=== PATIENT | female | born 1940 | race Asian ===

== ENCOUNTER 2019-07-01 06:13 | Inpatient (IN) | payer MEDICARE, OTHER ==
[~2019-07-01] VITALS: Ht 160 cm; Wt 69.9 kg
[~2019-07-01 06:13] MED LIST: MECLIZINE HCL25 MG ORAL; NKM
[2019-07-01 06:15] VITALS: BP 110/70
--- NOTE | 2019-07-01 06:15 | NUR ---
ED Nurse Note: Patient MARINA [id number] from home c/o left abdominal pain x2 weeks and got worse last night. Per pt, she was seen at the hospital 5 days ago for same symptoms and that fluids was taken from her abdomen. Pt had abdominal surgery x2.5 years ago for unspecified reason. Per EMS, patient presents afib on EKG. Denies nausea, vomiting and diarrhea. Afebrile. 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 Will cont to monitor.
--- NOTE | 2019-07-01 06:20 | NUR ---
ED Nurse Note: ERMD at bedside.
--- NOTE | 2019-07-01 06:29 | Emergency Room Report ---
History of Present Illness General Chief Complaint: Abdominal Pain Source: Patient Present Illness HPI 78-year-old female, Sinhala speaking, scented with left-sided abdominal pain. History taken from patient and . 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 Patient states she has had left-sided abdominal pain for the past few days. Denies fevers, nausea, vomiting. Pain in the abdomen is left-sided, 10 out of 10, nonradiating. According to the patient recently admitted to [facility] and had paracentesis. No fevers. No coughing. No urinary complaints. Patient has a history of abdominal surgeries but cannot say what the surgery was. Allergies: Coded Allergies: No Known Allergies (Unverified , 03/06/16) Patient History Past Medical History: see triage record Reviewed Nursing Documentation: PMH: Agreed; PSxH: Agreed Nursing Documentation-PMH Past Medical History Deferred: No Family Available Review of Systems All Other Systems: negative except mentioned in HPI Physical Exam Vital Signs Date Time Temp Pulse Resp B/P (MAP) Pulse Ox O2 Delivery O2 Flow Rate FiO2 07/01/19 06:04 97.9 60 16 110/70 (83) 98 Room Air Sp02 EP Interpretation: reviewed, normal General Appearance: well appearing, no apparent distress Head: normocephalic, atraumatic Eyes: bilateral eye PERRL, bilateral eye EOMI ENT: hearing grossly normal, moist mucus membranes Neck: full range of motion, supple Respiratory: lungs clear, normal breath sounds, no rhonchi, no respiratory distress, no retraction, no wheezing Cardiovascular #1: normal peripheral pulses, regular rate, rhythm, no murmur Gastrointestinal: soft, non-distended, other - Left-sided abdominal tenderness with guarding, large healed midline abdominal scar Musculoskeletal: other - Bilateral lower extremity edema noted 2+ up to the knee Neurologic: alert, oriented x3, no focal defects Skin: normal color, warm/dry Procedures Critical Care Time Critical Care Time Critical care is been on the patient due to presentation with perforated viscus and intra-abdominal free air requiring my acute intervention. Critical care time is approximately 36 minutes and excludes procedures. Medical Decision Making Diagnostic Impression: Primary Impression: Perforated abdominal viscus Additional Impression: Free intraperitoneal air ER Course Differential diagnosis included but not limited to peritonitis, perforated viscus, diverticulitis, colitis, ascites to name a few. Vital signs were stable. Abdominal exam did demonstrate peritoneal signs. CT scan of the abdomen and pelvis was ordered and demonstrated intraperitoneal free air concerning for perforated viscus. Patient given broad-spectrum antibiotics. CT scan also demonstrated evidence of prior gastrectomy with Nolan-en-Y procedure. Case discussed with Dr. Hawkins, general surgery who agreed to consult. Patient admitted to Dr. Keenan. Patient and family updated at bedside Laboratory Tests Test 07/01/19 07:10 07/01/19 08:30 White Blood Count 3.6 K/UL (4.8-10.8) L Red Blood Count 3.27 M/UL (4.20-5.40) L Hemoglobin 10.2 G/DL (12.0-16.0) L Hematocrit 29.4 % (37.0-47.0) L Mean Corpuscular Volume 90 FL (80-99) Mean Corpuscular Hemoglobin 31.1 PG (27.0-31.0) H Mean Corpuscular Hemoglobin Concent 34.6 G/DL (32.0-36.0) Red Cell Distribution Width 15.0 % (11.6-14.8) H Platelet Count 164 K/UL (150-450) Mean Platelet Volume 7.9 FL (6.5-10.1) Neutrophils (%) (Auto) 84.9 % (45.0-75.0) H Lymphocytes (%) (Auto) 9.3 % (20.0-45.0) L Monocytes (%) (Auto) 4.9 % (1.0-10.0) Eosinophils (%) (Auto) 0.2 % (0.0-3.0) Basophils (%) (Auto) 0.7 % (0.0-2.0) Prothrombin Time 12.0 SEC (9.30-11.50) H Prothrombin Time INR 1.1 (0.9-1.1) Activated Partial Thromboplast Time 25 SEC (23-33) Sodium Level 145 MMOL/L (136-145) Potassium Level 3.5 MMOL/L (3.5-5.1) Chloride Level 108 MMOL/L (98-107) H Carbon Dioxide Level 26 MMOL/L (21-32) Anion Gap 11 mmol/L (5-15) Blood Urea Nitrogen 26 mg/dL (7-18) H Creatinine 1.1 MG/DL (0.55-1.30) Estimate Glomerular Filtration Rate 48.0 mL/min (>60) Glucose Level 95 MG/DL (74-106) Calcium Level 8.2 MG/DL (8.5-10.1) L Total Bilirubin 0.7 MG/DL (0.2-1.0) Aspartate Amino Transferase (AST) 36 U/L (15-37) Alanine Aminotransferase (ALT) 33 U/L (12-78) Alkaline Phosphatase 102 U/L (46-116) Total Protein 4.6 G/DL (6.4-8.2) L Albumin 2.0 G/DL (3.4-5.0) L Globulin 2.6 g/dL Albumin/Globulin Ratio 0.8 (1.0-2.7) L Lipase 31 U/L (73-393) L Lactic Acid Level 1.90 mmol/L (0.4-2.0) Rhythm Strip Diag. Results EP Interpretation: yes Rate: 90 Rhythm: NSR, no PVC's, no ectopy CT/MRI/US Diagnostic Results CT/MRI/US Diagnostic Results : Imaging Test Ordered: CT scan of the abdomen and pelvis without contrast Impression Impression: Limited assessment of the GI tract, due to lack of enteric contrast administration. Small amount of free intraperitoneal air demonstrated, with gas seen in the anterior midline peritoneal space as well as within the left upper quadrant mesentery. This is consistent with perforated hollow viscus. Source of perforation indeterminate, although quite possibly in the left upper quadrant and possibly related to the stomach. Postsurgical changes, as described, with evidence of prior distal gastrectomy, gastrojejunostomy, and likely Nolan-en-Y anastomosis Mild prominence and equivocal slight wall thickening of the proximal jejunum, if real could represent reactive changes secondary to the above process or could represent primarily enteritis Moderate ascites Anasarca Markedly fatty liver Evidence of prior cholecystectomy Incidental findings as noted, including degenerative spondylosis changes, as do dependent pulmonary atelectatic changes, bilateral sacroiliac joint degenerative changes, right upper pole renal cyst, nonobstructive bilateral renal calculi Last Vital Signs Date Time Temp Pulse Resp B/P (MAP) Pulse Ox O2 Delivery O2 Flow Rate FiO2 07/01/19 06:04 97.9 60 16 110/70 (83) 98 Room Air Status: improved Disposition: ADMITTED INPATIENT Condition: Critical Physician Consult: Wally Andino M.D. Jul 01, 2019 06:29
[2019-07-01] MEDS ORDERED: Morphine Sulfate 2mg/ml Inj(IV/IM USE ONLY) IVP ONE ×2 (06:30→08:45)
--- NOTE | 2019-07-01 07:05 | NUR ---
HAND-OFF: Report given to Ronnell CEVALLOS. Endorsed plan of care.
--- NOTE | 2019-07-01 07:10 | NUR ---
ED Nurse Note: Handoff report received from Tuyet CEVALLOS. Patient resting in bed, on the quality assurance monitor. IV line unable to be obtained, Dr. Vogel notified. Per MD, he stated no IV is necessary at the moment. d/t blood glucose reading in the 80's en route to hospital, and current reading of 71 in hospital, will recheck BG to see if trending down. IV morphine order changed to IM per Dr. Vogel.
[2019-07-01] MEDS ORDERED: Morphine Sulfate 2mg/ml Inj(IV/IM USE ONLY) IM ONE (07:15)
--- NOTE | 2019-07-01 07:25 | NUR ---
ED Nurse Note: Patient taken to CT.
--- NOTE | 2019-07-01 07:30 | NUR ---
HAND-OFF: Report given to Kristi CEVALLOS. Addendum: 07/01/19 at 2000 by Michelle Herrera RN NURSE NOTES: Edit. wrong time. Hand off to Kristi CEVALLOS done at 1930
[2019-07-01 07:33] LABS: INR 1.1 (0.9-1.1)
[2019-07-01 07:38] LABS: ANION GAP 11 mmol/L (5-15); BLOOD UREA NITROGEN 26 mg/dL (7-18); CALCIUM 8.2 MG/DL (8.5-10.1); CARBON DIOXIDE 26 MMOL/L (21-32); CHLORIDE 108 MMOL/L (98-107); CREATININE 1.1 MG/DL (0.55-1.30); POTASSIUM 3.5 MMOL/L (3.5-5.1); SODIUM 145 MMOL/L (136-145)
--- NOTE | 2019-07-01 07:40 | NUR ---
ED Nurse Note: Patient returned from CT.
[2019-07-01 07:43] LABS: ALANINE AMINOTRANSFERASE 33 U/L (12-78); ALBUMIN/GLOBULIN RATIO 0.8 (1.0-2.7); ALKALINE PHOSPHATASE 102 U/L (46-116); ASPARTATE AMINO TRANSFERASE 36 U/L (15-37); BILIRUBIN,TOTAL 0.7 MG/DL (0.2-1.0)
[2019-07-01 07:45] VITALS: BP 105/75
[2019-07-01 07:52] LABS: BASOPHILS % (AUTO) 0.7 % (0.0-2.0); EOSINOPHILS % (AUTO) 0.2 % (0.0-3.0); HEMATOCRIT 29.4 % (37.0-47.0); HEMOGLOBIN 10.2 G/DL (12.0-16.0); LYMPHOCYTES % (AUTO) 9.3 % (20.0-45.0); MEAN CORPUSCULAR VOLUME 90 FL (80-99); MONOCYTES % (AUTO) 4.9 % (1.0-10.0); NEUTROPHILS % (AUTO) 84.9 % (45.0-75.0); PLATELET COUNT 164 K/UL (150-450); RED BLOOD COUNT 3.27 M/UL (4.20-5.40); WHITE BLOOD COUNT 3.6 K/UL (4.8-10.8)
--- NOTE | 2019-07-01 08:40 | NUR ---
ED Nurse Note: 20 g IV started in right AC. Lactic and blood cultures drawn and sent to lab.
--- NOTE | 2019-07-01 08:43 | Diagnostic Imaging Report ---
Indication: Left-sided abdominal pain for the past few days Technique: Spiral acquisitions obtained through the abdomen and pelvis. No oral contrast utilized, per emergency room physician request No IV contrast utilized, per emergency room physician request.. Multiplanar reconstructions were generated. Total dose length product 159 mGycm. CTDIvol(s) 2.8 mGy. Dose reduction achieved using automated exposure control Comparison: None Findings: Lack of enteric contrast limits assessment of the GI tract. There is ascites fluid. There is a small amount of free intraperitoneal gas within the anterior peritoneal space. A few bubbles of gas are also seen within the left upper quadrant mesenteric fat. These are seen along the greater curvature of the stomach and a few posterior to the stomach. There is also a single small gas bubble in the sugey hepatis. There is evidence of prior distal gastrectomy and gastrojejunostomy. There is also a jejunojejunostomy suture line in the upper abdominal midline. Surgical clips are also seen in the peripancreatic region The appendix is normal. Small bowel loops are mildly prominent and demonstrate mild wall thickening proximally. The distal esophagus is unremarkable. Lack of IV contrast limits assessment of the solid organs. The liver is diffusely markedly hypoattenuating. It is essentially isoattenuating with the surrounding ascites fluid. The gallbladder has been removed. No biliary ductal dilatation. The pancreas, spleen, adrenal glands are grossly unremarkable. The right kidney demonstrates a large upper pole cyst. It demonstrates a calcification which measures approximately 3 mm in diameter and is possibly calyceal. The left kidney demonstrates an upper pole calyceal calcification. No hydronephrosis. No pelvic mass or adenopathy. Uterus and adnexal structures appear unremarkable. There is diffuse edema of the subcutaneous, abdominal, retroperitoneal fat. The included lung bases demonstrate some posterior dependent atelectatic changes, are otherwise clear. The bones demonstrate degenerative spondylosis changes.. There are also degenerative changes with vacuum formation of the bilateral sacroiliac joints. Impression: Limited assessment of the GI tract, due to lack of enteric contrast administration. Small amount of free intraperitoneal air demonstrated, with gas seen in the anterior midline peritoneal space as well as within the left upper quadrant mesentery. This is consistent with perforated hollow viscus. Source of perforation indeterminate, although quite possibly in the left upper quadrant and possibly related to the stomach. Postsurgical changes, as described, with evidence of prior distal gastrectomy, gastrojejunostomy, and likely Nolan-en-Y anastomosis Mild prominence and equivocal slight wall thickening of the proximal jejunum, if real could represent reactive changes secondary to the above process or could represent primarily enteritis Moderate ascites Anasarca Markedly fatty liver Evidence of prior cholecystectomy Incidental findings as noted, including degenerative spondylosis changes, as do dependent pulmonary atelectatic changes, bilateral sacroiliac joint degenerative changes, right upper pole renal cyst, nonobstructive bilateral renal calculi Critical value findings discussed by phone with Dr. Vogel in the emergency room at the time of interpretation The CT scanner at [facility] is accredited by the [employer] and the scans are performed using protocols designed to limit radiation exposure to as low as reasonably achievable to attain images of sufficient resolution adequate for diagnostic evaluation.
--- NOTE | 2019-07-01 08:44 | Diagnostic Imaging Report ---
Indication: Chest pain Technique: One view of the chest Comparison: 03/06/2016 Findings: Small gas bubble projects just below the right hemidiaphragm. Lungs spaces are clear. The heart size is normal. The aorta is tortuous and calcified. Findings are unchanged other than the subdiaphragmatic gas bubble Impression: No acute pulmonary process Small gas bubble just below the right hemidiaphragm, could represent free intraperitoneal gas demonstrated on subsequent CT scan
[2019-07-01] MEDS ORDERED: Piperacillin/Tazobactam 4.5 GM in NS 110 ML IVPB ONE (09:00)
--- NOTE | 2019-07-01 09:16 | NUR ---
ED Nurse Note: Patient resting in bed, tolerating medications well. Zosyn infusing. Patient states her abdominal pain decreased to 0/10 after receiving Morphine. Patient still unable to provide urine, wants to try later. Dr. Wagner aware.
[2019-07-01 09:40] VITALS: BP 108/78
--- NOTE | 2019-07-01 10:15 | NUR ---
ED Nurse Note: Swabs collected and belonging list completed.
--- NOTE | 2019-07-01 10:20 | NUR ---
ED Nurse Note: Per ahmet Sánchez to send patient up to room without urine. Molly Medina RN on MS unit aware.
--- NOTE | 2019-07-01 10:30 | NUR ---
ED Nurse Note: Report given to Molly CEVALLOS
--- NOTE | 2019-07-01 11:00 | NUR ---
NURSE NOTES: Patient arrived to unit from ED, no acute distress noted, reporting abdominal pain, mild distention noted. IV intact, patent. Belongings checked by charge nurse. Patient provided with call light, oriented to room.
--- NOTE | 2019-07-01 12:33 | NUR ---
CHARGE NURSE NOTES: Received phone call from admitting stating that the pt belongs to Dr Rhoades per insurance. left message to Dr Keenan's voicemail
--- NOTE | 2019-07-01 12:51 | General Progress Note ---
Assessment/Plan Assessment/Plan: Anemia Ascites hemialbumin partial gastrectomy fatty liver ? perforated viscus npo agree with repeat paracentesis abx ordered labs for tomorrow fu surg recs Subjective ROS Limited/Unobtainable: Yes Allergies: Coded Allergies: No Known Allergies (Unverified , 03/06/16) Objective Last 24 Hour Vital Signs Date Time Temp Pulse Resp B/P (MAP) Pulse Ox O2 Delivery O2 Flow Rate FiO2 07/01/19 09:40 98.0 87 18 108/78 100 Room Air 07/01/19 09:19 98.0 07/01/19 07:50 98.0 07/01/19 07:45 98.1 65 17 105/75 100 Room Air 07/01/19 06:15 97.9 60 16 110/70 98 Room Air 07/01/19 06:15 60 16 Room Air 07/01/19 06:04 97.9 60 16 110/70 (83) 98 Room Air Laboratory Tests 07/01/19 07:10: White Blood Count 3.6L, Red Blood Count 3.27L, Hemoglobin 10.2L, Hematocrit 29.4L, Mean Corpuscular Volume 90, Mean Corpuscular Hemoglobin 31.1H, Mean Corpuscular Hemoglobin Concent 34.6, Red Cell Distribution Width 15.0H, Platelet Count 164, Mean Platelet Volume 7.9, Neutrophils (%) (Auto) 84.9H, Lymphocytes (%) (Auto) 9.3L, Monocytes (%) (Auto) 4.9, Eosinophils (%) (Auto) 0.2, Basophils (%) (Auto) 0.7, Prothrombin Time 12.0H, Prothromb Time International Ratio 1.1, Activated Partial Thromboplast Time 25, Sodium Level 145, Potassium Level 3.5, Chloride Level 108H, Carbon Dioxide Level 26, Anion Gap 11, Blood Urea Nitrogen 26H, Creatinine 1.1, Estimat Glomerular Filtration Rate 48.0, Glucose Level 95, Calcium Level 8.2L, Total Bilirubin 0.7, Aspartate Amino Transf (AST/SGOT) 36, Alanine Aminotransferase (ALT/SGPT) 33, Alkaline Phosphatase 102, Total Protein 4.6L, Albumin 2.0L, Globulin 2.6, Albumin/ Globulin Ratio 0.8L, Lipase 31L 07/01/19 08:30: Lactic Acid Level 1.90 Height (Feet): 5 Height (Inches): 4.00 Weight (Pounds): 120 General Appearance: alert EENT: normal ENT inspection Neck: normal alignment Cardiovascular: normal rate Respiratory/Chest: decreased breath sounds Abdomen: hypoactive bowel sounds, tender Extremities: non-tender Rodney Neri MD Jul 01, 2019 12:51
[2019-07-01] MEDS ORDERED: Morphine Sulfate 2mg/ml Inj(IV/IM USE ONLY) IVP PRN (13:00)
[2019-07-01] MEDS ORDERED: FUROSEMIDE20 M1 ORAL (13:47)
[2019-07-01] MEDS ORDERED: COLACE100 MG ORAL (13:47)
--- NOTE | 2019-07-01 14:09 | Consultation ---
History of Present Illness General Date patient seen: Jul 01, 2019 Reason for Hospitalization: Abdominal Pain Present Illness Allergies: Coded Allergies: No Known Allergies (Unverified , 03/06/16) Medication History Scheduled Docusate Sodium* (Colace*), Unknown Dose ORAL DAILY, (Reported) Furosemide* (Lasix*), Unknown Dose ORAL DAILY, (Reported) Patient History Limited by: language barrier History Provided By: Patient, Family Member, Medical Record, PMD Healthcare decision maker Jose Yu Resuscitation status Full Code Advanced Directive on File Past Medical/Surgical History Past Medical/Surgical History: (1) Free intraperitoneal air (2) Perforated abdominal viscus Review of Systems Review of Symptoms General ROS: no weight loss or fever Psychological ROS: no depression or mood changes, no memory loss Ophthalmic ROS: no visual changes or eye irritation ENT ROS: no nasal congestion, hearing loss, dizziness Allergy and Immunology ROS: no allergic symptoms or urticaria Hematological and Lymphatic ROS: no swollen glands, unusual bleeding or bruising Endocrine ROS: no polyuria, polydipsia, weight changes, temperature intolerance Respiratory ROS: no cough, shortness of breath, or wheezing Cardiovascular ROS: no chest pain or dyspnea on exertion Gastrointestinal ROS: +++abdominal pain, bright red blood in stool. Musculoskeletal ROS: no myalgias or arthralgias Neurological ROS: no TIA or stroke symptoms Dermatological ROS: no new or changing skin lesions, rashes or pruritis Physical Exam Physical Exam General appearance: alert, cooperative, no distress, appears stated age Head: Normocephalic, without obvious abnormality, atraumatic Eyes: conjunctivae/corneas clear. PERRL, EOM's intact. Fundi benign Throat: Lips, mucosa, and tongue normal. Teeth and gums normal Neck: supple, symmetrical, trachea midline, no adenopathy, thyroid: not enlarged, symmetric, no tenderness/mass/nodules, no carotid bruit and no JVD Lungs: clear to auscultation bilaterally Heart: regular rate and rhythm, S1, S2 normal, no murmur, click, rub or gallop Abdomen: soft, tender. Bowel sounds normal. No masses, no organomegaly Extremities: extremities normal, atraumatic, no cyanosis or edema Pulses: 2+ and symmetric Skin: Skin color, texture, turgor normal. No rashes or lesions Neurologic: Grossly normal Last 24 Hour Vital Signs Date Time Temp Pulse Resp B/P (MAP) Pulse Ox O2 Delivery O2 Flow Rate FiO2 07/01/19 10:40 98.0 65 18 108/78 100 Room Air 87 07/01/19 09:40 98.0 87 18 108/78 100 Room Air 07/01/19 09:19 98.0 07/01/19 07:50 98.0 07/01/19 07:45 98.1 65 17 105/75 100 Room Air 07/01/19 06:15 97.9 60 16 110/70 98 Room Air 07/01/19 06:15 60 16 Room Air 07/01/19 06:04 97.9 60 16 110/70 (83) 98 Room Air Laboratory Tests Test 07/01/19 07:10 07/01/19 08:30 White Blood Count 3.6 K/UL (4.8-10.8) L Red Blood Count 3.27 M/UL (4.20-5.40) L Hemoglobin 10.2 G/DL (12.0-16.0) L Hematocrit 29.4 % (37.0-47.0) L Mean Corpuscular Volume 90 FL (80-99) Mean Corpuscular Hemoglobin 31.1 PG (27.0-31.0) H Mean Corpuscular Hemoglobin Concent 34.6 G/DL (32.0-36.0) Red Cell Distribution Width 15.0 % (11.6-14.8) H Platelet Count 164 K/UL (150-450) Mean Platelet Volume 7.9 FL (6.5-10.1) Neutrophils (%) (Auto) 84.9 % (45.0-75.0) H Lymphocytes (%) (Auto) 9.3 % (20.0-45.0) L Monocytes (%) (Auto) 4.9 % (1.0-10.0) Eosinophils (%) (Auto) 0.2 % (0.0-3.0) Basophils (%) (Auto) 0.7 % (0.0-2.0) Prothrombin Time 12.0 SEC (9.30-11.50) H Prothromb Time International Ratio 1.1 (0.9-1.1) Activated Partial Thromboplast Time 25 SEC (23-33) Sodium Level 145 MMOL/L (136-145) Potassium Level 3.5 MMOL/L (3.5-5.1) Chloride Level 108 MMOL/L (98-107) H Carbon Dioxide Level 26 MMOL/L (21-32) Anion Gap 11 mmol/L (5-15) Blood Urea Nitrogen 26 mg/dL (7-18) H Creatinine 1.1 MG/DL (0.55-1.30) Estimat Glomerular Filtration Rate 48.0 mL/min (>60) Glucose Level 95 MG/DL (74-106) Calcium Level 8.2 MG/DL (8.5-10.1) L Total Bilirubin 0.7 MG/DL (0.2-1.0) Aspartate Amino Transf (AST/SGOT) 36 U/L (15-37) Alanine Aminotransferase (ALT/SGPT) 33 U/L (12-78) Alkaline Phosphatase 102 U/L (46-116) Total Protein 4.6 G/DL (6.4-8.2) L Albumin 2.0 G/DL (3.4-5.0) L Globulin 2.6 g/dL Albumin/Globulin Ratio 0.8 (1.0-2.7) L Lipase 31 U/L (73-393) L Lactic Acid Level 1.90 mmol/L (0.4-2.0) Height (Feet): 5 Height (Inches): 3.00 Weight (Pounds): 118 Medications Current Medications Medications (Trade) Dose Ordered Sig/Margie Route PRN Reason Start Time Stop Time Status Last Admin Dose Admin Dextrose/Sodium Chloride 1,000 ml @ 100 mls/hr Q10H IV 07/01/19 13:30 07/31/19 13:29 Morphine Sulfate (Morphine Sulfate) 2 mg Q6H PRN IVP PAIN 4-10 07/01/19 13:00 07/08/19 12:59 Pantoprazole (Protonix) 40 mg DAILY IVP 07/01/19 13:30 07/31/19 13:29 Piperacillin Sod/ Tazobactam Sod 4.5 gm/Sodium Chloride 110 ml @ 27.5 mls/hr EVERY 8 HOURS IVPB 07/01/19 14:30 07/06/19 14:29 Assessment/Plan Problem List: (1) Abdominal pain Assessment & Plan: This is a 78-year-old female who presented to [facility] complaining of worsening abdominal pain. A manager activities was used to obtain history from the patient as well as the given Yi speaking. is able to speak somewhat Maldivian but his Maldivian is not good enough for complete translation therefore translation services were used. I had a long discussion with them in regards to admission current symptoms and care. As from what I could determine she had a partial gastrectomy about 2-1/2 years ago for unknown reason potentially ulcer perforation. She has a large midline incision from xiphoid down almost to the pubis. She has since developed ascites though no known liver dysfunction and recently as of yesterday from patient stating had a paracentesis done at an outside facility. States continues to have pain and she feels she is full of fluid and distended and it causes her discomfort therefore she came here for evaluation. No nausea vomiting fever chills. Does not eat well. Malnourished. Surgery called to evaluate and assist with care. CT scan demonstrated some bubbles of free air and ascites fluid. In evaluating the patient on examination she is fairly tender in all quadrants. She states she just feels like she is full of fluid. I reviewed the CT personally and discussed with the radiologist Given the minimal amount of free air and significant free fluid there is a high probability that since patient states her paracentesis and yesterday the residual free air is from that was longer as potentially believed to be a few days ago but then there is strong possibility and concern for bowel perforation but paracentesis less than 24 hours ago and a few air bubbles could potentially be unremarkable. Patient is afebrile otherwise hemodynamic stable and without signs of acute active infectious process and the potential bowel perforation is there but lower on the differential. She could have a bowel perforation now has peritonitis in the ascites fluid but directly in her age and condition going the operating room is still advised. I discussed with the radiologist and plan for repeat paracentesis. Potentially symptomatic improvement once fluid is evacuated and can also send fluid for culture and microbiology and cytology to evaluate for the possibility of infectious process or perforation ongoing. Discussed with primary care physician patient and family. Will follow with recommendations thank you for let me participate patient's care ICD Codes: R10.9 - Unspecified abdominal pain SNOMED: 44804520 (2) Free intraperitoneal air Assessment & Plan: Lack of enteric contrast limits assessment of the GI tract. There is ascites fluid. There is a small amount of free intraperitoneal gas within the anterior peritoneal space. A few bubbles of gas are also seen within the left upper quadrant mesenteric fat. These are seen along the greater curvature of the stomach and a few posterior to the stomach. There is also a single small gas bubble in the sugey hepatis. There is evidence of prior distal gastrectomy and gastrojejunostomy. There is also a jejunojejunostomy suture line in the upper abdominal midline. Surgical clips are also seen in the peripancreatic region The appendix is normal. Small bowel loops are mildly prominent and demonstrate mild wall thickening proximally. The distal esophagus is unremarkable. Lack of IV contrast limits assessment of the solid organs. The liver is diffusely markedly hypoattenuating. It is essentially isoattenuating with the surrounding ascites fluid. The gallbladder has been removed. No biliary ductal dilatation. The pancreas, spleen, adrenal glands are grossly unremarkable. The right kidney demonstrates a large upper pole cyst. It demonstrates a calcification which measures approximately 3 mm in diameter and is possibly calyceal. The left kidney demonstrates an upper pole calyceal calcification. No hydronephrosis. No pelvic mass or adenopathy. Uterus and adnexal structures appear unremarkable. There is diffuse edema of the subcutaneous, abdominal, retroperitoneal fat. The included lung bases demonstrate some posterior dependent atelectatic changes, are otherwise clear. The bones demonstrate degenerative spondylosis changes.. There are also degenerative changes with vacuum formation of the bilateral sacroiliac joints. Impression: Limited assessment of the GI tract, due to lack of enteric contrast administration. Small amount of free intraperitoneal air demonstrated, with gas seen in the anterior midline peritoneal space as well as within the left upper quadrant mesentery. This is consistent with perforated hollow viscus. Source of perforation indeterminate, although quite possibly in the left upper quadrant and possibly related to the stomach. Postsurgical changes, as described, with evidence of prior distal gastrectomy, gastrojejunostomy, and likely Nolan-en-Y anastomosis Mild prominence and equivocal slight wall thickening of the proximal jejunum, if real could represent reactive changes secondary to the above process or could represent primarily enteritis Moderate ascites Anasarca Markedly fatty liver Evidence of prior cholecystectomy Incidental findings as noted, including degenerative spondylosis changes, as do dependent pulmonary atelectatic changes, bilateral sacroiliac joint degenerative changes, right upper pole renal cyst, nonobstructive bilateral renal calculi ICD Codes: K66.8 - Other specified disorders of peritoneum SNOMED: 31501082 (3) Perforated abdominal viscus ICD Codes: R19.8 - Other specified symptoms and signs involving the digestive system and abdomen SNOMED: 36245004 Kamron Hawkins Jul 01, 2019 14:08
[2019-07-01] MEDS: D5NS 1,000 ML IV SCH (14:53)
[2019-07-01] MEDS: Pantoprazole Inj IVP SCH (14:54)
[2019-07-01] MEDS: Piperacillin/Tazobactam 4.5 GM in NS 110 ML IVPB SCH ×2 (14:54→22:25)
--- NOTE | 2019-07-01 15:37 | Pre-Procedure Note/Attestation ---
Pre-Procedure Note/Attestation Complete Prior to Procedure Planned Procedure: not applicable Procedure Narrative: paracentesis Indications for Procedure Pre-Operative Diagnosis: ascites Attestation I attest that I discussed the nature of the procedure; its benefits; risks and complications; and alternatives (and the risks and benefits of such alternatives ), prior to the procedure, with the patient (or the patient's legal medical sales representative). I attest that, if there was a reasonable possibility of needing a blood transfusion, the patient (or the patient's legal medical sales representative) was given the [facility] standardized written summary, pursuant to the David Analilia Blood Safety Act ([place] Health and Safety Code # 1645, as amended). I attest that I re-evaluated the patient just prior to the surgery and that there has been no change in the patient's H&P, except as documented below: discussed with pt's with aid of ship loader Sukh Buckner MD Jul 01, 2019 15:37
--- NOTE | 2019-07-01 15:48 | Brief Operative Note ---
Immediate Post Operative Note Operative Note Pre-op Diagnosis: ascites Procedure: paracentesis Post-op Diagnosis: same as pre-op Surgeon: Marita Ramirez Anesthesia: local Specimen: yes - 50 ml sample sent to lab Complications: none Fluids: none Implant(s) used?: No Sukh Ramirez MD Jul 01, 2019 15:48
[2019-07-01 16:00] VITALS: BP 90/60
--- NOTE | 2019-07-01 16:00 | NUR ---
NURSE NOTES: Patient returned from parascentesis, patient states she is more comfortable now, abdomen less distended, VS stable.
--- NOTE | 2019-07-01 16:34 | Cardiac Electrophysiology PN ---
Subjective Subjective [id number] Objective Last 24 Hour Vital Signs Date Time Temp Pulse Resp B/P (MAP) Pulse Ox O2 Delivery O2 Flow Rate FiO2 07/01/19 10:40 98.0 65 18 108/78 100 Room Air 87 07/01/19 09:40 98.0 87 18 108/78 100 Room Air 07/01/19 09:19 98.0 07/01/19 07:50 98.0 07/01/19 07:45 98.1 65 17 105/75 100 Room Air 07/01/19 06:15 97.9 60 16 110/70 98 Room Air 07/01/19 06:15 60 16 Room Air 07/01/19 06:04 97.9 60 16 110/70 (83) 98 Room Air Laboratory Tests Test 07/01/19 07:10 07/01/19 08:30 White Blood Count 3.6 K/UL (4.8-10.8) L Red Blood Count 3.27 M/UL (4.20-5.40) L Hemoglobin 10.2 G/DL (12.0-16.0) L Hematocrit 29.4 % (37.0-47.0) L Mean Corpuscular Volume 90 FL (80-99) Mean Corpuscular Hemoglobin 31.1 PG (27.0-31.0) H Mean Corpuscular Hemoglobin Concent 34.6 G/DL (32.0-36.0) Red Cell Distribution Width 15.0 % (11.6-14.8) H Platelet Count 164 K/UL (150-450) Mean Platelet Volume 7.9 FL (6.5-10.1) Neutrophils (%) (Auto) 84.9 % (45.0-75.0) H Lymphocytes (%) (Auto) 9.3 % (20.0-45.0) L Monocytes (%) (Auto) 4.9 % (1.0-10.0) Eosinophils (%) (Auto) 0.2 % (0.0-3.0) Basophils (%) (Auto) 0.7 % (0.0-2.0) Prothrombin Time 12.0 SEC (9.30-11.50) H Prothromb Time International Ratio 1.1 (0.9-1.1) Activated Partial Thromboplast Time 25 SEC (23-33) Sodium Level 145 MMOL/L (136-145) Potassium Level 3.5 MMOL/L (3.5-5.1) Chloride Level 108 MMOL/L (98-107) H Carbon Dioxide Level 26 MMOL/L (21-32) Anion Gap 11 mmol/L (5-15) Blood Urea Nitrogen 26 mg/dL (7-18) H Creatinine 1.1 MG/DL (0.55-1.30) Estimat Glomerular Filtration Rate 48.0 mL/min (>60) Glucose Level 95 MG/DL (74-106) Calcium Level 8.2 MG/DL (8.5-10.1) L Total Bilirubin 0.7 MG/DL (0.2-1.0) Aspartate Amino Transf (AST/SGOT) 36 U/L (15-37) Alanine Aminotransferase (ALT/SGPT) 33 U/L (12-78) Alkaline Phosphatase 102 U/L (46-116) Total Protein 4.6 G/DL (6.4-8.2) L Albumin 2.0 G/DL (3.4-5.0) L Globulin 2.6 g/dL Albumin/Globulin Ratio 0.8 (1.0-2.7) L Lipase 31 U/L (73-393) L Lactic Acid Level 1.90 mmol/L (0.4-2.0) Benton Meyer MD Jul 01, 2019 16:34
--- NOTE | 2019-07-01 16:52 | Diagnostic Imaging Report ---
Indications: Ascites Technique: Ultrasound used to localize optimal puncture site. Sterile prepping and draping right lower quadrant. Local anesthesia with 1% lidocaine. Under real-time ultrasound guidance, puncture peritoneal space using paracentesis needle. Stylet removed. Catheter placed to vacuum bottle suction. Total 3 liters of cloudy yellow fluid aspirated. Patient tolerated procedure well, without immediate complication. Findings: Followup sonography demonstrates complete resolution of peritoneal fluid. Impression: Successful ultrasound-guided paracentesis, yielding 3 liters of fluid
--- NOTE | 2019-07-01 19:31 | NUR ---
NURSE NOTES: Received report & pt from MART Martinez. Pt lying in bed, Japanese speaking only, in room air, family member at bedside. No s/s of acute distress & no c/o pain. Strict NPO & pt made aware. Sacral drsg C/D/I. Noted b/l leg 2+ pitting edema, to start lasix tomorrow. IV site intact with IVF running as ordered. Cdiff & UA specimen needed & pt & made aware. Plan of care discussed.
[2019-07-01 20:00] VITALS: BP 100/62
--- NOTE | 2019-07-01 22:00 | Consultation ---
DATE OF CONSULTATION: 07/01/2019 CARDIOLOGY CONSULTATION CONSULTING PHYSICIAN: Benton Meyer M.D. REFERRING PHYSICIAN: Eli Keenan M.D. REASON FOR CONSULTATION: Severe bilateral lower extremity edema. HISTORY OF PRESENT ILLNESS: The patient is a 78-year-old [place] lady who was recently admitted to [facility] and had paracentesis. The patient has history of abdominal surgeries as well. The patient presented with left-sided abdominal pain for past few days that was 10/10. In the ER, the patient's blood pressure was 110/70 and pulse was 60. Subsequently, the patient was evaluated by Dr. Neri and Dr. Hawkins from surgery as the CT scanner showed evidence of prior gastrectomy with Nolan-en-Y procedure. The patient was found to have free intraperitoneal air and was admitted for perforated abdominal viscus. The patient subsequently underwent a paracentesis at the time of my evaluation and is back in the room. REVIEW OF SYSTEMS: Negative other than what was mentioned in the history of present illness. PAST MEDICAL HISTORY: As mentioned above. FAMILY HISTORY: Noncontributory. SOCIAL HISTORY: Lives with . Does not smoke or drink alcohol. PHYSICAL EXAMINATION: VITAL SIGNS: Show blood pressure of 108/78, pulse 65, respirations 18, temperature 98. HEAD AND NECK: Shows no JVD. LUNGS: Clear. CARDIOVASCULAR: Regular S1 and S2 with no gallop. ABDOMEN: Very tender. Has scar of prior surgery. EXTREMITIES: Have 3+ pitting edema. LABORATORY DATA: Her labs show white count 3.7, hematocrit 10.7, hematocrit 29, and platelet count of 164,000. Sodium 140, potassium 3.5, BUN of 26, creatinine 1.1, and glucose of 94. Her albumin is 2.0. ASSESSMENT AND PLAN: 1. Severe bilateral lower extremity edema. Her INR is 1.1, albumin is 2.0. Etiology is not clear at this time. We will get a lower extremity duplex and we will get echocardiogram to evaluate for ejection fraction and wall motion abnormality. 2. Ascites, status post paracentesis, also sent for cytology. 3. History of prior gastrectomy with Nolan-en-Y anastomosis. 4. Small amount of intraperitoneal air consistent with perforated viscus. Further evaluation by Dr. Hawkins. Thank you very much for allowing me to participate in the care of this patient. Please do not hesitate to contact me for any questions regarding my evaluation. Benton Meyer M.D. DR: JUDIE JOB#: [id number] CC:
[2019-07-02] VITALS (11 sets, daily range): BP systolic 80–126; BP diastolic 50–67
[2019-07-02] MEDS: D5NS 1,000 ML IV SCH ×4 (00:27→22:39)
--- NOTE | 2019-07-02 04:23 | NUR ---
NURSE NOTES: Urine specimen collected. Sent down to lab.
[2019-07-02] MEDS: Piperacillin/Tazobactam 4.5 GM in NS 110 ML IVPB SCH (05:49)
[2019-07-02 07:01] LABS: APPEARANCE,URINE VERY CLOUDY; BILIRUBIN, URINE NEGATIVE (NEGATIVE); GLUCOSE, URINE (UA) NEGATIVE (NEGATIVE); KETONES,URINE 1+ (NEGATIVE); LEUKOCYTE ESTERASE ,URINE 1+ (NEGATIVE); NITRITE,URINE NEGATIVE (NEGATIVE); PH,URINE 5 (4.5-8.0); PROTEIN,URINE 2+ (NEGATIVE); UROBILINOGEN,URINE NORMAL MG/DL (0.0-1.0)
[2019-07-02 07:06] LABS: COLOR,URINE YELLOW
[2019-07-02 07:10] LABS: INR 1.4 (0.9-1.1)
[2019-07-02 07:22] LABS: HEMATOCRIT 20.4 % (37.0-47.0); MEAN CORPUSCULAR VOLUME 90 FL (80-99); PLATELET COUNT 101 K/UL (150-450); RED BLOOD COUNT 2.26 M/UL (4.20-5.40); RED CELL DISTRIBUTION WIDTH 14.7 % (11.6-14.8); WHITE BLOOD COUNT 5.5 K/UL (4.8-10.8)
--- NOTE | 2019-07-02 07:28 | NUR ---
HAND-OFF: Report given to MART Sow. Pt in stable condition. Rounds done.
--- NOTE | 2019-07-02 07:40 | NUR ---
NURSE NOTES: Received report from Kristi CEVALLOS. Patient is awake and oriented, no acute distress noted, reporting mild pain in abdomen, patient reports pain is decreased from yesterday. IV intact, patient, running IVF per order. Patient's at bedside. Fall precautions maintained. Side rails upx3, bed low and locked, call light within reach, bed alarm armed.
--- NOTE | 2019-07-02 07:53 | General Progress Note ---
Assessment/Plan Assessment/Plan: Anemia Ascites hypoalbuminemia partial gastrectomy fatty liver ? perforated viscus VS SBP npo s/p 3 lit paracentesis>>> FU results abx ordered labs for tomorrow fu surg recs tumor markers drop in H&H w/o active bleed>>> repeat CBC in am abd us Subjective ROS Limited/Unobtainable: Yes Allergies: Coded Allergies: No Known Allergies (Unverified , 03/06/16) Objective Last 24 Hour Vital Signs Date Time Temp Pulse Resp B/P (MAP) Pulse Ox O2 Delivery O2 Flow Rate FiO2 07/02/19 04:00 97.6 74 20 90/50 (63) 93 07/02/19 00:00 98.0 79 20 94/54 (67) 92 07/01/19 21:00 Room Air 07/01/19 20:00 98.1 81 19 100/62 (75) 95 07/01/19 18:30 Room Air 07/01/19 16:00 98.4 82 18 90/60 (70) 95 07/01/19 10:40 98.0 65 18 108/78 100 Room Air 87 07/01/19 09:40 98.0 87 18 108/78 100 Room Air 07/01/19 09:19 98.0 Intake and Output 07/01/19 07/02/19 19:00 07:00 Intake Total 720 ml 1100 ml Balance 720 ml 1100 ml Intake Oral 0 ml IV Total 720 ml 1100 ml # Voids 2 Laboratory Tests 07/01/19 08:30: Lactic Acid Level 1.90 07/02/19 04:20: Urine Color Yellow, Urine Appearance Very cloudy, Urine pH 5, Urine Specific [place] 1.020, Urine Protein 2+H, Urine Glucose (UA) Negative, Urine Ketones 1+H , Urine Blood Negative, Urine Nitrite Negative, Urine Bilirubin Negative, Urine Urobilinogen Normal, Urine Leukocyte Esterase 1+H, Urine RBC 0, Urine WBC 0-2, Urine Squamous Epithelial Cells Few, Urine Amorphous Sediment ManyH, Urine Bacteria Few 07/02/19 05:05: Lactic Acid Level [Pending], White Blood Count 5.5#, Red Blood Count 2.26L, Hemoglobin 7.0#L, Hematocrit 20.4#L, Mean Corpuscular Volume 90, Mean Corpuscular Hemoglobin 31.0, Mean Corpuscular Hemoglobin Concent 34.3, Red Cell Distribution Width 14.7, Platelet Count 101L, Mean Platelet Volume 6.9, Neutrophils (%) (Auto) , Lymphocytes (%) (Auto) , Monocytes (%) (Auto) , Eosinophils (%) (Auto) , Basophils (%) (Auto) , Neutrophils % (Manual) [Pending] , Lymphocytes % (Manual) [Pending], Platelet Estimate [Pending], Platelet Morphology [Pending], Erythrocyte Sedimentation Rate [Pending], Prothrombin Time 14.4H, Prothromb Time International Ratio 1.4H, Activated Partial Thromboplast Time 42H, Sodium Level [Pending], Potassium Level [Pending], Chloride Level [Pending], Carbon Dioxide Level [Pending], Blood Urea Nitrogen [ Pending], Creatinine [Pending], Estimat Glomerular Filtration Rate [Pending], Glucose Level [Pending], Hemoglobin A1c [Pending], Uric Acid [Pending], Calcium Level [Pending], Phosphorus Level [Pending], Magnesium Level [Pending], Iron Level [Pending], Unsaturated Iron Binding [Pending], Ferritin [Pending], Total Bilirubin [Pending], Gamma Glutamyl Transpeptidase [Pending], Aspartate Amino Transf (AST/SGOT) [Pending], Alanine Aminotransferase (ALT/SGPT) [Pending], Alkaline Phosphatase [Pending], Total Creatine Kinase [Pending], Troponin I [ Pending], C-Reactive Protein, Quantitative [Pending], Pro-B-Type Natriuretic Peptide [Pending], Total Protein [Pending], Albumin [Pending], Globulin [Pending ], Triglycerides Level [Pending], Cholesterol Level [Pending], LDL Cholesterol [ Pending], HDL Cholesterol [Pending], Cholesterol/HDL Ratio [Pending], Amylase Level [Pending], Alpha Fetoprotein [Pending], Carcinoembryonic Antigen [Pending] , Vitamin B12 Level [Pending], Folate [Pending], Thyroid Stimulating Hormone ( TSH) [Pending], Free Thyroxine [Pending], Hepatitis A IgM Antibody [Pending], Hepatitis B Surface Antigen [Pending], Hepatitis B Core IgM Antibody [Pending], Hepatitis C Antibody [Pending] Height (Feet): 5 Height (Inches): 3.00 Weight (Pounds): 118 General Appearance: alert EENT: normal ENT inspection Neck: supple Cardiovascular: normal rate Respiratory/Chest: decreased breath sounds Abdomen: hypoactive bowel sounds, tender Extremities: non-tender Rodney Neri MD Jul 02, 2019 07:53
--- NOTE | 2019-07-02 08:01 | NUR ---
NURSE NOTES: Patient seen by Dr. Neri, notified of Hbg/Hct of 7.0/20.4. MD aware, stated he will evaluate patient, no new orders received.
[2019-07-02 08:14] LABS: ALANINE AMINOTRANSFERASE 26 U/L (12-78); ALBUMIN 1.3 G/DL (3.4-5.0); ALBUMIN/GLOBULIN RATIO 0.6 (1.0-2.7); ALKALINE PHOSPHATASE 99 U/L (46-116); AMYLASE 11 U/L (25-115); ANION GAP 8 mmol/L (5-15); ASPARTATE AMINO TRANSFERASE 48 U/L (15-37); BILIRUBIN,TOTAL 0.5 MG/DL (0.2-1.0); BLOOD UREA NITROGEN 26 mg/dL (7-18); CALCIUM 7.5 MG/DL (8.5-10.1); CARBON DIOXIDE 26 MMOL/L (21-32); CHLORIDE 111 MMOL/L (98-107); CREATININE 0.9 MG/DL (0.55-1.30); POTASSIUM 3.4 MMOL/L (3.5-5.1); SODIUM 145 MMOL/L (136-145)
[2019-07-02 08:19] LABS: % IRON SATURATION 28 % (15-50); IRON 17 ug/dL (50-175); TOTAL IRON BINDING CAPACITY 61 ug/dL (250-450)
[2019-07-02 08:25] LABS: CREATINE KINASE 18 U/L (26-308); GAMMA GLUTAMYL TRANSPEPTIDASE 36 U/L (5-85); PHOSPHORUS 3.1 MG/DL (2.5-4.9)
--- NOTE | 2019-07-02 08:32 | NUR ---
NURSE NOTES: Noted blood pressure 88/53, o2 saturation 91%. Patient currently lying flat for abdominal ultrasound, tech at bedside, patient not in any acute distress, skin is warm, patient reports she is only having pain in left side of abdomen. Patient placed on 2L NC. Will follow up closely and assess patient status frequently.
[2019-07-02 08:46] LABS: CHOLESTEROL < 50 MG/DL (< 200); FERRITIN 461 NG/ML (8-388); HDL CHOLESTEROL 29 MG/DL (40-60); TRIGLYCERIDES 29 MG/DL (30-150)
[2019-07-02] MEDS: Pantoprazole Inj IVP SCH ×2 (09:23→21:44)
--- NOTE | 2019-07-02 09:31 | Diagnostic Imaging Report ---
EXAM: US Abdomen Complete CLINICAL HISTORY: ABD PAIN TECHNIQUE: Real-time ultrasound of the abdomen with image documentation. COMPARISON: CT from one day prior. FINDINGS: Liver: There is marked fatty infiltration of the liver. No focal liver lesions are identified. No intrahepatic bile duct dilation. Gallbladder: The gallbladder surgically absent. Common bile duct: Unremarkable as visualized. No stones. No dilation. Pancreas: Unremarkable as visualized. Kidneys: There is a simple appearing right renal cyst measuring 6.3 cm in diameter. No further follow-up is recommended. No stones. No hydronephrosis. Spleen: Unremarkable. No splenomegaly. Aorta: Unremarkable. No aneurysm. Inferior vena cava: Unremarkable. Free fluid: There is mild to moderate abdominal and pelvic ascites. IMPRESSION: No acute findings in the abdomen. Marked fatty infiltration of the liver.
--- NOTE | 2019-07-02 09:51 | NUR ---
NURSE NOTES: Rechecked patient's blood pressure, blood pressure 86/53, HR is 68, patient saturating 94% on 2L NC. Patient otherwise asymptomatic except for abdominal pain on the left side, patient denies CP/SOB. Called Dr. Keenan's answering service and left voicemail regarding patient's current VS and labs from this morning, awaiting callback.
--- NOTE | 2019-07-02 11:27 | NUR ---
NURSE NOTES: Informed Dr. Keenan regarding blood pressure 80/51. Orders received, read back and entered, will carry out.
--- NOTE | 2019-07-02 12:30 | NUR ---
NURSE NOTES: Received report from Dianelys Herrera RN. Patient alert, able to make needs known and follow commands, Hebrew speaking. Receiving O2 via nasal cannula @ 2L/min, respirations even and unlabored. Right AC 20g IV site infusing D5NS @ 100 cc/hr. Patient's SBP in the 80s per Dianelys Herrera and Dr. Keenan is aware, ordered 2 units PRBC and PRN bolus post blood transfusion if SBP still low. No medications ordered to increase BP. Awaiting blood from blood bank at this time. Bed locked in lowest position with side rails up x 3. All needs attended to. Call light within reach. Will continue to monitor.
--- NOTE | 2019-07-02 12:34 | General Progress Note ---
Assessment/Plan Assessment/Plan: S, O: comfortable. mild sob, no severe pain . PHYSICAL EXAMINATION:HEAD AND NECK: Atraumatic and normocephalic. CHEST: Clear to auscultation.HEART: S1, S2. Regular rate and rhythm. ABDOMEN: Soft plus a scar of prior surgery noted in the midline. NEUROLOGY: Awake, alert, and oriented. MUSCULOSKELETAL: Atrophied musculature. Lab: reviewed and reconciled. Meds: reviewed and reconciled ASSESSMENT: 1. Perforated viscus, source unknown. 3. Colitis, possible diagnosis. 4. Severe sepsis. 5. Dehydration. 6. Acute anemia. 7. Thrombocytopenia. 8. GI and DVT prophylaxis. PLAN OF CARE: preserved BP Ok to transfer to med surge c/w current conservative management Will transfer patient to Tele Overall Guarded prognosis Subjective Allergies: Coded Allergies: No Known Allergies (Unverified , 03/06/16) Objective Last 24 Hour Vital Signs Date Time Temp Pulse Resp B/P (MAP) Pulse Ox O2 Delivery O2 Flow Rate FiO2 07/02/19 12:00 97.3 67 18 80/51 (61) 95 07/02/19 09:00 Nasal Cannula 2.0 07/02/19 08:00 97.6 78 18 88/53 (65) 91 07/02/19 04:00 97.6 74 20 90/50 (63) 93 07/02/19 00:00 98.0 79 20 94/54 (67) 92 07/01/19 21:00 Room Air 07/01/19 20:00 98.1 81 19 100/62 (75) 95 07/01/19 18:30 Room Air 07/01/19 16:00 98.4 82 18 90/60 (70) 95 Intake and Output 07/01/19 07/02/19 19:00 07:00 Intake Total 720 ml 1100 ml Balance 720 ml 1100 ml Intake Oral 0 ml IV Total 720 ml 1100 ml # Voids 2 Laboratory Tests 07/02/19 04:20: Urine Color Yellow, Urine Appearance Very cloudy, Urine pH 5, Urine Specific [place] 1.020, Urine Protein 2+H, Urine Glucose (UA) Negative, Urine Ketones 1+H , Urine Blood Negative, Urine Nitrite Negative, Urine Bilirubin Negative, Urine Urobilinogen Normal, Urine Leukocyte Esterase 1+H, Urine RBC 0, Urine WBC 0-2, Urine Squamous Epithelial Cells Few, Urine Amorphous Sediment ManyH, Urine Bacteria Few 07/02/19 05:05: White Blood Count 5.5#, Red Blood Count 2.26L, Hemoglobin 7.0#L, Hematocrit 20.4 #L, Mean Corpuscular Volume 90, Mean Corpuscular Hemoglobin 31.0, Mean Corpuscular Hemoglobin Concent 34.3, Red Cell Distribution Width 14.7, Platelet Count 101L, Mean Platelet Volume 6.9, Neutrophils (%) (Auto) , Lymphocytes (%) ( Auto) , Monocytes (%) (Auto) , Eosinophils (%) (Auto) , Basophils (%) (Auto) , Differential Total Cells Counted 100, Neutrophils % (Manual) 95H, Lymphocytes % (Manual) 2L, Monocytes % (Manual) 3, Eosinophils % (Manual) 0, Basophils % ( Manual) 0, Band Neutrophils 0, Platelet Estimate DecreasedL, Platelet Morphology Normal, Hypochromasia 1+, Anisocytosis 1+, Erythrocyte Sedimentation Rate 16, Prothrombin Time 14.4H, Prothromb Time International Ratio 1.4H, Activated Partial Thromboplast Time 42H, Sodium Level 145, Potassium Level 3.4L , Chloride Level 111H, Carbon Dioxide Level 26, Anion Gap 8, Blood Urea Nitrogen 26H, Creatinine 0.9, Estimat Glomerular Filtration Rate > 60, Glucose Level 169H, Hemoglobin A1c 4.6, Lactic Acid Level 1.20, Uric Acid 4.9, Calcium Level 7.5L, Phosphorus Level 3.1, Magnesium Level 2.0, Iron Level 17L, Total Iron Binding Capacity 61L, Percent Iron Saturation 28, Unsaturated Iron Binding 44L, Ferritin 461H, Total Bilirubin 0.5, Gamma Glutamyl Transpeptidase 36, Aspartate Amino Transf (AST/SGOT) 48H, Alanine Aminotransferase (ALT/SGPT) 26, Alkaline Phosphatase 99, Total Creatine Kinase 18L, Troponin I 0.018, C- Reactive Protein, Quantitative 10.8H, Pro-B-Type Natriuretic Peptide 663H, Total Protein 3.6L, Albumin 1.3L, Globulin 2.3, Albumin/Globulin Ratio 0.6L, Triglycerides Level 29L, Cholesterol Level < 50, LDL Cholesterol 11, HDL Cholesterol 29L, Cholesterol/HDL Ratio 1.7L, Amylase Level 11L, Alpha Fetoprotein [Pending], Carcinoembryonic Antigen [Pending], Vitamin B12 Level 726 , Folate 5.8L, Thyroid Stimulating Hormone (TSH) 2.454, Free Thyroxine 0.79, Hepatitis A IgM Antibody [Pending], Hepatitis B Surface Antigen [Pending], Hepatitis B Core IgM Antibody [Pending], Hepatitis C Antibody [Pending] Height (Feet): 5 Height (Inches): 3.00 Weight (Pounds): 118 Eli Keenan MD Jul 02, 2019 12:34
[2019-07-02] MEDS ORDERED: Morphine Sulfate 2mg/ml Inj(IV/IM USE ONLY) IVP PRN (12:40)
--- NOTE | 2019-07-02 12:40 | NUR ---
NURSE NOTES: Patient transferred to room 237-1 at 1230. Report given to Fay CEVALLOS. Antibiotics and belongings sent with patient.
[2019-07-02] MEDS ORDERED: Vancomycin 1 GM in D5W 275 ML IVPB SCH (12:45)
--- NOTE | 2019-07-02 13:55 | NUR ---
NURSE NOTES: Dr. Meyer at bedside, made aware of patient's BP. Patient is asymptomatic, awake and alert. Per Dr. Meyer, insert PICC line and transfer to ICU for levophed drip if patient's BP does not increase s/p PRBC transfusion and IV fluids.
[2019-07-02] MEDS ORDERED: Piperacillin/Tazobactam 4.5 GM in NS 110 ML IVPB SCH (14:00)
--- NOTE | 2019-07-02 14:42 | Cardiac Electrophysiology PN ---
Assessment/Plan Assessment/Plan 1. Severe bilateral lower extremity edema. Her INR is 1.1, albumin is 2.0. Etiology is not clear at this time. Echocardiogram EF 65% 2. Ascites, status post paracentesis also sent for cytology. 3. History of prior gastrectomy with Nolan-en-Y anastomosis. 4. Small amount of intraperitoneal air consistent with perforated viscus. Further evaluation by Dr. Hawkins. 5. Severe anemia. COuld be dilutional. Getting PRBC today. 6. Hypotension could be due to dehydration and anemia. Getting PRBC and iv fluid. Already on iv Abx. May need to transfer to ICu to start Levophed. RENE RN Subjective Subjective No CP or SOB. Getting iv fluid. Transferred to [facility] for hypotension Objective Last 24 Hour Vital Signs Date Time Temp Pulse Resp B/P (MAP) Pulse Ox O2 Delivery O2 Flow Rate FiO2 07/02/19 12:39 97.3 69 14 90/52 (65) 100 07/02/19 12:00 97.3 67 18 80/51 (61) 95 07/02/19 09:00 Nasal Cannula 2.0 07/02/19 08:00 97.6 78 18 88/53 (65) 91 07/02/19 04:00 97.6 74 20 90/50 (63) 93 07/02/19 00:00 98.0 79 20 94/54 (67) 92 07/01/19 21:00 Room Air 07/01/19 20:00 98.1 81 19 100/62 (75) 95 07/01/19 18:30 Room Air 07/01/19 16:00 98.4 82 18 90/60 (70) 95 Intake and Output 07/01/19 07/02/19 19:00 07:00 Intake Total 720 ml 1100 ml Balance 720 ml 1100 ml Intake Oral 0 ml IV Total 720 ml 1100 ml # Voids 2 Laboratory Tests Test 07/02/19 04:20 07/02/19 05:05 Urine Color Yellow Urine Appearance Very cloudy Urine pH 5 (4.5-8.0) Urine Specific [place] 1.020 (1.005-1.035) Urine Protein 2+ (NEGATIVE) H Urine Glucose (UA) Negative (NEGATIVE) Urine Ketones 1+ (NEGATIVE) H Urine Blood Negative (NEGATIVE) Urine Nitrite Negative (NEGATIVE) Urine Bilirubin Negative (NEGATIVE) Urine Urobilinogen Normal MG/DL (0.0-1.0) Urine Leukocyte Esterase 1+ (NEGATIVE) H Urine RBC 0 /HPF (0 - 2) Urine WBC 0-2 /HPF (0 - 2) Urine Squamous Epithelial Cells Few /LPF (NONE/OCC) Urine Amorphous Sediment Many /LPF (NONE) H Urine Bacteria Few /HPF (NONE) White Blood Count 5.5 K/UL (4.8-10.8) # Red Blood Count 2.26 M/UL (4.20-5.40) L Hemoglobin 7.0 G/DL (12.0-16.0) #L Hematocrit 20.4 % (37.0-47.0) #L Mean Corpuscular Volume 90 FL (80-99) Mean Corpuscular Hemoglobin 31.0 PG (27.0-31.0) Mean Corpuscular Hemoglobin Concent 34.3 G/DL (32.0-36.0) Red Cell Distribution Width 14.7 % (11.6-14.8) Platelet Count 101 K/UL (150-450) L Mean Platelet Volume 6.9 FL (6.5-10.1) Neutrophils (%) (Auto) % (45.0-75.0) Lymphocytes (%) (Auto) % (20.0-45.0) Monocytes (%) (Auto) % (1.0-10.0) Eosinophils (%) (Auto) % (0.0-3.0) Basophils (%) (Auto) % (0.0-2.0) Differential Total Cells Counted 100 Neutrophils % (Manual) 95 % (45-75) H Lymphocytes % (Manual) 2 % (20-45) L Monocytes % (Manual) 3 % (1-10) Eosinophils % (Manual) 0 % (0-3) Basophils % (Manual) 0 % (0-2) Band Neutrophils 0 % (0-8) Platelet Estimate Decreased L Platelet Morphology Normal Hypochromasia 1+ Anisocytosis 1+ Erythrocyte Sedimentation Rate 16 MM/HR (0-30) Prothrombin Time 14.4 SEC (9.30-11.50) H Prothromb Time International Ratio 1.4 (0.9-1.1) H Activated Partial Thromboplast Time 42 SEC (23-33) H Sodium Level 145 MMOL/L (136-145) Potassium Level 3.4 MMOL/L (3.5-5.1) L Chloride Level 111 MMOL/L (98-107) H Carbon Dioxide Level 26 MMOL/L (21-32) Anion Gap 8 mmol/L (5-15) Blood Urea Nitrogen 26 mg/dL (7-18) H Creatinine 0.9 MG/DL (0.55-1.30) Estimat Glomerular Filtration Rate > 60 mL/min (>60) Glucose Level 169 MG/DL (74-106) H Hemoglobin A1c 4.6 % (4.3-6.0) Lactic Acid Level 1.20 mmol/L (0.4-2.0) Uric Acid 4.9 MG/DL (2.6-7.2) Calcium Level 7.5 MG/DL (8.5-10.1) L Phosphorus Level 3.1 MG/DL (2.5-4.9) Magnesium Level 2.0 MG/DL (1.8-2.4) Iron Level 17 ug/dL (50-175) L Total Iron Binding Capacity 61 ug/dL (250-450) L Percent Iron Saturation 28 % (15-50) Unsaturated Iron Binding 44 ug/dL (112-346) L Ferritin 461 NG/ML (8-388) H Total Bilirubin 0.5 MG/DL (0.2-1.0) Gamma Glutamyl Transpeptidase 36 U/L (5-85) Aspartate Amino Transf (AST/SGOT) 48 U/L (15-37) H Alanine Aminotransferase (ALT/SGPT) 26 U/L (12-78) Alkaline Phosphatase 99 U/L (46-116) Total Creatine Kinase 18 U/L (26-308) L Troponin I 0.018 ng/mL (0.000-0.056) C-Reactive Protein, Quantitative 10.8 mg/dL (0.00-0.90) H Pro-B-Type Natriuretic Peptide 663 pg/mL (0-125) H Total Protein 3.6 G/DL (6.4-8.2) L Albumin 1.3 G/DL (3.4-5.0) L Globulin 2.3 g/dL Albumin/Globulin Ratio 0.6 (1.0-2.7) L Triglycerides Level 29 MG/DL (30-150) L Cholesterol Level < 50 MG/DL (< 200) LDL Cholesterol 11 mg/dL (<100) HDL Cholesterol 29 MG/DL (40-60) L Cholesterol/HDL Ratio 1.7 (3.3-4.4) L Amylase Level 11 U/L (25-115) L Alpha Fetoprotein Pending Carcinoembryonic Antigen Pending Vitamin B12 Level 726 PG/ML (193-986) Folate 5.8 NG/ML (8.6-58.9) L Thyroid Stimulating Hormone (TSH) 2.454 uiU/mL (0.358-3.740) Free Thyroxine 0.79 NG/DL (0.76-1.46) Hepatitis A IgM Antibody Pending Hepatitis B Surface Antigen Pending Hepatitis B Core IgM Antibody Pending Hepatitis C Antibody Pending Objective HEAD AND NECK: Shows no JVD. LUNGS: Clear. CARDIOVASCULAR: Regular S1 and S2 with no gallop. ABDOMEN: Very tender. Has scar of prior surgery. EXTREMITIES: 3+ pitting edema. Benton Meyer MD Jul 02, 2019 14:42
--- NOTE | 2019-07-02 15:14 | Infectious Diseases Prog Note ---
Assessment/Plan Problems: (1) Abdominal pain Assessment & Plan: suspect due to massive ascites and abdominal distension , S/ P Paracentesis , monitor fluids culture , continue zosyn (2) Free intraperitoneal air Assessment & Plan: suspect due to recent paracentesis , continue antibiotics monitor culture (3) Perforated abdominal viscus Assessment & Plan: ruled out with no clinical evidence of perforation , continue zosyn pending cultures (4) Anemia Assessment & Plan: getting blood transfusion, rule out GI bleeding, recommend GI eval and endoscopy (5) Hypotension Assessment & Plan: suspect due to severe anemia , rule out sepsis , will repeat blood culture , continue zosyn Subjective Constitutional: Reports: no symptoms HEENT: Reports: no symptoms Respiratory: Reports: no symptoms Breasts: Reports: no symptoms Cardiovascular: Reports: no symptoms Gastrointestinal/Abdominal: Reports: no symptoms Genitourinary: Reports: no symptoms Neurologic: Reports: no symptoms Psychiatric: Reports: no symptoms Skin: Reports: no symptoms Endocrine: Reports: no symptoms Hematologic: Reports: no symptoms Musculoskeletal: Reports: no symptoms Allergies: Coded Allergies: No Known Allergies (Unverified , 03/06/16) Objective Vital Signs Last 24 Hour Vital Signs Date Time Temp Pulse Resp B/P (MAP) Pulse Ox O2 Delivery O2 Flow Rate FiO2 07/02/19 14:00 97.2 75 16 81/50 (60) 98 07/02/19 12:39 97.3 69 14 90/52 (65) 100 07/02/19 12:00 97.3 67 18 80/51 (61) 95 07/02/19 09:00 Nasal Cannula 2.0 07/02/19 08:00 97.6 78 18 88/53 (65) 91 07/02/19 04:00 97.6 74 20 90/50 (63) 93 07/02/19 00:00 98.0 79 20 94/54 (67) 92 07/01/19 21:00 Room Air 07/01/19 20:00 98.1 81 19 100/62 (75) 95 07/01/19 18:30 Room Air 07/01/19 16:00 98.4 82 18 90/60 (70) 95 Height (Feet): 5 Height (Inches): 3.00 Weight (Pounds): 118 General Appearance: no acute distress, cachetic HEENT: normocephalic, atraumatic, anicteric, mucous membranes moist, PERRL Respiratory/Chest: normal breath sounds, no respiratory distress, no accessory muscle use, decreased breath sounds Cardiovascular: normal peripheral pulses, normal rate, regular rhythm, no gallop/murmur, no JVD Abdomen: normal bowel sounds, soft, non tender, no organomegaly, non distended , no mass, no scars Extremities: no cyanosis, no clubbing Skin: no rash, no lesions, no ulcers Neurologic/Psychiatric: digital forensic analyst II-XII grossly normal, alert, responsive Lymphatic: no neck adenopathy, no groin adenopathy Musculoskeletal: normal muscle bulk, no effusion Laboratory Tests Test 07/02/19 04:20 07/02/19 05:05 Urine Color Yellow Urine Appearance Very cloudy Urine pH 5 (4.5-8.0) Urine Specific [place] 1.020 (1.005-1.035) Urine Protein 2+ (NEGATIVE) H Urine Glucose (UA) Negative (NEGATIVE) Urine Ketones 1+ (NEGATIVE) H Urine Blood Negative (NEGATIVE) Urine Nitrite Negative (NEGATIVE) Urine Bilirubin Negative (NEGATIVE) Urine Urobilinogen Normal MG/DL (0.0-1.0) Urine Leukocyte Esterase 1+ (NEGATIVE) H Urine RBC 0 /HPF (0 - 2) Urine WBC 0-2 /HPF (0 - 2) Urine Squamous Epithelial Cells Few /LPF (NONE/OCC) Urine Amorphous Sediment Many /LPF (NONE) H Urine Bacteria Few /HPF (NONE) White Blood Count 5.5 K/UL (4.8-10.8) # Red Blood Count 2.26 M/UL (4.20-5.40) L Hemoglobin 7.0 G/DL (12.0-16.0) #L Hematocrit 20.4 % (37.0-47.0) #L Mean Corpuscular Volume 90 FL (80-99) Mean Corpuscular Hemoglobin 31.0 PG (27.0-31.0) Mean Corpuscular Hemoglobin Concent 34.3 G/DL (32.0-36.0) Red Cell Distribution Width 14.7 % (11.6-14.8) Platelet Count 101 K/UL (150-450) L Mean Platelet Volume 6.9 FL (6.5-10.1) Neutrophils (%) (Auto) % (45.0-75.0) Lymphocytes (%) (Auto) % (20.0-45.0) Monocytes (%) (Auto) % (1.0-10.0) Eosinophils (%) (Auto) % (0.0-3.0) Basophils (%) (Auto) % (0.0-2.0) Differential Total Cells Counted 100 Neutrophils % (Manual) 95 % (45-75) H Lymphocytes % (Manual) 2 % (20-45) L Monocytes % (Manual) 3 % (1-10) Eosinophils % (Manual) 0 % (0-3) Basophils % (Manual) 0 % (0-2) Band Neutrophils 0 % (0-8) Platelet Estimate Decreased L Platelet Morphology Normal Hypochromasia 1+ Anisocytosis 1+ Erythrocyte Sedimentation Rate 16 MM/HR (0-30) Prothrombin Time 14.4 SEC (9.30-11.50) H Prothromb Time International Ratio 1.4 (0.9-1.1) H Activated Partial Thromboplast Time 42 SEC (23-33) H Sodium Level 145 MMOL/L (136-145) Potassium Level 3.4 MMOL/L (3.5-5.1) L Chloride Level 111 MMOL/L (98-107) H Carbon Dioxide Level 26 MMOL/L (21-32) Anion Gap 8 mmol/L (5-15) Blood Urea Nitrogen 26 mg/dL (7-18) H Creatinine 0.9 MG/DL (0.55-1.30) Estimat Glomerular Filtration Rate > 60 mL/min (>60) Glucose Level 169 MG/DL (74-106) H Hemoglobin A1c 4.6 % (4.3-6.0) Lactic Acid Level 1.20 mmol/L (0.4-2.0) Uric Acid 4.9 MG/DL (2.6-7.2) Calcium Level 7.5 MG/DL (8.5-10.1) L Phosphorus Level 3.1 MG/DL (2.5-4.9) Magnesium Level 2.0 MG/DL (1.8-2.4) Iron Level 17 ug/dL (50-175) L Total Iron Binding Capacity 61 ug/dL (250-450) L Percent Iron Saturation 28 % (15-50) Unsaturated Iron Binding 44 ug/dL (112-346) L Ferritin 461 NG/ML (8-388) H Total Bilirubin 0.5 MG/DL (0.2-1.0) Gamma Glutamyl Transpeptidase 36 U/L (5-85) Aspartate Amino Transf (AST/SGOT) 48 U/L (15-37) H Alanine Aminotransferase (ALT/SGPT) 26 U/L (12-78) Alkaline Phosphatase 99 U/L (46-116) Total Creatine Kinase 18 U/L (26-308) L Troponin I 0.018 ng/mL (0.000-0.056) C-Reactive Protein, Quantitative 10.8 mg/dL (0.00-0.90) H Pro-B-Type Natriuretic Peptide 663 pg/mL (0-125) H Total Protein 3.6 G/DL (6.4-8.2) L Albumin 1.3 G/DL (3.4-5.0) L Globulin 2.3 g/dL Albumin/Globulin Ratio 0.6 (1.0-2.7) L Triglycerides Level 29 MG/DL (30-150) L Cholesterol Level < 50 MG/DL (< 200) LDL Cholesterol 11 mg/dL (<100) HDL Cholesterol 29 MG/DL (40-60) L Cholesterol/HDL Ratio 1.7 (3.3-4.4) L Amylase Level 11 U/L (25-115) L Alpha Fetoprotein Pending Carcinoembryonic Antigen Pending Vitamin B12 Level 726 PG/ML (193-986) Folate 5.8 NG/ML (8.6-58.9) L Thyroid Stimulating Hormone (TSH) 2.454 uiU/mL (0.358-3.740) Free Thyroxine 0.79 NG/DL (0.76-1.46) Hepatitis A IgM Antibody Pending Hepatitis B Surface Antigen Pending Hepatitis B Core IgM Antibody Pending Hepatitis C Antibody Pending Current Medications Medications (Trade) Dose Ordered Sig/Margie Route PRN Reason Start Time Stop Time Status Last Admin Dose Admin Dextrose/Sodium Chloride 1,000 ml @ 100 mls/hr Q10H IV 07/02/19 12:39 08/01/19 12:38 07/02/19 12:43 Morphine Sulfate (Morphine Sulfate) 2 mg Q6H PRN IVP PAIN 4-10 07/02/19 12:40 07/09/19 12:39 Pantoprazole (Protonix) 40 mg DAILY IVP 07/03/19 09:00 07/31/19 13:29 Piperacillin Sod/ Tazobactam Sod 4.5 gm/Sodium Chloride 110 ml @ 27.5 mls/hr EVERY 8 HOURS IVPB 07/02/19 14:00 07/06/19 14:29 Sodium Chloride 500 ml @ 0 mls/hr Q0M PRN IVPB SBP<100 07/02/19 12:40 08/01/19 12:39 Vancomycin HCl (Vanco rx to dose) 1 ea DAILY PRN MISC . 07/02/19 12:45 08/01/19 12:44 Vancomycin HCl 1 gm/Sodium Chloride 275 ml @ 183.708 mls/hr Q24H IVPB 07/02/19 16:00 07/07/19 15:59 Tenisha Osei M.D. Jul 02, 2019 15:14
--- NOTE | 2019-07-02 15:42 | NUR ---
NURSE NOTES: Patient's SBP still in the 80s, highest BP is 90/50. 1st blood transfusion still ongoing. Noted with albumin level of 1.3 and patient has BLE pitting edema +3. Dr. Keenan notified, ordered to notify Dr. Junior. Dr. Junior notified of patient's condition, told to call after blood transfusion is over and report BP.
--- NOTE | 2019-07-02 15:50 | Diagnostic Imaging Report ---
EXAM: US Duplex Bilateral Lower Extremity Veins CLINICAL HISTORY: ANAISLL TECHNIQUE: Real-time duplex ultrasound scan of the bilateral lower extremity veins integrating B-mode two-dimensional vascular structure, Doppler spectral analysis, color flow Doppler imaging and compression. COMPARISON: No relevant prior studies available. FINDINGS: Right deep veins: Unremarkable. No DVT in the right common femoral, femoral, proximal deep femoral or popliteal veins. The veins demonstrate normal color flow, are normally compressible, with normal phasic flow and/or augmentation response. Right superficial veins: Unremarkable. No thrombus in the visualized right great saphenous vein. Left deep veins: Unremarkable. No DVT in the left common femoral, femoral, proximal deep femoral or popliteal veins. The veins demonstrate normal color flow, are normally compressible, with normal phasic flow and/or augmentation response. Left superficial veins: Unremarkable. No thrombus in the visualized left great saphenous vein. Soft tissues: Soft tissue edema. Other findings: Exam from 07/01/19. IMPRESSION: No DVT demonstrated.
[2019-07-02] MEDS ORDERED: Vancomycin 1 GM in NS 275 ML IVPB SCH (16:00)
--- NOTE | 2019-07-02 16:58 | Consultation ---
Consult Note Consult Note I was asked to evaluate the patient at the request of Dr. Keenan Patient seen in room 238. at the bedside. Patient Yi speaking. Patient currently is receiving her second packed RBC transfusion. She is 78-year-old female. Recently admitted at [facility] and had paracentesis. Patient has history of previous abdominal surgeries. Patient presented to our emergency room with severe left-sided abdominal pain. Was found to have free intraperitoneal air and was suspected to have perforated abdominal viscus. Was seen by general surgery and gastroenterology team. Patient currently on IV antibiotics and receiving blood transfusion. On examination she appears to be wasted. Likely ill. Peers to be in pain. Normocephalic with bitemporal wasting. Breasts atrophic. Tachycardic Blood pressure 80-90 systolic Abdominal examination tense with scars of the previous surgery and areas of recent paracentesis Lower extremities edematous . Assessment/Plan Intra-abdominal process either peritonitis and or perforated viscus Severe anemia with drop of hemoglobin from 10 to 7 requiring blood transfusion. Hypotensive unclear if due to intra-abdominal bleeding and or septic process. Albuminemia, ascites, unclear etiology, most likely underlying neoplastic process Continue per general surgery and GI N.p.o. Antibiotics IV Protonix Young catheter Blood pressure support with pressors if needed Patient currently is full code, I support DNR status Will discuss with consultants Reviewed the case with Pavan Cardona MD Jul 02, 2019 16:58
[2019-07-02] MEDS ORDERED: cefTRIAXone 2 GM in D5W 55 ML IVPB SCH (17:00)
--- NOTE | 2019-07-02 18:15 | History and Physical Report ---
DATE OF ADMISSION: 07/01/2019 SOURCE OF INFORMATION: Patient and EMR. HISTORY OF PRESENT ILLNESS: The patient is a pleasant 78-year-old Yoruba female. The patient is accompanied by her . Yoruba speaking. and the tiger machine operator assisted me for this encounter. The patient had a complaint of the pain in the abdominal area for the last 3 to 4 days. The patient denies any nausea or vomitus. Denies any constipation. Denies any fall. Denies any fever or chills. PAST SURGICAL HISTORY: History of laparotomy in 1970s and cholecystectomy. CURRENT HOSPITAL MEDICATIONS: Including but not limited to morphine p.r.n. and Zosyn. ALLERGIES: NKDA. SOCIAL HISTORY: The patient lives with the . No prior history of illicit drug abuse, smoking, or alcohol abuse has been reported. PHYSICAL EXAMINATION: VITAL SIGNS: Blood pressure 90/ , respiratory rate 18, pulse rate 79, temperature 98, and respiratory rate 20. HEAD AND NECK: Atraumatic and normocephalic. CHEST: Clear to auscultation. HEART: S1, S2. Regular rate and rhythm. ABDOMEN: Soft plus a scar of prior surgery noted in the midline. NEUROLOGY: Awake, alert, and oriented. MUSCULOSKELETAL: Atrophied musculature. DIAGNOSTIC DATA: Abdomen and pelvis CT scan dated July 01, 2019 shows moderate ascites, positive for the intraperitoneal air, positive for prior gastrectomy, positive for jejunal thickness, positive for ascites, fatty liver, and cholecystectomy. LABORATORY DATA: Labs dated July 01, 2019, WBC 3.6, hemoglobin 10.2, and platelet count 164,000. Sodium 145, potassium 3.5, BUN 26, and creatinine 1.1. Albumin 2. AST, ALT are within normal limits. INR 1.1. ASSESSMENT: 1. Acute abdomen. 2. Perforated viscus, source unknown. 3. Colitis, possible diagnosis. 4. Severe sepsis. 5. Dehydration. 6. Acute anemia. 7. Thrombocytopenia. 8. GI and DVT prophylaxis. PLAN OF CARE: Continue with empiric antibiotic treatment. We will hold on the diuretics. The patient's overall prognosis is guarded. The patient remains Full Code. COMMENTS: The time of this dictation does not reflect the actual time of encounter. Eli Keenan M.D. DR: GALILEO JOB#: [id number] CC:
--- NOTE | 2019-07-02 18:56 | NUR ---
NURSE NOTES: Patient noted with very cloudy urine output when orr catheter was inserted. Dr. Osei notified. Received order for UA with culture.
--- NOTE | 2019-07-02 19:24 | NUR ---
HAND-OFF: Report given to Kimani Hunter RN. Patient s/p 2 units PRBC, current BP 119/75. Endorsed to move patient to ICU if BP is low per Dr. Meyer.
--- NOTE | 2019-07-02 19:30 | NUR ---
NURSE NOTES: Received pt from [facility]. pt is observed resting in bed, Bengali speaking, able to make needs known, no s/sx of pain noted at this time. pt's is at bedside. pt is on 2 L O2 via NC, tolerating well; saturation: 100%; no s/sx of pain noted at this time. case monitor shows SR at this time, no acute cardiac distress noted. pt is currently NPO. F/C is patent and intact, draining cloudy, dark nima urine at this time. skin alterations noted. RAC 20 g IV site is patent and intact, running D5NS at 100 cc/hr. bed in lowest position and locked, siderails up X3, call light within reach. will continue to monitor.
[2019-07-02 19:36] LABS: APPEARANCE,URINE TURBID; BILIRUBIN, URINE NEGATIVE (NEGATIVE); GLUCOSE, URINE (UA) NEGATIVE (NEGATIVE); KETONES,URINE 1+ (NEGATIVE); LEUKOCYTE ESTERASE ,URINE NEGATIVE (NEGATIVE); NITRITE,URINE NEGATIVE (NEGATIVE); PH,URINE 5 (4.5-8.0); PROTEIN,URINE 2+ (NEGATIVE); UROBILINOGEN,URINE NORMAL MG/DL (0.0-1.0)
[2019-07-02 19:43] LABS: COLOR,URINE YELLOW
--- NOTE | 2019-07-02 21:15 | Consultation ---
DATE OF CONSULTATION: 07/01/2019 INFECTIOUS DISEASE CONSULTATION CONSULTING PHYSICIAN: Tenisha Osei M.D. REFERRING PHYSICIAN: Eli Keenan M.D. REASON FOR CONSULTATION: Abdominal pain and distention with intraperitoneal air, possible perforated viscus. Recommendation for antibiotics treatment. HISTORY OF PRESENT ILLNESS: The patient is a 78-year-old [place] female with past medical history of ascites presented to [facility] emergency room with left-sided abdominal pain and distention. The patient had left-sided abdominal pain for the last few days. Denied any fever, nausea, vomiting, or diarrhea. Her pain is 10/10, nonradiating. The patient was recently admitted to [facility] and had paracentesis done. Unclear how many liters of fluid were removed and she had abdominal surgery possibly due to perforation in the past with Nolan-en-Y procedure. The patient had a CT scan of the abdomen and pelvis demonstrated intraperitoneal free air concerning for perforated viscus. She was started on Zosyn and vancomycin and Infectious Disease consultation was requested for antibiotics treatment and further management. As of note, the patient is a poor historian and cannot provide good history. History mainly was obtained from the medical record and nursing staff. REVIEW OF SYSTEMS: Unable to obtain at this point. The patient is poor historian. PAST MEDICAL HISTORY: She had recurrent ascites, prior gastrectomy with Nolan-en-Y procedure, and PEG tube placement. PAST SURGICAL HISTORY: She had Nolan-en-Y procedure and PEG tube placement. MEDICATIONS: Currently on vancomycin and Zosyn. FAMILY HISTORY: Noncontributory. SOCIAL HISTORY: The patient lives at home with , unemployed, retired. No recent drugs, tobacco, or alcohol. ALLERGIES: She has no known drug allergies. PHYSICAL EXAMINATION: VITAL SIGNS: Temperature 98, pulse 65, respirations 18, and blood pressure 108/78. Saturation 100% on room air. GENERAL: An elderly female, lying in bed, awake, alert, and oriented, Tamazight speaker, not in distress with distended abdomen. HEENT: Normocephalic and atraumatic. Pupils are reactive to light. Dry oral mucosa. No exudate or thrush. NECK: Supple. No lymphadenopathy. CARDIOVASCULAR: Regular rate and rhythm. No murmur or gallop. LUNGS: Clear bilaterally. No wheezing or rhonchi. Normal breathing efforts. ABDOMEN: Soft. Mildly tender. Distended with massive ascites. Positive wave sign. Diminished bowel sounds. EXTREMITIES: No edema or cyanosis. SKIN: No rash. No hives. LABORATORY AND DIAGNOSTIC DATA: Labs showed white count of 3.6, hemoglobin of 10.2, and platelet count of 164,000. BUN of 26, creatinine of 1.1. Urinalysis showed many sediment, few squamous epithelial cells, and 1+ leukocyte esterase. IMAGING: Chest x-ray showed no acute pulmonary process. Abdominal and pelvis CT showed small amount of free intraperitoneal air demonstrated with gas seen in the anterior midline peritoneal space as well as within the left upper quadrant mesentery. This is consistent with perforated hollow viscus. Source of the perforation indeterminate. Postsurgical change with evidence of prior distal gastrectomy and gastrojejunostomy, likely Nolan-en-Y anastomosis. Venous Doppler showed no DVT demonstrated. ASSESSMENT AND RECOMMENDATION: 1. Abdominal pain, suspect due to massive ascites and abdominal distention. Recommend paracentesis and fluid to be sent for Gram stain and culture. Continue current antibiotics pending culture results. 2. Free intraperitoneal air, suspect due to recent paracentesis. Surgical evaluation was done. Continue antibiotics wide-spectrum coverage and monitor clinically closely. 3. Perforated abdominal viscus ruled out with no clinical evidence of perforation. Continue Zosyn pending culture. 4. Dysphagia, status post PEG tube placement. Tenisha Osei M.D. DR: TRINH JOB#: [id number] CC:
--- NOTE | 2019-07-02 22:03 | Surgery Progress Note ---
Surgery Progress Note Subjective Additional Comments Patient had successful paracentesis with evacuation of 3 L of fluid. States she feels better. Acute drop in hemoglobin today noted potential dilution versus Hypotensive responsive to fluids telemetry Objective Last 24 Hour Vital Signs Date Time Temp Pulse Resp B/P (MAP) Pulse Ox O2 Delivery O2 Flow Rate FiO2 07/02/19 18:00 97.7 94 17 88/55 (66) 95 07/02/19 16:26 91 18 126/67 (86) 97 07/02/19 16:00 97.8 80 14 91/62 (72) 97 07/02/19 14:00 97.2 75 16 81/50 (60) 98 07/02/19 13:00 Nasal Cannula 2.0 07/02/19 12:39 97.3 69 14 90/52 (65) 100 07/02/19 12:00 97.3 67 18 80/51 (61) 95 07/02/19 09:00 Nasal Cannula 2.0 07/02/19 08:00 97.6 78 18 88/53 (65) 91 07/02/19 04:00 97.6 74 20 90/50 (63) 93 07/02/19 00:00 98.0 79 20 94/54 (67) 92 I&O Intake and Output 07/01/19 07/02/19 19:00 07:00 Intake Total 720 ml 1100 ml Balance 720 ml 1100 ml Intake Oral 0 ml IV Total 720 ml 1100 ml # Voids 2 Cardiovascular: RSR Respiratory: clear Abdomen: soft, tenderness - improved, present bowel sounds, non-distended - improved Extremities: no edema, no tenderness, no cyanosis Laboratory Tests Test 07/02/19 04:20 07/02/19 05:05 07/02/19 18:55 Urine Color Yellow Yellow Urine Appearance Very cloudy Turbid Urine pH 5 (4.5-8.0) 5 (4.5-8.0) Urine Specific Anthony 1.020 (1.005-1.035) 1.020 (1.005-1.035) Urine Protein 2+ (NEGATIVE) H 2+ (NEGATIVE) H Urine Glucose (UA) Negative (NEGATIVE) Negative (NEGATIVE) Urine Ketones 1+ (NEGATIVE) H 1+ (NEGATIVE) H Urine Blood Negative (NEGATIVE) Negative (NEGATIVE) Urine Nitrite Negative (NEGATIVE) Negative (NEGATIVE) Urine Bilirubin Negative (NEGATIVE) Negative (NEGATIVE) Urine Urobilinogen Normal MG/DL (0.0-1.0) Normal MG/DL (0.0-1.0) Urine Leukocyte Esterase 1+ (NEGATIVE) H Negative (NEGATIVE) Urine RBC 0 /HPF (0 - 2) 0 /HPF (0 - 2) Urine WBC 0-2 /HPF (0 - 2) 0 /HPF (0 - 2) Urine Squamous Epithelial Cells Few /LPF (NONE/OCC) Occasional /LPF Urine Amorphous Sediment Many /LPF (NONE) H Many /LPF (NONE) H Urine Bacteria Few /HPF (NONE) Moderate /HPF (NONE) H White Blood Count 5.5 K/UL (4.8-10.8) # Red Blood Count 2.26 M/UL (4.20-5.40) L Hemoglobin 7.0 G/DL (12.0-16.0) #L Hematocrit 20.4 % (37.0-47.0) #L Mean Corpuscular Volume 90 FL (80-99) Mean Corpuscular Hemoglobin 31.0 PG (27.0-31.0) Mean Corpuscular Hemoglobin Concent 34.3 G/DL (32.0-36.0) Red Cell Distribution Width 14.7 % (11.6-14.8) Platelet Count 101 K/UL (150-450) L Mean Platelet Volume 6.9 FL (6.5-10.1) Neutrophils (%) (Auto) % (45.0-75.0) Lymphocytes (%) (Auto) % (20.0-45.0) Monocytes (%) (Auto) % (1.0-10.0) Eosinophils (%) (Auto) % (0.0-3.0) Basophils (%) (Auto) % (0.0-2.0) Differential Total Cells Counted 100 Neutrophils % (Manual) 95 % (45-75) H Lymphocytes % (Manual) 2 % (20-45) L Monocytes % (Manual) 3 % (1-10) Eosinophils % (Manual) 0 % (0-3) Basophils % (Manual) 0 % (0-2) Band Neutrophils 0 % (0-8) Platelet Estimate Decreased L Platelet Morphology Normal Hypochromasia 1+ Anisocytosis 1+ Erythrocyte Sedimentation Rate 16 MM/HR (0-30) Prothrombin Time 14.4 SEC (9.30-11.50) H Prothromb Time International Ratio 1.4 (0.9-1.1) H Activated Partial Thromboplast Time 42 SEC (23-33) H Sodium Level 145 MMOL/L (136-145) Potassium Level 3.4 MMOL/L (3.5-5.1) L Chloride Level 111 MMOL/L (98-107) H Carbon Dioxide Level 26 MMOL/L (21-32) Anion Gap 8 mmol/L (5-15) Blood Urea Nitrogen 26 mg/dL (7-18) H Creatinine 0.9 MG/DL (0.55-1.30) Estimat Glomerular Filtration Rate > 60 mL/min (>60) Glucose Level 169 MG/DL (74-106) H Hemoglobin A1c 4.6 % (4.3-6.0) Lactic Acid Level 1.20 mmol/L (0.4-2.0) Uric Acid 4.9 MG/DL (2.6-7.2) Calcium Level 7.5 MG/DL (8.5-10.1) L Phosphorus Level 3.1 MG/DL (2.5-4.9) Magnesium Level 2.0 MG/DL (1.8-2.4) Iron Level 17 ug/dL (50-175) L Total Iron Binding Capacity 61 ug/dL (250-450) L Percent Iron Saturation 28 % (15-50) Unsaturated Iron Binding 44 ug/dL (112-346) L Ferritin 461 NG/ML (8-388) H Total Bilirubin 0.5 MG/DL (0.2-1.0) Gamma Glutamyl Transpeptidase 36 U/L (5-85) Aspartate Amino Transf (AST/SGOT) 48 U/L (15-37) H Alanine Aminotransferase (ALT/SGPT) 26 U/L (12-78) Alkaline Phosphatase 99 U/L (46-116) Total Creatine Kinase 18 U/L (26-308) L Troponin I 0.018 ng/mL (0.000-0.056) C-Reactive Protein, Quantitative 10.8 mg/dL (0.00-0.90) H Pro-B-Type Natriuretic Peptide 663 pg/mL (0-125) H Total Protein 3.6 G/DL (6.4-8.2) L Albumin 1.3 G/DL (3.4-5.0) L Globulin 2.3 g/dL Albumin/Globulin Ratio 0.6 (1.0-2.7) L Triglycerides Level 29 MG/DL (30-150) L Cholesterol Level < 50 MG/DL (< 200) LDL Cholesterol 11 mg/dL (<100) HDL Cholesterol 29 MG/DL (40-60) L Cholesterol/HDL Ratio 1.7 (3.3-4.4) L Amylase Level 11 U/L (25-115) L Alpha Fetoprotein Pending Carcinoembryonic Antigen Pending Vitamin B12 Level 726 PG/ML (193-986) Folate 5.8 NG/ML (8.6-58.9) L Thyroid Stimulating Hormone (TSH) 2.454 uiU/mL (0.358-3.740) Free Thyroxine 0.79 NG/DL (0.76-1.46) Hepatitis A IgM Antibody Pending Hepatitis B Surface Antigen Pending Hepatitis B Core IgM Antibody Pending Hepatitis C Antibody Pending Plan Problems: (1) Abdominal pain Assessment & Plan: This is a 78-year-old female who presented to [facility] complaining of worsening abdominal pain. A brush holder inspector was used to obtain history from the patient as well as the given Macedonian speaking. is able to speak somewhat Khmer but his Khmer is not good enough for complete translation therefore translation services were used. I had a long discussion with them in regards to admission current symptoms and care. As from what I could determine she had a partial gastrectomy about 2-1/2 years ago for unknown reason potentially ulcer perforation. She has a large midline incision from xiphoid down almost to the pubis. She has since developed ascites though no known liver dysfunction and recently as of yesterday from patient stating had a paracentesis done at an outside facility. States continues to have pain and she feels she is full of fluid and distended and it causes her discomfort therefore she came here for evaluation. No nausea vomiting fever chills. Does not eat well. Malnourished. Surgery called to evaluate and assist with care. CT scan demonstrated some bubbles of free air and ascites fluid. In evaluating the patient on examination she is fairly tender in all quadrants. She states she just feels like she is full of fluid. I reviewed the CT personally and discussed with the radiologist Given the minimal amount of free air and significant free fluid there is a high probability that since patient states her paracentesis and yesterday the residual free air is from that was longer as potentially believed to be a few days ago but then there is strong possibility and concern for bowel perforation but paracentesis less than 24 hours ago and a few air bubbles could potentially be unremarkable. Patient is afebrile otherwise hemodynamic stable and without signs of acute active infectious process and the potential bowel perforation is there but lower on the differential. She could have a bowel perforation now has peritonitis in the ascites fluid but directly in her age and condition going the operating room is still advised. I discussed with the radiologist and plan for repeat paracentesis. Potentially symptomatic improvement once fluid is evacuated and can also send fluid for culture and microbiology and cytology to evaluate for the possibility of infectious process or perforation ongoing. Discussed with primary care physician patient and family. Will follow with recommendations thank you for let me participate patient's care Patient had a paracentesis by radiology evacuating 3 L of ascites fluid. Since states she feels better. Abdominal exam on 3 7 improved as compared to 3 6 with less tenderness though she is still somewhat tender. States that she feels tenderness from the bloating of the fluid. No nausea vomiting fever chills. Hypotension responsive to fluids. Though there is a possibility of bowel perforation prior unlikely given the paracentesis findings. Furthermore potential bleeding after paracentesis. Coags noted. May have coagulopathy as well. Trend H&H transfuse as needed We will follow with recommendations thank you (2) Free intraperitoneal air Assessment & Plan: Lack of enteric contrast limits assessment of the GI tract. There is ascites fluid. There is a small amount of free intraperitoneal gas within the anterior peritoneal space. A few bubbles of gas are also seen within the left upper quadrant mesenteric fat. These are seen along the greater curvature of the stomach and a few posterior to the stomach. There is also a single small gas bubble in the sugey hepatis. There is evidence of prior distal gastrectomy and gastrojejunostomy. There is also a jejunojejunostomy suture line in the upper abdominal midline. Surgical clips are also seen in the peripancreatic region The appendix is normal. Small bowel loops are mildly prominent and demonstrate mild wall thickening proximally. The distal esophagus is unremarkable. Lack of IV contrast limits assessment of the solid organs. The liver is diffusely markedly hypoattenuating. It is essentially isoattenuating with the surrounding ascites fluid. The gallbladder has been removed. No biliary ductal dilatation. The pancreas, spleen, adrenal glands are grossly unremarkable. The right kidney demonstrates a large upper pole cyst. It demonstrates a calcification which measures approximately 3 mm in diameter and is possibly calyceal. The left kidney demonstrates an upper pole calyceal calcification. No hydronephrosis. No pelvic mass or adenopathy. Uterus and adnexal structures appear unremarkable. There is diffuse edema of the subcutaneous, abdominal, retroperitoneal fat. The included lung bases demonstrate some posterior dependent atelectatic changes, are otherwise clear. The bones demonstrate degenerative spondylosis changes.. There are also degenerative changes with vacuum formation of the bilateral sacroiliac joints. Impression: Limited assessment of the GI tract, due to lack of enteric contrast administration. Small amount of free intraperitoneal air demonstrated, with gas seen in the anterior midline peritoneal space as well as within the left upper quadrant mesentery. This is consistent with perforated hollow viscus. Source of perforation indeterminate, although quite possibly in the left upper quadrant and possibly related to the stomach. Postsurgical changes, as described, with evidence of prior distal gastrectomy, gastrojejunostomy, and likely Nolan-en-Y anastomosis Mild prominence and equivocal slight wall thickening of the proximal jejunum, if real could represent reactive changes secondary to the above process or could represent primarily enteritis Moderate ascites Anasarca Markedly fatty liver Evidence of prior cholecystectomy Incidental findings as noted, including degenerative spondylosis changes, as do dependent pulmonary atelectatic changes, bilateral sacroiliac joint degenerative changes, right upper pole renal cyst, nonobstructive bilateral renal calculi (3) Perforated abdominal viscus Kamron Hawkins Jul 02, 2019 22:03
[2019-07-02] MEDS: Piperacillin/Tazobactam 3.375 GM in NS 110 ML IVPB SCH (22:39)
[2019-07-03] VITALS (11 sets, daily range): BP systolic 93–128; BP diastolic 57–82
--- NOTE | 2019-07-03 03:30 | NUR ---
NURSE NOTES: attempted to give pt bath. pt became very agitated and yelled at nurses. refused bath. explained to pt importance of cleaning perineal area d/t Young; pt still refused.
[2019-07-03] MEDS: Piperacillin/Tazobactam 3.375 GM in NS 110 ML IVPB SCH ×3 (06:39→21:39)
[2019-07-03 07:23] LABS: HEMATOCRIT 35.6 % (37.0-47.0); HEMOGLOBIN 12.6 G/DL (12.0-16.0); MEAN CORPUSCULAR VOLUME 91 FL (80-99); PLATELET COUNT 112 K/UL (150-450); RED BLOOD COUNT 3.92 M/UL (4.20-5.40); RED CELL DISTRIBUTION WIDTH 14.1 % (11.6-14.8); WHITE BLOOD COUNT 3.7 K/UL (4.8-10.8)
--- NOTE | 2019-07-03 07:50 | NUR ---
NURSE NOTES: received pt in the bed, awake, alert, oriented, vital signs stable, no co pain, no SOB, skin warm and dry to touch, D5ns at 100cc/hr, NPO, Young catheter , ouput 75 cc last night, DR. Junior aware, bed in low position, call light within reach.
--- NOTE | 2019-07-03 08:21 | NUR ---
HAND-OFF: Report given to Mirian Sanchez RN. pt is in stable condition.
[2019-07-03 08:29] LABS: INR 1.3 (0.9-1.1)
[2019-07-03 08:41] LABS: PHOSPHORUS 2.6 MG/DL (2.5-4.9)
--- NOTE | 2019-07-03 08:48 | General Progress Note ---
Assessment/Plan Assessment/Plan: Anemia Ascites hypoalbuminemia partial gastrectomy fatty liver ? perforated viscus VS SBP npo s/p 3 lit paracentesis>>> FU results abx ordered labs for tomorrow fu surg recs tumor markers drop in H&H w/o active bleed>>> repeat CBC in am>>> s/p blood transfusion abd us>>> reviewed add albumin IV Subjective ROS Limited/Unobtainable: Yes Allergies: Coded Allergies: No Known Allergies (Unverified , 03/06/16) Objective Last 24 Hour Vital Signs Date Time Temp Pulse Resp B/P (MAP) Pulse Ox O2 Delivery O2 Flow Rate FiO2 07/03/19 08:00 97.2 79 18 119/69 (86) 98 07/03/19 06:00 97.0 68 12 112/65 (81) 98 07/03/19 04:00 76 07/03/19 04:00 97.0 74 16 111/69 (83) 98 07/03/19 02:00 97.0 67 14 93/57 (69) 98 07/03/19 00:00 Nasal Cannula 2.0 07/03/19 00:00 96.8 72 14 108/60 (76) 99 07/03/19 00:00 69 07/02/19 22:00 97.7 75 12 120/61 (80) 98 07/02/19 21:00 Nasal Cannula 2.0 07/02/19 20:00 61 07/02/19 20:00 97.7 67 14 107/59 (75) 100 07/02/19 18:00 97.7 94 17 88/55 (66) 95 07/02/19 16:26 91 18 126/67 (86) 97 07/02/19 16:00 97.8 80 14 91/62 (72) 97 07/02/19 14:00 97.2 75 16 81/50 (60) 98 07/02/19 13:00 Nasal Cannula 2.0 07/02/19 12:39 97.3 69 14 90/52 (65) 100 07/02/19 12:00 97.3 67 18 80/51 (61) 95 07/02/19 09:00 Nasal Cannula 2.0 Intake and Output 07/02/19 07/03/19 19:00 07:00 Intake Total 653.333 ml 954.625 ml Output Total 150 ml 75 ml Balance 503.333 ml 879.625 ml IV Total 653.333 ml 954.625 ml Output Urine Total 150 ml 75 ml Laboratory Tests 07/02/19 18:55: Urine Color Yellow, Urine Appearance Turbid, Urine pH 5, Urine Specific [place] 1.020, Urine Protein 2+H, Urine Glucose (UA) Negative, Urine Ketones 1+H, Urine Blood Negative, Urine Nitrite Negative, Urine Bilirubin Negative, Urine Urobilinogen Normal, Urine Leukocyte Esterase Negative, Urine RBC 0, Urine WBC 0 , Urine Squamous Epithelial Cells Occasional, Urine Amorphous Sediment ManyH, Urine Bacteria ModerateH 07/03/19 06:30: White Blood Count 3.7L, Red Blood Count 3.92L, Hemoglobin 12.6#, Hematocrit 35.6 #L, Mean Corpuscular Volume 91, Mean Corpuscular Hemoglobin 32.1H, Mean Corpuscular Hemoglobin Concent 35.3, Red Cell Distribution Width 14.1, Platelet Count 112L, Mean Platelet Volume 6.8, Neutrophils (%) (Auto) , Lymphocytes (%) ( Auto) , Monocytes (%) (Auto) , Eosinophils (%) (Auto) , Basophils (%) (Auto) , Neutrophils % (Manual) [Pending], Lymphocytes % (Manual) [Pending], Platelet Estimate [Pending], Platelet Morphology [Pending], Prothrombin Time 13.5H, Prothromb Time International Ratio 1.3H, Sodium Level [Pending], Potassium Level [Pending], Chloride Level [Pending], Carbon Dioxide Level [Pending], Blood Urea Nitrogen [Pending], Creatinine [Pending], Estimat Glomerular Filtration Rate [Pending], Glucose Level [Pending], Hemoglobin A1c [Pending], Lactic Acid Level 2.10H, Uric Acid 3.5, Calcium Level [Pending], Phosphorus Level 2.6, Magnesium Level 1.9, Total Bilirubin [Pending], Gamma Glutamyl Transpeptidase 37, Aspartate Amino Transf (AST/SGOT) [Pending], Alanine Aminotransferase (ALT/SGPT) [Pending], Alkaline Phosphatase [Pending], Troponin I 0.000, C-Reactive Protein, Quantitative 14.7H, Pro-B-Type Natriuretic Peptide 1653H, Total Protein [Pending], Albumin [Pending], Globulin [Pending], Triglycerides Level [Pending], Cholesterol Level [Pending], LDL Cholesterol [ Pending], HDL Cholesterol [Pending], Cholesterol/HDL Ratio [Pending], CA 15-3 Antigen [Pending], CA 19-9 Antigen [Pending], CA 125 Antigen [Pending], Thyroid Stimulating Hormone (TSH) [Pending] Height (Feet): 5 Height (Inches): 3.00 Weight (Pounds): 118 General Appearance: alert EENT: normal ENT inspection Neck: supple Cardiovascular: tachycardia Respiratory/Chest: decreased breath sounds Abdomen: hypoactive bowel sounds, tender Extremities: non-tender Rodney Neri MD Jul 03, 2019 08:48
[2019-07-03 08:57] LABS: ALANINE AMINOTRANSFERASE 28 U/L (12-78); ALBUMIN 1.4 G/DL (3.4-5.0); ALBUMIN/GLOBULIN RATIO 0.5 (1.0-2.7); ANION GAP 7 mmol/L (5-15); ASPARTATE AMINO TRANSFERASE 35 U/L (15-37); BILIRUBIN,TOTAL 0.9 MG/DL (0.2-1.0); BLOOD UREA NITROGEN 27 mg/dL (7-18); CALCIUM 7.7 MG/DL (8.5-10.1); CARBON DIOXIDE 28 MMOL/L (21-32); CHLORIDE 112 MMOL/L (98-107); CHOLESTEROL 56 MG/DL (< 200); CREATININE 0.9 MG/DL (0.55-1.30); HDL CHOLESTEROL 32 MG/DL (40-60); POTASSIUM 3.3 MMOL/L (3.5-5.1); SODIUM 147 MMOL/L (136-145); TRIGLYCERIDES 48 MG/DL (30-150)
[2019-07-03 08:58] LABS: ALKALINE PHOSPHATASE 106 U/L (46-116)
[2019-07-03] MEDS ORDERED: Ketorolac 30mg Inj IV SCH (09:00)
[2019-07-03] MEDS ORDERED: Ketorolac 30mg Inj IV PRN ×2 (09:00→18:45)
[2019-07-03] MEDS ORDERED: Pantoprazole Inj IVP SCH ×2 (09:00→21:00)
[2019-07-03] MEDS: Pantoprazole Inj IVP SCH (10:23)
[2019-07-03] MEDS: D5NS 1,000 ML IV SCH (10:23)
--- NOTE | 2019-07-03 12:50 | Surgery Progress Note ---
Surgery Progress Note Subjective Additional Comments h/h noted hd stable feels okay still abd pain overall but stable no n/v/f/c' Objective Last 24 Hour Vital Signs Date Time Temp Pulse Resp B/P (MAP) Pulse Ox O2 Delivery O2 Flow Rate FiO2 07/03/19 12:00 97.9 66 16 121/67 (85) 99 07/03/19 10:00 97.2 79 18 119/69 (86) 98 07/03/19 09:00 Nasal Cannula 2.0 07/03/19 09:00 97.2 79 18 119/69 (86) 98 07/03/19 08:00 77 07/03/19 08:00 97.2 79 18 119/69 (86) 98 07/03/19 06:00 97.0 68 12 112/65 (81) 98 07/03/19 04:00 76 07/03/19 04:00 97.0 74 16 111/69 (83) 98 07/03/19 02:00 97.0 67 14 93/57 (69) 98 07/03/19 00:00 Nasal Cannula 2.0 07/03/19 00:00 96.8 72 14 108/60 (76) 99 07/03/19 00:00 69 07/02/19 22:00 97.7 75 12 120/61 (80) 98 07/02/19 21:00 Nasal Cannula 2.0 07/02/19 20:00 61 07/02/19 20:00 97.7 67 14 107/59 (75) 100 07/02/19 18:00 97.7 94 17 88/55 (66) 95 07/02/19 16:26 91 18 126/67 (86) 97 07/02/19 16:00 97.8 80 14 91/62 (72) 97 07/02/19 14:00 97.2 75 16 81/50 (60) 98 07/02/19 13:00 Nasal Cannula 2.0 I&O Intake and Output 07/02/19 07/03/19 19:00 07:00 Intake Total 653.333 ml 954.625 ml Output Total 150 ml 75 ml Balance 503.333 ml 879.625 ml IV Total 653.333 ml 954.625 ml Output Urine Total 150 ml 75 ml Cardiovascular: RSR Respiratory: clear Abdomen: soft, tenderness, present bowel sounds, other - fluid Extremities: no edema, no cyanosis Laboratory Tests Test 07/02/19 18:55 07/03/19 06:30 07/03/19 10:10 Urine Color Yellow Urine Appearance Turbid Urine pH 5 (4.5-8.0) Urine Specific [place] 1.020 (1.005-1.035) Urine Protein 2+ (NEGATIVE) H Urine Glucose (UA) Negative (NEGATIVE) Urine Ketones 1+ (NEGATIVE) H Urine Blood Negative (NEGATIVE) Urine Nitrite Negative (NEGATIVE) Urine Bilirubin Negative (NEGATIVE) Urine Urobilinogen Normal MG/DL (0.0-1.0) Urine Leukocyte Esterase Negative (NEGATIVE) Urine RBC 0 /HPF (0 - 2) Urine WBC 0 /HPF (0 - 2) Urine Squamous Epithelial Cells Occasional /LPF Urine Amorphous Sediment Many /LPF (NONE) H Urine Bacteria Moderate /HPF (NONE) H White Blood Count 3.7 K/UL (4.8-10.8) L Red Blood Count 3.92 M/UL (4.20-5.40) L Hemoglobin 12.6 G/DL (12.0-16.0) # Hematocrit 35.6 % (37.0-47.0) #L Mean Corpuscular Volume 91 FL (80-99) Mean Corpuscular Hemoglobin 32.1 PG (27.0-31.0) H Mean Corpuscular Hemoglobin Concent 35.3 G/DL (32.0-36.0) Red Cell Distribution Width 14.1 % (11.6-14.8) Platelet Count 112 K/UL (150-450) L Mean Platelet Volume 6.8 FL (6.5-10.1) Neutrophils (%) (Auto) % (45.0-75.0) Lymphocytes (%) (Auto) % (20.0-45.0) Monocytes (%) (Auto) % (1.0-10.0) Eosinophils (%) (Auto) % (0.0-3.0) Basophils (%) (Auto) % (0.0-2.0) Differential Total Cells Counted 100 Neutrophils % (Manual) 89 % (45-75) H Lymphocytes % (Manual) 5 % (20-45) L Monocytes % (Manual) 6 % (1-10) Eosinophils % (Manual) 0 % (0-3) Basophils % (Manual) 0 % (0-2) Band Neutrophils 0 % (0-8) Platelet Estimate Decreased L Platelet Morphology Normal Red Blood Cell Morphology Normal Dimorphic Red Blood Cells Prothrombin Time 13.5 SEC (9.30-11.50) H Prothromb Time International Ratio 1.3 (0.9-1.1) H Sodium Level 147 MMOL/L (136-145) H Potassium Level 3.3 MMOL/L (3.5-5.1) L Chloride Level 112 MMOL/L (98-107) H Carbon Dioxide Level 28 MMOL/L (21-32) Anion Gap 7 mmol/L (5-15) Blood Urea Nitrogen 27 mg/dL (7-18) H Creatinine 0.9 MG/DL (0.55-1.30) Estimat Glomerular Filtration Rate > 60 mL/min (>60) Glucose Level 158 MG/DL (74-106) H Hemoglobin A1c 5.1 % (4.3-6.0) Lactic Acid Level 2.10 mmol/L (0.4-2.0) H 2.00 mmol/L (0.66-2.22) Uric Acid 3.5 MG/DL (2.6-7.2) Calcium Level 7.7 MG/DL (8.5-10.1) L Phosphorus Level 2.6 MG/DL (2.5-4.9) Magnesium Level 1.9 MG/DL (1.8-2.4) Total Bilirubin 0.9 MG/DL (0.2-1.0) Gamma Glutamyl Transpeptidase 37 U/L (5-85) Aspartate Amino Transf (AST/SGOT) 35 U/L (15-37) Alanine Aminotransferase (ALT/SGPT) 28 U/L (12-78) Alkaline Phosphatase 106 U/L (46-116) Troponin I 0.000 ng/mL (0.000-0.056) C-Reactive Protein, Quantitative 14.7 mg/dL (0.00-0.90) H Pro-B-Type Natriuretic Peptide 1653 pg/mL (0-125) H Total Protein 4.3 G/DL (6.4-8.2) L Albumin 1.4 G/DL (3.4-5.0) L Globulin 2.9 g/dL Albumin/Globulin Ratio 0.5 (1.0-2.7) L Triglycerides Level 48 MG/DL (30-150) Cholesterol Level 56 MG/DL (< 200) LDL Cholesterol 17 mg/dL (<100) HDL Cholesterol 32 MG/DL (40-60) L Cholesterol/HDL Ratio 1.8 (3.3-4.4) L CA 15-3 Antigen Pending CA 19-9 Antigen Pending CA 125 Antigen Pending Thyroid Stimulating Hormone (TSH) 4.692 uiU/mL (0.358-3.740) Plan Problems: (1) Abdominal pain Assessment & Plan: This is a 78-year-old female who presented to [facility] complaining of worsening abdominal pain. A supervisor functional testing was used to obtain history from the patient as well as the given Kyrgyz speaking. is able to speak somewhat Montenegrin but his Montenegrin is not good enough for complete translation therefore translation services were used. I had a long discussion with them in regards to admission current symptoms and care. As from what I could determine she had a partial gastrectomy about 2-1/2 years ago for unknown reason potentially ulcer perforation. She has a large midline incision from xiphoid down almost to the pubis. She has since developed ascites though no known liver dysfunction and recently as of yesterday from patient stating had a paracentesis done at an outside facility. States continues to have pain and she feels she is full of fluid and distended and it causes her discomfort therefore she came here for evaluation. No nausea vomiting fever chills. Does not eat well. Malnourished. Surgery called to evaluate and assist with care. CT scan demonstrated some bubbles of free air and ascites fluid. In evaluating the patient on examination she is fairly tender in all quadrants. She states she just feels like she is full of fluid. I reviewed the CT personally and discussed with the radiologist Given the minimal amount of free air and significant free fluid there is a high probability that since patient states her paracentesis and yesterday the residual free air is from that was longer as potentially believed to be a few days ago but then there is strong possibility and concern for bowel perforation but paracentesis less than 24 hours ago and a few air bubbles could potentially be unremarkable. Patient is afebrile otherwise hemodynamic stable and without signs of acute active infectious process and the potential bowel perforation is there but lower on the differential. She could have a bowel perforation now has peritonitis in the ascites fluid but directly in her age and condition going the operating room is still advised. I discussed with the radiologist and plan for repeat paracentesis. Potentially symptomatic improvement once fluid is evacuated and can also send fluid for culture and microbiology and cytology to evaluate for the possibility of infectious process or perforation ongoing. Discussed with primary care physician patient and family. Will follow with recommendations thank you for let me participate patient's care Patient had a paracentesis by radiology evacuating 3 L of ascites fluid. Since states she feels better. Abdominal exam on 3 7 improved as compared to 3 6 with less tenderness though she is still somewhat tender. States that she feels tenderness from the bloating of the fluid. No nausea vomiting fever chills. Hypotension responsive to fluids. Though there is a possibility of bowel perforation prior unlikely given the paracentesis findings. Furthermore potential bleeding after paracentesis. Coags noted. May have coagulopathy as well. Trend H&H transfuse as needed labs noted h/h improved hd stable okay to start trial diet suspicion for bowel perf or bleeding low. possible but unlikely We will follow with recommendations thank you (2) Free intraperitoneal air Assessment & Plan: Lack of enteric contrast limits assessment of the GI tract. There is ascites fluid. There is a small amount of free intraperitoneal gas within the anterior peritoneal space. A few bubbles of gas are also seen within the left upper quadrant mesenteric fat. These are seen along the greater curvature of the stomach and a few posterior to the stomach. There is also a single small gas bubble in the sugey hepatis. There is evidence of prior distal gastrectomy and gastrojejunostomy. There is also a jejunojejunostomy suture line in the upper abdominal midline. Surgical clips are also seen in the peripancreatic region The appendix is normal. Small bowel loops are mildly prominent and demonstrate mild wall thickening proximally. The distal esophagus is unremarkable. Lack of IV contrast limits assessment of the solid organs. The liver is diffusely markedly hypoattenuating. It is essentially isoattenuating with the surrounding ascites fluid. The gallbladder has been removed. No biliary ductal dilatation. The pancreas, spleen, adrenal glands are grossly unremarkable. The right kidney demonstrates a large upper pole cyst. It demonstrates a calcification which measures approximately 3 mm in diameter and is possibly calyceal. The left kidney demonstrates an upper pole calyceal calcification. No hydronephrosis. No pelvic mass or adenopathy. Uterus and adnexal structures appear unremarkable. There is diffuse edema of the subcutaneous, abdominal, retroperitoneal fat. The included lung bases demonstrate some posterior dependent atelectatic changes, are otherwise clear. The bones demonstrate degenerative spondylosis changes.. There are also degenerative changes with vacuum formation of the bilateral sacroiliac joints. Impression: Limited assessment of the GI tract, due to lack of enteric contrast administration. Small amount of free intraperitoneal air demonstrated, with gas seen in the anterior midline peritoneal space as well as within the left upper quadrant mesentery. This is consistent with perforated hollow viscus. Source of perforation indeterminate, although quite possibly in the left upper quadrant and possibly related to the stomach. Postsurgical changes, as described, with evidence of prior distal gastrectomy, gastrojejunostomy, and likely Nolan-en-Y anastomosis Mild prominence and equivocal slight wall thickening of the proximal jejunum, if real could represent reactive changes secondary to the above process or could represent primarily enteritis Moderate ascites Anasarca Markedly fatty liver Evidence of prior cholecystectomy Incidental findings as noted, including degenerative spondylosis changes, as do dependent pulmonary atelectatic changes, bilateral sacroiliac joint degenerative changes, right upper pole renal cyst, nonobstructive bilateral renal calculi (3) Perforated abdominal viscus Kamron Hawkins Jul 03, 2019 12:50
--- NOTE | 2019-07-03 13:54 | NUR ---
NURSE NOTES: dr Hawkins saw pt, ordered regular diet, vital signs stable, continue monitoring.
--- NOTE | 2019-07-03 15:24 | Nephrology Progress Note ---
Assessment/Plan Problem List: (1) Hypotension (2) Anemia (3) Abdominal pain (4) Free intraperitoneal air (5) Hypoalbuminemia Assessment Intra-abdominal process either peritonitis and or perforated viscus Severe anemia with drop of hemoglobin from 10 to 7 requiring blood transfusion. Hypotensive unclear if due to intra-abdominal bleeding and or septic process. Albuminemia, ascites, unclear etiology, most likely underlying neoplastic process Plan Continue per general surgery and GI advice advice Patient was started on p.o. diet Antibiotics now on Zosyn IV Protonix Young catheter Blood pressure support with pressors if needed Patient currently is full code, I support DNR status Will discuss with consultants Reviewed the case with RN Subjective ROS Limited/Unobtainable: No Constitutional: Reports: malaise, weakness Objective Objective Last 24 Hour Vital Signs Date Time Temp Pulse Resp B/P (MAP) Pulse Ox O2 Delivery O2 Flow Rate FiO2 07/03/19 12:00 97.9 66 16 121/67 (85) 99 07/03/19 10:00 97.2 79 18 119/69 (86) 98 07/03/19 09:00 Nasal Cannula 2.0 07/03/19 09:00 97.2 79 18 119/69 (86) 98 07/03/19 08:00 77 07/03/19 08:00 97.2 79 18 119/69 (86) 98 07/03/19 06:00 97.0 68 12 112/65 (81) 98 07/03/19 04:00 76 07/03/19 04:00 97.0 74 16 111/69 (83) 98 07/03/19 02:00 97.0 67 14 93/57 (69) 98 07/03/19 00:00 Nasal Cannula 2.0 07/03/19 00:00 96.8 72 14 108/60 (76) 99 07/03/19 00:00 69 07/02/19 22:00 97.7 75 12 120/61 (80) 98 07/02/19 21:00 Nasal Cannula 2.0 07/02/19 20:00 61 07/02/19 20:00 97.7 67 14 107/59 (75) 100 07/02/19 18:00 97.7 94 17 88/55 (66) 95 07/02/19 16:26 91 18 126/67 (86) 97 07/02/19 16:00 97.8 80 14 91/62 (72) 97 Intake and Output 07/02/19 07/03/19 19:00 07:00 Intake Total 653.333 ml 954.625 ml Output Total 150 ml 75 ml Balance 503.333 ml 879.625 ml IV Total 653.333 ml 954.625 ml Output Urine Total 150 ml 75 ml Laboratory Tests 07/02/19 18:55: Urine Color Yellow, Urine Appearance Turbid, Urine pH 5, Urine Specific [place] 1.020, Urine Protein 2+H, Urine Glucose (UA) Negative, Urine Ketones 1+H, Urine Blood Negative, Urine Nitrite Negative, Urine Bilirubin Negative, Urine Urobilinogen Normal, Urine Leukocyte Esterase Negative, Urine RBC 0, Urine WBC 0 , Urine Squamous Epithelial Cells Occasional, Urine Amorphous Sediment ManyH, Urine Bacteria ModerateH 07/03/19 06:30: White Blood Count 3.7L, Red Blood Count 3.92L, Hemoglobin 12.6#, Hematocrit 35.6 #L, Mean Corpuscular Volume 91, Mean Corpuscular Hemoglobin 32.1H, Mean Corpuscular Hemoglobin Concent 35.3, Red Cell Distribution Width 14.1, Platelet Count 112L, Mean Platelet Volume 6.8, Neutrophils (%) (Auto) , Lymphocytes (%) ( Auto) , Monocytes (%) (Auto) , Eosinophils (%) (Auto) , Basophils (%) (Auto) , Differential Total Cells Counted 100, Neutrophils % (Manual) 89H, Lymphocytes % (Manual) 5L, Monocytes % (Manual) 6, Eosinophils % (Manual) 0, Basophils % ( Manual) 0, Band Neutrophils 0, Platelet Estimate DecreasedL, Platelet Morphology Normal, Red Blood Cell Morphology Normal, Dimorphic Red Blood Cells , Prothrombin Time 13.5H, Prothromb Time International Ratio 1.3H, Sodium Level 147H, Potassium Level 3.3L, Chloride Level 112H, Carbon Dioxide Level 28, Anion Gap 7, Blood Urea Nitrogen 27H, Creatinine 0.9, Estimat Glomerular Filtration Rate > 60, Glucose Level 158H, Hemoglobin A1c 5.1, Lactic Acid Level 2.10H, Uric Acid 3.5, Calcium Level 7.7L, Phosphorus Level 2.6, Magnesium Level 1.9, Total Bilirubin 0.9, Gamma Glutamyl Transpeptidase 37, Aspartate Amino Transf ( AST/SGOT) 35, Alanine Aminotransferase (ALT/SGPT) 28, Alkaline Phosphatase 106, Troponin I 0.000, C-Reactive Protein, Quantitative 14.7H, Pro-B-Type Natriuretic Peptide 1653H, Total Protein 4.3L, Albumin 1.4L, Globulin 2.9, Albumin/Globulin Ratio 0.5L, Triglycerides Level 48, Cholesterol Level 56, LDL Cholesterol 17, HDL Cholesterol 32L, Cholesterol/HDL Ratio 1.8L, CA 15-3 Antigen [Pending], CA 19-9 Antigen [Pending], CA 125 Antigen [Pending], Thyroid Stimulating Hormone (TSH) 4.692H 07/03/19 10:10: Lactic Acid Level 2.00 Height (Feet): 5 Height (Inches): 3.00 Weight (Pounds): 118 General Appearance: no apparent distress, lethargic Cardiovascular: normal rate Respiratory/Chest: decreased breath sounds Abdomen: distended Pavan Junior MD Jul 03, 2019 15:24
--- NOTE | 2019-07-03 15:56 | Infectious Diseases Prog Note ---
Assessment/Plan Problems: (1) Abdominal pain Assessment & Plan: suspect due to massive ascites and abdominal distension , S/ P Paracentesis , monitor fluids culture , continue zosyn , surgery is following . may need EGD for further eval of abdominal pain (2) Free intraperitoneal air Assessment & Plan: suspect due to recent paracentesis , continue antibiotics monitor culture (3) Perforated abdominal viscus Assessment & Plan: ruled out with no clinical evidence of perforation , continue zosyn pending cultures (4) Anemia Assessment & Plan: S/P blood transfusion, rule out GI bleeding, recommend GI eval and endoscopy (5) Hypotension Assessment & Plan: suspect due to severe anemia , rule out sepsis , will repeat blood culture , continue zosyn Subjective Constitutional: Reports: no symptoms HEENT: Reports: no symptoms Respiratory: Reports: no symptoms Breasts: Reports: no symptoms Cardiovascular: Reports: no symptoms Gastrointestinal/Abdominal: Reports: bloating, other - pain in the LUQ Genitourinary: Reports: no symptoms Neurologic: Reports: no symptoms Psychiatric: Reports: no symptoms Skin: Reports: no symptoms Endocrine: Reports: no symptoms Hematologic: Reports: no symptoms Musculoskeletal: Reports: no symptoms Allergies: Coded Allergies: No Known Allergies (Unverified , 03/06/16) Objective Vital Signs Last 24 Hour Vital Signs Date Time Temp Pulse Resp B/P (MAP) Pulse Ox O2 Delivery O2 Flow Rate FiO2 07/03/19 12:00 97.9 66 16 121/67 (85) 99 07/03/19 10:00 97.2 79 18 119/69 (86) 98 07/03/19 09:00 Nasal Cannula 2.0 07/03/19 09:00 97.2 79 18 119/69 (86) 98 07/03/19 08:00 77 07/03/19 08:00 97.2 79 18 119/69 (86) 98 07/03/19 06:00 97.0 68 12 112/65 (81) 98 07/03/19 04:00 76 07/03/19 04:00 97.0 74 16 111/69 (83) 98 07/03/19 02:00 97.0 67 14 93/57 (69) 98 07/03/19 00:00 Nasal Cannula 2.0 07/03/19 00:00 96.8 72 14 108/60 (76) 99 07/03/19 00:00 69 07/02/19 22:00 97.7 75 12 120/61 (80) 98 07/02/19 21:00 Nasal Cannula 2.0 07/02/19 20:00 61 07/02/19 20:00 97.7 67 14 107/59 (75) 100 07/02/19 18:00 97.7 94 17 88/55 (66) 95 07/02/19 16:26 91 18 126/67 (86) 97 07/02/19 16:00 97.8 80 14 91/62 (72) 97 Height (Feet): 5 Height (Inches): 3.00 Weight (Pounds): 118 General Appearance: WD/WN, no acute distress HEENT: normocephalic, atraumatic, anicteric, mucous membranes moist, PERRL Respiratory/Chest: chest wall non-tender, lungs clear, normal breath sounds, no respiratory distress, no accessory muscle use Cardiovascular: normal peripheral pulses, normal rate, regular rhythm, no gallop/murmur, no JVD Abdomen: normal bowel sounds, no organomegaly, non distended, no mass, no scars , tender - LUQ Genitourinary: normal external genitalia Extremities: no cyanosis, no clubbing Skin: no rash, no lesions, no ulcers Neurologic/Psychiatric: 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 Complete 07/02/19 18:55 Indwelling Cath Urine Culture - Preliminary Resulted 07/01/19 10:05 Rectum VRE Culture - Final NO VANCOMYCIN RESISTANT ENTEROCOCCUS ... Complete Laboratory Tests Test 07/02/19 18:55 07/03/19 06:30 07/03/19 10:10 Urine Color Yellow Urine Appearance Turbid Urine pH 5 (4.5-8.0) Urine Specific [place] 1.020 (1.005-1.035) Urine Protein 2+ (NEGATIVE) H Urine Glucose (UA) Negative (NEGATIVE) Urine Ketones 1+ (NEGATIVE) H Urine Blood Negative (NEGATIVE) Urine Nitrite Negative (NEGATIVE) Urine Bilirubin Negative (NEGATIVE) Urine Urobilinogen Normal MG/DL (0.0-1.0) Urine Leukocyte Esterase Negative (NEGATIVE) Urine RBC 0 /HPF (0 - 2) Urine WBC 0 /HPF (0 - 2) Urine Squamous Epithelial Cells Occasional /LPF Urine Amorphous Sediment Many /LPF (NONE) H Urine Bacteria Moderate /HPF (NONE) H White Blood Count 3.7 K/UL (4.8-10.8) L Red Blood Count 3.92 M/UL (4.20-5.40) L Hemoglobin 12.6 G/DL (12.0-16.0) # Hematocrit 35.6 % (37.0-47.0) #L Mean Corpuscular Volume 91 FL (80-99) Mean Corpuscular Hemoglobin 32.1 PG (27.0-31.0) H Mean Corpuscular Hemoglobin Concent 35.3 G/DL (32.0-36.0) Red Cell Distribution Width 14.1 % (11.6-14.8) Platelet Count 112 K/UL (150-450) L Mean Platelet Volume 6.8 FL (6.5-10.1) Neutrophils (%) (Auto) % (45.0-75.0) Lymphocytes (%) (Auto) % (20.0-45.0) Monocytes (%) (Auto) % (1.0-10.0) Eosinophils (%) (Auto) % (0.0-3.0) Basophils (%) (Auto) % (0.0-2.0) Differential Total Cells Counted 100 Neutrophils % (Manual) 89 % (45-75) H Lymphocytes % (Manual) 5 % (20-45) L Monocytes % (Manual) 6 % (1-10) Eosinophils % (Manual) 0 % (0-3) Basophils % (Manual) 0 % (0-2) Band Neutrophils 0 % (0-8) Platelet Estimate Decreased L Platelet Morphology Normal Red Blood Cell Morphology Normal Dimorphic Red Blood Cells Prothrombin Time 13.5 SEC (9.30-11.50) H Prothromb Time International Ratio 1.3 (0.9-1.1) H Sodium Level 147 MMOL/L (136-145) H Potassium Level 3.3 MMOL/L (3.5-5.1) L Chloride Level 112 MMOL/L (98-107) H Carbon Dioxide Level 28 MMOL/L (21-32) Anion Gap 7 mmol/L (5-15) Blood Urea Nitrogen 27 mg/dL (7-18) H Creatinine 0.9 MG/DL (0.55-1.30) Estimat Glomerular Filtration Rate > 60 mL/min (>60) Glucose Level 158 MG/DL (74-106) H Hemoglobin A1c 5.1 % (4.3-6.0) Lactic Acid Level 2.10 mmol/L (0.4-2.0) H 2.00 mmol/L (0.66-2.22) Uric Acid 3.5 MG/DL (2.6-7.2) Calcium Level 7.7 MG/DL (8.5-10.1) L Phosphorus Level 2.6 MG/DL (2.5-4.9) Magnesium Level 1.9 MG/DL (1.8-2.4) Total Bilirubin 0.9 MG/DL (0.2-1.0) Gamma Glutamyl Transpeptidase 37 U/L (5-85) Aspartate Amino Transf (AST/SGOT) 35 U/L (15-37) Alanine Aminotransferase (ALT/SGPT) 28 U/L (12-78) Alkaline Phosphatase 106 U/L (46-116) Troponin I 0.000 ng/mL (0.000-0.056) C-Reactive Protein, Quantitative 14.7 mg/dL (0.00-0.90) H Pro-B-Type Natriuretic Peptide 1653 pg/mL (0-125) H Total Protein 4.3 G/DL (6.4-8.2) L Albumin 1.4 G/DL (3.4-5.0) L Globulin 2.9 g/dL Albumin/Globulin Ratio 0.5 (1.0-2.7) L Triglycerides Level 48 MG/DL (30-150) Cholesterol Level 56 MG/DL (< 200) LDL Cholesterol 17 mg/dL (<100) HDL Cholesterol 32 MG/DL (40-60) L Cholesterol/HDL Ratio 1.8 (3.3-4.4) L CA 15-3 Antigen Pending CA 19-9 Antigen Pending CA 125 Antigen Pending Thyroid Stimulating Hormone (TSH) 4.692 uiU/mL (0.358-3.740) Current Medications Medications (Trade) Dose Ordered Sig/Margie Route PRN Reason Start Time Stop Time Status Last Admin Dose Admin Dextrose/Sodium Chloride 1,000 ml @ 50 mls/hr Q20H IV 07/03/19 16:00 08/02/19 15:59 Ketorolac Tromethamine (Toradol 30mg) 15 mg BID PRN IV Severe Pain (Pain Scale 7-10) 07/03/19 09:00 07/08/19 08:59 Morphine Sulfate (Morphine Sulfate) 2 mg Q6H PRN IVP PAIN 4-10 07/02/19 12:40 07/09/19 12:39 07/02/19 16:32 Pantoprazole (Protonix) 40 mg Q12HR IVP 07/02/19 21:00 07/31/19 13:29 07/03/19 10:23 Piperacillin Sod/ Tazobactam Sod 3.375 gm/Sodium Chloride 110 ml @ 27.5 mls/hr EVERY 8 HOURS IVPB 07/02/19 22:00 07/07/19 21:59 07/03/19 14:09 Sodium Chloride 500 ml @ 0 mls/hr Q0M PRN IVPB SBP<100 07/02/19 12:40 08/01/19 12:39 Tenisha Osei M.D. Jul 03, 2019 15:56
[2019-07-03] MEDS ORDERED: D5NS 1,000 ML IV SCH ×3 (16:00→20:15)
--- NOTE | 2019-07-03 19:57 | NUR ---
HAND-OFF: Report given to PRABHA CEVALLOS, NO DUISTRESS NOTED..
--- NOTE | 2019-07-03 19:58 | NUR ---
NURSE NOTES: received pt from Georgie Christian RN., pt is awake and AOx2 Bulgarian speaker. pt's is at the bedside. pt is on RA and O2sat is at 95%. pt states no pain at this moment. pt has Young cath is place, draining well with gravity.Right AC 20G is intact, clean, and patent. call light within reach. bed at the lowest position, alarmed, and locked. will continue to monitor pt with plan of care.
--- NOTE | 2019-07-03 20:20 | NUR ---
HAND-OFF: Report given to Estefania CEVALLOS. pt remains stable at this moment. endorsed plan of care. no SOB noted.
[2019-07-03] MEDS ORDERED: Morphine Sulfate 2mg/ml Inj(IV/IM USE ONLY) IVP PRN (20:30)
--- NOTE | 2019-07-03 21:03 | History & Physical ---
History and Physical History & Physicial S: I am feeling ok O: at the bed side. Reported that pain is getting better, PHYSICAL EXAMINATION:HEAD AND NECK: Atraumatic and normocephalic. CHEST: Clear to auscultation.HEART: S1, S2. Regular rate and rhythm. ABDOMEN: Soft plus a scar of prior surgery noted in the midline. NEUROLOGY: Awake, alert, and oriented. MUSCULOSKELETAL: Atrophied musculature. DIAGNOSTIC DATA: Abdomen and pelvis CT scan dated July 01, 2019 shows moderate ascites, positive for the intraperitoneal air, positive for prior gastrectomy, positive for jejunal thickness, positive for ascites, fatty liver, and cholecystectomy. Meds: reviewed and reconciled ASSESSMENT: 1. Perforated viscus, source unknown. 3. Colitis, possible diagnosis. 4. Severe sepsis. 5. Dehydration. 6. Acute anemia. 7. Thrombocytopenia. 8. GI and DVT prophylaxis. PLAN OF CARE: preserved BP Ok to transfer to [facility] c/w current conservative management Eli Keenan MD Jul 03, 2019 21:03
[2019-07-04] VITALS (11 sets, daily range): BP systolic 93–118; BP diastolic 65–85
[2019-07-04] MEDS ORDERED: Nitroglycerin Subl 0.4mg tab SL PRN (05:00)
--- NOTE | 2019-07-04 05:30 | NUR ---
CLINICAL NURSE OCCUPATIONAL MEDICINE Note: Responded to CLINICAL NURSE OCCUPATIONAL MEDICINE room 310-2. CLINICAL NURSE OCCUPATIONAL MEDICINE called for patient complaining of chest pain. Patient connected to lunchroom monitor, noted to be sinus tach with HR 122. Patient Maltese speaking Lamar RN was able to communicate with patient. She states Chest pain is 9/10, Placed on 2 L NC. 12 lead EKG done reading sinus rhythm. @ 0450: BP 116/82 HR 92. @ 0458 0.4mg Nitroglycerin Tab given sublingual for chest pain 9/10; BP 118/85 HR 99 Sat 97% @0501 patient states her pain is not 6/10 BP noted to be 89/72 @0503 BP noted top increase now 93/67 Patient stated her pain is now 3/10 Did not proceed with second Nitroglycerin due to BP decreasing and chest pain improving. @ 0508 Spoke with Batter Scaler Mitch, Notified him about CLINICAL NURSE OCCUPATIONAL MEDICINE and 0.4 mg Nitro being given and Chest pain improving. MD ordered to transfer to Tele and stat troponin to be done. EKG results relayed, BP Now stable. Nursing Ship Engineer Informed. Patient to be transferred to ICU as Tele Overflow.
[2019-07-04 05:44] LABS: HEMATOCRIT 41.5 % (37.0-47.0); HEMOGLOBIN 14.6 G/DL (12.0-16.0); MEAN CORPUSCULAR VOLUME 90 FL (80-99); PLATELET COUNT 160 K/UL (150-450); RED BLOOD COUNT 4.59 M/UL (4.20-5.40); RED CELL DISTRIBUTION WIDTH 13.9 % (11.6-14.8); WHITE BLOOD COUNT 2.2 K/UL (4.8-10.8)
--- NOTE | 2019-07-04 05:50 | NUR ---
NURSE NOTES: Received pt and report from MART Mac. Pt is transferred from [facility] to Tele, however no room available at this time, therefore pt's admitted to ICU as a tele overflow. Post CUSTOMER BUSINESS MANAGER, due to chest pain, symptom subsided after Nitrostat x 1 dose. Pt's observed resting in bed, Faroese speaking, able to make needs known, no s/sx of pain noted at this time. Pt's is at bedside. Pt is on 2 L O2 via NC, tolerating well; saturation: 100%; public affairs officer shows SR at this time, no acute cardiac distress noted. Pt is currently a 1:1Feeder with regular diet. Noted [id number] is patent and intact, draining cloudy, dark nima/reddish urine at this time. Skin alterations noted, stage 2 sacral. Right AC 20 g IV site is patent and intact, running D5NS at 50 cc/hr. Bed in lowest position and locked, siderails up X3, call light within reach. HOB kept elevated. Will continue to monitor.
[2019-07-04 05:53] LABS: ALANINE AMINOTRANSFERASE 26 U/L (12-78); ALBUMIN 1.7 G/DL (3.4-5.0); ALBUMIN/GLOBULIN RATIO 0.6 (1.0-2.7); ALKALINE PHOSPHATASE 101 U/L (46-116); ANION GAP 8 mmol/L (5-15); ASPARTATE AMINO TRANSFERASE 28 U/L (15-37); BLOOD UREA NITROGEN 26 mg/dL (7-18); CALCIUM 8.2 MG/DL (8.5-10.1); CARBON DIOXIDE 25 MMOL/L (21-32); CHLORIDE 112 MMOL/L (98-107); CREATININE 1.2 MG/DL (0.55-1.30); POTASSIUM 3.1 MMOL/L (3.5-5.1); SODIUM 145 MMOL/L (136-145)
[2019-07-04] MEDS: Piperacillin/Tazobactam 3.375 GM in NS 110 ML IVPB SCH (06:12)
[2019-07-04] MEDS ORDERED: Ketorolac 30mg Inj IV PRN ×2 (07:00)
--- NOTE | 2019-07-04 07:00 | NUR ---
HAND-OFF: Report given to MART Gary.
--- NOTE | 2019-07-04 07:05 | NUR ---
NURSE'S NOTES: PATIENT WAS TRANSFERRED FROM SDU AT AROUND 2019 WITH BY THE BEDSIDE; PATIENT WAS LETHARGIC BUT AROUSABLE WITH MODERATE APPLIED PRESSURE ON THE EXTREMITY; ICELANDIC SPEAKING ONLY; VS TAKEN; BP WAS IN THE LOW 90'S BUT NO OTHER S/S OF DISTRESS. AT AROUND 421 PATIENT WAS SEEN TRYING TO GET OUT OF BED; ASSISTED MS. BRUMFIELD BACK TO BED BUT WAS SPEAKING IN ICELANDIC TO THIS NURSE; REQUESTED JITENDRA KUNZ RN OF [facility] TO TRANSLATE; PER RN JITENDRA PATIENT WAS C/O OF PAIN FROM THE LEFT SIDE AT THE BASE OF HER NECK AND RADIATING DOWN TO HER CHEST; UNIVERSITY LIBRARIAN CALLED; STAT EKG DONE - NSR; VS CHECKED SBP WAS IN THE 90S; WAS TOLD BY UNIVERSITY LIBRARIAN MART URIOSTEGUI TO GIVE MORPHINE BUT WAS HELD; NITRO 0.4MG INSTEAD ORDERED AND GIVEN; DR. PANDA ALSO CALLED; ORDERS TO DO STAT TROPONIN AND TRANSFER TO TELE. HOWEVER NO TELE BEDS AVAILABLE; PATIENT AND HER WAS TRANSFERRED TO ICU BED C TO BE MOVED LATER TO THE APPROPRIATE FLOOR. DURING THE WHOLE UNIVERSITY LIBRARIAN; PATIENT WAS AWAKE, ALERT, VERBALLY RESPONSIVE UNTIL TIME OF TRANSFER
--- NOTE | 2019-07-04 07:30 | NUR ---
NURSE NOTES: Received patient from MART Patino. Patient alert and oriented but primarily Greek speaking. patient transferred as tele overflow status post MARKETING COMMUNICATIONS COORDINATOR for chest pain resolved with nitro one dose. Patient on room air with RR 16 and SpO2 100%. awake overnight monitor showing sinus rhythm with rate of 88 beats per minute. Patient blood pressure low at 96/67. Will continue to monitor. Patient denies distress. Patient has orr for urine retention that is patent, asymptomatic, and draining at this time. Patient has sacral stage 2 pressure injury that is covered with optifoam with dressing dry and intact. Patient has bilateral leg pitting edema. Will continue to monitor. patient has right antecubital 20 gauge peripheral IV that is patent, asymptomatic, and running D5 0.9% normal saline at 50mL/hr at this time. Patient troponin level 0.001 this morning. Patient has an order for telemetry. Will follow up. Patient at the bedside. It was endorsed that he has been here for over 24 hours and it is unclear if he has eaten. Will follow up. Bed in low position with bed alarm on and call light in reach. patient repositioned at this time. Oral care supplies offered. Will continue to monitor.
[2019-07-04] MEDS: D5NS 1,000 ML IV SCH (07:49)
--- NOTE | 2019-07-04 08:14 | NUR ---
NURSE NOTES: Low air loss P200 mattress ordered from central supply. Will follow up.
--- NOTE | 2019-07-04 08:29 | General Progress Note ---
Assessment/Plan Assessment/Plan: Anemia Ascites hypoalbuminemia partial gastrectomy fatty liver ? perforated viscus VS SBP s/p 3 lit paracentesis>>> FU results abx ordered labs for tomorrow fu surg recs tumor markers drop in H&H w/o active bleed>>> repeat CBC in am>>> s/p blood transfusion abd us>>> reviewed add albumin IV Subjective ROS Limited/Unobtainable: Yes Allergies: Coded Allergies: No Known Allergies (Unverified , 03/06/16) Objective Last 24 Hour Vital Signs Date Time Temp Pulse Resp B/P (MAP) Pulse Ox O2 Delivery O2 Flow Rate FiO2 07/04/19 05:30 96.9 99 16 97/72 (80) 100 07/04/19 05:08 89 16 93/67 (76) 96 07/04/19 05:06 109/73 07/04/19 05:05 98 16 97/66 (76) 96 07/04/19 05:02 98 16 98/72 (81) 96 07/04/19 04:58 99 16 118/85 (96) 96 07/04/19 04:50 96.9 92 16 116/82 (93) 96 07/04/19 04:00 96.9 80 16 109/73 (85) 96 07/04/19 00:00 97.2 79 16 95/67 (76) 98 07/03/19 21:58 97.6 70 16 95/61 (72) 95 07/03/19 21:00 Room Air 07/03/19 20:00 97.7 85 17 122/77 (92) 95 07/03/19 19:27 97.6 07/03/19 16:00 97.6 85 18 128/82 (97) 97 07/03/19 16:00 82 07/03/19 12:00 97.9 66 16 121/67 (85) 99 07/03/19 10:00 97.2 79 18 119/69 (86) 98 07/03/19 09:00 Nasal Cannula 2.0 07/03/19 09:00 97.2 79 18 119/69 (86) 98 Intake and Output 07/03/19 07/04/19 19:00 07:00 Intake Total 385.0 ml 1160.0 ml Output Total 100 ml 100 ml Balance 285.0 ml 1060.0 ml Intake Oral 200 ml 200 ml IV Total 185.0 ml 960.0 ml Output Urine Total 100 ml 100 ml Laboratory Tests 07/03/19 10:10: Lactic Acid Level 2.00 07/04/19 05:10: White Blood Count 2.2L, Red Blood Count 4.59, Hemoglobin 14.6, Hematocrit 41.5, Mean Corpuscular Volume 90, Mean Corpuscular Hemoglobin 31.7H, Mean Corpuscular Hemoglobin Concent 35.1, Red Cell Distribution Width 13.9, Platelet Count 160, Mean Platelet Volume 6.9, Neutrophils (%) (Auto) , Lymphocytes (%) (Auto) , Monocytes (%) (Auto) , Eosinophils (%) (Auto) , Basophils (%) (Auto) , Neutrophils % (Manual) [Pending], Lymphocytes % (Manual) [Pending], Platelet Estimate [Pending], Platelet Morphology [Pending], Erythrocyte Sedimentation Rate 6, Sodium Level 145, Potassium Level 3.1L, Chloride Level 112H, Carbon Dioxide Level 25, Anion Gap 8, Blood Urea Nitrogen 26H, Creatinine 1.2, Estimat Glomerular Filtration Rate 43.5, Glucose Level 101, Calcium Level 8.2L, Phosphorus Level 3.0, Magnesium Level 1.9, Total Bilirubin 1.0, Aspartate Amino Transf (AST/SGOT) 28, Alanine Aminotransferase (ALT/SGPT) 26, Alkaline Phosphatase 101, Troponin I 0.001, C-Reactive Protein, Quantitative 16.6H, Pro-B -Type Natriuretic Peptide 1841H, Total Protein 4.6L, Albumin 1.7L, Globulin 2.9 , Albumin/Globulin Ratio 0.6L, Carcinoembryonic Antigen [Pending] Height (Feet): 5 Height (Inches): 3.00 Weight (Pounds): 118 General Appearance: alert EENT: normal ENT inspection Neck: supple Cardiovascular: normal rate Respiratory/Chest: decreased breath sounds Abdomen: normal bowel sounds, hypoactive bowel sounds, tender Extremities: non-tender Rodney Neri MD Jul 04, 2019 08:29
[2019-07-04] MEDS ORDERED: Morphine Sulfate 2mg/ml Inj(IV/IM USE ONLY) IVP PRN ×2 (08:30→13:00)
[2019-07-04] MEDS: Nitroglycerin Subl 0.4mg tab SL PRN ×3 (08:56→11:19)
[2019-07-04] MEDS: Pantoprazole Inj IVP SCH ×2 (08:58→21:16)
--- NOTE | 2019-07-04 09:35 | NUR ---
NURSE NOTES: Patient reporting chest pain at this time. Nitro 0.4mg sublingual. Stat ECG done. Result is sinus tachycardia with possible/undetermined old infarct. Pain subsided at this time. Dr Meyer notified via telephone voicemail message. Awaiting call back with further instructions. Patient has an order to transfer to telemetry. Patient blood pressure 89/67 at this time. Will hold patient at this time until Dr Meyer calls back.
--- NOTE | 2019-07-04 10:00 | NUR ---
NURSE NOTES: Updated Dr Junior in person regarding patient current condition. Patient denies pain at this time. Notified Dr Junior that patient blood pressure is trending low. Received order for Midodrine 2.5mg PO TID. Order read back, verified, and placed at this time. Asked Dr Parkinson if patient can take the KCl PO instead of IV. He reported that patient can have 40mEq K-Dur PO once instead of IV 40mEq IVPB. Order read back, verified, and placed at this time.
--- NOTE | 2019-07-04 10:27 | General Progress Note ---
Assessment/Plan Assessment/Plan: S: I am feeling ok O: at the bed side. Reported that pain is getting better, PHYSICAL EXAMINATION:HEAD AND NECK: Atraumatic and normocephalic. CHEST: Clear to auscultation.HEART: S1, S2. Regular rate and rhythm. ABDOMEN: Soft plus a scar of prior surgery noted in the midline. NEUROLOGY: Awake, alert, and oriented. MUSCULOSKELETAL: Atrophied musculature. Meds: reviewed and reconciled ASSESSMENT: 1. Perforated viscus, source unknown. 3. Colitis, possible diagnosis. 4. Severe sepsis. 5. Dehydration. 6. Acute anemia. 7. Thrombocytopenia. 8. GI and DVT prophylaxis. PLAN OF CARE: preserved BP c/w current conservative management Subjective Allergies: Coded Allergies: No Known Allergies (Unverified , 03/06/16) Objective Last 24 Hour Vital Signs Date Time Temp Pulse Resp B/P (MAP) Pulse Ox O2 Delivery O2 Flow Rate FiO2 07/04/19 08:56 102/70 07/04/19 08:00 97.9 88 13 102/70 (81) 07/04/19 07:00 81 13 96/67 (77) 100 07/04/19 05:30 96.9 99 16 97/72 (80) 100 07/04/19 05:08 89 16 93/67 (76) 96 07/04/19 05:06 109/73 07/04/19 05:05 98 16 97/66 (76) 96 07/04/19 05:02 98 16 98/72 (81) 96 07/04/19 04:58 99 16 118/85 (96) 96 07/04/19 04:50 96.9 92 16 116/82 (93) 96 07/04/19 04:00 96.9 80 16 109/73 (85) 96 07/04/19 00:00 97.2 79 16 95/67 (76) 98 07/03/19 21:58 97.6 70 16 95/61 (72) 95 07/03/19 21:00 Room Air 07/03/19 20:00 97.7 85 17 122/77 (92) 95 07/03/19 19:27 97.6 07/03/19 16:00 97.6 85 18 128/82 (97) 97 07/03/19 16:00 82 07/03/19 12:00 97.9 66 16 121/67 (85) 99 Intake and Output 07/03/19 07/04/19 19:00 07:00 Intake Total 385.0 ml 1160.0 ml Output Total 100 ml 100 ml Balance 285.0 ml 1060.0 ml Intake Oral 200 ml 200 ml IV Total 185.0 ml 960.0 ml Output Urine Total 100 ml 100 ml Laboratory Tests 07/04/19 05:10: White Blood Count 2.2L, Red Blood Count 4.59, Hemoglobin 14.6, Hematocrit 41.5, Mean Corpuscular Volume 90, Mean Corpuscular Hemoglobin 31.7H, Mean Corpuscular Hemoglobin Concent 35.1, Red Cell Distribution Width 13.9, Platelet Count 160, Mean Platelet Volume 6.9, Neutrophils (%) (Auto) , Lymphocytes (%) (Auto) , Monocytes (%) (Auto) , Eosinophils (%) (Auto) , Basophils (%) (Auto) , Neutrophils % (Manual) [Pending], Lymphocytes % (Manual) [Pending], Platelet Estimate [Pending], Platelet Morphology [Pending], Erythrocyte Sedimentation Rate 6, Sodium Level 145, Potassium Level 3.1L, Chloride Level 112H, Carbon Dioxide Level 25, Anion Gap 8, Blood Urea Nitrogen 26H, Creatinine 1.2, Estimat Glomerular Filtration Rate 43.5, Glucose Level 101, Calcium Level 8.2L, Phosphorus Level 3.0, Magnesium Level 1.9, Total Bilirubin 1.0, Aspartate Amino Transf (AST/SGOT) 28, Alanine Aminotransferase (ALT/SGPT) 26, Alkaline Phosphatase 101, Troponin I 0.001, C-Reactive Protein, Quantitative 16.6H, Pro-B -Type Natriuretic Peptide 1841H, Total Protein 4.6L, Albumin 1.7L, Globulin 2.9 , Albumin/Globulin Ratio 0.6L, Carcinoembryonic Antigen [Pending] Height (Feet): 5 Height (Inches): 3.00 Weight (Pounds): 118 Eli Keenan MD Jul 04, 2019 10:27
--- NOTE | 2019-07-04 10:32 | NUR ---
*-* INSURANCE *-* ALL CLINICALS AND REVIEWS HAVE BEEN FAXED TO: LEE Chavez Ref# yet # [phone]
--- NOTE | 2019-07-04 10:38 | NUR ---
Social Work This SW met with patient currently sedated in the ICU. Spouse currently at bedside, in which nursing explains he has not been a concern for them. Spouse explains his son is coming to pick him up, but uncertain at what time. This SW made an attempt to get the contact information for son, from the son, who explains he does not want to give out his sons phone number. Spouse is requesting for this SW to contact his daughter, Edwige Yu @ [phone], while providing the additional numbers for locate her: 1) [phone] (office) 2) [phone] (cell) 3) [phone] (home) Spouse may have some confusion vs possible language barrier. This SW made and attempt all of the numbers provided for daughter, while there was no answer on any of the numbers (or voicemail). This Sw requested spouse to have his son or daughter contact this SW (or VANESA Coffman tomorrow) to verify home situation and plans for discharge. SW to follow.
--- NOTE | 2019-07-04 10:57 | NUR ---
HAND-OFF: Report given to MART Maria. Endorsed to follow up.
--- NOTE | 2019-07-04 10:58 | NUR ---
NURSE NOTES: Received patient from oCokie CEVALLOS. Patient is awake, Welsh speaking, patient's at the bedside. Patient is Sinus Rhythm on the heart monitor, HR 94. Receiving oxygen via Nasal Cannula at 2L/min, no signs of respiratory distress, O2 saturation at 100%. Young catheter is intact and draining. IV site is Right AC 20g is intact and receiving D5NS at 50cc/hr. Bed is locked, placed in lowest position, side rails up x3, bed alarm on, call light within reach. Will continue to monitor.
--- NOTE | 2019-07-04 11:30 | NUR ---
NURSE NOTES: Patient complained of chest pain, prescribed nitroglycerin 0.4mg given sublingual at 1107, after 5 minutes patient still complained of chest pain, facial grimace present, 0.4mg nitroglycerin given at 1114. On reassessment, patient no longer complained of pain, facial grimace not present. Will continue to monitor.
--- NOTE | 2019-07-04 11:33 | NUR ---
NURSE NOTES: Patient's axillary temperature was 95.0 degrees Fahrenheit , bare hugger placed on patient. Will continue to monitor.
--- NOTE | 2019-07-04 11:44 | NUR ---
NURSE NOTES: Reassessed patient's temperature 97.5 degrees Fahrenheit via axillary. Bare hugger was turned off, multiple blankets placed on patient. Will continue monitor.
--- NOTE | 2019-07-04 12:30 | Nephrology Progress Note ---
Assessment/Plan Problem List: (1) Hypotension (2) Anemia (3) Abdominal pain (4) Free intraperitoneal air (5) Hypoalbuminemia Assessment Intra-abdominal process either peritonitis and or perforated viscus Severe anemia with drop of hemoglobin from 10 to 7 requiring blood transfusion. Hypotensive unclear if due to intra-abdominal bleeding and or septic process. Albuminemia, ascites, unclear etiology, most likely underlying neoplastic process Plan Potassium supplement IV Start midodrine for low blood pressure Continue per general surgery and GI advice advice Patient was started on p.o. diet Antibiotics now on Zosyn IV Protonix Young catheter Blood pressure support with pressors if needed Patient currently is full code, I support DNR status Will discuss with consultants Reviewed the case with RN Subjective ROS Limited/Unobtainable: No Constitutional: Reports: malaise, weakness, other - Periodically complains of chest pain responds to nitro Objective Objective Last 24 Hour Vital Signs Date Time Temp Pulse Resp B/P (MAP) Pulse Ox O2 Delivery O2 Flow Rate FiO2 07/04/19 11:19 103/60 07/04/19 11:08 103/60 07/04/19 08:56 102/70 07/04/19 08:00 97.9 88 13 102/70 (81) 07/04/19 08:00 Room Air 07/04/19 07:00 81 13 96/67 (77) 100 07/04/19 05:30 96.9 99 16 97/72 (80) 100 07/04/19 05:08 89 16 93/67 (76) 96 07/04/19 05:06 109/73 07/04/19 05:05 98 16 97/66 (76) 96 07/04/19 05:02 98 16 98/72 (81) 96 07/04/19 04:58 99 16 118/85 (96) 96 07/04/19 04:50 96.9 92 16 116/82 (93) 96 07/04/19 04:00 96.9 80 16 109/73 (85) 96 07/04/19 00:00 97.2 79 16 95/67 (76) 98 07/03/19 21:58 97.6 70 16 95/61 (72) 95 07/03/19 21:00 Room Air 07/03/19 20:00 97.7 85 17 122/77 (92) 95 07/03/19 19:27 97.6 07/03/19 16:00 97.6 85 18 128/82 (97) 97 07/03/19 16:00 82 Intake and Output 07/03/19 07/04/19 19:00 07:00 Intake Total 385.0 ml 1160.0 ml Output Total 100 ml 100 ml Balance 285.0 ml 1060.0 ml Intake Oral 200 ml 200 ml IV Total 185.0 ml 960.0 ml Output Urine Total 100 ml 100 ml Laboratory Tests 07/04/19 05:10: White Blood Count 2.2L, Red Blood Count 4.59, Hemoglobin 14.6, Hematocrit 41.5, Mean Corpuscular Volume 90, Mean Corpuscular Hemoglobin 31.7H, Mean Corpuscular Hemoglobin Concent 35.1, Red Cell Distribution Width 13.9, Platelet Count 160, Mean Platelet Volume 6.9, Neutrophils (%) (Auto) , Lymphocytes (%) (Auto) , Monocytes (%) (Auto) , Eosinophils (%) (Auto) , Basophils (%) (Auto) , Differential Total Cells Counted 100, Neutrophils % (Manual) 78H, Lymphocytes % (Manual) 8L, Monocytes % (Manual) 14H, Eosinophils % (Manual) 0, Basophils % ( Manual) 0, Band Neutrophils 0, Platelet Estimate Adequate, Platelet Morphology Normal, Erythrocyte Sedimentation Rate 6, Sodium Level 145, Potassium Level 3.1L , Chloride Level 112H, Carbon Dioxide Level 25, Anion Gap 8, Blood Urea Nitrogen 26H, Creatinine 1.2, Estimat Glomerular Filtration Rate 43.5, Glucose Level 101, Calcium Level 8.2L, Phosphorus Level 3.0, Magnesium Level 1.9, Total Bilirubin 1.0, Aspartate Amino Transf (AST/SGOT) 28, Alanine Aminotransferase ( ALT/SGPT) 26, Alkaline Phosphatase 101, Troponin I 0.001, C-Reactive Protein, Quantitative 16.6H, Pro-B-Type Natriuretic Peptide 1841H, Total Protein 4.6L, Albumin 1.7L, Globulin 2.9, Albumin/Globulin Ratio 0.6L, Carcinoembryonic Antigen [Pending] Height (Feet): 5 Height (Inches): 3.00 Weight (Pounds): 118 General Appearance: no apparent distress Cardiovascular: normal rate Respiratory/Chest: decreased breath sounds Abdomen: distended Pavan Junior MD 9, 2020 12:30
--- NOTE | 2019-07-04 12:32 | Surgery Progress Note ---
Surgery Progress Note Subjective Additional Comments Patient seen examined bedside. Overnight had some chest pain was transferred to the intensive care unit for evaluation. EKG was sinus tachycardia troponins negative. Cardiology follow-up. She currently states no chest pain. Still with abdominal discomfort. Tolerated full diet. No nausea vomiting fever chills. Labs noted. Objective Last 24 Hour Vital Signs Date Time Temp Pulse Resp B/P (MAP) Pulse Ox O2 Delivery O2 Flow Rate FiO2 07/04/19 11:19 103/60 07/04/19 11:08 103/60 07/04/19 08:56 102/70 07/04/19 08:00 97.9 88 13 102/70 (81) 07/04/19 08:00 Room Air 07/04/19 07:00 81 13 96/67 (77) 100 07/04/19 05:30 96.9 99 16 97/72 (80) 100 07/04/19 05:08 89 16 93/67 (76) 96 07/04/19 05:06 109/73 07/04/19 05:05 98 16 97/66 (76) 96 07/04/19 05:02 98 16 98/72 (81) 96 07/04/19 04:58 99 16 118/85 (96) 96 07/04/19 04:50 96.9 92 16 116/82 (93) 96 07/04/19 04:00 96.9 80 16 109/73 (85) 96 07/04/19 00:00 97.2 79 16 95/67 (76) 98 07/03/19 21:58 97.6 70 16 95/61 (72) 95 07/03/19 21:00 Room Air 07/03/19 20:00 97.7 85 17 122/77 (92) 95 07/03/19 19:27 97.6 07/03/19 16:00 97.6 85 18 128/82 (97) 97 07/03/19 16:00 82 I&O Intake and Output 07/03/19 07/04/19 19:00 07:00 Intake Total 385.0 ml 1160.0 ml Output Total 100 ml 100 ml Balance 285.0 ml 1060.0 ml Intake Oral 200 ml 200 ml IV Total 185.0 ml 960.0 ml Output Urine Total 100 ml 100 ml Cardiovascular: RSR Respiratory: clear Abdomen: soft, distended, tenderness - Fluid Extremities: no edema, no tenderness, no cyanosis Laboratory Tests Test 07/04/19 05:10 White Blood Count 2.2 K/UL (4.8-10.8) L Red Blood Count 4.59 M/UL (4.20-5.40) Hemoglobin 14.6 G/DL (12.0-16.0) Hematocrit 41.5 % (37.0-47.0) Mean Corpuscular Volume 90 FL (80-99) Mean Corpuscular Hemoglobin 31.7 PG (27.0-31.0) H Mean Corpuscular Hemoglobin Concent 35.1 G/DL (32.0-36.0) Red Cell Distribution Width 13.9 % (11.6-14.8) Platelet Count 160 K/UL (150-450) Mean Platelet Volume 6.9 FL (6.5-10.1) Neutrophils (%) (Auto) % (45.0-75.0) Lymphocytes (%) (Auto) % (20.0-45.0) Monocytes (%) (Auto) % (1.0-10.0) Eosinophils (%) (Auto) % (0.0-3.0) Basophils (%) (Auto) % (0.0-2.0) Differential Total Cells Counted 100 Neutrophils % (Manual) 78 % (45-75) H Lymphocytes % (Manual) 8 % (20-45) L Monocytes % (Manual) 14 % (1-10) H Eosinophils % (Manual) 0 % (0-3) Basophils % (Manual) 0 % (0-2) Band Neutrophils 0 % (0-8) Platelet Estimate Adequate Platelet Morphology Normal Erythrocyte Sedimentation Rate 6 MM/HR (0-30) Sodium Level 145 MMOL/L (136-145) Potassium Level 3.1 MMOL/L (3.5-5.1) L Chloride Level 112 MMOL/L (98-107) H Carbon Dioxide Level 25 MMOL/L (21-32) Anion Gap 8 mmol/L (5-15) Blood Urea Nitrogen 26 mg/dL (7-18) H Creatinine 1.2 MG/DL (0.55-1.30) Estimat Glomerular Filtration Rate 43.5 mL/min (>60) Glucose Level 101 MG/DL (74-106) Calcium Level 8.2 MG/DL (8.5-10.1) L Phosphorus Level 3.0 MG/DL (2.5-4.9) Magnesium Level 1.9 MG/DL (1.8-2.4) Total Bilirubin 1.0 MG/DL (0.2-1.0) Aspartate Amino Transf (AST/SGOT) 28 U/L (15-37) Alanine Aminotransferase (ALT/SGPT) 26 U/L (12-78) Alkaline Phosphatase 101 U/L (46-116) Troponin I 0.001 ng/mL (0.000-0.056) C-Reactive Protein, Quantitative 16.6 mg/dL (0.00-0.90) H Pro-B-Type Natriuretic Peptide 1841 pg/mL (0-125) H Total Protein 4.6 G/DL (6.4-8.2) L Albumin 1.7 G/DL (3.4-5.0) L Globulin 2.9 g/dL Albumin/Globulin Ratio 0.6 (1.0-2.7) L Carcinoembryonic Antigen Pending Plan Problems: (1) Abdominal pain Assessment & Plan: This is a 78-year-old female who presented to [facility] complaining of worsening abdominal pain. A blindmaker was used to obtain history from the patient as well as the given Urdu speaking. is able to speak somewhat Czech but his Czech is not good enough for complete translation therefore translation services were used. I had a long discussion with them in regards to admission current symptoms and care. As from what I could determine she had a partial gastrectomy about 2-1/2 years ago for unknown reason potentially ulcer perforation. She has a large midline incision from xiphoid down almost to the pubis. She has since developed ascites though no known liver dysfunction and recently as of yesterday from patient stating had a paracentesis done at an outside facility. States continues to have pain and she feels she is full of fluid and distended and it causes her discomfort therefore she came here for evaluation. No nausea vomiting fever chills. Does not eat well. Malnourished. Surgery called to evaluate and assist with care. CT scan demonstrated some bubbles of free air and ascites fluid. In evaluating the patient on examination she is fairly tender in all quadrants. She states she just feels like she is full of fluid. I reviewed the CT personally and discussed with the radiologist Given the minimal amount of free air and significant free fluid there is a high probability that since patient states her paracentesis and yesterday the residual free air is from that was longer as potentially believed to be a few days ago but then there is strong possibility and concern for bowel perforation but paracentesis less than 24 hours ago and a few air bubbles could potentially be unremarkable. Patient is afebrile otherwise hemodynamic stable and without signs of acute active infectious process and the potential bowel perforation is there but lower on the differential. She could have a bowel perforation now has peritonitis in the ascites fluid but directly in her age and condition going the operating room is still advised. I discussed with the radiologist and plan for repeat paracentesis. Potentially symptomatic improvement once fluid is evacuated and can also send fluid for culture and microbiology and cytology to evaluate for the possibility of infectious process or perforation ongoing. Discussed with primary care physician patient and family. Will follow with recommendations thank you for let me participate patient's care Patient had a paracentesis by radiology evacuating 3 L of ascites fluid. Since states she feels better. Abdominal exam on 3 7 improved as compared to 3 6 with less tenderness though she is still somewhat tender. States that she feels tenderness from the bloating of the fluid. No nausea vomiting fever chills. Hypotension responsive to fluids. Though there is a possibility of bowel perforation prior unlikely given the paracentesis findings. Furthermore potential bleeding after paracentesis. Coags noted. May have coagulopathy as well. Trend H&H transfuse as needed labs noted h/h improved hd stable Diet as tolerated suspicion for bowel perf or bleeding low. possible but unlikely We will follow with recommendations thank you (2) Free intraperitoneal air Assessment & Plan: Lack of enteric contrast limits assessment of the GI tract. There is ascites fluid. There is a small amount of free intraperitoneal gas within the anterior peritoneal space. A few bubbles of gas are also seen within the left upper quadrant mesenteric fat. These are seen along the greater curvature of the stomach and a few posterior to the stomach. There is also a single small gas bubble in the sugey hepatis. There is evidence of prior distal gastrectomy and gastrojejunostomy. There is also a jejunojejunostomy suture line in the upper abdominal midline. Surgical clips are also seen in the peripancreatic region The appendix is normal. Small bowel loops are mildly prominent and demonstrate mild wall thickening proximally. The distal esophagus is unremarkable. Lack of IV contrast limits assessment of the solid organs. The liver is diffusely markedly hypoattenuating. It is essentially isoattenuating with the surrounding ascites fluid. The gallbladder has been removed. No biliary ductal dilatation. The pancreas, spleen, adrenal glands are grossly unremarkable. The right kidney demonstrates a large upper pole cyst. It demonstrates a calcification which measures approximately 3 mm in diameter and is possibly calyceal. The left kidney demonstrates an upper pole calyceal calcification. No hydronephrosis. No pelvic mass or adenopathy. Uterus and adnexal structures appear unremarkable. There is diffuse edema of the subcutaneous, abdominal, retroperitoneal fat. The included lung bases demonstrate some posterior dependent atelectatic changes, are otherwise clear. The bones demonstrate degenerative spondylosis changes.. There are also degenerative changes with vacuum formation of the bilateral sacroiliac joints. Impression: Limited assessment of the GI tract, due to lack of enteric contrast administration. Small amount of free intraperitoneal air demonstrated, with gas seen in the anterior midline peritoneal space as well as within the left upper quadrant mesentery. This is consistent with perforated hollow viscus. Source of perforation indeterminate, although quite possibly in the left upper quadrant and possibly related to the stomach. Postsurgical changes, as described, with evidence of prior distal gastrectomy, gastrojejunostomy, and likely Nolan-en-Y anastomosis Mild prominence and equivocal slight wall thickening of the proximal jejunum, if real could represent reactive changes secondary to the above process or could represent primarily enteritis Moderate ascites Anasarca Markedly fatty liver Evidence of prior cholecystectomy Incidental findings as noted, including degenerative spondylosis changes, as do dependent pulmonary atelectatic changes, bilateral sacroiliac joint degenerative changes, right upper pole renal cyst, nonobstructive bilateral renal calculi (3) Perforated abdominal viscus Kamron Hawkins Jul 04, 2019 12:32
--- NOTE | 2019-07-04 12:53 | Cardiac Electrophysiology PN ---
Assessment/Plan Assessment/Plan 1. Severe bilateral lower extremity edema. Her INR is 1.1, albumin is 2.0. Etiology is not clear at this time. Echocardiogram EF 65% 2. Ascites, status post 3 liter paracentesis also sent for cytology. 3. History of prior gastrectomy with Nolan-en-Y anastomosis. 4. Small amount of intraperitoneal air consistent with perforated viscus. Further evaluation by Dr. Hawkins. 5. Severe anemia. Could be dilutional. S/P PRBC 6. Hypotension could be due to dehydration and anemia. S/P 2 units PRBC and iv fluid. Already on iv Abx. Better. Never started on Levo. On Midodrine 2.5 tid DW RN Subjective Subjective No CP or SOB but has abdominal pain. Getting iv fluid.In ICU for hypotension. Now on Midodrin 2.5 tid Objective Last 24 Hour Vital Signs Date Time Temp Pulse Resp B/P (MAP) Pulse Ox O2 Delivery O2 Flow Rate FiO2 07/04/19 11:19 103/60 07/04/19 11:08 103/60 07/04/19 08:56 102/70 07/04/19 08:00 97.9 88 13 102/70 (81) 07/04/19 08:00 Room Air 07/04/19 07:00 81 13 96/67 (77) 100 07/04/19 05:30 96.9 99 16 97/72 (80) 100 07/04/19 05:08 89 16 93/67 (76) 96 07/04/19 05:06 109/73 07/04/19 05:05 98 16 97/66 (76) 96 07/04/19 05:02 98 16 98/72 (81) 96 07/04/19 04:58 99 16 118/85 (96) 96 07/04/19 04:50 96.9 92 16 116/82 (93) 96 07/04/19 04:00 96.9 80 16 109/73 (85) 96 07/04/19 00:00 97.2 79 16 95/67 (76) 98 07/03/19 21:58 97.6 70 16 95/61 (72) 95 07/03/19 21:00 Room Air 07/03/19 20:00 97.7 85 17 122/77 (92) 95 07/03/19 19:27 97.6 3/8/20 16:00 97.6 85 18 128/82 (97) 97 07/03/19 16:00 82 Intake and Output 07/03/19 07/04/19 19:00 07:00 Intake Total 385.0 ml 1160.0 ml Output Total 100 ml 100 ml Balance 285.0 ml 1060.0 ml Intake Oral 200 ml 200 ml IV Total 185.0 ml 960.0 ml Output Urine Total 100 ml 100 ml Laboratory Tests Test 07/04/19 05:10 07/04/19 11:30 White Blood Count 2.2 K/UL (4.8-10.8) L Red Blood Count 4.59 M/UL (4.20-5.40) Hemoglobin 14.6 G/DL (12.0-16.0) Hematocrit 41.5 % (37.0-47.0) Mean Corpuscular Volume 90 FL (80-99) Mean Corpuscular Hemoglobin 31.7 PG (27.0-31.0) H Mean Corpuscular Hemoglobin Concent 35.1 G/DL (32.0-36.0) Red Cell Distribution Width 13.9 % (11.6-14.8) Platelet Count 160 K/UL (150-450) Mean Platelet Volume 6.9 FL (6.5-10.1) Neutrophils (%) (Auto) % (45.0-75.0) Lymphocytes (%) (Auto) % (20.0-45.0) Monocytes (%) (Auto) % (1.0-10.0) Eosinophils (%) (Auto) % (0.0-3.0) Basophils (%) (Auto) % (0.0-2.0) Differential Total Cells Counted 100 Neutrophils % (Manual) 78 % (45-75) H Lymphocytes % (Manual) 8 % (20-45) L Monocytes % (Manual) 14 % (1-10) H Eosinophils % (Manual) 0 % (0-3) Basophils % (Manual) 0 % (0-2) Band Neutrophils 0 % (0-8) Platelet Estimate Adequate Platelet Morphology Normal Erythrocyte Sedimentation Rate 6 MM/HR (0-30) Sodium Level 145 MMOL/L (136-145) Potassium Level 3.1 MMOL/L (3.5-5.1) L Chloride Level 112 MMOL/L (98-107) H Carbon Dioxide Level 25 MMOL/L (21-32) Anion Gap 8 mmol/L (5-15) Blood Urea Nitrogen 26 mg/dL (7-18) H Creatinine 1.2 MG/DL (0.55-1.30) Estimat Glomerular Filtration Rate 43.5 mL/min (>60) Glucose Level 101 MG/DL (74-106) Calcium Level 8.2 MG/DL (8.5-10.1) L Phosphorus Level 3.0 MG/DL (2.5-4.9) Magnesium Level 1.9 MG/DL (1.8-2.4) Total Bilirubin 1.0 MG/DL (0.2-1.0) Aspartate Amino Transf (AST/SGOT) 28 U/L (15-37) Alanine Aminotransferase (ALT/SGPT) 26 U/L (12-78) Alkaline Phosphatase 101 U/L (46-116) Troponin I 0.001 ng/mL (0.000-0.056) 0.021 ng/mL (0.000-0.056) C-Reactive Protein, Quantitative 16.6 mg/dL (0.00-0.90) H Pro-B-Type Natriuretic Peptide 1841 pg/mL (0-125) H Total Protein 4.6 G/DL (6.4-8.2) L Albumin 1.7 G/DL (3.4-5.0) L Globulin 2.9 g/dL Albumin/Globulin Ratio 0.6 (1.0-2.7) L Carcinoembryonic Antigen Pending Microbiology Date/Time Source Procedure Growth Status 07/02/19 18:15 Blood Blood Culture - Preliminary NO GROWTH AFTER 24 HOURS Resulted 07/02/19 18:00 Blood Blood Culture - Preliminary NO GROWTH AFTER 24 HOURS Resulted 07/02/19 18:55 Indwelling Cath Urine Culture - Preliminary NO GROWTH AFTER 24 HOURS Resulted Objective HEAD AND NECK: Shows no JVD. LUNGS: Clear. CARDIOVASCULAR: Regular S1 and S2 with no gallop. ABDOMEN: Very tender. Has scar of prior surgery. EXTREMITIES: 3+ pitting edema. Benton Meyer MD Jul 04, 2019 12:53
--- NOTE | 2019-07-04 13:03 | Infectious Diseases Prog Note ---
Assessment/Plan Problems: (1) Abdominal pain Assessment & Plan: suspect due to massive ascites and abdominal distension , S/ P Paracentesis , monitor fluids culture , continue zosyn , surgery is following . may need EGD for further eval of abdominal pain (2) Free intraperitoneal air Assessment & Plan: suspect due to recent paracentesis , with no clinical evidence of perforation , stop antibiotics monitor culture (3) Perforated abdominal viscus Assessment & Plan: ruled out with no clinical evidence of perforation , stop zosyn since all cultures are negative (4) Anemia Assessment & Plan: S/P blood transfusion, rule out GI bleeding, recommend GI eval and endoscopy (5) Hypotension Assessment & Plan: suspect due to severe anemia , with no evidence of sepsis , and negative repeated blood culture , stop zosyn (6) Chest pain at rest Assessment & Plan: rule out cardiac VS pulmonary source, cardiology is following , recommend pulmonary eval Subjective Constitutional: Reports: no symptoms HEENT: Reports: no symptoms Respiratory: Reports: no symptoms Breasts: Reports: no symptoms Cardiovascular: Reports: chest pain, palpitations Gastrointestinal/Abdominal: Reports: bloating Genitourinary: Reports: no symptoms Neurologic: Reports: weakness Psychiatric: Reports: no symptoms Skin: Reports: no symptoms Endocrine: Reports: no symptoms Hematologic: Reports: no symptoms Musculoskeletal: Reports: no symptoms Allergies: Coded Allergies: No Known Allergies (Unverified , 03/06/16) Objective Vital Signs Last 24 Hour Vital Signs Date Time Temp Pulse Resp B/P (MAP) Pulse Ox O2 Delivery O2 Flow Rate FiO2 07/04/19 11:19 103/60 07/04/19 11:08 103/60 07/04/19 08:56 102/70 07/04/19 08:00 97.9 88 13 102/70 (81) 07/04/19 08:00 Room Air 07/04/19 07:00 81 13 96/67 (77) 100 07/04/19 05:30 96.9 99 16 97/72 (80) 100 07/04/19 05:08 89 16 93/67 (76) 96 07/04/19 05:06 109/73 07/04/19 05:05 98 16 97/66 (76) 96 07/04/19 05:02 98 16 98/72 (81) 96 07/04/19 04:58 99 16 118/85 (96) 96 07/04/19 04:50 96.9 92 16 116/82 (93) 96 07/04/19 04:00 96.9 80 16 109/73 (85) 96 07/04/19 00:00 97.2 79 16 95/67 (76) 98 07/03/19 21:58 97.6 70 16 95/61 (72) 95 07/03/19 21:00 Room Air 07/03/19 20:00 97.7 85 17 122/77 (92) 95 07/03/19 19:27 97.6 07/03/19 16:00 97.6 85 18 128/82 (97) 97 07/03/19 16:00 82 Height (Feet): 5 Height (Inches): 3.00 Weight (Pounds): 118 General Appearance: cachetic, other - having chest pain HEENT: normocephalic, atraumatic, anicteric, mucous membranes moist, PERRL Respiratory/Chest: chest wall non-tender, lungs clear, no respiratory distress , no accessory muscle use, decreased breath sounds Cardiovascular: normal peripheral pulses, normal rate, regular rhythm, no gallop/murmur, no JVD Abdomen: hypoactive bowel sounds, distended, tender Extremities: no cyanosis, no clubbing Skin: no rash, no lesions Neurologic/Psychiatric: alert, responsive Lymphatic: no neck adenopathy, no groin adenopathy Musculoskeletal: normal muscle bulk, no effusion Microbiology Date/Time Source Procedure Growth Status 07/02/19 18:15 Blood Blood Culture - Preliminary NO GROWTH AFTER 24 HOURS Resulted 07/02/19 18:00 Blood Blood Culture - Preliminary NO GROWTH AFTER 24 HOURS Resulted 07/02/19 18:55 Indwelling Cath Urine Culture - Preliminary NO GROWTH AFTER 24 HOURS Resulted Laboratory Tests Test 07/04/19 05:10 07/04/19 11:30 White Blood Count 2.2 K/UL (4.8-10.8) L Red Blood Count 4.59 M/UL (4.20-5.40) Hemoglobin 14.6 G/DL (12.0-16.0) Hematocrit 41.5 % (37.0-47.0) Mean Corpuscular Volume 90 FL (80-99) Mean Corpuscular Hemoglobin 31.7 PG (27.0-31.0) H Mean Corpuscular Hemoglobin Concent 35.1 G/DL (32.0-36.0) Red Cell Distribution Width 13.9 % (11.6-14.8) Platelet Count 160 K/UL (150-450) Mean Platelet Volume 6.9 FL (6.5-10.1) Neutrophils (%) (Auto) % (45.0-75.0) Lymphocytes (%) (Auto) % (20.0-45.0) Monocytes (%) (Auto) % (1.0-10.0) Eosinophils (%) (Auto) % (0.0-3.0) Basophils (%) (Auto) % (0.0-2.0) Differential Total Cells Counted 100 Neutrophils % (Manual) 78 % (45-75) H Lymphocytes % (Manual) 8 % (20-45) L Monocytes % (Manual) 14 % (1-10) H Eosinophils % (Manual) 0 % (0-3) Basophils % (Manual) 0 % (0-2) Band Neutrophils 0 % (0-8) Platelet Estimate Adequate Platelet Morphology Normal Erythrocyte Sedimentation Rate 6 MM/HR (0-30) Sodium Level 145 MMOL/L (136-145) Potassium Level 3.1 MMOL/L (3.5-5.1) L Chloride Level 112 MMOL/L (98-107) H Carbon Dioxide Level 25 MMOL/L (21-32) Anion Gap 8 mmol/L (5-15) Blood Urea Nitrogen 26 mg/dL (7-18) H Creatinine 1.2 MG/DL (0.55-1.30) Estimat Glomerular Filtration Rate 43.5 mL/min (>60) Glucose Level 101 MG/DL (74-106) Calcium Level 8.2 MG/DL (8.5-10.1) L Phosphorus Level 3.0 MG/DL (2.5-4.9) Magnesium Level 1.9 MG/DL (1.8-2.4) Total Bilirubin 1.0 MG/DL (0.2-1.0) Aspartate Amino Transf (AST/SGOT) 28 U/L (15-37) Alanine Aminotransferase (ALT/SGPT) 26 U/L (12-78) Alkaline Phosphatase 101 U/L (46-116) Troponin I 0.001 ng/mL (0.000-0.056) 0.021 ng/mL (0.000-0.056) C-Reactive Protein, Quantitative 16.6 mg/dL (0.00-0.90) H Pro-B-Type Natriuretic Peptide 1841 pg/mL (0-125) H Total Protein 4.6 G/DL (6.4-8.2) L Albumin 1.7 G/DL (3.4-5.0) L Globulin 2.9 g/dL Albumin/Globulin Ratio 0.6 (1.0-2.7) L Carcinoembryonic Antigen Pending Current Medications Medications (Trade) Dose Ordered Sig/Margie Route PRN Reason Start Time Stop Time Status Last Admin Dose Admin Dextrose/Sodium Chloride 1,000 ml @ 50 mls/hr Q20H IV 07/04/19 07:00 08/02/19 15:59 07/04/19 07:49 Midodrine (Pro-Amatine) 2.5 mg THREE TIMES A DAY ORAL 07/04/19 13:00 08/03/19 12:59 07/04/19 12:30 Morphine Sulfate (Morphine Sulfate) 2 mg Q6H PRN IVP PAIN 4-10 07/04/19 08:30 07/10/19 20:29 Nitroglycerin (Ntg) 0.4 mg Q5M PRN SL Prn Chest Pain 07/04/19 07:00 08/03/19 04:59 07/04/19 11:19 Pantoprazole (Protonix) 40 mg Q12HR IVP 07/04/19 09:00 07/31/19 13:29 07/04/19 08:58 Piperacillin Sod/ Tazobactam Sod 3.375 gm/Sodium Chloride 110 ml @ 27.5 mls/hr Q8H IVPB 07/04/19 14:00 07/10/19 21:59 Sodium Chloride 500 ml @ 0 mls/hr Q0M PRN IVPB SBP<100 07/04/19 07:00 08/01/19 20:29 Tenisha Osei M.D. Jul 04, 2019 13:03
--- NOTE | 2019-07-04 13:21 | Diagnostic Imaging Report ---
Indication: Abdominal pain Comparison: 07/02/2019 Single view of the abdomen obtained Findings: Bowel gas pattern is nonspecific. Surgical clips noted in the upper abdomen. No mass, ectopic calcifications, or abnormal gas collections are identified. The bones are osteopenic. Impression: No acute findings Note: The upright chest better showed a large amount of free air within the abdomen.
--- NOTE | 2019-07-04 13:30 | NUR ---
NURSE NOTES: Received report from Citlali CEVALLOS. Pt in bed awake and orientex3. C/o epigastric 06/06 now but IV morphine given as ordered prior to transfer to [facility]. pain IV site in RAC 20G running with 5DNS @50ml/hr patent and asymptomatic. Bed in lowest position and locked. Side railx3 up for safety. at the bedside. Will continue to plan of care.
--- NOTE | 2019-07-04 13:33 | Diagnostic Imaging Report ---
Indication: Chest pain Comparison: None A single view chest radiograph was obtained. Findings: There is a large amount of free air in the upper abdomen. Lung volumes are low. Heart size is normal. Impression: Development of a large amount of free air in the abdomen. Critical value communication. Findings were discussed via telephone with ICU nurse 1:20 PM 07/04/2019. There is states that the patient has not had any recent abdominal surgery to account for the air.. Perforated hollow viscus therefore suspected.
--- NOTE | 2019-07-04 13:42 | Diagnostic Imaging Report ---
Indication: Abdominal pain Comparison: None Single view of the abdomen obtained Findings: Bowel gas pattern is nonspecific. No mass, ectopic calcifications are identified. Surgical clips demonstrated in the upper abdomen and mid abdomen as well as anastomotic sutures indicative of previous bowel resection. There is a lucency over the left-sided abdomen which may represent free air. The upright chest x-ray showed a large amount of free air under the diaphragm. The bones are unremarkable. Impression: Free peritoneal air. As is better appreciated on the upright chest x-ray obtained one hour later.
--- NOTE | 2019-07-04 13:48 | NUR ---
RADIOLOGY DEPT., CHEST AND ABDOMEN X-RAYS COMPLETED BEFORE TRANSFER TO [address] [place] [address]
[2019-07-04] MEDS ORDERED: Piperacillin/Tazobactam 3.375 GM in NS 110 ML IVPB SCH (14:00)
--- NOTE | 2019-07-04 14:45 | NUR ---
NURSE NOTES: Dr. Mclaughlin made aware that JT/GT came out- and placed Tri-Funnel Replacement GT- stated he will consult Dr. Johnson for GI consult
[2019-07-04] MEDS: Morphine Sulfate 2mg/ml Inj(IV/IM USE ONLY) IVP PRN ×2 (16:10→22:50)
--- NOTE | 2019-07-04 17:47 | NUR ---
NURSE NOTES:WOUND CARE NOTES:Pt presented on admission with generalized edema and multiple pressure injuries. Sacral DTPI (L)12.2cm x (W)8.5. Base of injury is maroon in colour with purple/black area at sacrococcygeal area. Pt complained of tenderness at sacrococcygeal area. Maroon discoloration without induration L ischium (L)5.5cm x (W)8cm. Non-blanchable erythema without induration R trochanter. DTPI medial aspect of L heel extending into plantar aspect. Base of injury is maroon in center with surrounding non-blanching erythema, and base is fluctuant (L)4.8cm x (W)5.5cm. Non-blanching erythema with delineated margins medial R heel. Base of injury is fluctuant.(L)3.8cm x (W)4.8cm. Tx.Plan: Apply Moisture Barrier Paste to Sacrum. Cover with Optifoam drsg. Change every 3 days and prn. Apply Cavilon Skin Barrier to L ischium. Cover with Optifoam drsg. Change every 3 days and prn. Apply Cavilon Skin Barrier to R trochanter. Cover with Optifoam drsg. Change every 3 days and prn. Apply Cavilon Skin Barrier to both Heels.Cover each heel with Optifoam drsg. Change every 7 days and prn. Apply Optifoam drsgs to each hips as needed . APM/DEMETRIUS Mattress overlay. Reposition at least every 2hours or as tolerated. Off-load heels with pillow.
--- NOTE | 2019-07-04 19:15 | NUR ---
NURSE NOTES: Received pt and report from MART López. Observed pt resting in bed with at bedside. Pt is A/Ox3. care specialist is in placed; pt is NSR. IV site intact, asymptomatic, and patent; running D5NS @50cc/hr. Pt has a Young in place for urinary retention; patent and urine is nima in color. Bed is in the lowest position and locked. Call light and bedside table is within reach. No signs/symptoms of acute distress note at this time. Will continue plan of care.
--- NOTE | 2019-07-04 19:21 | NUR ---
HAND-OFF: Report given to Dian RN. Pt remains stable.
--- NOTE | 2019-07-04 23:05 | NUR ---
NURSE NOTES: Pt's sonPatrick at bedside with father and pt. Pt complained of abdominal pain 10/10. Administer Morphine 2mg IVP. Will continue to monitor pt closely.
[2019-07-05] VITALS (20 sets, daily range): BP systolic 59–137; BP diastolic 11–106
[2019-07-05] MEDS: D5NS 1,000 ML IV SCH (02:56)
[2019-07-05] MEDS: Morphine Sulfate 2mg/ml Inj(IV/IM USE ONLY) IVP PRN ×2 (05:04→12:15)
--- NOTE | 2019-07-05 07:17 | NUR ---
NURSE NOTES: Received report from Dian CEVALLOS. Pt in bed awake and lethargic. Denied pain. The patient's is present at the bedside. IV site in RAC 20G running with D5NS @50ml/hr patent and asymptomatic. Young cath intact and patent and 100cc of urine produced during previous shift. Still no BM noted. Bed in lowest position and locked. Call light within easy reach. Side railx2 up for safety. Will continue to plan of care.
--- NOTE | 2019-07-05 07:24 | NUR ---
HAND-OFF: Report given to MART López. Plan of care endorsed. Addendum: 07/05/19 at 0714 by Diane Morse Mai, RN Endorsed to MART López that pt only produced 100ml of urine last night. MART López will follow up with Dr. Junior.
--- NOTE | 2019-07-05 08:39 | NUR ---
CASE MANAGEMENT:REVIEW 07/05/19 SI: PERFORATED VISCUS. COLITIS. SEPSIS S/P PARACENTESIS~ 3L 98.2 120 18 94/62 94% ON 2L/NC IS: MIDODRINE PO TID IV PROTONIX Q12 IVF@50/HR IV MORPHINE 6HRS PRN : FROM ICU ~ NOW ON TELEMETRY DCP: PATIENT IS FROM HOME PLAN: CLEAR LIQUID DIET
[2019-07-05] MEDS: Pantoprazole Inj IVP SCH (08:47)
--- NOTE | 2019-07-05 09:57 | General Progress Note ---
Assessment/Plan Assessment/Plan: Anemia Ascites hypoalbuminemia partial gastrectomy fatty liver ? perforated viscus VS SBP s/p 3 lit paracentesis>>> FU results abx fu surg recs tumor markers>>>> elevated Ca 125>>> pelvic us>>>> oncology eval drop in H&H w/o active bleed>>> repeat CBC in am>>> s/p blood transfusion abd us>>> reviewed add albumin IV Subjective ROS Limited/Unobtainable: Yes Allergies: Coded Allergies: No Known Allergies (Unverified , 03/06/16) Objective Last 24 Hour Vital Signs Date Time Temp Pulse Resp B/P (MAP) Pulse Ox O2 Delivery O2 Flow Rate FiO2 07/05/19 08:00 98.2 120 18 94/62 (73) 94 07/05/19 04:00 108 07/05/19 04:00 97.7 107 17 98/61 (73) 97 07/05/19 00:00 97.9 114 19 102/67 (79) 100 07/04/19 23:31 121 07/04/19 21:00 Nasal Cannula 2.0 07/04/19 20:00 97.5 96 17 100/65 (77) 100 07/04/19 19:00 96 07/04/19 15:07 86 07/04/19 11:19 103/60 07/04/19 11:08 103/60 Intake and Output 07/04/19 07/05/19 19:00 07:00 Intake Total 120 ml 300 ml Output Total 220 ml Balance 120 ml 80 ml Intake Oral 120 ml 300 ml Output Urine Total 220 ml Laboratory Tests 07/04/19 11:30: Troponin I 0.021 Height (Feet): 5 Height (Inches): 3.00 Weight (Pounds): 118 General Appearance: alert EENT: normal ENT inspection Neck: supple Cardiovascular: normal rate Abdomen: soft, hypoactive bowel sounds, tender Extremities: non-tender Rodney Neri MD Jul 05, 2019 09:57
--- NOTE | 2019-07-05 10:19 | NUR ---
NAIL STICKER NOTE SW met w/ pt's spouse, Elie Yu at pt's bedside. Pt reports he resides w/ pt at [address], [id number], [place] [address]. Pt's spouse reports having 2 adult sons and 2 adult daughters w/ pt. Mr. Yu reports he contacted his home doctor" named Pollo Corea and requested him to arrange someone to provide transportation for him to return home at 11am. Pt declined to provide Pollo Corea's phone number and verify his daughter, Edwige Yu's contact information. Per spouse, his children are aware of pt's hospitalization. Signed: 07/05/19 at 1022 by RAYMOND CHAVEZ <Co-Signature Required>
--- NOTE | 2019-07-05 10:27 | Cardiac Electrophysiology PN ---
Assessment/Plan Assessment/Plan 1. Severe bilateral lower extremity edema. Her INR is 1.1, albumin is 2.0. Etiology is not clear at this time. Echo EF 65% 2. Ascites, status post 3 liter paracentesis also sent for cytology. 3. History of prior gastrectomy with Nolan-en-Y anastomosis. 4. Small amount of intraperitoneal air consistent with perforated viscus. Further evaluation by Dr. Hawkins. 5. Severe anemia. Could be dilutional. S/P PRBC 6. Hypotension could be due to dehydration and anemia. S/P 2 units PRBC and iv fluid. Already on iv Abx. Better on Midodrine 2.5 tid DW RN Subjective Subjective No CP or SOB. BP better with Midodrine and iv fluid. Transferred out of ICD. In sinus tach 100-110 Objective Last 24 Hour Vital Signs Date Time Temp Pulse Resp B/P (MAP) Pulse Ox O2 Delivery O2 Flow Rate FiO2 07/05/19 09:00 Nasal Cannula 2.0 07/05/19 08:00 98.2 120 18 94/62 (73) 94 07/05/19 08:00 119 07/05/19 04:00 108 07/05/19 04:00 97.7 107 17 98/61 (73) 97 07/05/19 00:00 97.9 114 19 102/67 (79) 100 07/04/19 23:31 121 07/04/19 21:00 Nasal Cannula 2.0 07/04/19 20:00 97.5 96 17 100/65 (77) 100 07/04/19 19:00 96 07/04/19 15:07 86 07/04/19 11:19 103/60 07/04/19 11:08 103/60 Intake and Output 07/04/19 07/05/19 19:00 07:00 Intake Total 120 ml 300 ml Output Total 220 ml Balance 120 ml 80 ml Intake Oral 120 ml 300 ml Output Urine Total 220 ml Laboratory Tests Test 07/04/19 11:30 Troponin I 0.021 ng/mL (0.000-0.056) Microbiology Date/Time Source Procedure Growth Status 07/02/19 18:15 Blood Blood Culture - Preliminary NO GROWTH AFTER 48 HOURS Resulted 07/02/19 18:00 Blood Blood Culture - Preliminary NO GROWTH AFTER 48 HOURS Resulted 07/02/19 18:55 Indwelling Cath Urine Culture - Final NO GROWTH AFTER 48 HOURS Complete Objective HEAD AND NECK: No JVD. LUNGS: Clear. CARDIOVASCULAR: Regular S1 and S2 with no gallop. ABDOMEN: Very tender. Has scar of prior surgery. EXTREMITIES: 2+ pitting edema. Benton Meyer MD Jul 05, 2019 10:27
--- NOTE | 2019-07-05 10:35 | NUR ---
NURSE NOTES: Patient removed Young cath, IV, and tele box. Pt awake and confused. Made Dr. Meyer aware. Restrain to bilateral wrist obtained for safety.
--- NOTE | 2019-07-05 12:03 | NUR ---
*-* INSURANCE *-* ALL CLINICALS AND REVIEWS HAVE BEEN FAXED TO: [employer] [facility] Ref# yet # [phone]
--- NOTE | 2019-07-05 12:59 | Nephrology Progress Note ---
Assessment/Plan Problem List: (1) Hypotension (2) Anemia (3) Abdominal pain (4) Free intraperitoneal air (5) Hypoalbuminemia Assessment Intra-abdominal process either peritonitis and or perforated viscus Severe anemia with drop of hemoglobin from 10 to 7 requiring blood transfusion. Hypotensive unclear if due to intra-abdominal bleeding and or septic process. Albuminemia, ascites, unclear etiology, most likely underlying neoplastic process Plan Patient pulled out Young catheter and IV line No chemistry panel today On midodrine for low blood pressure Continue per general surgery and GI advice advice Patient was started on p.o. diet Antibiotics now on Zosyn IV Protonix Young catheter Blood pressure support with pressors if needed Patient currently is full code, I support DNR status Will discuss with consultants Reviewed the case with RN Subjective ROS Limited/Unobtainable: No Constitutional: Reports: malaise Objective Objective Last 24 Hour Vital Signs Date Time Temp Pulse Resp B/P (MAP) Pulse Ox O2 Delivery O2 Flow Rate FiO2 07/05/19 09:00 Nasal Cannula 2.0 07/05/19 08:00 98.2 120 18 94/62 (73) 94 07/05/19 08:00 119 07/05/19 04:00 108 07/05/19 04:00 97.7 107 17 98/61 (73) 97 07/05/19 00:00 97.9 114 19 102/67 (79) 100 07/04/19 23:31 121 07/04/19 21:00 Nasal Cannula 2.0 07/04/19 20:00 97.5 96 17 100/65 (77) 100 07/04/19 19:00 96 07/04/19 15:07 86 Intake and Output 07/04/19 07/05/19 19:00 07:00 Intake Total 120 ml 300 ml Output Total 220 ml Balance 120 ml 80 ml Intake Oral 120 ml 300 ml Output Urine Total 220 ml Current Medications Medications (Trade) Dose Ordered Sig/Margie Route PRN Reason Start Time Stop Time Status Last Admin Dose Admin Dextrose/Sodium Chloride 1,000 ml @ 50 mls/hr Q20H IV 07/04/19 07:00 08/02/19 15:59 07/05/19 02:56 Midodrine (Pro-Amatine) 2.5 mg THREE TIMES A DAY ORAL 07/04/19 13:00 08/03/19 12:59 07/05/19 08:47 Morphine Sulfate (Morphine Sulfate) 1 mg Q4H PRN IVP Moderate Pain (Pain Scale 4-6) 07/04/19 13:00 07/11/19 12:59 07/04/19 13:07 Morphine Sulfate (Morphine Sulfate) 2 mg Q6H PRN IVP Severe Pain (Pain Scale 7-10) 07/04/19 13:00 07/10/19 20:29 07/05/19 12:15 Nitroglycerin (Ntg) 0.4 mg Q5M PRN SL Prn Chest Pain 07/04/19 07:00 08/03/19 04:59 07/04/19 11:19 Pantoprazole (Protonix) 40 mg Q12HR IVP 07/04/19 09:00 07/31/19 13:29 07/05/19 08:47 Sodium Chloride 500 ml @ 0 mls/hr Q0M PRN IVPB SBP<100 07/04/19 07:00 08/01/19 20:29 Height (Feet): 5 Height (Inches): 3.00 Weight (Pounds): 118 Cardiovascular: tachycardia Respiratory/Chest: decreased breath sounds Abdomen: distended Pavan Junior MD Jul 05, 2019 12:59
--- NOTE | 2019-07-05 13:01 | Surgery Progress Note ---
Surgery Progress Note Subjective Additional Comments no acute events downgraded improving not tolerating much po intake today no n/v/f/c labs noted CA 125 - 199 likely known history of ovarian ca which explains condition hospice eval recommended oncology eval d/c planning no surgical intervention planned Objective Last 24 Hour Vital Signs Date Time Temp Pulse Resp B/P (MAP) Pulse Ox O2 Delivery O2 Flow Rate FiO2 07/05/19 09:00 Nasal Cannula 2.0 07/05/19 08:00 98.2 120 18 94/62 (73) 94 07/05/19 08:00 119 07/05/19 04:00 108 07/05/19 04:00 97.7 107 17 98/61 (73) 97 07/05/19 00:00 97.9 114 19 102/67 (79) 100 07/04/19 23:31 121 07/04/19 21:00 Nasal Cannula 2.0 07/04/19 20:00 97.5 96 17 100/65 (77) 100 07/04/19 19:00 96 07/04/19 15:07 86 I&O Intake and Output 07/04/19 07/05/19 19:00 07:00 Intake Total 120 ml 300 ml Output Total 220 ml Balance 120 ml 80 ml Intake Oral 120 ml 300 ml Output Urine Total 220 ml Cardiovascular: RSR Respiratory: clear Abdomen: soft, distended, tenderness Extremities: no cyanosis Plan Problems: (1) Abdominal pain Assessment & Plan: This is a 78-year-old female who presented to [facility] complaining of worsening abdominal pain. A rn integrity was used to obtain history from the patient as well as the given Serbian speaking. is able to speak somewhat Bahamian but his Bahamian is not good enough for complete translation therefore translation services were used. I had a long discussion with them in regards to admission current symptoms and care. As from what I could determine she had a partial gastrectomy about 2-1/2 years ago for unknown reason potentially ulcer perforation. She has a large midline incision from xiphoid down almost to the pubis. She has since developed ascites though no known liver dysfunction and recently as of yesterday from patient stating had a paracentesis done at an outside facility. States continues to have pain and she feels she is full of fluid and distended and it causes her discomfort therefore she came here for evaluation. No nausea vomiting fever chills. Does not eat well. Malnourished. Surgery called to evaluate and assist with care. CT scan demonstrated some bubbles of free air and ascites fluid. In evaluating the patient on examination she is fairly tender in all quadrants. She states she just feels like she is full of fluid. I reviewed the CT personally and discussed with the radiologist Given the minimal amount of free air and significant free fluid there is a high probability that since patient states her paracentesis and yesterday the residual free air is from that was longer as potentially believed to be a few days ago but then there is strong possibility and concern for bowel perforation but paracentesis less than 24 hours ago and a few air bubbles could potentially be unremarkable. Patient is afebrile otherwise hemodynamic stable and without signs of acute active infectious process and the potential bowel perforation is there but lower on the differential. She could have a bowel perforation now has peritonitis in the ascites fluid but directly in her age and condition going the operating room is still advised. I discussed with the radiologist and plan for repeat paracentesis. Potentially symptomatic improvement once fluid is evacuated and can also send fluid for culture and microbiology and cytology to evaluate for the possibility of infectious process or perforation ongoing. Discussed with primary care physician patient and family. Will follow with recommendations thank you for let me participate patient's care Patient had a paracentesis by radiology evacuating 3 L of ascites fluid. Since states she feels better. Abdominal exam on 3 7 improved as compared to 3 6 with less tenderness though she is still somewhat tender. States that she feels tenderness from the bloating of the fluid. No nausea vomiting fever chills. Hypotension responsive to fluids. Though there is a possibility of bowel perforation prior unlikely given the paracentesis findings. Furthermore potential bleeding after paracentesis. Coags noted. May have coagulopathy as well. Trend H&H transfuse as needed labs noted h/h improved hd stable Diet as tolerated suspicion for bowel perf or bleeding low. possible but unlikely We will follow with recommendations thank you CA 125 - 199 likely known history of ovarian ca which explains condition hospice eval recommended oncology eval d/c planning no surgical intervention planned (2) Free intraperitoneal air Assessment & Plan: Lack of enteric contrast limits assessment of the GI tract. There is ascites fluid. There is a small amount of free intraperitoneal gas within the anterior peritoneal space. A few bubbles of gas are also seen within the left upper quadrant mesenteric fat. These are seen along the greater curvature of the stomach and a few posterior to the stomach. There is also a single small gas bubble in the sugey hepatis. There is evidence of prior distal gastrectomy and gastrojejunostomy. There is also a jejunojejunostomy suture line in the upper abdominal midline. Surgical clips are also seen in the peripancreatic region The appendix is normal. Small bowel loops are mildly prominent and demonstrate mild wall thickening proximally. The distal esophagus is unremarkable. Lack of IV contrast limits assessment of the solid organs. The liver is diffusely markedly hypoattenuating. It is essentially isoattenuating with the surrounding ascites fluid. The gallbladder has been removed. No biliary ductal dilatation. The pancreas, spleen, adrenal glands are grossly unremarkable. The right kidney demonstrates a large upper pole cyst. It demonstrates a calcification which measures approximately 3 mm in diameter and is possibly calyceal. The left kidney demonstrates an upper pole calyceal calcification. No hydronephrosis. No pelvic mass or adenopathy. Uterus and adnexal structures appear unremarkable. There is diffuse edema of the subcutaneous, abdominal, retroperitoneal fat. The included lung bases demonstrate some posterior dependent atelectatic changes, are otherwise clear. The bones demonstrate degenerative spondylosis changes.. There are also degenerative changes with vacuum formation of the bilateral sacroiliac joints. Impression: Limited assessment of the GI tract, due to lack of enteric contrast administration. Small amount of free intraperitoneal air demonstrated, with gas seen in the anterior midline peritoneal space as well as within the left upper quadrant mesentery. This is consistent with perforated hollow viscus. Source of perforation indeterminate, although quite possibly in the left upper quadrant and possibly related to the stomach. Postsurgical changes, as described, with evidence of prior distal gastrectomy, gastrojejunostomy, and likely Nolan-en-Y anastomosis Mild prominence and equivocal slight wall thickening of the proximal jejunum, if real could represent reactive changes secondary to the above process or could represent primarily enteritis Moderate ascites Anasarca Markedly fatty liver Evidence of prior cholecystectomy Incidental findings as noted, including degenerative spondylosis changes, as do dependent pulmonary atelectatic changes, bilateral sacroiliac joint degenerative changes, right upper pole renal cyst, nonobstructive bilateral renal calculi (3) Perforated abdominal viscus Kamron Hawkins Jul 05, 2019 13:01
--- NOTE | 2019-07-05 13:30 | NUR ---
NURSE NOTES: Family including Edwige, daughter and the daughter in law of pt are present and discussed with Dr. Keenan about the plan of care and comfortable focusing care.
--- NOTE | 2019-07-05 13:41 | NUR ---
REGULATORY AFFAIRS MANAGER CONSULT SW received a consult for POA document and home safety evaluation. Pt's was at pt's bed side. PT's attempted to wake pt up. Pt is currently resting, and was unable to make any verbalization w/ minimal eyes opened. SW attempted to obtain information fro pt's spouse. Pt's , Elie Garland's cell phone number is [phone]. Pt's was unable to confirm whether pt has POA or not. Pt's spouse seems to be confused. Mr. Garland initially informed SCOTT that his home health doctor will pick him up from the hospital. Mr. Garland now states his son named Itz will pick him up. PT declined to provide the contact information for his son Itz. SW spoke w/ assigned RN and was informed RN spoke to pt's son Patrick [phone] to the hospital. Mr. Garland stated pt receives home health services at home. Pt was ambulatory w/ cane prior to admission. Mr. Garland was unable to verbalize his plan for self-care and provide information on pt's hx of self care/ADLs. When SCOTT asked in regards to pt taking a bath or shower, Mr. Garland was unable to answer. Mr. Garland states the adult day health care on [facility] assisted pt w/ bathing. Mr. Garland also informed SCOTT that the couple had a caregiver who was visiting them 1x/week, but not anymore. Mr. Garland appears to be confused. SCOTT will attempt to meet w/ pt's son or speak to pt's eldest daughter, Edwige Garland [phone]. SCOTT will continue to F/U. Signed: 07/05/19 at 1342 by RAYMOND CHAVEZ <Co-Signature Required>
--- NOTE | 2019-07-05 14:20 | Infectious Diseases Prog Note ---
Assessment/Plan Problems: (1) Abdominal pain Assessment & Plan: suspect due to massive amount of air S/P Paracentesis , no fluids culture were sent after she had paracentesis , off zosyn , surgery is following . may need EGD for further eval of abdominal pain (2) Free intraperitoneal air Assessment & Plan: suspect due to recent paracentesis , with no clinical evidence of perforation , monitor off antibiotics all cultures are negative (3) Perforated abdominal viscus Assessment & Plan: ruled out with no clinical evidence of perforation , off zosyn since all cultures are negative (4) Anemia Assessment & Plan: S/P blood transfusion, rule out GI bleeding, recommend GI eval and endoscopy (5) Hypotension Assessment & Plan: suspect due to severe anemia , with no evidence of sepsis , and negative repeated blood culture , stop zosyn (6) Chest pain at rest Assessment & Plan: resolved cardiac VS pulmonary source, cardiology is following Subjective Constitutional: Reports: no symptoms HEENT: Reports: no symptoms Respiratory: Reports: no symptoms Breasts: Reports: no symptoms Cardiovascular: Reports: no symptoms Gastrointestinal/Abdominal: Reports: no symptoms Genitourinary: Reports: no symptoms Neurologic: Reports: no symptoms Psychiatric: Reports: no symptoms Skin: Reports: no symptoms Endocrine: Reports: no symptoms Hematologic: Reports: no symptoms Musculoskeletal: Reports: no symptoms Allergies: Coded Allergies: No Known Allergies (Unverified , 03/06/16) Subjective she was resting in bed comfortable, no chest pain or SOB, at bedside Objective Vital Signs Last 24 Hour Vital Signs Date Time Temp Pulse Resp B/P (MAP) Pulse Ox O2 Delivery O2 Flow Rate FiO2 07/05/19 12:00 136 07/05/19 09:00 Nasal Cannula 2.0 07/05/19 08:00 98.2 120 18 94/62 (73) 94 07/05/19 08:00 119 07/05/19 04:00 108 07/05/19 04:00 97.7 107 17 98/61 (73) 97 07/05/19 00:00 97.9 114 19 102/67 (79) 100 07/04/19 23:31 121 07/04/19 21:00 Nasal Cannula 2.0 07/04/19 20:00 97.5 96 17 100/65 (77) 100 07/04/19 19:00 96 07/04/19 15:07 86 Height (Feet): 5 Height (Inches): 3.00 Weight (Pounds): 118 General Appearance: WD/WN, no acute distress HEENT: normocephalic, atraumatic, anicteric, mucous membranes moist Respiratory/Chest: chest wall non-tender, lungs clear, normal breath sounds, no respiratory distress, no accessory muscle use Cardiovascular: normal peripheral pulses, normal rate, regular rhythm, no gallop/murmur, no JVD Abdomen: no organomegaly, non distended, no scars, hypoactive bowel sounds, distended, tender Extremities: no cyanosis, no clubbing Skin: no rash, no lesions, no ulcers Neurologic/Psychiatric: faceter II-XII grossly normal, alert, responsive Lymphatic: no neck adenopathy, no groin adenopathy Musculoskeletal: normal muscle bulk, no effusion Microbiology Date/Time Source Procedure Growth Status 07/02/19 18:15 Blood Blood Culture - Preliminary NO GROWTH AFTER 48 HOURS Resulted 07/02/19 18:00 Blood Blood Culture - Preliminary NO GROWTH AFTER 48 HOURS Resulted 07/02/19 18:55 Indwelling Cath Urine Culture - Final NO GROWTH AFTER 48 HOURS Complete Current Medications Medications (Trade) Dose Ordered Sig/Margie Route PRN Reason Start Time Stop Time Status Last Admin Dose Admin Dextrose/Sodium Chloride 1,000 ml @ 50 mls/hr Q20H IV 07/04/19 07:00 08/02/19 15:59 07/05/19 02:56 Midodrine (Pro-Amatine) 2.5 mg THREE TIMES A DAY ORAL 07/04/19 13:00 08/03/19 12:59 07/05/19 08:47 Morphine Sulfate (Morphine Sulfate) 1 mg Q4H PRN IVP Moderate Pain (Pain Scale 4-6) 07/04/19 13:00 07/11/19 12:59 07/04/19 13:07 Morphine Sulfate (Morphine Sulfate) 2 mg Q6H PRN IVP Severe Pain (Pain Scale 7-10) 07/04/19 13:00 07/10/19 20:29 07/05/19 12:15 Nitroglycerin (Ntg) 0.4 mg Q5M PRN SL Prn Chest Pain 07/04/19 07:00 08/03/19 04:59 07/04/19 11:19 Pantoprazole (Protonix) 40 mg Q12HR IVP 07/04/19 09:00 07/31/19 13:29 07/05/19 08:47 Sodium Chloride 500 ml @ 0 mls/hr Q0M PRN IVPB SBP<100 07/04/19 07:00 08/01/19 20:29 Tenisha Osei M.D. Jul 05, 2019 14:20
--- NOTE | 2019-07-05 14:45 | General Progress Note ---
Assessment/Plan Assessment/Plan: S: I am feeling ok O: at the bed side. Reported that pain is getting worse, PHYSICAL EXAMINATION:HEAD AND NECK: Atraumatic and normocephalic. CHEST: Clear to auscultation.HEART: S1, S2. Regular rate and rhythm. ABDOMEN: Soft, persistent bloted abd. a scar of prior surgery noted in the midline. NEUROLOGY: Awake, alert, and oriented. MUSCULOSKELETAL: Atrophied musculature. Meds: reviewed and reconciled ASSESSMENT: 1. Perforated viscus, source unknown. 3. Pancreatic cancer , history of 4. Elevated levels of Tumor markers 4. Severe sepsis. 5. Dehydration. 6. Acute anemia. 7. Thrombocytopenia. 8. GI and DVT prophylaxis. PLAN OF CARE: preserved BP Will D/w family regarding possible hospice care c/w current conservative management Subjective Allergies: Coded Allergies: No Known Allergies (Unverified , 03/06/16) Objective Last 24 Hour Vital Signs Date Time Temp Pulse Resp B/P (MAP) Pulse Ox O2 Delivery O2 Flow Rate FiO2 07/05/19 12:00 136 07/05/19 09:00 Nasal Cannula 2.0 07/05/19 08:00 98.2 120 18 94/62 (73) 94 07/05/19 08:00 119 07/05/19 04:00 108 07/05/19 04:00 97.7 107 17 98/61 (73) 97 07/05/19 00:00 97.9 114 19 102/67 (79) 100 07/04/19 23:31 121 07/04/19 21:00 Nasal Cannula 2.0 07/04/19 20:00 97.5 96 17 100/65 (77) 100 07/04/19 19:00 96 07/04/19 15:07 86 Intake and Output 07/04/19 07/05/19 19:00 07:00 Intake Total 120 ml 300 ml Output Total 220 ml Balance 120 ml 80 ml Intake Oral 120 ml 300 ml Output Urine Total 220 ml Height (Feet): 5 Height (Inches): 3.00 Weight (Pounds): 118 Eli Keenan MD Jul 05, 2019 14:45
--- NOTE | 2019-07-05 16:00 | NUR ---
NURSE NOTES: No urine output noted during whole shift. Made Dr. Keenan and Dr. Junior aware. No new order noted.
--- NOTE | 2019-07-05 16:27 | NUR ---
TRAVEL PHYSICAL THERAPIST NOTE Pt's eldest daughter Edwige Yu [phone] and pt's daughter in law Maye Yu [phone] visited pt. SCOTT, assigned RN and Nursing distribution supervisor discussed pt's case and the well-being of pt's spouse w/ them. Per Edwige, Pt's POA is currently her spouse, . D/t deteriorated mental status of spouse, Edwige will be the primary decision maker and the point of contact at this time. Edwige states she will attempt to initiate POA for both pt and Mr. Yu. Pt's spouse Mr. Yu is insisting that he wants to be with pt. Edwige and Maye states they will take Mr. Yu back home after providing some food to Mr. Yu before leaving the hospital. SCOTT is recommending SNF placement for pt. Pt will not safe to return home at this point. Pt will not receive sufficient care and support at home. Edwige agreed w/ such recommendation. SCOTT also recommended the family an assisted living for pt's spouse, Mr. Yu. Signed: 07/05/19 at 1634 by RAYMOND CHAVEZ <Co-Signature Required>
--- NOTE | 2019-07-05 16:34 | NUR ---
HAMMER ADJUSTER NOTE Edwige Yu (daughter, point of contact) [phone] Patrick (Son) [phone] Maye Yu (daughter in law) [phone] Signed: 07/05/19 at 1635 by RAYMOND CHAVEZ <Co-Signature Required>
[2019-07-05] MEDS ORDERED: D5NS 1,000 ML IV SCH ×2 (17:45→22:15)
[2019-07-05] MEDS ORDERED: Morphine Sulfate 2mg/ml Inj(IV/IM USE ONLY) IVP PRN ×2 (17:45→18:30)
[2019-07-05] MEDS ORDERED: Nitroglycerin Subl 0.4mg tab SL PRN ×2 (17:45→22:15)
--- NOTE | 2019-07-05 18:10 | NUR ---
NURSE NOTES: Noted 151ml of urine on the bladder scan but no urine output noted. F/C removed and noted small amount of red color urine in the cath. 12Fr F/C reinserted.
--- NOTE | 2019-07-05 19:20 | NUR ---
NURSE NOTES: Received patient patient report from MART Ponce. Patient in bed asleep. No signs of acute distress or pain at this time. AOx2. IV site checked, patent and running D5NS at 50 mLs/Hr. No signs of infiltration, bleeding, or erythema. Bed in the lowest position, side rails upx3, call light within reach. Daughter by her side. Will continue to monitor, and continue plan of care.
--- NOTE | 2019-07-05 19:37 | NUR ---
HAND-OFF: Report given to Lexy CEVALLOS. Pt remains stable.
--- NOTE | 2019-07-05 20:02 | NUR ---
NURSE NOTES: Rechecked blood pressure twice. Still 74/50. Called Dr. Keenan regarding patient's low blood pressure level and patient's family's request for gas release medication. Awaiting callback.
--- NOTE | 2019-07-05 20:22 | NUR ---
NURSE NOTES: Called Dr. Munson per Dr. Keenan's request regarding patient's bp of 74/50. Received new orders including order to transfer patient to ICU. Noted and carried out.
[2019-07-05] MEDS ORDERED: Pantoprazole Inj IVP SCH (21:00)
--- NOTE | 2019-07-05 21:00 | NUR ---
NURSE NOTES: Patient transferred to ICU from TELE and placed into bed B. equipment monitor phototypesetting placed, vital signs taken, oxygen 3L nasal cannula is hooked up. BP:76/55, HR:128, TEMP:98.4F axillary O2:99%. Report received from MART Heaton. Patient has no belongings. Family members at bedside. She arrived alert ad oriented x1, Romansh speaking and FLACC score of 7 w/ patient guarding the abdomen. Abdomen has round distended and tender. +1 pitting edema on bilateral upper and lower extremities. Patient arrived with 24g IV on left upper arm. Young catheter with red tinged urine residual in collection bag. Dr. Munson ordered STAT labs, NS bolus, chest x-ray and abdominal x-ray, EKG tracing (EKG done in TELE). Numerous attempts from RN and lab to draw blood and insert IV but was not able to. Patient is a very hard stick. Will inform Jeimy.
--- NOTE | 2019-07-05 21:05 | NUR ---
NURSE NOTES: Informed Dr. Munson that chest x-ray and abdominal x-ray is done. Lab is unable to draw blood and bolus would not run via current IV 24g on left upper arm. Also informed of BP:76/55 HR:128. Received order for central line ad transferred call to ER MD for placement.
--- NOTE | 2019-07-05 21:05 | NUR ---
TRANSFER TO FLOOR: Report given to MART Flores. Patient was transferred to ICU from Telemetry unit without incident. Patient does not appear to be in acute distress. Belongings list checked with receiving RN. Young catheter in place. Endorsed to receiving RN to have wound photos taken. Patient on low air loss mattress for appropriate wound management. Daughters aware of transfer status to ICU. Dr. Hawkins also made aware upon Dr. Munson's request. Bed at lowest position, brakes on, siderails up x3. Call light within reach.
[2019-07-05] MEDS ORDERED: Lidocaine 1% Plain 30 ml INJ SCH (21:09)
--- NOTE | 2019-07-05 21:30 | NUR ---
NURSE NOTES: Received consent for central line placement from daughter Edwige. She also stated that she was concerned that her mother (patient) is receiving too much morphine and which she states is causing the blood pressure to decrease. Last morphine administration was 9 hours prior to ICU transfer. Edwige also stated that when she arrived to the hospital to see her mother around 1pm, she was very drowsy from the morphine and that she was being overdosed with the medication because patient has not been eating. Edwige stated that she gave her mother crushed charcoal pills that she bought from home to try to reduce the effects of morphine.
[2019-07-05] MEDS ORDERED: D5NS 1000ml IV ONE (21:44)
[2019-07-05] MEDS ORDERED: Tubing IV Blood Pump IV ONE (21:44)
[2019-07-05] MEDS ORDERED: Tubing IV Secondary IV ONE (21:44)
[2019-07-05] MEDS ORDERED: NS 275ml ONE (21:44)
--- NOTE | 2019-07-05 22:00 | NUR ---
NURSE NOTES: Dr. Garza place central line on right femoral. Dressing changed with biopatch. Labs are drawn and sent.
--- NOTE | 2019-07-05 22:09 | NUR ---
NURSE NOTES: Informed Dr. Munson of BP: 70/28 after bolus and that central line was inserted. He ordered to start Levophed per protocol. Will carry out.
[2019-07-05] MEDS ORDERED: Levophed 4mg/4mL Inj IV ONE (22:10)
--- NOTE | 2019-07-05 22:10 | Diagnostic Imaging Report ---
Indication: Abdominal distention Technique: Supine view of the abdomen Comparison: 07/04/2019 Findings: Large pneumoperitoneum again demonstrated. Surgical clips in the right upper quadrant are again demonstrated. No gaseous distention of large or small bowel. Impression: Large pneumoperitoneum, also evident on multiple prior imaging studies. Other findings as noted
--- NOTE | 2019-07-05 22:11 | Diagnostic Imaging Report ---
Indication: Shortness of breath Technique: One view of the chest Comparison: none Findings: Large pneumoperitoneum again demonstrated. This appears unchanged. Crowding of the right infrahilar bronchovascular markings is noted. Lungs pleural spaces are otherwise clear. The heart size is normal. Impression: No acute pulmonary process Stable large pneumoperitoneum This agrees with the preliminary interpretation provided overnight by [facility] teleradiology service.
--- NOTE | 2019-07-05 22:14 | NUR ---
NURSE NOTES: Received additional orders for Neosynephrine and vasopressin from Dr. Munson. Orders are in.
[2019-07-05 22:43] LABS: HEMATOCRIT 35.9 % (37.0-47.0); HEMOGLOBIN 11.6 G/DL (12.0-16.0); MEAN CORPUSCULAR VOLUME 96 FL (80-99); PLATELET COUNT 111 K/UL (150-450); RED BLOOD COUNT 3.76 M/UL (4.20-5.40); WHITE BLOOD COUNT 5.8 K/UL (4.8-10.8)
[2019-07-05 22:44] LABS: BASOPHILS % (AUTO) 0.4 % (0.0-2.0); EOSINOPHILS % (AUTO) 0.1 % (0.0-3.0); LYMPHOCYTES % (AUTO) 2.4 % (20.0-45.0); MONOCYTES % (AUTO) 1.6 % (1.0-10.0); NEUTROPHILS % (AUTO) 95.7 % (45.0-75.0)
[2019-07-05 22:57] LABS: ANION GAP 13 mmol/L (5-15); BLOOD UREA NITROGEN 31 mg/dL (7-18); CALCIUM 7.7 MG/DL (8.5-10.1); CARBON DIOXIDE 20 MMOL/L (21-32); CHLORIDE 117 MMOL/L (98-107); CREATININE 2.1 MG/DL (0.55-1.30); POTASSIUM 5.3 MMOL/L (3.5-5.1); SODIUM 150 MMOL/L (136-145)
--- NOTE | 2019-07-05 23:00 | NUR ---
NURSE NOTES: Informed Dr. Munson of lab, x-ray and abg results. New order to place patient on BiPAP 12/5 and repeat abg in an hour.
[2019-07-05 23:02] LABS: ALANINE AMINOTRANSFERASE 16 U/L (12-78); ALBUMIN 1.3 G/DL (3.4-5.0); ALBUMIN/GLOBULIN RATIO 0.6 (1.0-2.7); ALKALINE PHOSPHATASE 75 U/L (46-116); ASPARTATE AMINO TRANSFERASE 27 U/L (15-37)
[2019-07-05] MEDS: Vasopressin 100 UNITS in NS 95 ML IV SCH (23:09)
[2019-07-05] MEDS: Phenylephrine 50 MG in D5W 245 ML IV SCH (23:17)
--- NOTE | 2019-07-05 23:30 | NUR ---
NURSE NOTES: Levophed increased to 30mcg/kg/hr for BP:62/16. Vasopressin then started at 0.04 units/min for BP:67/11. Blood pressure continues to decrease to 64/32 and neosynephrine was started at 240mcg. Blood sugar 39; D50 given vial femoral line. B/S re-checked resulting 117.
[2019-07-06] VITALS (90 sets, daily range): BP systolic 69–155; BP diastolic 30–102
[2019-07-06] MEDS ORDERED: Morphine Sulfate 2mg/ml Inj(IV/IM USE ONLY) IVP PRN ×2 (00:30→01:45)
[2019-07-06] MEDS ORDERED: Levophed 4mg/4mL Inj IV ONE ×3 (00:48→05:29)
--- NOTE | 2019-07-06 01:00 | NUR ---
NURSE NOTES: ABG resulted and informed Dr. Munson, no new orders at the moment. Zosyn started. Neosynephrine held for BP stabilizing at 137/106. Will keep monitoring.
[2019-07-06] MEDS: Piperacillin/Tazobactam 3.375 GM in NS 110 ML IVPB SCH ×3 (01:01→23:55)
--- NOTE | 2019-07-06 02:00 | NUR ---
NURSE NOTES: Current BP: 125/75, remains on BiPAP 12/5 60%. Patient is sleeping, showing no signs of distress. Will continue to monitor.
--- NOTE | 2019-07-06 02:26 | Emergency Room Report ---
History of Present Illness General Chief Complaint: Abdominal Pain Source: Patient, Family Member, Medical Record, PMD Present Illness HPI This is an elderly [place] female admitted for abdominal pain with possible perforated viscus. She became hypotensive and was sent to the ICU. I was asked by treating doctor to place a central line for her. Consent was obtained. I placed a right femoral triple-lumen using ultrasound. This was done under sterile condition with maximal barrier. No complications Allergies: Coded Allergies: No Known Allergies (Unverified , 03/06/16) Nursing Documentation-[facility] Past Medical History Deferred: No Family Available Hx Cardiac Problems: Yes Hx Gastrointestinal Problems: Yes Physical Exam Vital Signs Date Time Temp Pulse Resp B/P (MAP) Pulse Ox O2 Delivery O2 Flow Rate FiO2 07/02/19 08:00 97.6 78 18 88/53 (65) 91 07/02/19 09:00 Nasal Cannula 2.0 07/05/19 23:25 100 Procedures Central Line Central Line : Consent: Written Central Line Lumen: triple Maximal Sterile Barrier Tech: yes cap, yes mask, yes sterile gown, yes sterile gloves, yes large sterile sheet, yes hand hygiene, yes chlorhexidine prep Central Line Postion: femoral (R) Anesthesia: local cc's of anesthesia: 10 Complications: none Central Line Post Position: sutured Attempts: One Patient Tolerated: Well Complications: None Medical Decision Making Diagnostic Impression: Primary Impression: Perforated abdominal viscus Additional Impression: Free intraperitoneal air Last Vital Signs Date Time Temp Pulse Resp B/P (MAP) Pulse Ox O2 Delivery O2 Flow Rate FiO2 07/06/19 02:00 101 13 125/75 (92) 07/06/19 01:00 99 07/06/19 00:00 98.3 07/06/19 00:00 Nasal Cannula 3.0 07/05/19 23:30 100 Disposition: ADMITTED INPATIENT Condition: Critical Referrals: [facility] (PCP) Jordin Garza MD Jul 06, 2019 02:26
--- NOTE | 2019-07-06 04:00 | NUR ---
NURSE NOTES: Current BP:120/78. Vasopressin decreased to 0.03units/min. Patient is sleeping and remains on BiPAP. Will continue to monitor.
--- NOTE | 2019-07-06 06:00 | NUR ---
NURSE NOTES: Levophed decreased to 26mcg/kg/hr. Current BP: 116/26.
--- NOTE | 2019-07-06 07:00 | NUR ---
HAND-OFF: Report given to MART Saldana.
--- NOTE | 2019-07-06 07:01 | NUR ---
NURSE NOTES: Late entry: PT and report received from MART Flores; PT AAO x 1; non verbal received on BIPAP 03/31 @ 40% saturating at 100%; reported PT is transfer from [facility] for hypotension, VSS received with R-fem TLC infusing D5W @ 100cc/hr; Levophed @ 26mcg/min; Vasopressin @ 0.03 units/min; cardiac monitors shows SR HR 90; regular diet but will keep NPO for aspiration precaution; PT has orr but reported PT is oliguric; PIV LAVERNE-24g intact flushes well saline locked. Received PT on bilateral soft wrist restraint per patient safety; during morning rounds PT noted to have generalized edema 1-2+, BLE skin mottling noted also. Will continue to monitor PT.
[2019-07-06 07:10] LABS: HEMATOCRIT 35.9 % (37.0-47.0); HEMOGLOBIN 12.2 G/DL (12.0-16.0); MEAN CORPUSCULAR VOLUME 93 FL (80-99); PLATELET COUNT 137 K/UL (150-450); RED BLOOD COUNT 3.85 M/UL (4.20-5.40); RED CELL DISTRIBUTION WIDTH 14.9 % (11.6-14.8); WHITE BLOOD COUNT 10.4 K/UL (4.8-10.8)
--- NOTE | 2019-07-06 07:12 | Consultation ---
History of Present Illness General Chief Complaint: Abdominal Pain Present Illness Allergies: Coded Allergies: No Known Allergies (Unverified , 03/06/16) Medication History Scheduled Docusate Sodium* (Colace*), Unknown Dose ORAL DAILY, (Reported) Furosemide* (Lasix*), Unknown Dose ORAL DAILY, (Reported) Patient History Healthcare decision maker Jose Yu Resuscitation status Full Code Advanced Directive on File Physical Exam Last 24 Hour Vital Signs Date Time Temp Pulse Resp B/P (MAP) Pulse Ox O2 Delivery O2 Flow Rate FiO2 07/06/19 07:00 90 13 111/75 (87) 07/06/19 06:45 93 20 115/75 (88) 07/06/19 06:30 94 13 116/76 (89) 07/06/19 06:15 94 15 128/82 (97) 07/06/19 06:00 128/82 07/06/19 06:00 96 14 128/82 (97) 07/06/19 05:45 98 14 105/78 (87) 07/06/19 05:33 119/89 07/06/19 05:30 94 14 119/89 (99) 07/06/19 05:29 94 16 100 40 07/06/19 05:15 95 16 126/83 (97) 07/06/19 05:00 94 16 120/80 (93) 07/06/19 04:45 93 16 120/86 (97) 07/06/19 04:30 94 15 119/80 (93) 07/06/19 04:15 96 16 122/83 (96) 07/06/19 04:00 98.2 96 19 120/78 (92) 07/06/19 04:00 Bi-pap 07/06/19 04:00 40 07/06/19 03:45 97 16 119/81 (94) 07/06/19 03:39 96 07/06/19 03:30 99 16 115/77 (90) 07/06/19 03:15 103 24 123/30 (61) 07/06/19 03:13 127/87 07/06/19 03:06 97 16 100 40 07/06/19 03:00 101 15 127/87 (100) 07/06/19 02:45 104 15 129/83 (98) 07/06/19 02:30 102 5 127/94 (105) 07/06/19 02:15 100 13 116/83 (94) 07/06/19 02:00 101 13 125/75 (92) 07/06/19 01:45 105 15 120/95 (103) 07/06/19 01:39 92 15 100 60 07/06/19 01:30 101 12 130/83 (99) 07/06/19 01:15 102 13 126/94 (105) 07/06/19 01:00 116/85 07/06/19 01:00 102 14 129/83 (98) 99 07/06/19 00:45 120 18 116/85 (95) 99 07/06/19 00:30 105 16 126/102 (110) 99 07/06/19 00:15 98 17 124/91 (102) 99 07/06/19 00:00 98.3 110 22 132/98 (109) 99 07/06/19 00:00 137/106 07/06/19 00:00 Nasal Cannula 3.0 07/06/19 00:00 60 07/05/19 23:49 123 07/05/19 23:45 128 21 137/106 (116) 79 07/05/19 23:30 127 16 126/106 (113) 07/05/19 23:30 106 26 100 Bi-Pap 100 07/05/19 23:25 106 26 100 100 07/05/19 23:17 126 70/28 07/05/19 23:15 119 16 64/32 (43) 99 07/05/19 23:00 67/11 07/05/19 23:00 118 15 67/11 (29) 100 07/05/19 22:45 129 17 97/58 (71) 94 07/05/19 22:35 109 8 91/52 (65) 99 07/05/19 22:34 110 11 78/45 (56) 99 07/05/19 22:29 106 13 77/15 (35) 100 07/05/19 22:27 113 17 62/16 (31) 100 07/05/19 22:26 70/28 07/05/19 22:02 112 15 70/28 (42) 100 07/05/19 22:00 113 16 59/48 (52) 100 07/05/19 21:13 128 14 98/67 (77) 97 07/05/19 21:08 130 17 82/66 (71) 91 07/05/19 21:00 98.4 125 17 76/55 (62) 97 07/05/19 21:00 Nasal Cannula 3.0 07/05/19 20:57 125 07/05/19 20:00 97.9 126 20 74/50 (58) 90 07/05/19 16:00 120 07/05/19 16:00 98.0 127 18 110/88 (95) 94 07/05/19 12:00 136 07/05/19 12:00 97.9 123 18 104/75 (85) 93 07/05/19 09:00 Nasal Cannula 2.0 07/05/19 08:00 98.2 120 18 94/62 (73) 94 07/05/19 08:00 119 Intake and Output 07/05/19 07/06/19 19:00 07:00 Intake Total 50 ml 1497.330 ml Output Total 60 ml Balance 50 ml 1437.330 ml IV Total 50 ml 1497.330 ml Output Urine Total 60 ml Laboratory Tests Test 07/05/19 22:13 07/05/19 22:15 07/05/19 22:31 07/06/19 00:50 PTT Mixing Study Pending APTT Patient/Control Mix Pending Mix PTT Incubation Time Pending Mix PTT Normal/Saline 1:1 Immediate Pending Thrombin Time Normal Plasma Pending White Blood Count 5.8 K/UL (4.8-10.8) Red Blood Count 3.76 M/UL (4.20-5.40) L Hemoglobin 11.6 G/DL (12.0-16.0) L Hematocrit 35.9 % (37.0-47.0) L Mean Corpuscular Volume 96 FL (80-99) Mean Corpuscular Hemoglobin 31.0 PG (27.0-31.0) Mean Corpuscular Hemoglobin Concent 32.4 G/DL (32.0-36.0) Red Cell Distribution Width 17.0 % (11.6-14.8) H Platelet Count 111 K/UL (150-450) L Mean Platelet Volume 8.4 FL (6.5-10.1) Neutrophils (%) (Auto) 95.7 % (45.0-75.0) H Lymphocytes (%) (Auto) 2.4 % (20.0-45.0) L Monocytes (%) (Auto) 1.6 % (1.0-10.0) Eosinophils (%) (Auto) 0.1 % (0.0-3.0) Basophils (%) (Auto) 0.4 % (0.0-2.0) Sodium Level 150 MMOL/L (136-145) H Potassium Level 5.3 MMOL/L (3.5-5.1) H Chloride Level 117 MMOL/L (98-107) H Carbon Dioxide Level 20 MMOL/L (21-32) L Anion Gap 13 mmol/L (5-15) Blood Urea Nitrogen 31 mg/dL (7-18) H Creatinine 2.1 MG/DL (0.55-1.30) H Estimat Glomerular Filtration Rate 22.8 mL/min (>60) Glucose Level 47 MG/DL (74-106) L Lactic Acid Level 4.20 mmol/L (0.4-2.0) H Calcium Level 7.7 MG/DL (8.5-10.1) L Total Bilirubin 1.0 MG/DL (0.2-1.0) Aspartate Amino Transf (AST/SGOT) 27 U/L (15-37) Alanine Aminotransferase (ALT/SGPT) 16 U/L (12-78) Alkaline Phosphatase 75 U/L (46-116) Total Protein 3.6 G/DL (6.4-8.2) L Albumin 1.3 G/DL (3.4-5.0) L Globulin 2.3 g/dL Albumin/Globulin Ratio 0.6 (1.0-2.7) L HIV (1&2) Antibody Rapid Negative (NEGATIVE) Arterial Blood pH 7.271 (7.350-7.450) 7.269 (7.350-7.450) Arterial Blood Partial Pressure CO2 39.3 mmHg (35.0-45.0) 29.0 mmHg (35.0-45.0) L Arterial Blood Partial Pressure O2 42.6 mmHg (75.0-100.0) 270.2 mmHg (75.0-100.0) H Arterial Blood HCO3 17.7 mmol/L (22.0-26.0) *L 13.0 mmol/L (22.0-26.0) *L Arterial Blood Oxygen Saturation 77.3 % (95-100) *L Pending Arterial Blood Base Excess -8.6 (-2-2) L -12.3 (-2-2) *L August Test Positive Positive Test 07/06/19 05:30 White Blood Count Pending Red Blood Count Pending Hemoglobin Pending Hematocrit Pending Mean Corpuscular Volume Pending Mean Corpuscular Hemoglobin Pending Mean Corpuscular Hemoglobin Concent Pending Red Cell Distribution Width Pending Platelet Count Pending Mean Platelet Volume Pending Neutrophils (%) (Auto) Pending Lymphocytes (%) (Auto) Pending Monocytes (%) (Auto) Pending Eosinophils (%) (Auto) Pending Basophils (%) (Auto) Pending Sodium Level Pending Potassium Level Pending Chloride Level Pending Carbon Dioxide Level Pending Blood Urea Nitrogen Pending Creatinine Pending Estimat Glomerular Filtration Rate Pending Glucose Level Pending Lactic Acid Level Pending Calcium Level Pending Phosphorus Level Pending Magnesium Level Pending Total Bilirubin Pending Aspartate Amino Transf (AST/SGOT) Pending Alanine Aminotransferase (ALT/SGPT) Pending Alkaline Phosphatase Pending C-Reactive Protein, Quantitative Pending Pro-B-Type Natriuretic Peptide Pending Total Protein Pending Albumin Pending Globulin Pending Height (Feet): 5 Height (Inches): 3.00 Weight (Pounds): 120 Medications Current Medications Medications (Trade) Dose Ordered Sig/Margie Route PRN Reason Start Time Stop Time Status Last Admin Dose Admin Dextrose 1,000 ml @ 100 mls/hr Q10H IV 07/05/19 23:15 08/04/19 23:14 07/05/19 23:16 Midodrine (Pro-Amatine) 2.5 mg THREE TIMES A DAY ORAL 07/06/19 09:00 08/03/19 17:59 Morphine Sulfate (Morphine Sulfate) 1 mg Q4H PRN IVP Moderate Pain (Pain Scale 4-6) 07/06/19 01:45 07/11/19 12:59 Morphine Sulfate (Morphine Sulfate) 2 mg Q6H PRN IVP Severe Pain (Pain Scale 7-10) 07/06/19 00:30 07/10/19 18:29 Nitroglycerin (Ntg) 0.4 mg Q5M PRN SL Prn Chest Pain 07/05/19 22:15 08/03/19 04:59 Norepinephrine Bitartrate 4 mg/ Dextrose 250 ml @ 0 mls/hr Q24H IV 07/05/19 22:15 07/06/19 07:30 07/06/19 05:33 Norepinephrine Bitartrate 8 mg/ Dextrose 500 ml @ 0 mls/hr Q24H IV 07/06/19 07:00 08/05/19 06:59 Pantoprazole (Protonix) 40 mg Q12HR IVP 07/06/19 09:00 07/31/19 20:59 Phenylephrine HCl 50 mg/Dextrose 250 ml @ 0 mls/hr Q24H IV 07/05/19 22:45 08/04/19 22:44 07/05/19 23:17 Piperacillin Sod/ Tazobactam Sod 3.375 gm/Sodium Chloride 110 ml @ 27.5 mls/hr Q12H IVPB 07/06/19 00:00 07/13/19 00:00 07/06/19 01:01 Sodium Chloride 500 ml @ 0 mls/hr Q0M PRN IVPB SBP<100 07/05/19 22:15 08/01/19 20:29 Vasopressin 100 units/Sodium Chloride 100 ml @ 0 mls/hr Q24H IV 07/05/19 22:45 08/04/19 22:44 07/05/19 23:09 Assessment/Plan Assessment/Plan: Hematology Consultation DALJIT VELÁZQUEZ: Eli Keenan RFC: Anemia eval and low plts DOS: 07/06/19 HPI 78-year-old female, Mongolian speaking, scented with left-sided abdominal pain. History taken from patient and . 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 Patient states she has had left-sided abdominal pain for the past few days. Denies fevers, nausea, vomiting. Pain in the abdomen is left-sided, 10 out of 10, nonradiating. According to the patient recently admitted to [facility] and had paracentesis. No fevers. No coughing. No urinary complaints. Patient has a history of abdominal surgeries but cannot say what the surgery was. She is currently in the icu, on bipap, 2 pressors, maricarmen Flores and also Les, day time Rn, heme consulted for anemia eval, and low platelets, may require transfusion. Allergies: No Known Allergies (Unverified , 03/06/16) Patient History Past Medical History: see triage record Reviewed Nursing Documentation: PMH: Agreed; PSxH: Agreed Nursing Documentation-PMH Past Medical History Deferred: No Family Available Review of Systems All Other Systems: negative except mentioned in HPI PE General Appearance: well appearing, no apparent distress Head: normocephalic, atraumatic Eyes: bilateral eye PERRL, bilateral eye EOMI Resp: lungs clear, normal breath sounds, no rhonchi ++ bipap Cardiovascular: normal peripheral pulses, regular rate, rhythm, no murmur Gastrointestinal: soft, non-distended, other - Left-sided abdominal tenderness , large healed midline abdominal scar Musculoskeletal: other - Bilateral lower extremity edema noted 2+ up to the knee Neurologic: alert, oriented x3, no focal defects Labs: noted Imaging: reviewed ASSESSMENT/RECS: # Pancreatric cancer with Postsurgical changes, as described, with evidence of prior distal gastrectomy, gastrojejunostomy, and likely Nolan-en-Y anastomosis --> ct a/p reviewed and no marin malignancy is noted --> tumor markers noted --> currently appears in remission # Elevated tumor markers including ca 19.9, ca 125 --> by itself doesn't indicate malignancy --> have ordered for us of the ovaries to evaluate if enlarged --> obtain prior tumor markers if available for comparison --> reviewed prior adm, no prior tumor markers available # Anemia due to gi bleed --> evaluated by gi --> also seen by surgery Perforated viscus, source unknown. --> pulm/surg/id following # Thrombocytopenia with decreased plt count --> trend as needed --> 160-->111 --> hep and hiv neg # Severe sepsis. --> broad spectrum abx --> pressors have been started # Dehydration. --> on ivf as well # Ascites --> s/p para and no malignant cells seen # Resp failure --> on bipap # Hypotension could be due to dehydration and anemia. --> on midrinone, as per Mitch Lopez consultation and dw Gregorio Angulo MD Jul 06, 2019 07:12
[2019-07-06 07:28] LABS: ALANINE AMINOTRANSFERASE 20 U/L (12-78); ALBUMIN 1.3 G/DL (3.4-5.0); ALBUMIN/GLOBULIN RATIO 0.5 (1.0-2.7); ALKALINE PHOSPHATASE 83 U/L (46-116); ANION GAP 14 mmol/L (5-15); ASPARTATE AMINO TRANSFERASE 45 U/L (15-37); BILIRUBIN,TOTAL 1.2 MG/DL (0.2-1.0); BLOOD UREA NITROGEN 33 mg/dL (7-18); CARBON DIOXIDE 15 MMOL/L (21-32); CHLORIDE 109 MMOL/L (98-107); CREATININE 2.3 MG/DL (0.55-1.30); PHOSPHORUS 3.2 MG/DL (2.5-4.9); POTASSIUM 4.4 MMOL/L (3.5-5.1); SODIUM 138 MMOL/L (136-145)
--- NOTE | 2019-07-06 07:46 | Cardiac Electrophysiology PN ---
Assessment/Plan Assessment/Plan 1. Severe bilateral lower extremity edema. Her INR is 1.1, albumin is 2.0. Etiology is not clear at this time. Echo EF 65% 2. Ascites, status post 3 liter paracentesis also sent for cytology. 3. History of prior gastrectomy with Nolan-en-Y anastomosis. 4. Small amount of intraperitoneal air consistent with perforated viscus. Further evaluation by Dr. Hawkins. 5. Severe anemia. Could be dilutional. S/P PRBC 6. Septic shock S/P 2 units PRBC and iv fluid and iv Abx. On Levophed 26mcg, Vasopressin 0.03 Roni DCed at 1 am 7. Hx of pancreatic cancer 8. Resp failure on BIPAP 9. Troponin leak due to demand ischemia DW RN Subjective Subjective Transferred to ICU for septic shock with Lactic acid of 6.5 and on 3 pressors. In sinus tach 100-110.On BIPAP Objective Last 24 Hour Vital Signs Date Time Temp Pulse Resp B/P (MAP) Pulse Ox O2 Delivery O2 Flow Rate FiO2 07/06/19 07:35 109 21 100 40 07/06/19 07:00 90 13 111/75 (87) 07/06/19 06:45 93 20 115/75 (88) 07/06/19 06:30 94 13 116/76 (89) 07/06/19 06:15 94 15 128/82 (97) 07/06/19 06:00 128/82 07/06/19 06:00 96 14 128/82 (97) 07/06/19 05:45 98 14 105/78 (87) 07/06/19 05:33 119/89 07/06/19 05:30 94 14 119/89 (99) 07/06/19 05:29 94 16 100 40 07/06/19 05:15 95 16 126/83 (97) 07/06/19 05:00 94 16 120/80 (93) 07/06/19 04:45 93 16 120/86 (97) 07/06/19 04:30 94 15 119/80 (93) 07/06/19 04:15 96 16 122/83 (96) 07/06/19 04:00 98.2 96 19 120/78 (92) 07/06/19 04:00 Bi-pap 07/06/19 04:00 40 07/06/19 03:45 97 16 119/81 (94) 07/06/19 03:39 96 07/06/19 03:30 99 16 115/77 (90) 07/06/19 03:15 103 24 123/30 (61) 07/06/19 03:13 127/87 07/06/19 03:06 97 16 100 40 07/06/19 03:00 101 15 127/87 (100) 07/06/19 02:45 104 15 129/83 (98) 07/06/19 02:30 102 5 127/94 (105) 07/06/19 02:15 100 13 116/83 (94) 07/06/19 02:00 101 13 125/75 (92) 07/06/19 01:45 105 15 120/95 (103) 07/06/19 01:39 92 15 100 60 07/06/19 01:30 101 12 130/83 (99) 07/06/19 01:15 102 13 126/94 (105) 07/06/19 01:00 116/85 07/06/19 01:00 102 14 129/83 (98) 99 07/06/19 00:45 120 18 116/85 (95) 99 07/06/19 00:30 105 16 126/102 (110) 99 07/06/19 00:15 98 17 124/91 (102) 99 07/06/19 00:00 98.3 110 22 132/98 (109) 99 07/06/19 00:00 137/106 07/06/19 00:00 Nasal Cannula 3.0 07/06/19 00:00 60 07/05/19 23:49 123 07/05/19 23:45 128 21 137/106 (116) 79 07/05/19 23:30 127 16 126/106 (113) 07/05/19 23:30 106 26 100 Bi-Pap 100 07/05/19 23:25 106 26 100 100 07/05/19 23:17 126 70/28 07/05/19 23:15 119 16 64/32 (43) 99 07/05/19 23:00 67/11 07/05/19 23:00 118 15 67/11 (29) 100 07/05/19 22:45 129 17 97/58 (71) 94 07/05/19 22:35 109 8 91/52 (65) 99 07/05/19 22:34 110 11 78/45 (56) 99 07/05/19 22:29 106 13 77/15 (35) 100 07/05/19 22:27 113 17 62/16 (31) 100 07/05/19 22:26 70/28 07/05/19 22:02 112 15 70/28 (42) 100 07/05/19 22:00 113 16 59/48 (52) 100 07/05/19 21:13 128 14 98/67 (77) 97 07/05/19 21:08 130 17 82/66 (71) 91 07/05/19 21:00 98.4 125 17 76/55 (62) 97 07/05/19 21:00 Nasal Cannula 3.0 07/05/19 20:57 125 07/05/19 20:00 97.9 126 20 74/50 (58) 90 07/05/19 16:00 120 07/05/19 16:00 98.0 127 18 110/88 (95) 94 07/05/19 12:00 136 07/05/19 12:00 97.9 123 18 104/75 (85) 93 07/05/19 09:00 Nasal Cannula 2.0 07/05/19 08:00 98.2 120 18 94/62 (73) 94 07/05/19 08:00 119 Intake and Output 07/05/19 07/06/19 19:00 07:00 Intake Total 50 ml 1696.630 ml Output Total 60 ml Balance 50 ml 1636.630 ml IV Total 50 ml 1696.630 ml Output Urine Total 60 ml Laboratory Tests Test 07/05/19 22:13 07/05/19 22:15 07/05/19 22:31 07/06/19 00:50 PTT Mixing Study Pending APTT Patient/Control Mix Pending Mix PTT Incubation Time Pending Mix PTT Normal/Saline 1:1 Immediate Pending Thrombin Time Normal Plasma Pending White Blood Count 5.8 K/UL (4.8-10.8) Red Blood Count 3.76 M/UL (4.20-5.40) L Hemoglobin 11.6 G/DL (12.0-16.0) L Hematocrit 35.9 % (37.0-47.0) L Mean Corpuscular Volume 96 FL (80-99) Mean Corpuscular Hemoglobin 31.0 PG (27.0-31.0) Mean Corpuscular Hemoglobin Concent 32.4 G/DL (32.0-36.0) Red Cell Distribution Width 17.0 % (11.6-14.8) H Platelet Count 111 K/UL (150-450) L Mean Platelet Volume 8.4 FL (6.5-10.1) Neutrophils (%) (Auto) 95.7 % (45.0-75.0) H Lymphocytes (%) (Auto) 2.4 % (20.0-45.0) L Monocytes (%) (Auto) 1.6 % (1.0-10.0) Eosinophils (%) (Auto) 0.1 % (0.0-3.0) Basophils (%) (Auto) 0.4 % (0.0-2.0) Sodium Level 150 MMOL/L (136-145) H Potassium Level 5.3 MMOL/L (3.5-5.1) H Chloride Level 117 MMOL/L (98-107) H Carbon Dioxide Level 20 MMOL/L (21-32) L Anion Gap 13 mmol/L (5-15) Blood Urea Nitrogen 31 mg/dL (7-18) H Creatinine 2.1 MG/DL (0.55-1.30) H Estimat Glomerular Filtration Rate 22.8 mL/min (>60) Glucose Level 47 MG/DL (74-106) L Lactic Acid Level 4.20 mmol/L (0.4-2.0) H Calcium Level 7.7 MG/DL (8.5-10.1) L Total Bilirubin 1.0 MG/DL (0.2-1.0) Aspartate Amino Transf (AST/SGOT) 27 U/L (15-37) Alanine Aminotransferase (ALT/SGPT) 16 U/L (12-78) Alkaline Phosphatase 75 U/L (46-116) Total Protein 3.6 G/DL (6.4-8.2) L Albumin 1.3 G/DL (3.4-5.0) L Globulin 2.3 g/dL Albumin/Globulin Ratio 0.6 (1.0-2.7) L HIV (1&2) Antibody Rapid Negative (NEGATIVE) Arterial Blood pH 7.271 (7.350-7.450) 7.269 (7.350-7.450) Arterial Blood Partial Pressure CO2 39.3 mmHg (35.0-45.0) 29.0 mmHg (35.0-45.0) L Arterial Blood Partial Pressure O2 42.6 mmHg (75.0-100.0) 270.2 mmHg (75.0-100.0) H Arterial Blood HCO3 17.7 mmol/L (22.0-26.0) *L 13.0 mmol/L (22.0-26.0) *L Arterial Blood Oxygen Saturation 77.3 % (95-100) *L Pending Arterial Blood Base Excess -8.6 (-2-2) L -12.3 (-2-2) *L August Test Positive Positive Test 07/06/19 05:30 White Blood Count 10.4 K/UL (4.8-10.8) # Red Blood Count 3.85 M/UL (4.20-5.40) L Hemoglobin 12.2 G/DL (12.0-16.0) Hematocrit 35.9 % (37.0-47.0) L Mean Corpuscular Volume 93 FL (80-99) Mean Corpuscular Hemoglobin 31.7 PG (27.0-31.0) H Mean Corpuscular Hemoglobin Concent 34.0 G/DL (32.0-36.0) Red Cell Distribution Width 14.9 % (11.6-14.8) H Platelet Count 137 K/UL (150-450) L Mean Platelet Volume 6.5 FL (6.5-10.1) Neutrophils (%) (Auto) % (45.0-75.0) Lymphocytes (%) (Auto) % (20.0-45.0) Monocytes (%) (Auto) % (1.0-10.0) Eosinophils (%) (Auto) % (0.0-3.0) Basophils (%) (Auto) % (0.0-2.0) Neutrophils % (Manual) Pending Lymphocytes % (Manual) Pending Platelet Estimate Pending Platelet Morphology Pending Sodium Level 138 MMOL/L (136-145) # Potassium Level 4.4 MMOL/L (3.5-5.1) Chloride Level 109 MMOL/L (98-107) H Carbon Dioxide Level 15 MMOL/L (21-32) L Anion Gap 14 mmol/L (5-15) Blood Urea Nitrogen 33 mg/dL (7-18) H Creatinine 2.3 MG/DL (0.55-1.30) H Estimat Glomerular Filtration Rate 20.5 mL/min (>60) Glucose Level 198 MG/DL (74-106) #H Lactic Acid Level 6.50 mmol/L (0.4-2.0) H Calcium Level 8.0 MG/DL (8.5-10.1) L Phosphorus Level 3.2 MG/DL (2.5-4.9) Magnesium Level 1.8 MG/DL (1.8-2.4) Total Bilirubin 1.2 MG/DL (0.2-1.0) H Direct Bilirubin 0.0 MG/DL (0.0-0.3) Aspartate Amino Transf (AST/SGOT) 45 U/L (15-37) H Alanine Aminotransferase (ALT/SGPT) 20 U/L (12-78) Alkaline Phosphatase 83 U/L (46-116) C-Reactive Protein, Quantitative > 70.0 mg/dL (0.00-0.90) H Pro-B-Type Natriuretic Peptide Pending Total Protein 4.0 G/DL (6.4-8.2) L Albumin 1.3 G/DL (3.4-5.0) L Globulin 2.7 g/dL Albumin/Globulin Ratio 0.5 (1.0-2.7) L Objective HEAD AND NECK: No JVD. LUNGS: Coarse rhonchi CARDIOVASCULAR: Regular S1 and S2 with no gallop. ABDOMEN: Very tender. Has scar of prior surgery.Ascites EXTREMITIES: 2+ pitting edema. Benton Meyer MD Jul 06, 2019 07:46
[2019-07-06] MEDS: Norepinephrine Bitartrate 8 MG in D5W 500ml 492 ML IV SCH ×3 (08:11→20:57)
--- NOTE | 2019-07-06 08:16 | NUR ---
NURSE NOTES: Informed MD Rogelio that PT in current state can not tolerate US transvaginal, orders given to hold off on it for now. Will inform US ash Baron. SUSANNE Yu made aware.
--- NOTE | 2019-07-06 09:23 | Pulmonolgy Critical Care Note ---
Critical Care - Asmt/Plan Problems: (1) Carcinomatosis (2) Pancreatic cancer (3) Hypernatremia (4) NORMA (acute kidney injury) (5) Lactic acid acidosis (6) Septic shock (7) Hypoalbuminemia (8) Free intraperitoneal air (9) Perforated abdominal viscus (10) Poor prognosis (11) Severe protein-calorie malnutrition Assessment/Plan: Continue BiPAP 15/5 Repeat ABG in 1 hour Will attempt to avoid intubation/MV Continue Vaso 0.04, titrate NE to keep MAP > 60 Start HC 100 TID, check random cortisol On midodrine but NPO Continue Zosyn (D1), F/U CX's Monitor volumes and renal function, continue D5W@100 Trend LA Consider NGT decompression and paracentesis, will D/W Dr. Hawkins DVT Px: SCD Monitor MS Prognosis is extremely poor, STRONGLY consider palliative care and ethics eval, ongoing discussions with family FC, however I feel that coding this patient would be inappropriate, will discuss with team Disposition: keep in ICU Time Spent (Minutes): other - 90 Notes Reviewed: parking lot supervisor, cardio, other - Surgery, heme-onc Discussed with: nurses, consultants, complex case managerwinter sports manager - Objective Last 24 Hour Vital Signs Date Time Temp Pulse Resp B/P (MAP) Pulse Ox O2 Delivery O2 Flow Rate FiO2 07/06/19 08:57 93 15 100 40 07/06/19 08:30 88 11 105/82 (90) 07/06/19 08:15 86 14 108/76 (87) 100 07/06/19 08:11 109/85 07/06/19 08:00 Bi-pap 07/06/19 08:00 109/85 07/06/19 08:00 97.1 88 15 109/85 (93) 100 07/06/19 07:45 91 18 105/75 (85) 100 07/06/19 07:35 109 21 100 40 07/06/19 07:30 103 17 124/96 (105) 100 07/06/19 07:15 89 14 111/71 (84) 100 07/06/19 07:00 90 13 111/75 (87) 07/06/19 06:45 93 20 115/75 (88) 07/06/19 06:30 94 13 116/76 (89) 07/06/19 06:15 94 15 128/82 (97) 07/06/19 06:00 128/82 07/06/19 06:00 96 14 128/82 (97) 07/06/19 05:45 98 14 105/78 (87) 07/06/19 05:33 119/89 07/06/19 05:30 94 14 119/89 (99) 07/06/19 05:29 94 16 100 40 07/06/19 05:15 95 16 126/83 (97) 07/06/19 05:00 94 16 120/80 (93) 07/06/19 04:45 93 16 120/86 (97) 07/06/19 04:30 94 15 119/80 (93) 07/06/19 04:15 96 16 122/83 (96) 07/06/19 04:00 98.2 96 19 120/78 (92) 07/06/19 04:00 Bi-pap 07/06/19 04:00 40 07/06/19 03:45 97 16 119/81 (94) 07/06/19 03:39 96 07/06/19 03:30 99 16 115/77 (90) 07/06/19 03:15 103 24 123/30 (61) 07/06/19 03:13 127/87 07/06/19 03:06 97 16 100 40 07/06/19 03:00 101 15 127/87 (100) 07/06/19 02:45 104 15 129/83 (98) 07/06/19 02:30 102 5 127/94 (105) 07/06/19 02:15 100 13 116/83 (94) 07/06/19 02:00 101 13 125/75 (92) 07/06/19 01:45 105 15 120/95 (103) 07/06/19 01:39 92 15 100 60 07/06/19 01:30 101 12 130/83 (99) 07/06/19 01:15 102 13 126/94 (105) 07/06/19 01:00 116/85 07/06/19 01:00 102 14 129/83 (98) 99 07/06/19 00:45 120 18 116/85 (95) 99 07/06/19 00:30 105 16 126/102 (110) 99 07/06/19 00:15 98 17 124/91 (102) 99 07/06/19 00:00 98.3 110 22 132/98 (109) 99 07/06/19 00:00 137/106 07/06/19 00:00 Nasal Cannula 3.0 07/06/19 00:00 60 07/05/19 23:49 123 07/05/19 23:45 128 21 137/106 (116) 79 07/05/19 23:30 127 16 126/106 (113) 07/05/19 23:30 106 26 100 Bi-Pap 100 07/05/19 23:25 106 26 100 100 07/05/19 23:17 126 70/28 07/05/19 23:15 119 16 64/32 (43) 99 07/05/19 23:00 67/11 07/05/19 23:00 118 15 67/11 (29) 100 07/05/19 22:45 129 17 97/58 (71) 94 07/05/19 22:35 109 8 91/52 (65) 99 07/05/19 22:34 110 11 78/45 (56) 99 07/05/19 22:29 106 13 77/15 (35) 100 07/05/19 22:27 113 17 62/16 (31) 100 07/05/19 22:26 70/28 07/05/19 22:02 112 15 70/28 (42) 100 07/05/19 22:00 113 16 59/48 (52) 100 07/05/19 21:13 128 14 98/67 (77) 97 07/05/19 21:08 130 17 82/66 (71) 91 07/05/19 21:00 98.4 125 17 76/55 (62) 97 07/05/19 21:00 Nasal Cannula 3.0 07/05/19 20:57 125 07/05/19 20:00 97.9 126 20 74/50 (58) 90 07/05/19 16:00 120 07/05/19 16:00 98.0 127 18 110/88 (95) 94 07/05/19 12:00 136 07/05/19 12:00 97.9 123 18 104/75 (85) 93 Status: obtunded - on BiPAP Condition: critical HEENT: atraumatic, normocephalic Lungs: clear Heart: HR/BP unstable Abdomen: soft, non-tender, distended Extremities: edema - 1+ x 4 Accucheck: 39 Blood Sugars: BS not controlled Critical Care - Subjective ROS Limited/Unobtainable: Yes ICU Day: 2 Intubation Day: N/A Interval Events: 78 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 1 days prior acutely became hypotensive and tachycardic, BINDERY MANAGER called and patient transferred to ICU, placed on BiPAP for AGMA + RA, R fem CVC placed by ER MD, CXR unremarkable, KUB with distented stomach, + NORMA, + Lactic acidosis. Earlier in the day both Dr. Hawkins and Dr. Keenan had extensive conversations with the family recomending OBSTETRICS TECH and hospice, family was undecided at the time of the event. I spoke extensively with daughter Cricket who stated that the family wanted all measures undertaken until additional family members arrived from [facility]. I am uncertain they understand the gravity of the situation. Condition: critical IV Access: central - R Fem CVC 07/05/19 EKG Rhythm: Sinus Tachycardia FI02: 40 Vent Support Mode: BiLevel - BiPAP 15/5 Sputum Amount: None Secretions: None Fluids: D5W@100 Drips: NE @ 24 Vaso 0.03 I&O: Intake and Output 07/05/19 07/06/19 19:00 07:00 Intake Total 50 ml 1696.630 ml Output Total 60 ml Balance 50 ml 1636.630 ml IV Total 50 ml 1696.630 ml Output Urine Total 60 ml CXR: CXR: NAD KUB: Distended stomach Labs: Laboratory Tests Test 07/05/19 22:13 07/05/19 22:15 07/05/19 22:31 07/06/19 00:50 PTT Mixing Study Pending APTT Patient/Control Mix Pending Mix PTT Incubation Time Pending Mix PTT Normal/Saline 1:1 Immediate Pending Thrombin Time Normal Plasma Pending White Blood Count 5.8 K/UL (4.8-10.8) Red Blood Count 3.76 M/UL (4.20-5.40) L Hemoglobin 11.6 G/DL (12.0-16.0) L Hematocrit 35.9 % (37.0-47.0) L Mean Corpuscular Volume 96 FL (80-99) Mean Corpuscular Hemoglobin 31.0 PG (27.0-31.0) Mean Corpuscular Hemoglobin Concent 32.4 G/DL (32.0-36.0) Red Cell Distribution Width 17.0 % (11.6-14.8) H Platelet Count 111 K/UL (150-450) L Mean Platelet Volume 8.4 FL (6.5-10.1) Neutrophils (%) (Auto) 95.7 % (45.0-75.0) H Lymphocytes (%) (Auto) 2.4 % (20.0-45.0) L Monocytes (%) (Auto) 1.6 % (1.0-10.0) Eosinophils (%) (Auto) 0.1 % (0.0-3.0) Basophils (%) (Auto) 0.4 % (0.0-2.0) Sodium Level 150 MMOL/L (136-145) H Potassium Level 5.3 MMOL/L (3.5-5.1) H Chloride Level 117 MMOL/L (98-107) H Carbon Dioxide Level 20 MMOL/L (21-32) L Anion Gap 13 mmol/L (5-15) Blood Urea Nitrogen 31 mg/dL (7-18) H Creatinine 2.1 MG/DL (0.55-1.30) H Estimat Glomerular Filtration Rate 22.8 mL/min (>60) Glucose Level 47 MG/DL (74-106) L Lactic Acid Level 4.20 mmol/L (0.4-2.0) H Calcium Level 7.7 MG/DL (8.5-10.1) L Total Bilirubin 1.0 MG/DL (0.2-1.0) Aspartate Amino Transf (AST/SGOT) 27 U/L (15-37) Alanine Aminotransferase (ALT/SGPT) 16 U/L (12-78) Alkaline Phosphatase 75 U/L (46-116) Total Protein 3.6 G/DL (6.4-8.2) L Albumin 1.3 G/DL (3.4-5.0) L Globulin 2.3 g/dL Albumin/Globulin Ratio 0.6 (1.0-2.7) L HIV (1&2) Antibody Rapid Negative (NEGATIVE) Arterial Blood pH 7.271 (7.350-7.450) 7.269 (7.350-7.450) Arterial Blood Partial Pressure CO2 39.3 mmHg (35.0-45.0) 29.0 mmHg (35.0-45.0) L Arterial Blood Partial Pressure O2 42.6 mmHg (75.0-100.0) 270.2 mmHg (75.0-100.0) H Arterial Blood HCO3 17.7 mmol/L (22.0-26.0) *L 13.0 mmol/L (22.0-26.0) *L Arterial Blood Oxygen Saturation 77.3 % (95-100) *L Pending Arterial Blood Base Excess -8.6 (-2-2) L -12.3 (-2-2) *L August Test Positive Positive Test 07/06/19 05:30 White Blood Count 10.4 K/UL (4.8-10.8) # Red Blood Count 3.85 M/UL (4.20-5.40) L Hemoglobin 12.2 G/DL (12.0-16.0) Hematocrit 35.9 % (37.0-47.0) L Mean Corpuscular Volume 93 FL (80-99) Mean Corpuscular Hemoglobin 31.7 PG (27.0-31.0) H Mean Corpuscular Hemoglobin Concent 34.0 G/DL (32.0-36.0) Red Cell Distribution Width 14.9 % (11.6-14.8) H Platelet Count 137 K/UL (150-450) L Mean Platelet Volume 6.5 FL (6.5-10.1) Neutrophils (%) (Auto) % (45.0-75.0) Lymphocytes (%) (Auto) % (20.0-45.0) Monocytes (%) (Auto) % (1.0-10.0) Eosinophils (%) (Auto) % (0.0-3.0) Basophils (%) (Auto) % (0.0-2.0) Neutrophils % (Manual) Pending Lymphocytes % (Manual) Pending Platelet Estimate Pending Platelet Morphology Pending Sodium Level 138 MMOL/L (136-145) # Potassium Level 4.4 MMOL/L (3.5-5.1) Chloride Level 109 MMOL/L (98-107) H Carbon Dioxide Level 15 MMOL/L (21-32) L Anion Gap 14 mmol/L (5-15) Blood Urea Nitrogen 33 mg/dL (7-18) H Creatinine 2.3 MG/DL (0.55-1.30) H Estimat Glomerular Filtration Rate 20.5 mL/min (>60) Glucose Level 198 MG/DL (74-106) #H Lactic Acid Level 6.50 mmol/L (0.4-2.0) H Calcium Level 8.0 MG/DL (8.5-10.1) L Phosphorus Level 3.2 MG/DL (2.5-4.9) Magnesium Level 1.8 MG/DL (1.8-2.4) Total Bilirubin 1.2 MG/DL (0.2-1.0) H Direct Bilirubin 0.0 MG/DL (0.0-0.3) Aspartate Amino Transf (AST/SGOT) 45 U/L (15-37) H Alanine Aminotransferase (ALT/SGPT) 20 U/L (12-78) Alkaline Phosphatase 83 U/L (46-116) Troponin I 0.023 ng/mL (0.000-0.056) C-Reactive Protein, Quantitative > 70.0 mg/dL (0.00-0.90) H Pro-B-Type Natriuretic Peptide Pending Total Protein 4.0 G/DL (6.4-8.2) L Albumin 1.3 G/DL (3.4-5.0) L Globulin 2.7 g/dL Albumin/Globulin Ratio 0.5 (1.0-2.7) L Dorian Munson MD Jul 06, 2019 09:23
[2019-07-06] MEDS: Pantoprazole Inj IVP SCH ×2 (09:57→20:57)
[2019-07-06] MEDS: Hydrocortisone 100mg Inj IV SCH ×3 (09:57→17:45)
--- NOTE | 2019-07-06 10:32 | General Progress Note ---
Assessment/Plan Assessment/Plan: Anemia Ascites hypoalbuminemia partial gastrectomy fatty liver ? perforated viscus pancreatic CA carcinomatosis transferred to ICU on BIPAP pending repeat paracentesis NGT to suction abx fu surg recs tumor markers>>>> elevated Ca 125>>> pelvic us>>>> oncology eval drop in H&H w/o active bleed>>> s/p blood transfusion abd us>>> reviewed add albumin IV poor prognosis Subjective ROS Limited/Unobtainable: No Allergies: Coded Allergies: No Known Allergies (Unverified , 03/06/16) Objective Last 24 Hour Vital Signs Date Time Temp Pulse Resp B/P (MAP) Pulse Ox O2 Delivery O2 Flow Rate FiO2 07/06/19 09:00 105/71 07/06/19 08:57 93 15 100 40 07/06/19 08:30 88 11 105/82 (90) 07/06/19 08:15 86 14 108/76 (87) 100 07/06/19 08:11 109/85 07/06/19 08:00 Bi-pap 07/06/19 08:00 109/85 07/06/19 08:00 88 07/06/19 08:00 97.1 88 15 109/85 (93) 100 07/06/19 07:45 91 18 105/75 (85) 100 07/06/19 07:35 109 21 100 40 07/06/19 07:30 103 17 124/96 (105) 100 07/06/19 07:15 89 14 111/71 (84) 100 07/06/19 07:00 90 13 111/75 (87) 07/06/19 06:45 93 20 115/75 (88) 07/06/19 06:30 94 13 116/76 (89) 07/06/19 06:15 94 15 128/82 (97) 07/06/19 06:00 128/82 07/06/19 06:00 96 14 128/82 (97) 07/06/19 05:45 98 14 105/78 (87) 07/06/19 05:33 119/89 07/06/19 05:30 94 14 119/89 (99) 07/06/19 05:29 94 16 100 40 07/06/19 05:15 95 16 126/83 (97) 07/06/19 05:00 94 16 120/80 (93) 07/06/19 04:45 93 16 120/86 (97) 07/06/19 04:30 94 15 119/80 (93) 07/06/19 04:15 96 16 122/83 (96) 07/06/19 04:00 98.2 96 19 120/78 (92) 07/06/19 04:00 Bi-pap 07/06/19 04:00 40 07/06/19 03:45 97 16 119/81 (94) 07/06/19 03:39 96 07/06/19 03:30 99 16 115/77 (90) 07/06/19 03:15 103 24 123/30 (61) 07/06/19 03:13 127/87 07/06/19 03:06 97 16 100 40 07/06/19 03:00 101 15 127/87 (100) 07/06/19 02:45 104 15 129/83 (98) 07/06/19 02:30 102 5 127/94 (105) 07/06/19 02:15 100 13 116/83 (94) 07/06/19 02:00 101 13 125/75 (92) 07/06/19 01:45 105 15 120/95 (103) 07/06/19 01:39 92 15 100 60 07/06/19 01:30 101 12 130/83 (99) 07/06/19 01:15 102 13 126/94 (105) 07/06/19 01:00 116/85 07/06/19 01:00 102 14 129/83 (98) 99 07/06/19 00:45 120 18 116/85 (95) 99 07/06/19 00:30 105 16 126/102 (110) 99 07/06/19 00:15 98 17 124/91 (102) 99 07/06/19 00:00 98.3 110 22 132/98 (109) 99 07/06/19 00:00 137/106 07/06/19 00:00 Nasal Cannula 3.0 07/06/19 00:00 60 07/05/19 23:49 123 07/05/19 23:45 128 21 137/106 (116) 79 07/05/19 23:30 127 16 126/106 (113) 07/05/19 23:30 106 26 100 Bi-Pap 100 07/05/19 23:25 106 26 100 100 07/05/19 23:17 126 70/28 07/05/19 23:15 119 16 64/32 (43) 99 07/05/19 23:00 67/11 07/05/19 23:00 118 15 67/11 (29) 100 07/05/19 22:45 129 17 97/58 (71) 94 07/05/19 22:35 109 8 91/52 (65) 99 07/05/19 22:34 110 11 78/45 (56) 99 07/05/19 22:29 106 13 77/15 (35) 100 07/05/19 22:27 113 17 62/16 (31) 100 07/05/19 22:26 70/28 07/05/19 22:02 112 15 70/28 (42) 100 07/05/19 22:00 113 16 59/48 (52) 100 07/05/19 21:13 128 14 98/67 (77) 97 07/05/19 21:08 130 17 82/66 (71) 91 07/05/19 21:00 98.4 125 17 76/55 (62) 97 07/05/19 21:00 Nasal Cannula 3.0 07/05/19 20:57 125 07/05/19 20:00 97.9 126 20 74/50 (58) 90 07/05/19 16:00 120 07/05/19 16:00 98.0 127 18 110/88 (95) 94 07/05/19 12:00 136 07/05/19 12:00 97.9 123 18 104/75 (85) 93 Intake and Output 07/05/19 07/06/19 19:00 07:00 Intake Total 50 ml 1696.630 ml Output Total 60 ml Balance 50 ml 1636.630 ml IV Total 50 ml 1696.630 ml Output Urine Total 60 ml Laboratory Tests 07/05/19 22:13: PTT Mixing Study [Pending], APTT Patient/Control Mix [Pending], Mix PTT Incubation Time [Pending], Mix PTT Normal/Saline 1:1 Immediate [Pending], Thrombin Time Normal Plasma [Pending] 07/05/19 22:15: White Blood Count 5.8, Red Blood Count 3.76L, Hemoglobin 11.6L, Hematocrit 35.9L , Mean Corpuscular Volume 96, Mean Corpuscular Hemoglobin 31.0, Mean Corpuscular Hemoglobin Concent 32.4, Red Cell Distribution Width 17.0H, Platelet Count 111L, Mean Platelet Volume 8.4, Neutrophils (%) (Auto) 95.7H, Lymphocytes (%) (Auto) 2.4L, Monocytes (%) (Auto) 1.6, Eosinophils (%) (Auto) 0.1, Basophils (%) (Auto) 0.4, Sodium Level 150H, Potassium Level 5.3H, Chloride Level 117H, Carbon Dioxide Level 20L, Anion Gap 13, Blood Urea Nitrogen 31H, Creatinine 2.1H, Estimat Glomerular Filtration Rate 22.8, Glucose Level 47L, Lactic Acid Level 4.20H, Calcium Level 7.7L, Total Bilirubin 1.0, Aspartate Amino Transf (AST/SGOT) 27, Alanine Aminotransferase (ALT/SGPT) 16, Alkaline Phosphatase 75, Total Protein 3.6L, Albumin 1.3L, Globulin 2.3, Albumin /Globulin Ratio 0.6L, HIV (1&2) Antibody Rapid Negative 07/05/19 22:31: Arterial Blood pH 7.271L, Arterial Blood Partial Pressure CO2 39.3, Arterial Blood Partial Pressure O2 42.6*L, Arterial Blood HCO3 17.7*L, Arterial Blood Oxygen Saturation 77.3*L, Arterial Blood Base Excess -8.6L, August Test Positive 07/06/19 00:50: Arterial Blood pH 7.269L, Arterial Blood Partial Pressure CO2 29.0L, Arterial Blood Partial Pressure O2 270.2H, Arterial Blood HCO3 13.0*L, Arterial Blood Oxygen Saturation [Pending], Arterial Blood Base Excess -12.3*L, August Test Positive 07/06/19 05:30: White Blood Count 10.4#, Red Blood Count 3.85L, Hemoglobin 12.2, Hematocrit 35.9L, Mean Corpuscular Volume 93, Mean Corpuscular Hemoglobin 31.7H, Mean Corpuscular Hemoglobin Concent 34.0, Red Cell Distribution Width 14.9H, Platelet Count 137L, Mean Platelet Volume 6.5, Neutrophils (%) (Auto) , Lymphocytes (%) (Auto) , Monocytes (%) (Auto) , Eosinophils (%) (Auto) , Basophils (%) (Auto) , Differential Total Cells Counted 100, Neutrophils % ( Manual) 61, Lymphocytes % (Manual) 6L, Monocytes % (Manual) 4, Eosinophils % ( Manual) 0, Basophils % (Manual) 0, Metamyelocytes % 2H, Band Neutrophils 27H, Platelet Estimate DecreasedL, Platelet Morphology Normal, Anisocytosis 1+, Sodium Level 138#, Potassium Level 4.4, Chloride Level 109H, Carbon Dioxide Level 15L, Anion Gap 14, Blood Urea Nitrogen 33H, Creatinine 2.3H, Estimat Glomerular Filtration Rate 20.5, Glucose Level 198#H, Lactic Acid Level 6.50H, Calcium Level 8.0L, Phosphorus Level 3.2, Magnesium Level 1.8, Total Bilirubin 1.2H, Direct Bilirubin 0.0, Aspartate Amino Transf (AST/SGOT) 45H, Alanine Aminotransferase (ALT/SGPT) 20, Alkaline Phosphatase 83, Troponin I 0.023, C- Reactive Protein, Quantitative > 70.0H, Pro-B-Type Natriuretic Peptide [Pending] , Total Protein 4.0L, Albumin 1.3L, Globulin 2.7, Albumin/Globulin Ratio 0.5L 07/06/19 08:30: Arterial Blood pH 7.307L, Arterial Blood Partial Pressure CO2 29.4L, Arterial Blood Partial Pressure O2 102.5H, Arterial Blood HCO3 14.4*L, Arterial Blood Oxygen Saturation 97.3, Arterial Blood Base Excess -10.6*L, August Test Positive Height (Feet): 5 Height (Inches): 3.00 Weight (Pounds): 120 General Appearance: lethargic EENT: normal ENT inspection Neck: supple Cardiovascular: normal rate Respiratory/Chest: decreased breath sounds Abdomen: hypoactive bowel sounds, distended, tender Extremities: non-tender Rodney Neri MD Jul 06, 2019 10:32
--- NOTE | 2019-07-06 11:29 | NUR ---
NURSE NOTES: Albumin started on left upper arm IV as ordered. Flushed IV prior to infusion; patent and asymptomatic. Will continue to monitor.
--- NOTE | 2019-07-06 11:42 | NUR ---
NURSE NOTES: PT family requested SW, called [facility] at bedside with SUSANNE Yu giving updates on PT.
--- NOTE | 2019-07-06 12:08 | Nephrology Progress Note ---
Assessment/Plan Problem List: (1) Hypotension (2) Anemia (3) Abdominal pain (4) Free intraperitoneal air (5) Hypoalbuminemia Assessment Intra-abdominal process either peritonitis and or perforated viscus Severe anemia with drop of hemoglobin from 10 to 7 requiring blood transfusion. Hypotensive unclear if due to intra-abdominal bleeding and or septic process. Albuminemia, ascites, unclear etiology, most likely underlying neoplastic process Plan Patient currently remains full code. Clinically she has deteriorated. She is hypotensive. Renal parameters are worsened. Urine output decreased Very poor prognosis. More dynamically unstable for dialysis. I favor DNR and comfort care. Previously Continue per general surgery and GI advice advice Patient was started on p.o. diet Antibiotics now on Zosyn IV Protonix Young catheter Blood pressure support with pressors if needed Patient currently is full code, I support DNR status Will discuss with consultants Reviewed the case with RN Subjective ROS Limited/Unobtainable: Yes Objective Objective Last 24 Hour Vital Signs Date Time Temp Pulse Resp B/P (MAP) Pulse Ox O2 Delivery O2 Flow Rate FiO2 07/06/19 11:30 84 14 100 40 07/06/19 11:30 84 15 100/74 (83) 07/06/19 11:15 87 15 100/72 (81) 100 07/06/19 11:00 100/72 07/06/19 11:00 86 14 92/71 (78) 100 07/06/19 10:45 88 14 91/67 (75) 100 07/06/19 10:30 95 14 106/78 (87) 100 07/06/19 10:15 98 16 121/86 (98) 100 07/06/19 10:00 84 14 120/97 (105) 100 07/06/19 10:00 120/97 07/06/19 09:45 91 15 113/79 (90) 100 07/06/19 09:30 90 15 113/35 (61) 100 07/06/19 09:15 88 16 100/57 (71) 100 07/06/19 09:00 91 13 105/71 (82) 100 07/06/19 09:00 105/71 07/06/19 08:57 93 15 100 40 07/06/19 08:45 94 19 109/80 (90) 100 07/06/19 08:30 88 11 105/82 (90) 07/06/19 08:15 86 14 108/76 (87) 100 07/06/19 08:11 109/85 07/06/19 08:00 Bi-pap 07/06/19 08:00 109/85 07/06/19 08:00 88 07/06/19 08:00 97.1 88 15 109/85 (93) 100 07/06/19 07:45 91 18 105/75 (85) 100 07/06/19 07:35 109 21 100 40 07/06/19 07:30 103 17 124/96 (105) 100 07/06/19 07:15 89 14 111/71 (84) 100 07/06/19 07:00 90 13 111/75 (87) 07/06/19 06:45 93 20 115/75 (88) 07/06/19 06:30 94 13 116/76 (89) 07/06/19 06:15 94 15 128/82 (97) 07/06/19 06:00 128/82 07/06/19 06:00 96 14 128/82 (97) 07/06/19 05:45 98 14 105/78 (87) 07/06/19 05:33 119/89 07/06/19 05:30 94 14 119/89 (99) 07/06/19 05:29 94 16 100 40 07/06/19 05:15 95 16 126/83 (97) 07/06/19 05:00 94 16 120/80 (93) 07/06/19 04:45 93 16 120/86 (97) 07/06/19 04:30 94 15 119/80 (93) 07/06/19 04:15 96 16 122/83 (96) 07/06/19 04:00 98.2 96 19 120/78 (92) 07/06/19 04:00 Bi-pap 07/06/19 04:00 40 07/06/19 03:45 97 16 119/81 (94) 07/06/19 03:39 96 07/06/19 03:30 99 16 115/77 (90) 07/06/19 03:15 103 24 123/30 (61) 07/06/19 03:13 127/87 07/06/19 03:06 97 16 100 40 07/06/19 03:00 101 15 127/87 (100) 07/06/19 02:45 104 15 129/83 (98) 07/06/19 02:30 102 5 127/94 (105) 07/06/19 02:15 100 13 116/83 (94) 07/06/19 02:00 101 13 125/75 (92) 07/06/19 01:45 105 15 120/95 (103) 07/06/19 01:39 92 15 100 60 07/06/19 01:30 101 12 130/83 (99) 07/06/19 01:15 102 13 126/94 (105) 07/06/19 01:00 116/85 07/06/19 01:00 102 14 129/83 (98) 99 07/06/19 00:45 120 18 116/85 (95) 99 07/06/19 00:30 105 16 126/102 (110) 99 07/06/19 00:15 98 17 124/91 (102) 99 07/06/19 00:00 98.3 110 22 132/98 (109) 99 07/06/19 00:00 137/106 07/06/19 00:00 Nasal Cannula 3.0 07/06/19 00:00 60 07/05/19 23:49 123 07/05/19 23:45 128 21 137/106 (116) 79 07/05/19 23:30 127 16 126/106 (113) 07/05/19 23:30 106 26 100 Bi-Pap 100 07/05/19 23:25 106 26 100 100 07/05/19 23:17 126 70/28 07/05/19 23:15 119 16 64/32 (43) 99 07/05/19 23:00 67/11 07/05/19 23:00 118 15 67/11 (29) 100 07/05/19 22:45 129 17 97/58 (71) 94 07/05/19 22:35 109 8 91/52 (65) 99 07/05/19 22:34 110 11 78/45 (56) 99 07/05/19 22:29 106 13 77/15 (35) 100 07/05/19 22:27 113 17 62/16 (31) 100 07/05/19 22:26 70/28 07/05/19 22:02 112 15 70/28 (42) 100 07/05/19 22:00 113 16 59/48 (52) 100 07/05/19 21:13 128 14 98/67 (77) 97 07/05/19 21:08 130 17 82/66 (71) 91 07/05/19 21:00 98.4 125 17 76/55 (62) 97 07/05/19 21:00 Nasal Cannula 3.0 07/05/19 20:57 125 07/05/19 20:00 97.9 126 20 74/50 (58) 90 07/05/19 16:00 120 07/05/19 16:00 98.0 127 18 110/88 (95) 94 Intake and Output 07/05/19 07/06/19 19:00 07:00 Intake Total 50 ml 1696.630 ml Output Total 60 ml Balance 50 ml 1636.630 ml IV Total 50 ml 1696.630 ml Output Urine Total 60 ml Laboratory Tests 07/05/19 22:13: PTT Mixing Study [Pending], APTT Patient/Control Mix [Pending], Mix PTT Incubation Time [Pending], Mix PTT Normal/Saline 1:1 Immediate [Pending], Thrombin Time Normal Plasma [Pending] 07/05/19 22:15: White Blood Count 5.8, Red Blood Count 3.76L, Hemoglobin 11.6L, Hematocrit 35.9L , Mean Corpuscular Volume 96, Mean Corpuscular Hemoglobin 31.0, Mean Corpuscular Hemoglobin Concent 32.4, Red Cell Distribution Width 17.0H, Platelet Count 111L, Mean Platelet Volume 8.4, Neutrophils (%) (Auto) 95.7H, Lymphocytes (%) (Auto) 2.4L, Monocytes (%) (Auto) 1.6, Eosinophils (%) (Auto) 0.1, Basophils (%) (Auto) 0.4, Sodium Level 150H, Potassium Level 5.3H, Chloride Level 117H, Carbon Dioxide Level 20L, Anion Gap 13, Blood Urea Nitrogen 31H, Creatinine 2.1H, Estimat Glomerular Filtration Rate 22.8, Glucose Level 47L, Lactic Acid Level 4.20H, Calcium Level 7.7L, Total Bilirubin 1.0, Aspartate Amino Transf (AST/SGOT) 27, Alanine Aminotransferase (ALT/SGPT) 16, Alkaline Phosphatase 75, Total Protein 3.6L, Albumin 1.3L, Globulin 2.3, Albumin /Globulin Ratio 0.6L, HIV (1&2) Antibody Rapid Negative 07/05/19 22:31: Arterial Blood pH 7.271L, Arterial Blood Partial Pressure CO2 39.3, Arterial Blood Partial Pressure O2 42.6*L, Arterial Blood HCO3 17.7*L, Arterial Blood Oxygen Saturation 77.3*L, Arterial Blood Base Excess -8.6L, August Test Positive 07/06/19 00:50: Arterial Blood pH 7.269L, Arterial Blood Partial Pressure CO2 29.0L, Arterial Blood Partial Pressure O2 270.2H, Arterial Blood HCO3 13.0*L, Arterial Blood Oxygen Saturation [Pending], Arterial Blood Base Excess -12.3*L, August Test Positive 07/06/19 05:30: White Blood Count 10.4#, Red Blood Count 3.85L, Hemoglobin 12.2, Hematocrit 35.9L, Mean Corpuscular Volume 93, Mean Corpuscular Hemoglobin 31.7H, Mean Corpuscular Hemoglobin Concent 34.0, Red Cell Distribution Width 14.9H, Platelet Count 137L, Mean Platelet Volume 6.5, Neutrophils (%) (Auto) , Lymphocytes (%) (Auto) , Monocytes (%) (Auto) , Eosinophils (%) (Auto) , Basophils (%) (Auto) , Differential Total Cells Counted 100, Neutrophils % ( Manual) 61, Lymphocytes % (Manual) 6L, Monocytes % (Manual) 4, Eosinophils % ( Manual) 0, Basophils % (Manual) 0, Metamyelocytes % 2H, Band Neutrophils 27H, Platelet Estimate DecreasedL, Platelet Morphology Normal, Anisocytosis 1+, Sodium Level 138#, Potassium Level 4.4, Chloride Level 109H, Carbon Dioxide Level 15L, Anion Gap 14, Blood Urea Nitrogen 33H, Creatinine 2.3H, Estimat Glomerular Filtration Rate 20.5, Glucose Level 198#H, Lactic Acid Level 6.50H, Calcium Level 8.0L, Phosphorus Level 3.2, Magnesium Level 1.8, Total Bilirubin 1.2H, Direct Bilirubin 0.0, Aspartate Amino Transf (AST/SGOT) 45H, Alanine Aminotransferase (ALT/SGPT) 20, Alkaline Phosphatase 83, Troponin I 0.023, C- Reactive Protein, Quantitative > 70.0H, Pro-B-Type Natriuretic Peptide [Pending] , Total Protein 4.0L, Albumin 1.3L, Globulin 2.7, Albumin/Globulin Ratio 0.5L 07/06/19 08:30: Arterial Blood pH 7.307L, Arterial Blood Partial Pressure CO2 29.4L, Arterial Blood Partial Pressure O2 102.5H, Arterial Blood HCO3 14.4*L, Arterial Blood Oxygen Saturation 97.3, Arterial Blood Base Excess -10.6*L, August Test Positive Height (Feet): 5 Height (Inches): 3.00 Weight (Pounds): 120 General Appearance: no apparent distress EENT: other - On BiPAP Cardiovascular: tachycardia - Rate 84 Respiratory/Chest: decreased breath sounds Abdomen: distended Pavan Junior MD Jul 06, 2019 12:08
--- NOTE | 2019-07-06 12:55 | NUR ---
NURSE NOTES: VSS stable, PT remains on Levophed @ 26mcg/min; Vasopressin @ 0.04 U/min; US Paracentesis done without complications by MD Sita and THALIA Baron; total paracentesis fluids taken out 3L.
--- NOTE | 2019-07-06 12:55 | Pre-Procedure Note/Attestation ---
Pre-Procedure Note/Attestation Complete Prior to Procedure Planned Procedure: not applicable Procedure Narrative: paracentesis Indications for Procedure Pre-Operative Diagnosis: ascites Attestation I attest that I discussed the nature of the procedure; its benefits; risks and complications; and alternatives (and the risks and benefits of such alternatives ), prior to the procedure, with the patient (or the patient's legal unit support representative). I attest that, if there was a reasonable possibility of needing a blood transfusion, the patient (or the patient's legal unit support representative) was given the [facility] standardized written summary, pursuant to the David Analilia Blood Safety Act ([place] Health and Safety Code # 1645, as amended). I attest that I re-evaluated the patient just prior to the surgery and that there has been no change in the patient's H&P, except as documented below: Discussed in person with pt's. vicki immediately pre-procedure Sukh Buckner MD Jul 06, 2019 12:55
--- NOTE | 2019-07-06 12:55 | Brief Operative Note ---
Immediate Post Operative Note Operative Note Pre-op Diagnosis: ascites Procedure: paracentesis Post-op Diagnosis: same as pre-op Surgeon: Marita Ramirez Anesthesia: local Specimen: none Complications: none Condition: stable Fluids: none Implant(s) used?: No Sukh Ramirez MD Jul 06, 2019 12:55
--- NOTE | 2019-07-06 13:09 | Diagnostic Imaging Report ---
Indication: Abdominal distention, abnormal liver function tests, abnormal renal function tests, history of pancreatic carcinoma Technique: Schmid-scale and duplex images of the upper abdomen were obtained. Common images of the pelvis also obtained. Doppler interrogation of the ovaries Comparison: Abdominal ultrasound compared to 07/02/2019 Findings: There is moderate ascites. Gallbladder has been removed Common bile duct measures mm in diameter. No intrahepatic biliary ductal dilatation. Liver demonstrates increased echogenicity. It is atrophic. No focal abnormality Portal vein and hepatic veins are patent. Pancreas is obscured by bowel gas. Spleen is unremarkable. Left kidney measures 10.2 cm in length. Right kidney measures 11.3 cm length. Both kidneys demonstrate normal echogenicity. There are cysts in the right kidney. No hydronephrosis. Bladder is empty, contains a Young catheter. . Abdominal aorta is obscured by bowel gas. The uterus measures 4.6 cm length by 2.1 cm AP. Fluid is seen in the endometrial canal. Neither ovary could be visualized. Impression: Ascites Evidence of prior cholecystectomy. Echogenic atrophic liver, could indicate combination of fatty change and cirrhotic change Negative for dilated bile ducts unremarkable uterus. Neither ovary could be demonstrated. Right renal cysts incidentally noted. Note nonvisualization of the abdominal aorta and pancreas
--- NOTE | 2019-07-06 14:11 | NUR ---
RD ASSESSMENT & RECOMMENDATIONS SEE CARE ACTIVITY FOR COMPLETE ASSESSMENT DAILY ESTIMATED NEEDS: Needs based on Cancer, pulmonary 54.5kg 25-35 kcals/kg 7570-1531 total kcals 1-2 g protein/kg 55-109 g total protein Fluid per MD NUTRITION DIAGNOSIS: Swallowing difficulty r/t respiratory status as evidenced by pt on Bipap, pressors x2, NPO at this time. CURRENT DIET:NPO PO DIET RECOMMENDATIONS: PUGGER HELPER eval prior to oral diet ENTERAL NUTRITION RECOMMENDATIONS: If part of POC, rec Vital AF 1.2 goal of 50ml/hr x24 hrs to provide 1200ml, 1440 kcal, 90g pro, 973ml free H2O - When medically stable, rec non oral feeds to meet est nutritional needs. - Start Vital 1.2 @20ml/hr x6 hrs. Advance 10ml/hr q4-6 hrs to goal. - Flush per MD/ HOB over 30 degrees ADDITIONAL RECOMMENDATIONS: 1) Feeds when stable, recs as above 2) RECALIBRATE bed scale for accurate CBW -> Currently w/ added P200 mattress 3) With TF / diet order rec Add KRISTIN BID + Vit C 250mg qd for wound care 4) D5 while NPO
--- NOTE | 2019-07-06 14:36 | Surgery Progress Note ---
Surgery Progress Note Subjective Additional Comments hx pancreatic cancer surgery 3 years ago discussed care with family in details recommend hospice has not been eating well for months as per daughters. para 3/11 with liters removed hypotensive at times tachy Objective Last 24 Hour Vital Signs Date Time Temp Pulse Resp B/P (MAP) Pulse Ox O2 Delivery O2 Flow Rate FiO2 07/06/19 14:01 80/62 07/06/19 13:48 88 14 80/62 (68) 100 07/06/19 13:47 89 14 69/47 (54) 100 07/06/19 13:45 95 17 98 07/06/19 13:30 86 14 115/82 (93) 79 07/06/19 13:15 75 14 124/77 (93) 100 07/06/19 13:00 115/82 07/06/19 13:00 78 14 113/78 (90) 100 07/06/19 12:45 97.1 79 14 114/79 (91) 100 07/06/19 12:44 80 14 100 40 07/06/19 12:30 81 14 109/78 (88) 100 07/06/19 12:05 80 07/06/19 12:00 77 14 108/81 (90) 100 07/06/19 12:00 114/79 07/06/19 11:30 84 14 100 40 07/06/19 11:30 84 15 100/74 (83) 07/06/19 11:15 87 15 100/72 (81) 100 07/06/19 11:00 100/72 07/06/19 11:00 86 14 92/71 (78) 100 07/06/19 10:45 88 14 91/67 (75) 100 07/06/19 10:30 95 14 106/78 (87) 100 07/06/19 10:15 98 16 121/86 (98) 100 07/06/19 10:00 84 14 120/97 (105) 100 07/06/19 10:00 120/97 07/06/19 09:45 91 15 113/79 (90) 100 07/06/19 09:30 90 15 113/35 (61) 100 07/06/19 09:15 88 16 100/57 (71) 100 07/06/19 09:00 91 13 105/71 (82) 100 3/11/20 09:00 105/71 07/06/19 08:57 93 15 100 40 07/06/19 08:45 94 19 109/80 (90) 100 07/06/19 08:30 88 11 105/82 (90) 07/06/19 08:15 86 14 108/76 (87) 100 07/06/19 08:11 109/85 07/06/19 08:00 Bi-pap 07/06/19 08:00 109/85 07/06/19 08:00 88 07/06/19 08:00 97.1 88 15 109/85 (93) 100 07/06/19 07:45 91 18 105/75 (85) 100 07/06/19 07:35 109 21 100 40 07/06/19 07:30 103 17 124/96 (105) 100 07/06/19 07:15 89 14 111/71 (84) 100 07/06/19 07:00 90 13 111/75 (87) 07/06/19 06:45 93 20 115/75 (88) 07/06/19 06:30 94 13 116/76 (89) 07/06/19 06:15 94 15 128/82 (97) 07/06/19 06:00 128/82 07/06/19 06:00 96 14 128/82 (97) 07/06/19 05:45 98 14 105/78 (87) 07/06/19 05:33 119/89 07/06/19 05:30 94 14 119/89 (99) 07/06/19 05:29 94 16 100 40 07/06/19 05:15 95 16 126/83 (97) 07/06/19 05:00 94 16 120/80 (93) 07/06/19 04:45 93 16 120/86 (97) 07/06/19 04:30 94 15 119/80 (93) 07/06/19 04:15 96 16 122/83 (96) 07/06/19 04:00 98.2 96 19 120/78 (92) 07/06/19 04:00 Bi-pap 07/06/19 04:00 40 07/06/19 03:45 97 16 119/81 (94) 07/06/19 03:39 96 07/06/19 03:30 99 16 115/77 (90) 07/06/19 03:15 103 24 123/30 (61) 07/06/19 03:13 127/87 07/06/19 03:06 97 16 100 40 07/06/19 03:00 101 15 127/87 (100) 07/06/19 02:45 104 15 129/83 (98) 07/06/19 02:30 102 5 127/94 (105) 07/06/19 02:15 100 13 116/83 (94) 07/06/19 02:00 101 13 125/75 (92) 07/06/19 01:45 105 15 120/95 (103) 07/06/19 01:39 92 15 100 60 07/06/19 01:30 101 12 130/83 (99) 07/06/19 01:15 102 13 126/94 (105) 07/06/19 01:00 116/85 07/06/19 01:00 102 14 129/83 (98) 99 07/06/19 00:45 120 18 116/85 (95) 99 07/06/19 00:30 105 16 126/102 (110) 99 07/06/19 00:15 98 17 124/91 (102) 99 07/06/19 00:00 98.3 110 22 132/98 (109) 99 07/06/19 00:00 137/106 07/06/19 00:00 Nasal Cannula 3.0 07/06/19 00:00 60 07/05/19 23:49 123 07/05/19 23:45 128 21 137/106 (116) 79 07/05/19 23:30 127 16 126/106 (113) 07/05/19 23:30 106 26 100 Bi-Pap 100 07/05/19 23:25 106 26 100 100 07/05/19 23:17 126 70/28 07/05/19 23:15 119 16 64/32 (43) 99 07/05/19 23:00 67/11 07/05/19 23:00 118 15 67/11 (29) 100 07/05/19 22:45 129 17 97/58 (71) 94 07/05/19 22:35 109 8 91/52 (65) 99 07/05/19 22:34 110 11 78/45 (56) 99 07/05/19 22:29 106 13 77/15 (35) 100 07/05/19 22:27 113 17 62/16 (31) 100 07/05/19 22:26 70/28 07/05/19 22:02 112 15 70/28 (42) 100 07/05/19 22:00 113 16 59/48 (52) 100 07/05/19 21:13 128 14 98/67 (77) 97 07/05/19 21:08 130 17 82/66 (71) 91 07/05/19 21:00 98.4 125 17 76/55 (62) 97 07/05/19 21:00 Nasal Cannula 3.0 07/05/19 20:57 125 07/05/19 20:00 97.9 126 20 74/50 (58) 90 07/05/19 16:00 120 07/05/19 16:00 98.0 127 18 110/88 (95) 94 I&O Intake and Output 07/05/19 07/06/19 19:00 07:00 Intake Total 50 ml 1696.630 ml Output Total 60 ml Balance 50 ml 1636.630 ml IV Total 50 ml 1696.630 ml Output Urine Total 60 ml Drains: none Cardiovascular: RSR Respiratory: clear Abdomen: soft, non-tender, present bowel sounds Extremities: no cyanosis Laboratory Tests Test 07/05/19 22:13 07/05/19 22:15 07/05/19 22:31 07/06/19 00:50 PTT Mixing Study Pending APTT Patient/Control Mix Pending Mix PTT Incubation Time Pending Mix PTT Normal/Saline 1:1 Immediate Pending Thrombin Time Normal Plasma Pending White Blood Count 5.8 K/UL (4.8-10.8) Red Blood Count 3.76 M/UL (4.20-5.40) L Hemoglobin 11.6 G/DL (12.0-16.0) L Hematocrit 35.9 % (37.0-47.0) L Mean Corpuscular Volume 96 FL (80-99) Mean Corpuscular Hemoglobin 31.0 PG (27.0-31.0) Mean Corpuscular Hemoglobin Concent 32.4 G/DL (32.0-36.0) Red Cell Distribution Width 17.0 % (11.6-14.8) H Platelet Count 111 K/UL (150-450) L Mean Platelet Volume 8.4 FL (6.5-10.1) Neutrophils (%) (Auto) 95.7 % (45.0-75.0) H Lymphocytes (%) (Auto) 2.4 % (20.0-45.0) L Monocytes (%) (Auto) 1.6 % (1.0-10.0) Eosinophils (%) (Auto) 0.1 % (0.0-3.0) Basophils (%) (Auto) 0.4 % (0.0-2.0) Sodium Level 150 MMOL/L (136-145) H Potassium Level 5.3 MMOL/L (3.5-5.1) H Chloride Level 117 MMOL/L (98-107) H Carbon Dioxide Level 20 MMOL/L (21-32) L Anion Gap 13 mmol/L (5-15) Blood Urea Nitrogen 31 mg/dL (7-18) H Creatinine 2.1 MG/DL (0.55-1.30) H Estimat Glomerular Filtration Rate 22.8 mL/min (>60) Glucose Level 47 MG/DL (74-106) L Lactic Acid Level 4.20 mmol/L (0.4-2.0) H Calcium Level 7.7 MG/DL (8.5-10.1) L Total Bilirubin 1.0 MG/DL (0.2-1.0) Aspartate Amino Transf (AST/SGOT) 27 U/L (15-37) Alanine Aminotransferase (ALT/SGPT) 16 U/L (12-78) Alkaline Phosphatase 75 U/L (46-116) Total Protein 3.6 G/DL (6.4-8.2) L Albumin 1.3 G/DL (3.4-5.0) L Globulin 2.3 g/dL Albumin/Globulin Ratio 0.6 (1.0-2.7) L HIV (1&2) Antibody Rapid Negative (NEGATIVE) Arterial Blood pH 7.271 (7.350-7.450) 7.269 (7.350-7.450) Arterial Blood Partial Pressure CO2 39.3 mmHg (35.0-45.0) 29.0 mmHg (35.0-45.0) L Arterial Blood Partial Pressure O2 42.6 mmHg (75.0-100.0) 270.2 mmHg (75.0-100.0) H Arterial Blood HCO3 17.7 mmol/L (22.0-26.0) *L 13.0 mmol/L (22.0-26.0) *L Arterial Blood Oxygen Saturation 77.3 % (95-100) *L Pending Arterial Blood Base Excess -8.6 (-2-2) L -12.3 (-2-2) *L August Test Positive Positive Test 07/06/19 05:30 07/06/19 08:30 White Blood Count 10.4 K/UL (4.8-10.8) # Red Blood Count 3.85 M/UL (4.20-5.40) L Hemoglobin 12.2 G/DL (12.0-16.0) Hematocrit 35.9 % (37.0-47.0) L Mean Corpuscular Volume 93 FL (80-99) Mean Corpuscular Hemoglobin 31.7 PG (27.0-31.0) H Mean Corpuscular Hemoglobin Concent 34.0 G/DL (32.0-36.0) Red Cell Distribution Width 14.9 % (11.6-14.8) H Platelet Count 137 K/UL (150-450) L Mean Platelet Volume 6.5 FL (6.5-10.1) Neutrophils (%) (Auto) % (45.0-75.0) Lymphocytes (%) (Auto) % (20.0-45.0) Monocytes (%) (Auto) % (1.0-10.0) Eosinophils (%) (Auto) % (0.0-3.0) Basophils (%) (Auto) % (0.0-2.0) Differential Total Cells Counted 100 Neutrophils % (Manual) 61 % (45-75) Lymphocytes % (Manual) 6 % (20-45) L Monocytes % (Manual) 4 % (1-10) Eosinophils % (Manual) 0 % (0-3) Basophils % (Manual) 0 % (0-2) Metamyelocytes % 2 % (0-0) H Band Neutrophils 27 % (0-8) H Platelet Estimate Decreased L Platelet Morphology Normal Anisocytosis 1+ Sodium Level 138 MMOL/L (136-145) # Potassium Level 4.4 MMOL/L (3.5-5.1) Chloride Level 109 MMOL/L (98-107) H Carbon Dioxide Level 15 MMOL/L (21-32) L Anion Gap 14 mmol/L (5-15) Blood Urea Nitrogen 33 mg/dL (7-18) H Creatinine 2.3 MG/DL (0.55-1.30) H Estimat Glomerular Filtration Rate 20.5 mL/min (>60) Glucose Level 198 MG/DL (74-106) #H Lactic Acid Level 6.50 mmol/L (0.4-2.0) H Calcium Level 8.0 MG/DL (8.5-10.1) L Phosphorus Level 3.2 MG/DL (2.5-4.9) Magnesium Level 1.8 MG/DL (1.8-2.4) Total Bilirubin 1.2 MG/DL (0.2-1.0) H Direct Bilirubin 0.0 MG/DL (0.0-0.3) Aspartate Amino Transf (AST/SGOT) 45 U/L (15-37) H Alanine Aminotransferase (ALT/SGPT) 20 U/L (12-78) Alkaline Phosphatase 83 U/L (46-116) Troponin I 0.023 ng/mL (0.000-0.056) C-Reactive Protein, Quantitative > 70.0 mg/dL (0.00-0.90) H Pro-B-Type Natriuretic Peptide Pending Total Protein 4.0 G/DL (6.4-8.2) L Albumin 1.3 G/DL (3.4-5.0) L Globulin 2.7 g/dL Albumin/Globulin Ratio 0.5 (1.0-2.7) L Arterial Blood pH 7.307 (7.350-7.450) Arterial Blood Partial Pressure CO2 29.4 mmHg (35.0-45.0) L Arterial Blood Partial Pressure O2 102.5 mmHg (75.0-100.0) H Arterial Blood HCO3 14.4 mmol/L (22.0-26.0) *L Arterial Blood Oxygen Saturation 97.3 % (95-100) Arterial Blood Base Excess -10.6 (-2-2) *L August Test Positive Plan Problems: (1) Abdominal pain Assessment & Plan: This is a 78-year-old female who presented to [facility] complaining of worsening abdominal pain. A weight yardage checker was used to obtain history from the patient as well as the given Yakut speaking. is able to speak somewhat Gibraltarian but his Gibraltarian is not good enough for complete translation therefore translation services were used. I had a long discussion with them in regards to admission current symptoms and care. As from what I could determine she had a partial gastrectomy about 2-1/2 years ago for unknown reason potentially ulcer perforation. She has a large midline incision from xiphoid down almost to the pubis. She has since developed ascites though no known liver dysfunction and recently as of yesterday from patient stating had a paracentesis done at an outside facility. States continues to have pain and she feels she is full of fluid and distended and it causes her discomfort therefore she came here for evaluation. No nausea vomiting fever chills. Does not eat well. Malnourished. Surgery called to evaluate and assist with care. CT scan demonstrated some bubbles of free air and ascites fluid. In evaluating the patient on examination she is fairly tender in all quadrants. She states she just feels like she is full of fluid. I reviewed the CT personally and discussed with the radiologist Given the minimal amount of free air and significant free fluid there is a high probability that since patient states her paracentesis and yesterday the residual free air is from that was longer as potentially believed to be a few days ago but then there is strong possibility and concern for bowel perforation but paracentesis less than 24 hours ago and a few air bubbles could potentially be unremarkable. Patient is afebrile otherwise hemodynamic stable and without signs of acute active infectious process and the potential bowel perforation is there but lower on the differential. She could have a bowel perforation now has peritonitis in the ascites fluid but directly in her age and condition going the operating room is still advised. I discussed with the radiologist and plan for repeat paracentesis. Potentially symptomatic improvement once fluid is evacuated and can also send fluid for culture and microbiology and cytology to evaluate for the possibility of infectious process or perforation ongoing. Discussed with primary care physician patient and family. Will follow with recommendations thank you for let me participate patient's care Patient had a paracentesis by radiology evacuating 3 L of ascites fluid. Since states she feels better. Abdominal exam on 3 7 improved as compared to 3 6 with less tenderness though she is still somewhat tender. States that she feels tenderness from the bloating of the fluid. No nausea vomiting fever chills. Hypotension responsive to fluids. Though there is a possibility of bowel perforation prior unlikely given the paracentesis findings. Furthermore potential bleeding after paracentesis. Coags noted. May have coagulopathy as well. Trend H&H transfuse as needed labs noted h/h improved hd stable Diet as tolerated suspicion for bowel perf or bleeding low. possible but unlikely We will follow with recommendations thank you CA 125 - 199 likely known history of ovarian ca which explains condition hospice eval recommended oncology eval d/c planning no surgical intervention planned (2) Free intraperitoneal air Assessment & Plan: Lack of enteric contrast limits assessment of the GI tract. There is ascites fluid. There is a small amount of free intraperitoneal gas within the anterior peritoneal space. A few bubbles of gas are also seen within the left upper quadrant mesenteric fat. These are seen along the greater curvature of the stomach and a few posterior to the stomach. There is also a single small gas bubble in the sugey hepatis. There is evidence of prior distal gastrectomy and gastrojejunostomy. There is also a jejunojejunostomy suture line in the upper abdominal midline. Surgical clips are also seen in the peripancreatic region The appendix is normal. Small bowel loops are mildly prominent and demonstrate mild wall thickening proximally. The distal esophagus is unremarkable. Lack of IV contrast limits assessment of the solid organs. The liver is diffusely markedly hypoattenuating. It is essentially isoattenuating with the surrounding ascites fluid. The gallbladder has been removed. No biliary ductal dilatation. The pancreas, spleen, adrenal glands are grossly unremarkable. The right kidney demonstrates a large upper pole cyst. It demonstrates a calcification which measures approximately 3 mm in diameter and is possibly calyceal. The left kidney demonstrates an upper pole calyceal calcification. No hydronephrosis. No pelvic mass or adenopathy. Uterus and adnexal structures appear unremarkable. There is diffuse edema of the subcutaneous, abdominal, retroperitoneal fat. The included lung bases demonstrate some posterior dependent atelectatic changes, are otherwise clear. The bones demonstrate degenerative spondylosis changes.. There are also degenerative changes with vacuum formation of the bilateral sacroiliac joints. Impression: Limited assessment of the GI tract, due to lack of enteric contrast administration. Small amount of free intraperitoneal air demonstrated, with gas seen in the anterior midline peritoneal space as well as within the left upper quadrant mesentery. This is consistent with perforated hollow viscus. Source of perforation indeterminate, although quite possibly in the left upper quadrant and possibly related to the stomach. Postsurgical changes, as described, with evidence of prior distal gastrectomy, gastrojejunostomy, and likely Nolan-en-Y anastomosis Mild prominence and equivocal slight wall thickening of the proximal jejunum, if real could represent reactive changes secondary to the above process or could represent primarily enteritis Moderate ascites Anasarca Markedly fatty liver Evidence of prior cholecystectomy Incidental findings as noted, including degenerative spondylosis changes, as do dependent pulmonary atelectatic changes, bilateral sacroiliac joint degenerative changes, right upper pole renal cyst, nonobstructive bilateral renal calculi (3) Perforated abdominal viscus Assessment & Plan: hx pancreatic cancer surgery 3 years ago discussed care with family in details recommend hospice has not been eating well for months as per daughters. para 11 with liters removed hypotensive at times Kamron Hays Jul 06, 2019 14:36
--- NOTE | 2019-07-06 14:42 | Diagnostic Imaging Report ---
Indications: Ascites Technique: Informed consent obtained prior to commencement of the procedure. Procedural timeout performed. Ultrasound used to localize optimal puncture site. Sterile prepping and draping right lower. Local anesthesia with 1% lidocaine. Under real-time ultrasound guidance, puncture peritoneal space using paracentesis needle. Stylet removed. Catheter placed to vacuum bottle suction. Total 3 liters of cloudy yellow fluid aspirated. Patient tolerated procedure well, without immediate complication. Findings: Followup sonography demonstrates complete resolution of peritoneal fluid. Impression: Successful ultrasound-guided paracentesis, yielding 3 liters of fluid
--- NOTE | 2019-07-06 14:52 | NUR ---
ELECTRO TECH NOTE Pt's spouse, , the eldest daughter Ewdige, [id number] Maye, two sons Patrick Mobley and Patrick's partner visited pt today. They all want Edwige Yu to be the decision maker and the point of contact. All family members were emotional and frustrated w/ the current situation and that they do not believe they did not do their best for pt. Pt's spouse, Mr. Yu appears to be depressed and able to verbalize his needs/concerns. appears to be clean and neat. Mr. Yu states he did take a shower and ate last night after returning home. Per Edwige, pt was recently hospitalized at [facility] and insisted "taking pt back home earlier than what doctors recommended". Edwige believes the failure of extended IP tx from previous hospital and inappropriate care from pt's spouse (i.e. taking pt out for a long walk) deteriorated pt's health condition. Per conversation w/ Mr. Yu yesterday, Mr. Yu wanted to take pt to PCP for further evaluation, instead of completing the tx/evaluation at the hospital. Edwige Yu believes Mr. Yu's judgment is inappropriate at this point. Thus, she wants to be the decision maker. SCOTT provided the general durable and healthcare POA form to Edwige Yu. Meanwhile, Edwige is expressing the full code. Edwige states she will consider changing the code status depending on pt's condition. SCOTT assisted preparing the POLST and Edwige signed the form. Edwige wants pt to be discharged to a assisted, specifically [facility] if pt is recovering from her current condition. Signed: 07/06/19 at 1511 by RAYMOND CHAVEZ <Co-Signature Required>
--- NOTE | 2019-07-06 16:20 | NUR ---
*-* INSURANCE *-* ALL CLINICALS AND REVIEWS HAVE BEEN FAXED TO: [facility] Ref# yet # [phone] Addendum: 07/07/19 at 0842 by VALE LOVE Turkish Yemeni Ref# [id number] CM: Fanny # [phone] ext [phone] fax# [phone]
--- NOTE | 2019-07-06 17:17 | NUR ---
NURSE NOTES: Attempted to place NGT, removed BIPAP, desaturation noted, place back on BIPAP, SUSANNE Yu made aware.
--- NOTE | 2019-07-06 19:19 | NUR ---
RESPIRATORY NOTE: Received pt on BiPAP 20/5, backup rate 14, 40%. Pt is on a Full Face mask, skin intact, no redness/breakdowns noted. Foam tape applied on pt's nosebridge/cheeks/chin as well as forehead to prevent mask irritations. Pt switches from Full face mask to Facial mask. Pt is alert/awake, follows commands. B/S artur. clear/diminished, nonproductive cough. BiPAP plugged into red outlet, alarms on & audible. Pt resting comfortably, no distress noted. Will continue to monitor pt.
--- NOTE | 2019-07-06 19:35 | NUR ---
HAND-OFF: Report and PT given to MART Boone.
--- NOTE | 2019-07-06 19:56 | Infectious Diseases Prog Note ---
Assessment/Plan Problems: (1) Hypoxemia Assessment & Plan: rule out new pneumonia , VS sepsis , continue zosyn , add zyvox, obtain CXR , continue BIPAP as per pulmonary (2) Hypotension Assessment & Plan: suspect due to REMOVAL OF LARGE PERITONEAL FLUIDS , with multiple negative cultures , will send blood culture x 2 and start zyvox empirically for now, continue zosyn as ordered by pulmonary , continue pressure support (3) Abdominal pain Assessment & Plan: suspect due to massive amount of air S/P Paracentesis , no fluids culture were sent after she had paracentesis , surgery is following . may need EGD for further eval of abdominal pain (4) Free intraperitoneal air Assessment & Plan: suspect due to recent paracentesis , with no clinical evidence of perforation , monitor off antibiotics all cultures are negative (5) Perforated abdominal viscus Assessment & Plan: with no clinical evidence of perforation , S/P paracentesis x 2 , with increasing intra peritoneal air , surgery is following (6) Anemia Assessment & Plan: S/P blood transfusion, rule out GI bleeding, recommend GI eval and endoscopy Subjective ROS Limited/Unobtainable: Yes Allergies: Coded Allergies: No Known Allergies (Unverified , 03/06/16) Subjective she was transferred back to ICU for hypoxemia and hypotension , after she had paracentesis with removal of three liters , resting in bed comfortable, on BIPAP , NO SOB, at bedside Objective Vital Signs Last 24 Hour Vital Signs Date Time Temp Pulse Resp B/P (MAP) Pulse Ox O2 Delivery O2 Flow Rate FiO2 07/06/19 19:16 71 15 100 40 07/06/19 19:00 77 14 128/95 (106) 100 07/06/19 19:00 128/95 07/06/19 18:45 76 14 127/89 (102) 100 07/06/19 18:30 77 14 126/80 (95) 100 07/06/19 18:15 96.8 82 15 121/85 (97) 07/06/19 18:00 88 14 116/76 (89) 99 07/06/19 18:00 81 14 116/76 (89) 100 07/06/19 18:00 116/76 07/06/19 17:30 65 16 100 40 07/06/19 17:30 87 21 120/76 (91) 100 07/06/19 17:00 117/72 3/11/20 17:00 73 21 117/72 (87) 100 07/06/19 16:30 67 14 135/88 (104) 100 07/06/19 16:15 66 15 126/77 (93) 100 07/06/19 16:00 79 07/06/19 16:00 97.6 68 14 132/76 (94) 100 07/06/19 16:00 132/76 07/06/19 16:00 Bi-pap 07/06/19 15:45 82 16 123/73 (90) 100 07/06/19 15:30 82 17 129/82 (98) 100 07/06/19 15:29 74 14 100 40 07/06/19 15:15 72 14 137/76 (96) 100 07/06/19 15:00 67 14 132/79 (96) 100 07/06/19 15:00 132/79 07/06/19 14:45 72 11 120/74 (89) 100 07/06/19 14:30 69 14 135/83 (100) 100 07/06/19 14:15 78 15 129/81 (97) 100 07/06/19 14:01 80/62 07/06/19 14:00 73 14 120/76 (91) 100 07/06/19 14:00 120/76 07/06/19 13:48 88 14 80/62 (68) 100 07/06/19 13:47 89 14 69/47 (54) 100 07/06/19 13:45 95 17 98 07/06/19 13:30 86 14 115/82 (93) 79 07/06/19 13:15 75 14 124/77 (93) 100 07/06/19 13:00 115/82 07/06/19 13:00 78 14 113/78 (90) 100 07/06/19 12:45 97.1 79 14 114/79 (91) 100 07/06/19 12:44 80 14 100 40 07/06/19 12:30 81 14 109/78 (88) 100 07/06/19 12:05 80 07/06/19 12:00 77 14 108/81 (90) 100 07/06/19 12:00 Bi-pap 07/06/19 12:00 114/79 07/06/19 11:30 84 14 100 40 07/06/19 11:30 84 15 100/74 (83) 07/06/19 11:15 87 15 100/72 (81) 100 07/06/19 11:00 100/72 07/06/19 11:00 86 14 92/71 (78) 100 07/06/19 10:45 88 14 91/67 (75) 100 07/06/19 10:30 95 14 106/78 (87) 100 07/06/19 10:15 98 16 121/86 (98) 100 07/06/19 10:00 84 14 120/97 (105) 100 07/06/19 10:00 120/97 07/06/19 09:45 91 15 113/79 (90) 100 07/06/19 09:30 90 15 113/35 (61) 100 07/06/19 09:15 88 16 100/57 (71) 100 07/06/19 09:00 91 13 105/71 (82) 100 07/06/19 09:00 105/71 07/06/19 08:57 93 15 100 40 07/06/19 08:45 94 19 109/80 (90) 100 07/06/19 08:30 88 11 105/82 (90) 07/06/19 08:15 86 14 108/76 (87) 100 07/06/19 08:11 109/85 07/06/19 08:00 Bi-pap 07/06/19 08:00 109/85 07/06/19 08:00 88 07/06/19 08:00 97.1 88 15 109/85 (93) 100 07/06/19 07:45 91 18 105/75 (85) 100 07/06/19 07:35 109 21 100 40 07/06/19 07:30 103 17 124/96 (105) 100 07/06/19 07:15 89 14 111/71 (84) 100 07/06/19 07:00 90 13 111/75 (87) 07/06/19 06:45 93 20 115/75 (88) 07/06/19 06:30 94 13 116/76 (89) 07/06/19 06:15 94 15 128/82 (97) 07/06/19 06:00 128/82 07/06/19 06:00 96 14 128/82 (97) 07/06/19 05:45 98 14 105/78 (87) 07/06/19 05:33 119/89 07/06/19 05:30 94 14 119/89 (99) 07/06/19 05:29 94 16 100 40 07/06/19 05:15 95 16 126/83 (97) 07/06/19 05:00 94 16 120/80 (93) 07/06/19 04:45 93 16 120/86 (97) 07/06/19 04:30 94 15 119/80 (93) 07/06/19 04:15 96 16 122/83 (96) 07/06/19 04:00 98.2 96 19 120/78 (92) 07/06/19 04:00 Bi-pap 07/06/19 04:00 40 07/06/19 03:45 97 16 119/81 (94) 07/06/19 03:39 96 07/06/19 03:30 99 16 115/77 (90) 07/06/19 03:15 103 24 123/30 (61) 07/06/19 03:13 127/87 07/06/19 03:06 97 16 100 40 07/06/19 03:00 101 15 127/87 (100) 07/06/19 02:45 104 15 129/83 (98) 07/06/19 02:30 102 5 127/94 (105) 07/06/19 02:15 100 13 116/83 (94) 07/06/19 02:00 101 13 125/75 (92) 07/06/19 01:45 105 15 120/95 (103) 07/06/19 01:39 92 15 100 60 07/06/19 01:30 101 12 130/83 (99) 07/06/19 01:15 102 13 126/94 (105) 07/06/19 01:00 116/85 07/06/19 01:00 102 14 129/83 (98) 99 07/06/19 00:45 120 18 116/85 (95) 99 07/06/19 00:30 105 16 126/102 (110) 99 07/06/19 00:15 98 17 124/91 (102) 99 07/06/19 00:00 98.3 110 22 132/98 (109) 99 07/06/19 00:00 137/106 07/06/19 00:00 Nasal Cannula 3.0 07/06/19 00:00 60 07/05/19 23:49 123 07/05/19 23:45 128 21 137/106 (116) 79 07/05/19 23:30 127 16 126/106 (113) 07/05/19 23:30 106 26 100 Bi-Pap 100 07/05/19 23:25 106 26 100 100 07/05/19 23:17 126 70/28 07/05/19 23:15 119 16 64/32 (43) 99 07/05/19 23:00 67/11 07/05/19 23:00 118 15 67/11 (29) 100 07/05/19 22:45 129 17 97/58 (71) 94 07/05/19 22:35 109 8 91/52 (65) 99 07/05/19 22:34 110 11 78/45 (56) 99 07/05/19 22:29 106 13 77/15 (35) 100 07/05/19 22:27 113 17 62/16 (31) 100 07/05/19 22:26 70/28 07/05/19 22:02 112 15 70/28 (42) 100 07/05/19 22:00 113 16 59/48 (52) 100 07/05/19 21:13 128 14 98/67 (77) 97 07/05/19 21:08 130 17 82/66 (71) 91 07/05/19 21:00 98.4 125 17 76/55 (62) 97 07/05/19 21:00 Nasal Cannula 3.0 07/05/19 20:57 125 07/05/19 20:00 97.9 126 20 74/50 (58) 90 Height (Feet): 5 Height (Inches): 3.00 Weight (Pounds): 122 General Appearance: no acute distress, cachetic HEENT: normocephalic, atraumatic, anicteric, mucous membranes moist Respiratory/Chest: chest wall non-tender, no respiratory distress, no accessory muscle use, decreased breath sounds Cardiovascular: normal peripheral pulses, normal rate, regular rhythm, no gallop/murmur, no JVD Abdomen: normal bowel sounds, soft, non tender, no organomegaly, non distended , no mass, no scars Extremities: no cyanosis, no clubbing Skin: no rash, no lesions Neurologic/Psychiatric: alert, responsive Lymphatic: no neck adenopathy, no groin adenopathy Musculoskeletal: normal muscle bulk, no effusion Laboratory Tests Test 07/05/19 22:13 07/05/19 22:15 07/05/19 22:31 07/06/19 00:50 PTT Mixing Study Pending APTT Patient/Control Mix Pending Mix PTT Incubation Time Pending Mix PTT Normal/Saline 1:1 Immediate Pending Thrombin Time Normal Plasma Pending White Blood Count 5.8 K/UL (4.8-10.8) Red Blood Count 3.76 M/UL (4.20-5.40) L Hemoglobin 11.6 G/DL (12.0-16.0) L Hematocrit 35.9 % (37.0-47.0) L Mean Corpuscular Volume 96 FL (80-99) Mean Corpuscular Hemoglobin 31.0 PG (27.0-31.0) Mean Corpuscular Hemoglobin Concent 32.4 G/DL (32.0-36.0) Red Cell Distribution Width 17.0 % (11.6-14.8) H Platelet Count 111 K/UL (150-450) L Mean Platelet Volume 8.4 FL (6.5-10.1) Neutrophils (%) (Auto) 95.7 % (45.0-75.0) H Lymphocytes (%) (Auto) 2.4 % (20.0-45.0) L Monocytes (%) (Auto) 1.6 % (1.0-10.0) Eosinophils (%) (Auto) 0.1 % (0.0-3.0) Basophils (%) (Auto) 0.4 % (0.0-2.0) Sodium Level 150 MMOL/L (136-145) H Potassium Level 5.3 MMOL/L (3.5-5.1) H Chloride Level 117 MMOL/L (98-107) H Carbon Dioxide Level 20 MMOL/L (21-32) L Anion Gap 13 mmol/L (5-15) Blood Urea Nitrogen 31 mg/dL (7-18) H Creatinine 2.1 MG/DL (0.55-1.30) H Estimat Glomerular Filtration Rate 22.8 mL/min (>60) Glucose Level 47 MG/DL (74-106) L Lactic Acid Level 4.20 mmol/L (0.4-2.0) H Calcium Level 7.7 MG/DL (8.5-10.1) L Total Bilirubin 1.0 MG/DL (0.2-1.0) Aspartate Amino Transf (AST/SGOT) 27 U/L (15-37) Alanine Aminotransferase (ALT/SGPT) 16 U/L (12-78) Alkaline Phosphatase 75 U/L (46-116) Total Protein 3.6 G/DL (6.4-8.2) L Albumin 1.3 G/DL (3.4-5.0) L Globulin 2.3 g/dL Albumin/Globulin Ratio 0.6 (1.0-2.7) L HIV (1&2) Antibody Rapid Negative (NEGATIVE) Arterial Blood pH 7.271 (7.350-7.450) 7.269 (7.350-7.450) Arterial Blood Partial Pressure CO2 39.3 mmHg (35.0-45.0) 29.0 mmHg (35.0-45.0) L Arterial Blood Partial Pressure O2 42.6 mmHg (75.0-100.0) 270.2 mmHg (75.0-100.0) H Arterial Blood HCO3 17.7 mmol/L (22.0-26.0) *L 13.0 mmol/L (22.0-26.0) *L Arterial Blood Oxygen Saturation 77.3 % (95-100) *L Pending Arterial Blood Base Excess -8.6 (-2-2) L -12.3 (-2-2) *L August Test Positive Positive Test 07/06/19 05:30 07/06/19 08:30 07/06/19 17:05 White Blood Count 10.4 K/UL (4.8-10.8) # Red Blood Count 3.85 M/UL (4.20-5.40) L Hemoglobin 12.2 G/DL (12.0-16.0) Hematocrit 35.9 % (37.0-47.0) L Mean Corpuscular Volume 93 FL (80-99) Mean Corpuscular Hemoglobin 31.7 PG (27.0-31.0) H Mean Corpuscular Hemoglobin Concent 34.0 G/DL (32.0-36.0) Red Cell Distribution Width 14.9 % (11.6-14.8) H Platelet Count 137 K/UL (150-450) L Mean Platelet Volume 6.5 FL (6.5-10.1) Neutrophils (%) (Auto) % (45.0-75.0) Lymphocytes (%) (Auto) % (20.0-45.0) Monocytes (%) (Auto) % (1.0-10.0) Eosinophils (%) (Auto) % (0.0-3.0) Basophils (%) (Auto) % (0.0-2.0) Differential Total Cells Counted 100 Neutrophils % (Manual) 61 % (45-75) Lymphocytes % (Manual) 6 % (20-45) L Monocytes % (Manual) 4 % (1-10) Eosinophils % (Manual) 0 % (0-3) Basophils % (Manual) 0 % (0-2) Metamyelocytes % 2 % (0-0) H Band Neutrophils 27 % (0-8) H Platelet Estimate Decreased L Platelet Morphology Normal Anisocytosis 1+ Sodium Level 138 MMOL/L (136-145) # Potassium Level 4.4 MMOL/L (3.5-5.1) Chloride Level 109 MMOL/L (98-107) H Carbon Dioxide Level 15 MMOL/L (21-32) L Anion Gap 14 mmol/L (5-15) Blood Urea Nitrogen 33 mg/dL (7-18) H Creatinine 2.3 MG/DL (0.55-1.30) H Estimat Glomerular Filtration Rate 20.5 mL/min (>60) Glucose Level 198 MG/DL (74-106) #H Lactic Acid Level 6.50 mmol/L (0.4-2.0) H 6.10 mmol/L (0.4-2.0) H Calcium Level 8.0 MG/DL (8.5-10.1) L Phosphorus Level 3.2 MG/DL (2.5-4.9) Magnesium Level 1.8 MG/DL (1.8-2.4) Total Bilirubin 1.2 MG/DL (0.2-1.0) H Direct Bilirubin 0.0 MG/DL (0.0-0.3) Aspartate Amino Transf (AST/SGOT) 45 U/L (15-37) H Alanine Aminotransferase (ALT/SGPT) 20 U/L (12-78) Alkaline Phosphatase 83 U/L (46-116) Troponin I 0.023 ng/mL (0.000-0.056) C-Reactive Protein, Quantitative > 70.0 mg/dL (0.00-0.90) H Pro-B-Type Natriuretic Peptide Pending Total Protein 4.0 G/DL (6.4-8.2) L Albumin 1.3 G/DL (3.4-5.0) L Globulin 2.7 g/dL Albumin/Globulin Ratio 0.5 (1.0-2.7) L Arterial Blood pH 7.307 (7.350-7.450) Arterial Blood Partial Pressure CO2 29.4 mmHg (35.0-45.0) L Arterial Blood Partial Pressure O2 102.5 mmHg (75.0-100.0) H Arterial Blood HCO3 14.4 mmol/L (22.0-26.0) *L Arterial Blood Oxygen Saturation 97.3 % (95-100) Arterial Blood Base Excess -10.6 (-2-2) *L August Test Positive Current Medications Medications (Trade) Dose Ordered Sig/Margie Route PRN Reason Start Time Stop Time Status Last Admin Dose Admin Dextrose 1,000 ml @ 100 mls/hr Q10H IV 07/05/19 23:15 08/04/19 23:14 07/06/19 17:45 Hydrocortisone (Solu-CORTEF) 100 mg TID IV 07/06/19 09:30 08/05/19 09:29 07/06/19 17:45 Morphine Sulfate (Morphine Sulfate) 1 mg Q4H PRN IVP Moderate Pain (Pain Scale 4-6) 07/06/19 01:45 07/11/19 12:59 Morphine Sulfate (Morphine Sulfate) 2 mg Q6H PRN IVP Severe Pain (Pain Scale 7-10) 07/06/19 00:30 07/10/19 18:29 Nitroglycerin (Ntg) 0.4 mg Q5M PRN SL Prn Chest Pain 07/05/19 22:15 08/03/19 04:59 Norepinephrine Bitartrate 8 mg/ Dextrose 500 ml @ 0 mls/hr Q24H IV 07/06/19 07:00 08/05/19 06:59 07/06/19 14:01 Pantoprazole (Protonix) 40 mg Q12HR IVP 07/06/19 09:00 07/31/19 20:59 07/06/19 09:57 Phenylephrine HCl 50 mg/Dextrose 250 ml @ 0 mls/hr Q24H IV 07/05/19 22:45 08/04/19 22:44 07/05/19 23:17 Piperacillin Sod/ Tazobactam Sod 3.375 gm/Sodium Chloride 110 ml @ 27.5 mls/hr Q12H IVPB 07/06/19 00:00 07/13/19 00:00 07/06/19 13:30 Sodium Chloride 500 ml @ 0 mls/hr Q0M PRN IVPB SBP<100 07/05/19 22:15 08/01/19 20:29 Vasopressin 100 units/Sodium Chloride 100 ml @ 0 mls/hr Q24H IV 07/05/19 22:45 08/04/19 22:44 07/05/19 23:09 Tenisha Osei M.D. Jul 06, 2019 19:56
[2019-07-06] MEDS ORDERED: Dyna-Hex 2% Top Sol 2oz TOPIC SCH (20:00)
--- NOTE | 2019-07-06 20:01 | NUR ---
NURSE NOTES: PATIENT ALERT, ORIENTED X2, RESPIRATION REGULAR, ON BIPAP I/E 20/5, FIO2 40%, O2 SATURATION 100% NOTED, 70 'S/MIN HEART RATE, SINUS RHYTHM NOTED, ABDOMEN DISTENDED, NON TENDER, F/C INTACT AND PATENT, DARK RG COLOR URINE OUTED, GENERALIZED EDEMA NOTED, TLC TO RIGHT FEMORAL SLIGHT LEAKED STATUS AND PPL TO LEFT UA INTACT, ONGOING IV FLUID D5W AT 100ML/HR, LEVOPHED 18MCG/MIN AND PITRESSIN 0.04UNITS/MIN VIA TLC, 2POINT SOFT RESTRAINTS FOR SAFETY, ON P200 BED, MADE LOWER BED POSITION, PROVIDED CALL LIGHT WITHIN REACH, ON BED ALARM AND LOCKED, WILL CONTINUE TO MONITOR.
--- NOTE | 2019-07-06 20:58 | NUR ---
NURSE NOTES: Patient asleep status after pain intervention, will continue to monitor.
--- NOTE | 2019-07-06 22:20 | NUR ---
NURSE NOTES: PATIENT AWOKE, TRIED TO REMOVE GOWN AND LINE THAT GIVEN ORIENTATION BUT DID NOT FOLLOW COMMANDS AT THIS TIME, SECURED 2 POINT SOFT RESTRAINTS, WILL CONTINUE TO MONITOR.
[2019-07-06] MEDS: Phenylephrine 50 MG in D5W 245 ML IV SCH (22:45)
--- NOTE | 2019-07-06 23:52 | NUR ---
NURSE NOTES: ON BIPAP I/E 20/5, FIO2 30%, O2 SATURATION 100% NOTED, ASLEEP STATUS.
[2019-07-06] MEDS: Vasopressin 100 UNITS in NS 95 ML IV SCH (23:54)
[2019-07-07] VITALS (58 sets, daily range): BP systolic 38–129; BP diastolic 26–102
--- NOTE | 2019-07-07 01:14 | NUR ---
NURSE NOTES: ONGOING LEVOPHED DRIP 12MCG/MIN VIA TLC, NO PAIN OR SOB NOTED AT THIS TIME, WILL CONTINUE PLAN OF CARE.
--- NOTE | 2019-07-07 03:18 | NUR ---
NURSE NOTES: O2 SATURATION 100% ON BIPAP I/E 20/5, FIO2 30%, HEART RATE 70'S/MIN SINUS RHYTHM, NO PAIN OR DISTRESS NOTED AT THIS TIME.
[2019-07-07 04:20] LABS: HEMATOCRIT 31.3 % (37.0-47.0); HEMOGLOBIN 11.1 G/DL (12.0-16.0); MEAN CORPUSCULAR VOLUME 90 FL (80-99); PLATELET COUNT 56 K/UL (150-450); RED BLOOD COUNT 3.47 M/UL (4.20-5.40); RED CELL DISTRIBUTION WIDTH 14.1 % (11.6-14.8); WHITE BLOOD COUNT 8.7 K/UL (4.8-10.8)
[2019-07-07 04:38] LABS: PHOSPHORUS 2.8 MG/DL (2.5-4.9)
[2019-07-07 04:53] LABS: ALANINE AMINOTRANSFERASE 22 U/L (12-78); ALBUMIN 1.6 G/DL (3.4-5.0); ALBUMIN/GLOBULIN RATIO 0.7 (1.0-2.7); ALKALINE PHOSPHATASE 61 U/L (46-116); ANION GAP 16 mmol/L (5-15); ASPARTATE AMINO TRANSFERASE 18 U/L (15-37); BILIRUBIN,TOTAL 1.7 MG/DL (0.2-1.0); BLOOD UREA NITROGEN 35 mg/dL (7-18); CALCIUM 7.7 MG/DL (8.5-10.1); CARBON DIOXIDE 15 MMOL/L (21-32); CHLORIDE 99 MMOL/L (98-107); CREATININE 2.3 MG/DL (0.55-1.30); POTASSIUM 3.7 MMOL/L (3.5-5.1); SODIUM 130 MMOL/L (136-145)
[2019-07-07 05:10] LABS: BILIRUBIN,DIRECT 1.2 MG/DL (0.0-0.3)
--- NOTE | 2019-07-07 05:24 | NUR ---
NURSE NOTES: MORNING CARE WAS DONE, NO BM STATUS.
--- NOTE | 2019-07-07 06:45 | NUR ---
NURSE NOTES: CALLED DR. DAUGHERTY REGARDING TROPONIN LEVEL 1.113 THAT LEFT MESSAGE.
--- NOTE | 2019-07-07 07:18 | NUR ---
HAND-OFF: Report given to MART SHANKS.
--- NOTE | 2019-07-07 07:19 | NUR ---
NURSE NOTES: Report received from Paolo Hanna RN. Pt is lethargic and sleeping. Able to answer simple questions at times. Impulsive at times and continued bilateral soft wrist restraints. Temp 97.3. Continued bear hugger on. Sinus rhythm on school lunch monitor. On continuous Bi-pap 20/5, 30%. O2 sat 100%. Kept NPO as ordered. Abdomen distended. Tympanic on percussion. Pitting edema +1 noted on bilateral upper and lower extremities. Young in place draining to gravity. Right femoral TLC is leaking. Dressing is saturated. Pt is on Levo at 12 mcg/min, Vasopressin at 0.04 units/min. Will call MD for leaking TLC line. Bed in lowest position. Side rails up x3. Will resume plan of care.
[2019-07-07] MEDS: Norepinephrine Bitartrate 8 MG in D5W 500ml 492 ML IV SCH ×2 (07:40→20:38)
--- NOTE | 2019-07-07 09:00 | NUR ---
NURSE NOTES: Dr Mercado here to see the patient. Updated him with pt's current condition. Notified him that Platelet dropped to 56. No new orders.
--- NOTE | 2019-07-07 09:10 | NUR ---
RADIOLOGY DEPT., CHEST X-RAY DONE.-P.DYE
--- NOTE | 2019-07-07 09:15 | Diagnostic Imaging Report ---
Indication: Cough, dyspnea Technique: One view of the chest Comparison: 07/05/2019 Findings: Large pneumoperitoneum again demonstrated, possibly increased. Atelectatic changes and possibly some consolidation are seen at the right lung base. This is increased from the prior study. The heart size is normal. There is tortuous and ectatic Impression: Developing right basilar atelectasis and possibly consolidation Enlarging pneumoperitoneum
[2019-07-07] MEDS ORDERED: Lidocaine 1% Plain 30 ml INJ PRN (09:30)
[2019-07-07] MEDS ORDERED: Heparin1,000 units/500ml Premix(Conc:2 units/ml) IV PRN (09:30)
[2019-07-07] MEDS: Hydrocortisone 100mg Inj IV SCH ×3 (09:37→17:49)
[2019-07-07] MEDS: Pantoprazole Inj IVP SCH ×2 (09:37→20:37)
--- NOTE | 2019-07-07 11:30 | NUR ---
NURSE NOTES: Turned and repositioned pt. Pt is on Levo at 10mcg/min and Vasopressin at 0.04 units/min. BP is 97/69. Will keep the same rate and continue to monitor.
--- NOTE | 2019-07-07 12:09 | GI Progress Note ---
Assessment/Plan Problems: (1) Severe protein-calorie malnutrition ICD Codes: E43 - Unspecified severe protein-calorie malnutrition SNOMED: 781597696, 518362209, 606088114 (2) Poor prognosis ICD Codes: Z78.9 - Other specified health status SNOMED: 007728538 (3) Hypoxemia ICD Codes: R09.02 - Hypoxemia SNOMED: 784259999 (4) Lactic acid acidosis ICD Codes: E87.2 - Acidosis SNOMED: 61340872 (5) Pancreatic cancer ICD Codes: C25.9 - Malignant neoplasm of pancreas, unspecified SNOMED: 756075192 (6) Anemia ICD Codes: D64.9 - Anemia, unspecified SNOMED: 440618031 (7) Abdominal pain ICD Codes: R10.9 - Unspecified abdominal pain SNOMED: 39209555 (8) Perforated abdominal viscus ICD Codes: R19.8 - Other specified symptoms and signs involving the digestive system and abdomen SNOMED: 31956839 Status: unchanged Status Narrative Discussed with Dr. Neri. Assessment/Plan Anemia Ascites hypoalbuminemia partial gastrectomy fatty liver ? perforated viscus pancreatic CA carcinomatosis unable to place NGT, patient desats s/p paracentesis yielding 3L poor prognosis on BIPAP maintain NPO + IVFs abx fu surg recs tumor markers>>>> elevated Ca 125>>> pelvic us>>>> oncology eval drop in H&H w/o active bleed>>> s/p blood transfusion abd us>>> reviewed albumin IV The patient was seen and examined at bedside and all new and available data was reviewed in the patients chart. I agree with the above findings, impression and plan. (Patient seen earlier today. Signature stamp does not reflect patient encounter time.). - Rodney Neri MD Subjective Subjective limited Objective Last 24 Hour Vital Signs Date Time Temp Pulse Resp B/P (MAP) Pulse Ox O2 Delivery O2 Flow Rate FiO2 07/07/19 11:07 93 16 100 30 07/07/19 10:30 92 16 113/83 (93) 100 07/07/19 10:15 92 17 114/78 (90) 100 07/07/19 10:01 96 22 106/71 (83) 99 07/07/19 09:45 89 14 91/61 (71) 100 07/07/19 09:30 81 15 110/69 (83) 100 07/07/19 09:00 92 18 114/78 (90) 100 07/07/19 08:58 83 15 100 30 07/07/19 08:30 79 14 112/73 (86) 100 07/07/19 08:00 97.3 80 14 111/75 (87) 100 07/07/19 08:00 111/75 07/07/19 08:00 94 07/07/19 08:00 Bi-pap 07/07/19 07:40 110/74 07/07/19 07:30 80 14 110/69 (83) 100 07/07/19 07:00 110/72 07/07/19 07:00 81 14 110/74 (86) 100 07/07/19 06:53 81 15 100 30 07/07/19 06:30 83 14 113/77 (89) 100 07/07/19 06:00 95 23 123/74 (90) 99 07/07/19 06:00 123/74 07/07/19 05:45 86 18 121/84 (96) 100 07/07/19 05:30 91 34 125/102 (110) 94 07/07/19 05:04 76 14 100 30 07/07/19 05:00 75 14 109/69 (82) 100 07/07/19 05:00 109/69 07/07/19 04:30 74 14 105/93 (97) 100 07/07/19 04:15 72 14 114/76 (89) 100 07/07/19 04:00 Bi-pap 07/07/19 04:00 110/71 07/07/19 04:00 30 07/07/19 04:00 97.4 73 14 110/71 (84) 100 07/07/19 03:30 72 14 112/75 (87) 100 07/07/19 03:14 73 07/07/19 03:07 73 14 100 30 07/07/19 03:00 73 13 115/76 (89) 100 07/07/19 03:00 115/76 07/07/19 02:30 74 14 115/77 (90) 100 07/07/19 02:00 74 14 117/76 (90) 100 07/07/19 02:00 117/76 07/07/19 01:30 76 14 118/76 (90) 100 07/07/19 01:00 78 14 119/78 (92) 100 07/07/19 01:00 82 15 100 30 07/07/19 01:00 119/78 07/07/19 00:45 79 17 118/74 (89) 100 07/07/19 00:35 90 28 107/75 (86) 100 07/07/19 00:30 84 17 100 07/07/19 00:15 77 14 118/77 (91) 100 07/07/19 00:00 30 07/07/19 00:00 97.3 80 13 129/86 (100) 100 07/07/19 00:00 129/86 07/07/19 00:00 Bi-pap 07/06/19 23:30 80 14 138/83 (101) 100 07/06/19 23:27 82 07/06/19 23:15 78 14 142/87 (105) 100 07/06/19 23:01 81 14 100 30 07/06/19 23:00 81 14 141/84 (103) 100 07/06/19 23:00 141/84 07/06/19 22:45 79 135/86 (102) 100 07/06/19 22:45 78 133/85 07/06/19 22:30 76 14 150/80 (103) 100 07/06/19 22:15 91 21 155/81 (105) 99 07/06/19 22:15 155/81 07/06/19 22:00 152/90 07/06/19 22:00 75 14 152/90 (110) 100 07/06/19 21:45 74 14 137/85 (102) 100 07/06/19 21:30 78 14 105/90 (95) 100 07/06/19 21:15 78 14 130/85 (100) 100 07/06/19 21:07 79 14 100 40 07/06/19 21:00 74 14 126/79 (95) 100 07/06/19 21:00 126/79 07/06/19 20:57 116/85 07/06/19 20:45 78 14 116/85 (95) 100 07/06/19 20:30 82 14 95/79 (84) 100 07/06/19 20:15 73 14 132/74 (93) 100 07/06/19 20:00 97.4 74 14 128/80 (96) 100 07/06/19 20:00 128/80 07/06/19 20:00 40 07/06/19 20:00 Bi-pap 07/06/19 19:45 76 14 133/84 (100) 100 07/06/19 19:30 88 14 112/79 (90) 100 07/06/19 19:29 83 07/06/19 19:16 71 15 100 40 07/06/19 19:00 77 14 128/95 (106) 100 07/06/19 19:00 128/95 07/06/19 18:45 76 14 127/89 (102) 100 07/06/19 18:30 77 14 126/80 (95) 100 07/06/19 18:15 96.8 82 15 121/85 (97) 07/06/19 18:00 88 14 116/76 (89) 99 07/06/19 18:00 81 14 116/76 (89) 100 07/06/19 18:00 116/76 07/06/19 17:30 65 16 100 40 07/06/19 17:30 87 21 120/76 (91) 100 07/06/19 17:00 117/72 07/06/19 17:00 73 21 117/72 (87) 100 07/06/19 16:30 67 14 135/88 (104) 100 07/06/19 16:15 66 15 126/77 (93) 100 07/06/19 16:00 79 07/06/19 16:00 97.6 68 14 132/76 (94) 100 07/06/19 16:00 132/76 07/06/19 16:00 Bi-pap 07/06/19 15:45 82 16 123/73 (90) 100 07/06/19 15:30 82 17 129/82 (98) 100 07/06/19 15:29 74 14 100 40 07/06/19 15:15 72 14 137/76 (96) 100 07/06/19 15:00 67 14 132/79 (96) 100 07/06/19 15:00 132/79 07/06/19 14:45 72 11 120/74 (89) 100 07/06/19 14:30 69 14 135/83 (100) 100 07/06/19 14:15 78 15 129/81 (97) 100 07/06/19 14:01 80/62 07/06/19 14:00 73 14 120/76 (91) 100 07/06/19 14:00 120/76 07/06/19 13:48 88 14 80/62 (68) 100 07/06/19 13:47 89 14 69/47 (54) 100 07/06/19 13:45 95 17 98 07/06/19 13:30 86 14 115/82 (93) 79 07/06/19 13:15 75 14 124/77 (93) 100 07/06/19 13:00 115/82 07/06/19 13:00 78 14 113/78 (90) 100 07/06/19 12:45 97.1 79 14 114/79 (91) 100 07/06/19 12:44 80 14 100 40 07/06/19 12:30 81 14 109/78 (88) 100 Intake and Output 07/06/19 07/07/19 19:00 07:00 Intake Total 2470.325 ml 2156.3 ml Output Total 3015 ml 260 ml Balance -544.675 ml 1896.3 ml IV Total 2470.325 ml 2156.3 ml Output Urine Total 15 ml 260 ml Other 3000 ml Laboratory Tests Test 07/06/19 17:05 07/06/19 22:50 07/07/19 03:45 07/07/19 07:05 Lactic Acid Level 6.10 mmol/L (0.4-2.0) H 6.10 mmol/L (0.4-2.0) H 6.20 mmol/L (0.4-2.0) H 5.70 mmol/L (0.66-2.22) H White Blood Count 8.7 K/UL (4.8-10.8) Red Blood Count 3.47 M/UL (4.20-5.40) L Hemoglobin 11.1 G/DL (12.0-16.0) L Hematocrit 31.3 % (37.0-47.0) L Mean Corpuscular Volume 90 FL (80-99) Mean Corpuscular Hemoglobin 32.1 PG (27.0-31.0) H Mean Corpuscular Hemoglobin Concent 35.6 G/DL (32.0-36.0) Red Cell Distribution Width 14.1 % (11.6-14.8) Platelet Count 56 K/UL (150-450) #L Mean Platelet Volume 7.1 FL (6.5-10.1) Neutrophils (%) (Auto) % (45.0-75.0) Lymphocytes (%) (Auto) % (20.0-45.0) Monocytes (%) (Auto) % (1.0-10.0) Eosinophils (%) (Auto) % (0.0-3.0) Basophils (%) (Auto) % (0.0-2.0) Differential Total Cells Counted 100 Neutrophils % (Manual) 93 % (45-75) H Lymphocytes % (Manual) 3 % (20-45) L Monocytes % (Manual) 3 % (1-10) Eosinophils % (Manual) 0 % (0-3) Basophils % (Manual) 1 % (0-2) Band Neutrophils 0 % (0-8) Platelet Estimate Decreased L Platelet Morphology Normal Hypochromasia 1+ Sodium Level 130 MMOL/L (136-145) L Potassium Level 3.7 MMOL/L (3.5-5.1) Chloride Level 99 MMOL/L (98-107) Carbon Dioxide Level 15 MMOL/L (21-32) L Anion Gap 16 mmol/L (5-15) H Blood Urea Nitrogen 35 mg/dL (7-18) H Creatinine 2.3 MG/DL (0.55-1.30) H Estimat Glomerular Filtration Rate 20.5 mL/min (>60) Glucose Level 203 MG/DL (74-106) H Uric Acid 2.8 MG/DL (2.6-7.2) Calcium Level 7.7 MG/DL (8.5-10.1) L Phosphorus Level 2.8 MG/DL (2.5-4.9) Magnesium Level 1.9 MG/DL (1.8-2.4) Total Bilirubin 1.7 MG/DL (0.2-1.0) H Direct Bilirubin 1.2 MG/DL (0.0-0.3) H Aspartate Amino Transf (AST/SGOT) 18 U/L (15-37) Alanine Aminotransferase (ALT/SGPT) 22 U/L (12-78) Alkaline Phosphatase 61 U/L (46-116) Troponin I 1.113 ng/mL (0.000-0.056) C-Reactive Protein, Quantitative 40.9 mg/dL (0.00-0.90) H Total Protein 3.8 G/DL (6.4-8.2) L Albumin 1.6 G/DL (3.4-5.0) L Globulin 2.2 g/dL Albumin/Globulin Ratio 0.7 (1.0-2.7) L Height (Feet): 5 Height (Inches): 3.00 Weight (Pounds): 122 General Appearance: no apparent distress Cardiovascular: normal rate Respiratory/Chest: normal breath sounds, no respiratory distress Abdominal Exam: normal bowel sounds, non tender, soft Extremities: non-tender Charli Garza NP Jul 07, 2019 12:09
--- NOTE | 2019-07-07 13:00 | NUR ---
NURSE NOTES: Dr Keenan here to se the patient. Notified him that leaking noted on right femoral TLC. Updated him with pt's current condition. PICC line order is already in the system.
[2019-07-07] MEDS: D5NS 1,000 ML IV SCH ×2 (13:01→23:58)
[2019-07-07] MEDS: Piperacillin/Tazobactam 3.375 GM in NS 110 ML IVPB SCH ×2 (13:02→23:58)
--- NOTE | 2019-07-07 14:05 | Pulmonolgy Critical Care Note ---
Critical Care - Asmt/Plan Problems: (1) Carcinomatosis (2) Pancreatic cancer (3) Hypernatremia (4) NORMA (acute kidney injury) (5) Lactic acid acidosis (6) Septic shock (7) Hypoalbuminemia (8) Free intraperitoneal air (9) Perforated abdominal viscus (10) Poor prognosis (11) Severe protein-calorie malnutrition Assessment/Plan: Continue BiPAP 20/5 ABG ordered Will attempt to avoid intubation/MV Continue Vaso 0.04, titrate NE to keep MAP > 60 HC 100 TID and taper On midodrine but NPO Abx: Zosyn/Zyvox (D2), F/U CX's Monitor volumes and renal function, continue D5W@100 Trend LA NGT if able DVT Px: SCD Monitor MS Prognosis is extremely poor, STRONGLY consider palliative care and ethics eval, ongoing discussions with family FC, however I feel that coding this patient would be inappropriate Time Spent (Minutes): 40 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, ID, other - 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, CARDIOLOGY Discussed with: nurses, consultants, family member Critical Care - Objective Last 24 Hour Vital Signs Date Time Temp Pulse Resp B/P (MAP) Pulse Ox O2 Delivery O2 Flow Rate FiO2 07/07/19 13:15 107 25 100 30 07/07/19 12:30 98 20 96/63 (74) 96 07/07/19 12:00 93 07/07/19 12:00 Bi-pap 07/07/19 12:00 93 16 101/70 (80) 100 07/07/19 11:30 90 15 97/69 (78) 100 07/07/19 11:07 93 16 100 30 07/07/19 11:00 91 16 101/68 (79) 100 07/07/19 10:30 92 16 113/83 (93) 100 07/07/19 10:15 92 17 114/78 (90) 100 07/07/19 10:01 96 22 106/71 (83) 99 07/07/19 09:45 89 14 91/61 (71) 100 07/07/19 09:30 81 15 110/69 (83) 100 07/07/19 09:00 92 18 114/78 (90) 100 07/07/19 08:58 83 15 100 30 07/07/19 08:30 79 14 112/73 (86) 100 07/07/19 08:00 97.3 80 14 111/75 (87) 100 07/07/19 08:00 111/75 07/07/19 08:00 94 07/07/19 08:00 Bi-pap 07/07/19 07:40 110/74 07/07/19 07:30 80 14 110/69 (83) 100 07/07/19 07:00 110/72 07/07/19 07:00 81 14 110/74 (86) 100 07/07/19 06:53 81 15 100 30 07/07/19 06:30 83 14 113/77 (89) 100 07/07/19 06:00 95 23 123/74 (90) 99 07/07/19 06:00 123/74 07/07/19 05:45 86 18 121/84 (96) 100 07/07/19 05:30 91 34 125/102 (110) 94 07/07/19 05:04 76 14 100 30 07/07/19 05:00 75 14 109/69 (82) 100 07/07/19 05:00 109/69 07/07/19 04:30 74 14 105/93 (97) 100 07/07/19 04:15 72 14 114/76 (89) 100 07/07/19 04:00 Bi-pap 07/07/19 04:00 110/71 07/07/19 04:00 30 07/07/19 04:00 97.4 73 14 110/71 (84) 100 07/07/19 03:30 72 14 112/75 (87) 100 07/07/19 03:14 73 07/07/19 03:07 73 14 100 30 07/07/19 03:00 73 13 115/76 (89) 100 07/07/19 03:00 115/76 07/07/19 02:30 74 14 115/77 (90) 100 07/07/19 02:00 74 14 117/76 (90) 100 07/07/19 02:00 117/76 07/07/19 01:30 76 14 118/76 (90) 100 07/07/19 01:00 78 14 119/78 (92) 100 07/07/19 01:00 82 15 100 30 07/07/19 01:00 119/78 07/07/19 00:45 79 17 118/74 (89) 100 3/12/20 00:35 90 28 107/75 (86) 100 07/07/19 00:30 84 17 100 07/07/19 00:15 77 14 118/77 (91) 100 07/07/19 00:00 30 07/07/19 00:00 97.3 80 13 129/86 (100) 100 07/07/19 00:00 129/86 07/07/19 00:00 Bi-pap 07/06/19 23:30 80 14 138/83 (101) 100 07/06/19 23:27 82 07/06/19 23:15 78 14 142/87 (105) 100 07/06/19 23:01 81 14 100 30 07/06/19 23:00 81 14 141/84 (103) 100 07/06/19 23:00 141/84 07/06/19 22:45 79 135/86 (102) 100 07/06/19 22:45 78 133/85 07/06/19 22:30 76 14 150/80 (103) 100 07/06/19 22:15 91 21 155/81 (105) 99 07/06/19 22:15 155/81 07/06/19 22:00 152/90 07/06/19 22:00 75 14 152/90 (110) 100 07/06/19 21:45 74 14 137/85 (102) 100 07/06/19 21:30 78 14 105/90 (95) 100 07/06/19 21:15 78 14 130/85 (100) 100 07/06/19 21:07 79 14 100 40 07/06/19 21:00 74 14 126/79 (95) 100 07/06/19 21:00 126/79 07/06/19 20:57 116/85 07/06/19 20:45 78 14 116/85 (95) 100 07/06/19 20:30 82 14 95/79 (84) 100 07/06/19 20:15 73 14 132/74 (93) 100 07/06/19 20:00 97.4 74 14 128/80 (96) 100 07/06/19 20:00 128/80 07/06/19 20:00 40 07/06/19 20:00 Bi-pap 07/06/19 19:45 76 14 133/84 (100) 100 07/06/19 19:30 88 14 112/79 (90) 100 07/06/19 19:29 83 07/06/19 19:16 71 15 100 40 07/06/19 19:00 77 14 128/95 (106) 100 07/06/19 19:00 128/95 07/06/19 18:45 76 14 127/89 (102) 100 07/06/19 18:30 77 14 126/80 (95) 100 07/06/19 18:15 96.8 82 15 121/85 (97) 07/06/19 18:00 88 14 116/76 (89) 99 07/06/19 18:00 81 14 116/76 (89) 100 07/06/19 18:00 116/76 07/06/19 17:30 65 16 100 40 07/06/19 17:30 87 21 120/76 (91) 100 07/06/19 17:00 117/72 07/06/19 17:00 73 21 117/72 (87) 100 07/06/19 16:30 67 14 135/88 (104) 100 07/06/19 16:15 66 15 126/77 (93) 100 07/06/19 16:00 79 07/06/19 16:00 97.6 68 14 132/76 (94) 100 07/06/19 16:00 132/76 07/06/19 16:00 Bi-pap 07/06/19 15:45 82 16 123/73 (90) 100 07/06/19 15:30 82 17 129/82 (98) 100 07/06/19 15:29 74 14 100 40 07/06/19 15:15 72 14 137/76 (96) 100 07/06/19 15:00 67 14 132/79 (96) 100 07/06/19 15:00 132/79 07/06/19 14:45 72 11 120/74 (89) 100 07/06/19 14:30 69 14 135/83 (100) 100 07/06/19 14:15 78 15 129/81 (97) 100 07/06/19 14:01 80/62 Status: obtunded - on BiPAP Condition: critical HEENT: atraumatic, normocephalic Lungs: rhonchi Heart: HR/BP unstable Abdomen: soft, distended Extremities: edema - 1+ Accucheck: 39 Blood Sugars: BS not controlled Critical Care - Subjective ROS Limited/Unobtainable: Yes ICU Day: 3 Intubation Day: On BiPAP Interval Events: NAEO Plt 56 Tro 1.11 LA 6.3 S/P 3L para Unable to place NGT Leaking @ TLC site Remains on pressors Condition: critical IV Access: central - R fem TLC FI02: 30 Vent Support Mode: BiLevel Sputum Amount: None Secretions: None Fluids: D5NS@100 Drips: NE 10 Vaso 0.04 I&O: Intake and Output 07/06/19 07/07/19 19:00 07:00 Intake Total 2470.325 ml 2156.3 ml Output Total 3015 ml 260 ml Balance -544.675 ml 1896.3 ml IV Total 2470.325 ml 2156.3 ml Output Urine Total 15 ml 260 ml Other 3000 ml Subjective: Laboratory Tests Test 07/06/19 17:05 07/06/19 22:50 07/07/19 03:45 07/07/19 07:05 Lactic Acid Level 6.10 mmol/L (0.4-2.0) H 6.10 mmol/L (0.4-2.0) H 6.20 mmol/L (0.4-2.0) H 5.70 mmol/L (0.66-2.22) H White Blood Count 8.7 K/UL (4.8-10.8) Red Blood Count 3.47 M/UL (4.20-5.40) L Hemoglobin 11.1 G/DL (12.0-16.0) L Hematocrit 31.3 % (37.0-47.0) L Mean Corpuscular Volume 90 FL (80-99) Mean Corpuscular Hemoglobin 32.1 PG (27.0-31.0) H Mean Corpuscular Hemoglobin Concent 35.6 G/DL (32.0-36.0) Red Cell Distribution Width 14.1 % (11.6-14.8) Platelet Count 56 K/UL (150-450) #L Mean Platelet Volume 7.1 FL (6.5-10.1) Neutrophils (%) (Auto) % (45.0-75.0) Lymphocytes (%) (Auto) % (20.0-45.0) Monocytes (%) (Auto) % (1.0-10.0) Eosinophils (%) (Auto) % (0.0-3.0) Basophils (%) (Auto) % (0.0-2.0) Differential Total Cells Counted 100 Neutrophils % (Manual) 93 % (45-75) H Lymphocytes % (Manual) 3 % (20-45) L Monocytes % (Manual) 3 % (1-10) Eosinophils % (Manual) 0 % (0-3) Basophils % (Manual) 1 % (0-2) Band Neutrophils 0 % (0-8) Platelet Estimate Decreased L Platelet Morphology Normal Hypochromasia 1+ Sodium Level 130 MMOL/L (136-145) L Potassium Level 3.7 MMOL/L (3.5-5.1) Chloride Level 99 MMOL/L (98-107) Carbon Dioxide Level 15 MMOL/L (21-32) L Anion Gap 16 mmol/L (5-15) H Blood Urea Nitrogen 35 mg/dL (7-18) H Creatinine 2.3 MG/DL (0.55-1.30) H Estimat Glomerular Filtration Rate 20.5 mL/min (>60) Glucose Level 203 MG/DL (74-106) H Uric Acid 2.8 MG/DL (2.6-7.2) Calcium Level 7.7 MG/DL (8.5-10.1) L Phosphorus Level 2.8 MG/DL (2.5-4.9) Magnesium Level 1.9 MG/DL (1.8-2.4) Total Bilirubin 1.7 MG/DL (0.2-1.0) H Direct Bilirubin 1.2 MG/DL (0.0-0.3) H Aspartate Amino Transf (AST/SGOT) 18 U/L (15-37) Alanine Aminotransferase (ALT/SGPT) 22 U/L (12-78) Alkaline Phosphatase 61 U/L (46-116) Troponin I 1.113 ng/mL (0.000-0.056) C-Reactive Protein, Quantitative 40.9 mg/dL (0.00-0.90) H Total Protein 3.8 G/DL (6.4-8.2) L Albumin 1.6 G/DL (3.4-5.0) L Globulin 2.2 g/dL Albumin/Globulin Ratio 0.7 (1.0-2.7) L Test 07/07/19 12:15 Lactic Acid Level 6.30 mmol/L (0.4-2.0) H CXR: R base atx/inf Labs: Laboratory Tests Test 07/06/19 17:05 07/06/19 22:50 07/07/19 03:45 07/07/19 07:05 Lactic Acid Level 6.10 mmol/L (0.4-2.0) H 6.10 mmol/L (0.4-2.0) H 6.20 mmol/L (0.4-2.0) H 5.70 mmol/L (0.66-2.22) H White Blood Count 8.7 K/UL (4.8-10.8) Red Blood Count 3.47 M/UL (4.20-5.40) L Hemoglobin 11.1 G/DL (12.0-16.0) L Hematocrit 31.3 % (37.0-47.0) L Mean Corpuscular Volume 90 FL (80-99) Mean Corpuscular Hemoglobin 32.1 PG (27.0-31.0) H Mean Corpuscular Hemoglobin Concent 35.6 G/DL (32.0-36.0) Red Cell Distribution Width 14.1 % (11.6-14.8) Platelet Count 56 K/UL (150-450) #L Mean Platelet Volume 7.1 FL (6.5-10.1) Neutrophils (%) (Auto) % (45.0-75.0) Lymphocytes (%) (Auto) % (20.0-45.0) Monocytes (%) (Auto) % (1.0-10.0) Eosinophils (%) (Auto) % (0.0-3.0) Basophils (%) (Auto) % (0.0-2.0) Differential Total Cells Counted 100 Neutrophils % (Manual) 93 % (45-75) H Lymphocytes % (Manual) 3 % (20-45) L Monocytes % (Manual) 3 % (1-10) Eosinophils % (Manual) 0 % (0-3) Basophils % (Manual) 1 % (0-2) Band Neutrophils 0 % (0-8) Platelet Estimate Decreased L Platelet Morphology Normal Hypochromasia 1+ Sodium Level 130 MMOL/L (136-145) L Potassium Level 3.7 MMOL/L (3.5-5.1) Chloride Level 99 MMOL/L (98-107) Carbon Dioxide Level 15 MMOL/L (21-32) L Anion Gap 16 mmol/L (5-15) H Blood Urea Nitrogen 35 mg/dL (7-18) H Creatinine 2.3 MG/DL (0.55-1.30) H Estimat Glomerular Filtration Rate 20.5 mL/min (>60) Glucose Level 203 MG/DL (74-106) H Uric Acid 2.8 MG/DL (2.6-7.2) Calcium Level 7.7 MG/DL (8.5-10.1) L Phosphorus Level 2.8 MG/DL (2.5-4.9) Magnesium Level 1.9 MG/DL (1.8-2.4) Total Bilirubin 1.7 MG/DL (0.2-1.0) H Direct Bilirubin 1.2 MG/DL (0.0-0.3) H Aspartate Amino Transf (AST/SGOT) 18 U/L (15-37) Alanine Aminotransferase (ALT/SGPT) 22 U/L (12-78) Alkaline Phosphatase 61 U/L (46-116) Troponin I 1.113 ng/mL (0.000-0.056) C-Reactive Protein, Quantitative 40.9 mg/dL (0.00-0.90) H Total Protein 3.8 G/DL (6.4-8.2) L Albumin 1.6 G/DL (3.4-5.0) L Globulin 2.2 g/dL Albumin/Globulin Ratio 0.7 (1.0-2.7) L Test 07/07/19 12:15 Lactic Acid Level 6.30 mmol/L (0.4-2.0) H Dorian Munson MD Jul 07, 2019 14:05
--- NOTE | 2019-07-07 14:11 | NUR ---
*-* INSURANCE *-* ALL CLINICALS AND REVIEWS HAVE BEEN FAXED TO: [employer] Ref# [id number] CM: Fanny # [phone] ext [phone] fax# [phone]
--- NOTE | 2019-07-07 14:29 | Infectious Diseases Prog Note ---
Assessment/Plan Problems: (1) Right lower lobe consolidation Assessment & Plan: possible aspiration pneumonia , already on zosyn and zyvox , sputum culture is pending , monitor CXR, aspiration precaution (2) Hypoxemia Assessment & Plan: new pneumonia , VS sepsis , continue zosyn , and zyvox, with pressors as needed to keep MAP > 65 , continue BIPAP as per pulmonary (3) Hypotension Assessment & Plan: suspect due to REMOVAL OF LARGE PERITONEAL FLUIDS , await blood culture x 2 and continue zyvox with zosyn , continue pressure support (4) Abdominal pain Assessment & Plan: suspect due to massive amount of air S/P Paracentesis , no fluids culture were sent after she had paracentesis , surgery is following . (5) Free intraperitoneal air Assessment & Plan: suspect due to recent paracentesis , with no clinical evidence of perforation , on wide spectrum antibiotics to cover for possible sepsis and pneumonia , all cultures are negative (6) Anemia Assessment & Plan: S/P blood transfusion, rule out GI bleeding, recommend GI eval and endoscopy Subjective ROS Limited/Unobtainable: Yes Allergies: Coded Allergies: No Known Allergies (Unverified , 03/06/16) Subjective she was still in ICU on BIPAP for hypoxemia and hypotension , after she had paracentesis with removal of three liters , resting in bed comfortable, UNRESPONSIVE , NO SOB on two pressors Objective Vital Signs Last 24 Hour Vital Signs Date Time Temp Pulse Resp B/P (MAP) Pulse Ox O2 Delivery O2 Flow Rate FiO2 07/07/19 13:15 107 25 100 30 07/07/19 12:30 98 20 96/63 (74) 96 07/07/19 12:00 93 07/07/19 12:00 Bi-pap 07/07/19 12:00 93 16 101/70 (80) 100 07/07/19 11:30 90 15 97/69 (78) 100 07/07/19 11:07 93 16 100 30 07/07/19 11:00 91 16 101/68 (79) 100 07/07/19 10:30 92 16 113/83 (93) 100 07/07/19 10:15 92 17 114/78 (90) 100 07/07/19 10:01 96 22 106/71 (83) 99 07/07/19 09:45 89 14 91/61 (71) 100 07/07/19 09:30 81 15 110/69 (83) 100 07/07/19 09:00 92 18 114/78 (90) 100 07/07/19 08:58 83 15 100 30 07/07/19 08:30 79 14 112/73 (86) 100 07/07/19 08:00 97.3 80 14 111/75 (87) 100 07/07/19 08:00 111/75 07/07/19 08:00 94 07/07/19 08:00 Bi-pap 07/07/19 07:40 110/74 07/07/19 07:30 80 14 110/69 (83) 100 07/07/19 07:00 110/72 07/07/19 07:00 81 14 110/74 (86) 100 07/07/19 06:53 81 15 100 30 07/07/19 06:30 83 14 113/77 (89) 100 07/07/19 06:00 95 23 123/74 (90) 99 07/07/19 06:00 123/74 07/07/19 05:45 86 18 121/84 (96) 100 07/07/19 05:30 91 34 125/102 (110) 94 07/07/19 05:04 76 14 100 30 07/07/19 05:00 75 14 109/69 (82) 100 07/07/19 05:00 109/69 07/07/19 04:30 74 14 105/93 (97) 100 07/07/19 04:15 72 14 114/76 (89) 100 07/07/19 04:00 Bi-pap 07/07/19 04:00 110/71 07/07/19 04:00 30 07/07/19 04:00 97.4 73 14 110/71 (84) 100 07/07/19 03:30 72 14 112/75 (87) 100 07/07/19 03:14 73 07/07/19 03:07 73 14 100 30 07/07/19 03:00 73 13 115/76 (89) 100 07/07/19 03:00 115/76 07/07/19 02:30 74 14 115/77 (90) 100 07/07/19 02:00 74 14 117/76 (90) 100 07/07/19 02:00 117/76 07/07/19 01:30 76 14 118/76 (90) 100 07/07/19 01:00 78 14 119/78 (92) 100 07/07/19 01:00 82 15 100 30 07/07/19 01:00 119/78 07/07/19 00:45 79 17 118/74 (89) 100 07/07/19 00:35 90 28 107/75 (86) 100 07/07/19 00:30 84 17 100 07/07/19 00:15 77 14 118/77 (91) 100 07/07/19 00:00 30 07/07/19 00:00 97.3 80 13 129/86 (100) 100 07/07/19 00:00 129/86 07/07/19 00:00 Bi-pap 07/06/19 23:30 80 14 138/83 (101) 100 07/06/19 23:27 82 07/06/19 23:15 78 14 142/87 (105) 100 07/06/19 23:01 81 14 100 30 07/06/19 23:00 81 14 141/84 (103) 100 07/06/19 23:00 141/84 07/06/19 22:45 79 135/86 (102) 100 07/06/19 22:45 78 133/85 07/06/19 22:30 76 14 150/80 (103) 100 07/06/19 22:15 91 21 155/81 (105) 99 07/06/19 22:15 155/81 07/06/19 22:00 152/90 07/06/19 22:00 75 14 152/90 (110) 100 07/06/19 21:45 74 14 137/85 (102) 100 07/06/19 21:30 78 14 105/90 (95) 100 07/06/19 21:15 78 14 130/85 (100) 100 07/06/19 21:07 79 14 100 40 07/06/19 21:00 74 14 126/79 (95) 100 07/06/19 21:00 126/79 07/06/19 20:57 116/85 07/06/19 20:45 78 14 116/85 (95) 100 07/06/19 20:30 82 14 95/79 (84) 100 07/06/19 20:15 73 14 132/74 (93) 100 07/06/19 20:00 97.4 74 14 128/80 (96) 100 07/06/19 20:00 128/80 07/06/19 20:00 40 07/06/19 20:00 Bi-pap 07/06/19 19:45 76 14 133/84 (100) 100 07/06/19 19:30 88 14 112/79 (90) 100 07/06/19 19:29 83 07/06/19 19:16 71 15 100 40 07/06/19 19:00 77 14 128/95 (106) 100 07/06/19 19:00 128/95 07/06/19 18:45 76 14 127/89 (102) 100 07/06/19 18:30 77 14 126/80 (95) 100 07/06/19 18:15 96.8 82 15 121/85 (97) 07/06/19 18:00 88 14 116/76 (89) 99 07/06/19 18:00 81 14 116/76 (89) 100 07/06/19 18:00 116/76 07/06/19 17:30 65 16 100 40 07/06/19 17:30 87 21 120/76 (91) 100 07/06/19 17:00 117/72 07/06/19 17:00 73 21 117/72 (87) 100 07/06/19 16:30 67 14 135/88 (104) 100 07/06/19 16:15 66 15 126/77 (93) 100 07/06/19 16:00 79 07/06/19 16:00 97.6 68 14 132/76 (94) 100 07/06/19 16:00 132/76 07/06/19 16:00 Bi-pap 07/06/19 15:45 82 16 123/73 (90) 100 07/06/19 15:30 82 17 129/82 (98) 100 07/06/19 15:29 74 14 100 40 07/06/19 15:15 72 14 137/76 (96) 100 07/06/19 15:00 67 14 132/79 (96) 100 07/06/19 15:00 132/79 07/06/19 14:45 72 11 120/74 (89) 100 07/06/19 14:30 69 14 135/83 (100) 100 Height (Feet): 5 Height (Inches): 3.00 Weight (Pounds): 122 General Appearance: no acute distress, cachetic, other - unresponsive HEENT: normocephalic, atraumatic, supple, no JVD Respiratory/Chest: no respiratory distress, no accessory muscle use, decreased breath sounds, crackles/rales Cardiovascular: normal peripheral pulses, normal rate, regular rhythm, no gallop/murmur, no JVD Abdomen: no organomegaly, no mass, no scars, hypoactive bowel sounds, distended Extremities: no cyanosis, no clubbing Skin: no rash, no lesions Neurologic/Psychiatric: unresponsiveness Lymphatic: no neck adenopathy, no groin adenopathy Laboratory Tests Test 07/06/19 17:05 07/06/19 22:50 07/07/19 03:45 07/07/19 07:05 Lactic Acid Level 6.10 mmol/L (0.4-2.0) H 6.10 mmol/L (0.4-2.0) H 6.20 mmol/L (0.4-2.0) H 5.70 mmol/L (0.66-2.22) H White Blood Count 8.7 K/UL (4.8-10.8) Red Blood Count 3.47 M/UL (4.20-5.40) L Hemoglobin 11.1 G/DL (12.0-16.0) L Hematocrit 31.3 % (37.0-47.0) L Mean Corpuscular Volume 90 FL (80-99) Mean Corpuscular Hemoglobin 32.1 PG (27.0-31.0) H Mean Corpuscular Hemoglobin Concent 35.6 G/DL (32.0-36.0) Red Cell Distribution Width 14.1 % (11.6-14.8) Platelet Count 56 K/UL (150-450) #L Mean Platelet Volume 7.1 FL (6.5-10.1) Neutrophils (%) (Auto) % (45.0-75.0) Lymphocytes (%) (Auto) % (20.0-45.0) Monocytes (%) (Auto) % (1.0-10.0) Eosinophils (%) (Auto) % (0.0-3.0) Basophils (%) (Auto) % (0.0-2.0) Differential Total Cells Counted 100 Neutrophils % (Manual) 93 % (45-75) H Lymphocytes % (Manual) 3 % (20-45) L Monocytes % (Manual) 3 % (1-10) Eosinophils % (Manual) 0 % (0-3) Basophils % (Manual) 1 % (0-2) Band Neutrophils 0 % (0-8) Platelet Estimate Decreased L Platelet Morphology Normal Hypochromasia 1+ Sodium Level 130 MMOL/L (136-145) L Potassium Level 3.7 MMOL/L (3.5-5.1) Chloride Level 99 MMOL/L (98-107) Carbon Dioxide Level 15 MMOL/L (21-32) L Anion Gap 16 mmol/L (5-15) H Blood Urea Nitrogen 35 mg/dL (7-18) H Creatinine 2.3 MG/DL (0.55-1.30) H Estimat Glomerular Filtration Rate 20.5 mL/min (>60) Glucose Level 203 MG/DL (74-106) H Uric Acid 2.8 MG/DL (2.6-7.2) Calcium Level 7.7 MG/DL (8.5-10.1) L Phosphorus Level 2.8 MG/DL (2.5-4.9) Magnesium Level 1.9 MG/DL (1.8-2.4) Total Bilirubin 1.7 MG/DL (0.2-1.0) H Direct Bilirubin 1.2 MG/DL (0.0-0.3) H Aspartate Amino Transf (AST/SGOT) 18 U/L (15-37) Alanine Aminotransferase (ALT/SGPT) 22 U/L (12-78) Alkaline Phosphatase 61 U/L (46-116) Troponin I 1.113 ng/mL (0.000-0.056) C-Reactive Protein, Quantitative 40.9 mg/dL (0.00-0.90) H Total Protein 3.8 G/DL (6.4-8.2) L Albumin 1.6 G/DL (3.4-5.0) L Globulin 2.2 g/dL Albumin/Globulin Ratio 0.7 (1.0-2.7) L Test 07/07/19 12:15 Lactic Acid Level 6.30 mmol/L (0.4-2.0) H Current Medications Medications (Trade) Dose Ordered Sig/Margie Route PRN Reason Start Time Stop Time Status Last Admin Dose Admin Chlorhexidine Gluconate (Sheeba-Hex 2%) 1 applic DAILY@2000 TOPIC 07/07/19 20:00 08/06/19 19:59 Dextrose/Sodium Chloride 1,000 ml @ 100 mls/hr Q10H IV 07/07/19 12:49 08/06/19 12:48 07/07/19 13:01 Heparin Sodium/ Sodium Chloride (Heparin 1000 units/500ml Premix) 1,000 unit ONCE PRN IV PICC 07/07/19 09:30 07/07/19 23:59 Hydrocortisone (Solu-CORTEF) 100 mg TID IV 07/06/19 09:30 08/05/19 09:29 07/07/19 13:02 Lidocaine HCl (Xylocaine 1% 30ml) 30 ml ONCE PRN INJ PICC 07/07/19 09:30 07/07/19 23:59 Linezolid 300 ml @ 300 mls/hr Q12HR IVPB 07/06/19 21:00 07/13/19 20:59 07/07/19 09:37 Morphine Sulfate (Morphine Sulfate) 1 mg Q4H PRN IVP Moderate Pain (Pain Scale 4-6) 07/06/19 01:45 07/11/19 12:59 Morphine Sulfate (Morphine Sulfate) 2 mg Q6H PRN IVP Severe Pain (Pain Scale 7-10) 07/06/19 00:30 07/10/19 18:29 07/06/19 20:19 Nitroglycerin (Ntg) 0.4 mg Q5M PRN SL Prn Chest Pain 07/05/19 22:15 08/03/19 04:59 Norepinephrine Bitartrate 8 mg/ Dextrose 500 ml @ 0 mls/hr Q24H IV 07/06/19 07:00 08/05/19 06:59 07/07/19 07:40 Pantoprazole (Protonix) 40 mg Q12HR IVP 07/06/19 09:00 07/31/19 20:59 07/07/19 09:37 Phenylephrine HCl 50 mg/Dextrose 250 ml @ 0 mls/hr Q24H IV 07/05/19 22:45 08/04/19 22:44 07/05/19 23:17 Piperacillin Sod/ Tazobactam Sod 3.375 gm/Sodium Chloride 110 ml @ 27.5 mls/hr Q12H IVPB 07/06/19 00:00 07/13/19 00:00 07/07/19 13:02 Sodium Chloride 500 ml @ 0 mls/hr Q0M PRN IVPB SBP<100 07/05/19 22:15 08/01/19 20:29 Vasopressin 100 units/Sodium Chloride 100 ml @ 0 mls/hr Q24H IV 07/05/19 22:45 08/04/19 22:44 07/06/19 23:54 Tenisha Osei M.D. Jul 07, 2019 14:29
--- NOTE | 2019-07-07 14:32 | NUR ---
CASE MANAGEMENT:REVIEW 07/07/19 SI: PERFORATED VISCUS. COLITIS. SEPSIS S/P PARACENTESIS~ 3L T 97.3 HR 80 RR 14 B/P 111/75 SATS 100% ON BIPAP FIO2 30 LABS: NA 130 CO2 15 BUN 35 CR 2.3 GLU 203 CA 7.7 TBILI 1.7 DBILI 1.2 IS: IV PROTONIX Q12 IVF@ 100 ML/HR ZOSYN IV Q12H LINEZOLID IV Q12H VASOPRESSIN PER PARAMETERS PHENYLEPHRINE IV PER PARAMETERS LEVOPHED IV PER PARAMETERS IV MORPHINE 6HRS PRN : ICU DCP: PATIENT IS FROM HOME
--- NOTE | 2019-07-07 14:47 | Nephrology Progress Note ---
Assessment/Plan Problem List: (1) Hypotension (2) Anemia (3) Abdominal pain (4) Free intraperitoneal air (5) Hypoalbuminemia Assessment Intra-abdominal process either peritonitis and or perforated viscus Severe anemia with drop of hemoglobin from 10 to 7 requiring blood transfusion. Hypotensive unclear if due to intra-abdominal bleeding and or septic process. 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 Clinically she has deteriorated. Renal parameters are worsened. Urine output decreased Very poor prognosis. Hemo-dynamically unstable for dialysis. Not much can be offered from renal standpoint of view I favor DNR and comfort care. Previously Continue per general surgery and GI advice advice Patient was started on p.o. diet Antibiotics now on Zosyn IV Protonix Young catheter Blood pressure support with pressors if needed Patient currently is full code, I support DNR status Will discuss with consultants Reviewed the case with RN Subjective ROS Limited/Unobtainable: Yes Objective Objective Last 24 Hour Vital Signs Date Time Temp Pulse Resp B/P (MAP) Pulse Ox O2 Delivery O2 Flow Rate FiO2 07/07/19 13:15 107 25 100 30 07/07/19 12:30 98 20 96/63 (74) 96 07/07/19 12:00 93 07/07/19 12:00 Bi-pap 07/07/19 12:00 93 16 101/70 (80) 100 07/07/19 11:30 90 15 97/69 (78) 100 07/07/19 11:07 93 16 100 30 07/07/19 11:00 91 16 101/68 (79) 100 07/07/19 10:30 92 16 113/83 (93) 100 07/07/19 10:15 92 17 114/78 (90) 100 07/07/19 10:01 96 22 106/71 (83) 99 07/07/19 09:45 89 14 91/61 (71) 100 07/07/19 09:30 81 15 110/69 (83) 100 07/07/19 09:00 92 18 114/78 (90) 100 07/07/19 08:58 83 15 100 30 07/07/19 08:30 79 14 112/73 (86) 100 07/07/19 08:00 97.3 80 14 111/75 (87) 100 07/07/19 08:00 111/75 07/07/19 08:00 94 07/07/19 08:00 Bi-pap 07/07/19 07:40 110/74 07/07/19 07:30 80 14 110/69 (83) 100 07/07/19 07:00 110/72 07/07/19 07:00 81 14 110/74 (86) 100 07/07/19 06:53 81 15 100 30 07/07/19 06:30 83 14 113/77 (89) 100 07/07/19 06:00 95 23 123/74 (90) 99 07/07/19 06:00 123/74 07/07/19 05:45 86 18 121/84 (96) 100 07/07/19 05:30 91 34 125/102 (110) 94 07/07/19 05:04 76 14 100 30 07/07/19 05:00 75 14 109/69 (82) 100 07/07/19 05:00 109/69 07/07/19 04:30 74 14 105/93 (97) 100 07/07/19 04:15 72 14 114/76 (89) 100 07/07/19 04:00 Bi-pap 07/07/19 04:00 110/71 07/07/19 04:00 30 07/07/19 04:00 97.4 73 14 110/71 (84) 100 07/07/19 03:30 72 14 112/75 (87) 100 07/07/19 03:14 73 07/07/19 03:07 73 14 100 30 07/07/19 03:00 73 13 115/76 (89) 100 07/07/19 03:00 115/76 07/07/19 02:30 74 14 115/77 (90) 100 07/07/19 02:00 74 14 117/76 (90) 100 07/07/19 02:00 117/76 07/07/19 01:30 76 14 118/76 (90) 100 07/07/19 01:00 78 14 119/78 (92) 100 07/07/19 01:00 82 15 100 30 07/07/19 01:00 119/78 07/07/19 00:45 79 17 118/74 (89) 100 07/07/19 00:35 90 28 107/75 (86) 100 07/07/19 00:30 84 17 100 07/07/19 00:15 77 14 118/77 (91) 100 07/07/19 00:00 30 07/07/19 00:00 97.3 80 13 129/86 (100) 100 07/07/19 00:00 129/86 07/07/19 00:00 Bi-pap 07/06/19 23:30 80 14 138/83 (101) 100 07/06/19 23:27 82 07/06/19 23:15 78 14 142/87 (105) 100 07/06/19 23:01 81 14 100 30 07/06/19 23:00 81 14 141/84 (103) 100 07/06/19 23:00 141/84 07/06/19 22:45 79 135/86 (102) 100 07/06/19 22:45 78 133/85 07/06/19 22:30 76 14 150/80 (103) 100 07/06/19 22:15 91 21 155/81 (105) 99 07/06/19 22:15 155/81 07/06/19 22:00 152/90 07/06/19 22:00 75 14 152/90 (110) 100 07/06/19 21:45 74 14 137/85 (102) 100 07/06/19 21:30 78 14 105/90 (95) 100 07/06/19 21:15 78 14 130/85 (100) 100 07/06/19 21:07 79 14 100 40 07/06/19 21:00 74 14 126/79 (95) 100 07/06/19 21:00 126/79 07/06/19 20:57 116/85 07/06/19 20:45 78 14 116/85 (95) 100 07/06/19 20:30 82 14 95/79 (84) 100 07/06/19 20:15 73 14 132/74 (93) 100 07/06/19 20:00 97.4 74 14 128/80 (96) 100 07/06/19 20:00 128/80 07/06/19 20:00 40 07/06/19 20:00 Bi-pap 07/06/19 19:45 76 14 133/84 (100) 100 07/06/19 19:30 88 14 112/79 (90) 100 07/06/19 19:29 83 07/06/19 19:16 71 15 100 40 07/06/19 19:00 77 14 128/95 (106) 100 07/06/19 19:00 128/95 07/06/19 18:45 76 14 127/89 (102) 100 07/06/19 18:30 77 14 126/80 (95) 100 07/06/19 18:15 96.8 82 15 121/85 (97) 07/06/19 18:00 88 14 116/76 (89) 99 07/06/19 18:00 81 14 116/76 (89) 100 07/06/19 18:00 116/76 07/06/19 17:30 65 16 100 40 07/06/19 17:30 87 21 120/76 (91) 100 07/06/19 17:00 117/72 07/06/19 17:00 73 21 117/72 (87) 100 07/06/19 16:30 67 14 135/88 (104) 100 07/06/19 16:15 66 15 126/77 (93) 100 07/06/19 16:00 79 07/06/19 16:00 97.6 68 14 132/76 (94) 100 07/06/19 16:00 132/76 07/06/19 16:00 Bi-pap 07/06/19 15:45 82 16 123/73 (90) 100 07/06/19 15:30 82 17 129/82 (98) 100 07/06/19 15:29 74 14 100 40 07/06/19 15:15 72 14 137/76 (96) 100 07/06/19 15:00 67 14 132/79 (96) 100 07/06/19 15:00 132/79 Intake and Output 07/06/19 07/07/19 19:00 07:00 Intake Total 2470.325 ml 2156.3 ml Output Total 3015 ml 260 ml Balance -544.675 ml 1896.3 ml IV Total 2470.325 ml 2156.3 ml Output Urine Total 15 ml 260 ml Other 3000 ml Laboratory Tests 07/06/19 17:05: Lactic Acid Level 6.10H 07/06/19 22:50: Lactic Acid Level 6.10H 07/07/19 03:45: Lactic Acid Level 6.20H, White Blood Count 8.7, Red Blood Count 3.47L, Hemoglobin 11.1L, Hematocrit 31.3L, Mean Corpuscular Volume 90, Mean Corpuscular Hemoglobin 32.1H, Mean Corpuscular Hemoglobin Concent 35.6, Red Cell Distribution Width 14.1, Platelet Count 56#L, Mean Platelet Volume 7.1, Neutrophils (%) (Auto) , Lymphocytes (%) (Auto) , Monocytes (%) (Auto) , Eosinophils (%) (Auto) , Basophils (%) (Auto) , Differential Total Cells Counted 100, Neutrophils % (Manual) 93H, Lymphocytes % (Manual) 3L, Monocytes % (Manual) 3, Eosinophils % (Manual) 0, Basophils % (Manual) 1, Band Neutrophils 0 , Platelet Estimate DecreasedL, Platelet Morphology Normal, Hypochromasia 1+, Sodium Level 130L, Potassium Level 3.7, Chloride Level 99, Carbon Dioxide Level 15L, Anion Gap 16H, Blood Urea Nitrogen 35H, Creatinine 2.3H, Estimat Glomerular Filtration Rate 20.5, Glucose Level 203H, Uric Acid 2.8, Calcium Level 7.7L, Phosphorus Level 2.8, Magnesium Level 1.9, Total Bilirubin 1.7H, Direct Bilirubin 1.2H, Aspartate Amino Transf (AST/SGOT) 18, Alanine Aminotransferase (ALT/SGPT) 22, Alkaline Phosphatase 61, Troponin I 1.113H, C- Reactive Protein, Quantitative 40.9H, Total Protein 3.8L, Albumin 1.6L, Globulin 2.2, Albumin/Globulin Ratio 0.7L 07/07/19 07:05: Lactic Acid Level 5.70H 07/07/19 12:15: Lactic Acid Level 6.30H 07/07/19 14:20: Arterial Blood pH 7.359, Arterial Blood Partial Pressure CO2 20.8*L, Arterial Blood Partial Pressure O2 91.5, Arterial Blood HCO3 11.5*L, Arterial Blood Oxygen Saturation 96.7, Arterial Blood Base Excess -11.9*L, August Test Positive Height (Feet): 5 Height (Inches): 3.00 Weight (Pounds): 122 General Appearance: no apparent distress, lethargic EENT: other - On BiPAP Cardiovascular: tachycardia Respiratory/Chest: decreased breath sounds Abdomen: distended Pavan Junior MD Jul 07, 2019 14:47
--- NOTE | 2019-07-07 15:10 | Hematology/Onc Progress Note ---
Assessment/Plan Assessment/Plan ASSESSMENT/RECS: # Pancreatric cancer with Postsurgical changes, as described, with evidence of prior distal gastrectomy, gastrojejunostomy, and likely Nolan-en-Y anastomosis --> ct a/p reviewed and no marin malignancy is noted --> tumor markers noted --> currently appears in remission # Elevated tumor markers including ca 19.9, ca 125 --> by itself doesn't indicate malignancy --> have ordered for us of the ovaries to evaluate if enlarged --> obtain prior tumor markers if available for comparison --> reviewed prior adm, no prior tumor markers available # Anemia due to gi bleed --> evaluated by gi --> also seen by surgery Perforated viscus, source unknown. --> pulm/surg/id following --> hgb trend: 11.1 # Thrombocytopenia with decreased plt count --> trend as needed --> 160-->111-->56 --> hep and hiv neg # Severe sepsis. --> broad spectrum abx --> pressors have been started # Dehydration. --> on ivf as well # Ascites --> s/p para and no malignant cells seen # Resp failure --> on bipap # Hypotension could be due to dehydration and anemia. --> on midrinone, as per Truie Appreciate consultation and maricarmen Rn Subjective Allergies: Coded Allergies: No Known Allergies (Unverified , 03/06/16) Subjective 07/06 icu, cxr reviewed, restraints, plt 56, no new orders Objective Objective Current Medications Medications (Trade) Dose Ordered Sig/Margie Route PRN Reason Start Time Stop Time Status Last Admin Dose Admin Chlorhexidine Gluconate (Sheeba-Hex 2%) 1 applic DAILY@1999 TOPIC 07/07/19 20:00 08/06/19 19:59 Dextrose/Sodium Chloride 1,000 ml @ 100 mls/hr Q10H IV 07/07/19 12:49 08/06/19 12:48 07/07/19 13:01 Heparin Sodium/ Sodium Chloride (Heparin 1000 units/500ml Premix) 1,000 unit ONCE PRN IV PICC 07/07/19 09:30 07/07/19 23:59 Hydrocortisone (Solu-CORTEF) 100 mg TID IV 07/06/19 09:30 08/05/19 09:29 07/07/19 13:02 Lidocaine HCl (Xylocaine 1% 30ml) 30 ml ONCE PRN INJ PICC 07/07/19 09:30 07/07/19 23:59 Linezolid 300 ml @ 300 mls/hr Q12HR IVPB 07/06/19 21:00 07/13/19 20:59 07/07/19 09:37 Morphine Sulfate (Morphine Sulfate) 1 mg Q4H PRN IVP Moderate Pain (Pain Scale 4-6) 07/06/19 01:45 07/11/19 12:59 Morphine Sulfate (Morphine Sulfate) 2 mg Q6H PRN IVP Severe Pain (Pain Scale 7-10) 07/06/19 00:30 07/10/19 18:29 07/06/19 20:19 Nitroglycerin (Ntg) 0.4 mg Q5M PRN SL Prn Chest Pain 07/05/19 22:15 08/03/19 04:59 Norepinephrine Bitartrate 8 mg/ Dextrose 500 ml @ 0 mls/hr Q24H IV 07/06/19 07:00 08/05/19 06:59 07/07/19 07:40 Pantoprazole (Protonix) 40 mg Q12HR IVP 07/06/19 09:00 07/31/19 20:59 07/07/19 09:37 Phenylephrine HCl 50 mg/Dextrose 250 ml @ 0 mls/hr Q24H IV 07/05/19 22:45 08/04/19 22:44 07/05/19 23:17 Piperacillin Sod/ Tazobactam Sod 3.375 gm/Sodium Chloride 110 ml @ 27.5 mls/hr Q12H IVPB 07/06/19 00:00 07/13/19 00:00 07/07/19 13:02 Sodium Chloride 500 ml @ 0 mls/hr Q0M PRN IVPB SBP<100 07/05/19 22:15 08/01/19 20:29 Vasopressin 100 units/Sodium Chloride 100 ml @ 0 mls/hr Q24H IV 07/05/19 22:45 08/04/19 22:44 07/06/19 23:54 Last 24 Hour Vital Signs Date Time Temp Pulse Resp B/P (MAP) Pulse Ox O2 Delivery O2 Flow Rate FiO2 07/07/19 14:54 112 23 100 30 07/07/19 14:30 110 24 100/59 (73) 100 07/07/19 14:00 115 21 103/69 (80) 100 07/07/19 13:30 103 23 101/64 (76) 99 07/07/19 13:15 107 25 100 30 07/07/19 13:00 112 23 104/81 (89) 100 07/07/19 12:30 98 20 96/63 (74) 96 07/07/19 12:00 93 07/07/19 12:00 Bi-pap 07/07/19 12:00 93 16 101/70 (80) 100 07/07/19 11:30 90 15 97/69 (78) 100 07/07/19 11:07 93 16 100 30 07/07/19 11:00 91 16 101/68 (79) 100 07/07/19 10:30 92 16 113/83 (93) 100 07/07/19 10:15 92 17 114/78 (90) 100 07/07/19 10:01 96 22 106/71 (83) 99 07/07/19 09:45 89 14 91/61 (71) 100 07/07/19 09:30 81 15 110/69 (83) 100 07/07/19 09:00 92 18 114/78 (90) 100 07/07/19 08:58 83 15 100 30 07/07/19 08:30 79 14 112/73 (86) 100 07/07/19 08:00 97.3 80 14 111/75 (87) 100 07/07/19 08:00 111/75 07/07/19 08:00 94 07/07/19 08:00 Bi-pap 07/07/19 07:40 110/74 07/07/19 07:30 80 14 110/69 (83) 100 07/07/19 07:00 110/72 07/07/19 07:00 81 14 110/74 (86) 100 07/07/19 06:53 81 15 100 30 07/07/19 06:30 83 14 113/77 (89) 100 07/07/19 06:00 95 23 123/74 (90) 99 07/07/19 06:00 123/74 07/07/19 05:45 86 18 121/84 (96) 100 07/07/19 05:30 91 34 125/102 (110) 94 3/12/20 05:04 76 14 100 30 07/07/19 05:00 75 14 109/69 (82) 100 07/07/19 05:00 109/69 07/07/19 04:30 74 14 105/93 (97) 100 07/07/19 04:15 72 14 114/76 (89) 100 07/07/19 04:00 Bi-pap 07/07/19 04:00 110/71 07/07/19 04:00 30 07/07/19 04:00 97.4 73 14 110/71 (84) 100 07/07/19 03:30 72 14 112/75 (87) 100 07/07/19 03:14 73 07/07/19 03:07 73 14 100 30 07/07/19 03:00 73 13 115/76 (89) 100 07/07/19 03:00 115/76 07/07/19 02:30 74 14 115/77 (90) 100 07/07/19 02:00 74 14 117/76 (90) 100 07/07/19 02:00 117/76 07/07/19 01:30 76 14 118/76 (90) 100 07/07/19 01:00 78 14 119/78 (92) 100 07/07/19 01:00 82 15 100 30 07/07/19 01:00 119/78 07/07/19 00:45 79 17 118/74 (89) 100 07/07/19 00:35 90 28 107/75 (86) 100 07/07/19 00:30 84 17 100 07/07/19 00:15 77 14 118/77 (91) 100 07/07/19 00:00 30 07/07/19 00:00 97.3 80 13 129/86 (100) 100 07/07/19 00:00 129/86 07/07/19 00:00 Bi-pap 07/06/19 23:30 80 14 138/83 (101) 100 07/06/19 23:27 82 07/06/19 23:15 78 14 142/87 (105) 100 07/06/19 23:01 81 14 100 30 07/06/19 23:00 81 14 141/84 (103) 100 07/06/19 23:00 141/84 07/06/19 22:45 79 135/86 (102) 100 07/06/19 22:45 78 133/85 07/06/19 22:30 76 14 150/80 (103) 100 07/06/19 22:15 91 21 155/81 (105) 99 07/06/19 22:15 155/81 07/06/19 22:00 152/90 07/06/19 22:00 75 14 152/90 (110) 100 07/06/19 21:45 74 14 137/85 (102) 100 07/06/19 21:30 78 14 105/90 (95) 100 07/06/19 21:15 78 14 130/85 (100) 100 07/06/19 21:07 79 14 100 40 07/06/19 21:00 74 14 126/79 (95) 100 07/06/19 21:00 126/79 07/06/19 20:57 116/85 07/06/19 20:45 78 14 116/85 (95) 100 07/06/19 20:30 82 14 95/79 (84) 100 07/06/19 20:15 73 14 132/74 (93) 100 07/06/19 20:00 97.4 74 14 128/80 (96) 100 07/06/19 20:00 128/80 07/06/19 20:00 40 07/06/19 20:00 Bi-pap 07/06/19 19:45 76 14 133/84 (100) 100 07/06/19 19:30 88 14 112/79 (90) 100 07/06/19 19:29 83 07/06/19 19:16 71 15 100 40 07/06/19 19:00 77 14 128/95 (106) 100 07/06/19 19:00 128/95 07/06/19 18:45 76 14 127/89 (102) 100 07/06/19 18:30 77 14 126/80 (95) 100 07/06/19 18:15 96.8 82 15 121/85 (97) 07/06/19 18:00 88 14 116/76 (89) 99 07/06/19 18:00 81 14 116/76 (89) 100 07/06/19 18:00 116/76 07/06/19 17:30 65 16 100 40 3/11/20 17:30 87 21 120/76 (91) 100 07/06/19 17:00 117/72 07/06/19 17:00 73 21 117/72 (87) 100 07/06/19 16:30 67 14 135/88 (104) 100 07/06/19 16:15 66 15 126/77 (93) 100 07/06/19 16:00 79 07/06/19 16:00 97.6 68 14 132/76 (94) 100 07/06/19 16:00 132/76 07/06/19 16:00 Bi-pap 07/06/19 15:45 82 16 123/73 (90) 100 07/06/19 15:30 82 17 129/82 (98) 100 07/06/19 15:29 74 14 100 40 07/06/19 15:15 72 14 137/76 (96) 100 07/06/19 15:00 67 14 132/79 (96) 100 07/06/19 15:00 132/79 07/06/19 14:45 72 11 120/74 (89) 100 07/06/19 14:30 69 14 135/83 (100) 100 07/06/19 14:15 78 15 129/81 (97) 100 07/06/19 14:01 80/62 07/06/19 14:00 73 14 120/76 (91) 100 07/06/19 14:00 120/76 07/06/19 13:48 88 14 80/62 (68) 100 07/06/19 13:47 89 14 69/47 (54) 100 07/06/19 13:45 95 17 98 07/06/19 13:30 86 14 115/82 (93) 79 07/06/19 13:15 75 14 124/77 (93) 100 07/06/19 13:00 115/82 07/06/19 13:00 78 14 113/78 (90) 100 07/06/19 12:45 97.1 79 14 114/79 (91) 100 07/06/19 12:44 80 14 100 40 07/06/19 12:30 81 14 109/78 (88) 100 07/06/19 12:05 80 07/06/19 12:00 77 14 108/81 (90) 100 07/06/19 12:00 Bi-pap 07/06/19 12:00 114/79 07/06/19 11:30 84 14 100 40 07/06/19 11:30 84 15 100/74 (83) 07/06/19 11:15 87 15 100/72 (81) 100 07/06/19 11:00 100/72 07/06/19 11:00 86 14 92/71 (78) 100 07/06/19 10:45 88 14 91/67 (75) 100 07/06/19 10:30 95 14 106/78 (87) 100 07/06/19 10:15 98 16 121/86 (98) 100 07/06/19 10:00 84 14 120/97 (105) 100 07/06/19 10:00 120/97 07/06/19 09:45 91 15 113/79 (90) 100 07/06/19 09:30 90 15 113/35 (61) 100 07/06/19 09:15 88 16 100/57 (71) 100 07/06/19 09:00 91 13 105/71 (82) 100 07/06/19 09:00 105/71 07/06/19 08:57 93 15 100 40 07/06/19 08:45 94 19 109/80 (90) 100 07/06/19 08:30 88 11 105/82 (90) 07/06/19 08:15 86 14 108/76 (87) 100 07/06/19 08:11 109/85 07/06/19 08:00 Bi-pap 07/06/19 08:00 109/85 07/06/19 08:00 88 07/06/19 08:00 97.1 88 15 109/85 (93) 100 07/06/19 07:45 91 18 105/75 (85) 100 07/06/19 07:35 109 21 100 40 07/06/19 07:30 103 17 124/96 (105) 100 07/06/19 07:15 89 14 111/71 (84) 100 07/06/19 07:00 90 13 111/75 (87) 07/06/19 06:45 93 20 115/75 (88) 07/06/19 06:30 94 13 116/76 (89) 07/06/19 06:15 94 15 128/82 (97) 07/06/19 06:00 128/82 07/06/19 06:00 96 14 128/82 (97) 07/06/19 05:45 98 14 105/78 (87) 07/06/19 05:33 119/89 07/06/19 05:30 94 14 119/89 (99) 07/06/19 05:29 94 16 100 40 07/06/19 05:15 95 16 126/83 (97) 07/06/19 05:00 94 16 120/80 (93) 07/06/19 04:45 93 16 120/86 (97) 07/06/19 04:30 94 15 119/80 (93) 07/06/19 04:15 96 16 122/83 (96) 07/06/19 04:00 98.2 96 19 120/78 (92) 07/06/19 04:00 Bi-pap 07/06/19 04:00 40 07/06/19 03:45 97 16 119/81 (94) 07/06/19 03:39 96 07/06/19 03:30 99 16 115/77 (90) 07/06/19 03:15 103 24 123/30 (61) 07/06/19 03:13 127/87 07/06/19 03:06 97 16 100 40 07/06/19 03:00 101 15 127/87 (100) 07/06/19 02:45 104 15 129/83 (98) 07/06/19 02:30 102 5 127/94 (105) 07/06/19 02:15 100 13 116/83 (94) 07/06/19 02:00 101 13 125/75 (92) 07/06/19 01:45 105 15 120/95 (103) 07/06/19 01:39 92 15 100 60 07/06/19 01:30 101 12 130/83 (99) 07/06/19 01:15 102 13 126/94 (105) 07/06/19 01:00 116/85 07/06/19 01:00 102 14 129/83 (98) 99 07/06/19 00:45 120 18 116/85 (95) 99 07/06/19 00:30 105 16 126/102 (110) 99 07/06/19 00:15 98 17 124/91 (102) 99 07/06/19 00:00 98.3 110 22 132/98 (109) 99 07/06/19 00:00 137/106 07/06/19 00:00 Nasal Cannula 3.0 07/06/19 00:00 60 07/05/19 23:49 123 07/05/19 23:45 128 21 137/106 (116) 79 07/05/19 23:30 127 16 126/106 (113) 07/05/19 23:30 106 26 100 Bi-Pap 100 07/05/19 23:25 106 26 100 100 07/05/19 23:17 126 70/28 07/05/19 23:15 119 16 64/32 (43) 99 07/05/19 23:00 67/11 07/05/19 23:00 118 15 67/11 (29) 100 07/05/19 22:45 129 17 97/58 (71) 94 07/05/19 22:35 109 8 91/52 (65) 99 07/05/19 22:34 110 11 78/45 (56) 99 07/05/19 22:29 106 13 77/15 (35) 100 07/05/19 22:27 113 17 62/16 (31) 100 07/05/19 22:26 70/28 07/05/19 22:02 112 15 70/28 (42) 100 07/05/19 22:00 113 16 59/48 (52) 100 07/05/19 21:13 128 14 98/67 (77) 97 07/05/19 21:08 130 17 82/66 (71) 91 07/05/19 21:00 98.4 125 17 76/55 (62) 97 07/05/19 21:00 Nasal Cannula 3.0 07/05/19 20:57 125 07/05/19 20:00 97.9 126 20 74/50 (58) 90 07/05/19 16:00 120 07/05/19 16:00 98.0 127 18 110/88 (95) 94 Intake and Output 07/06/19 07/07/19 19:00 07:00 Intake Total 2470.325 ml 2156.3 ml Output Total 3015 ml 260 ml Balance -544.675 ml 1896.3 ml IV Total 2470.325 ml 2156.3 ml Output Urine Total 15 ml 260 ml Other 3000 ml Labs Test 07/05/19 22:13 07/05/19 22:15 07/05/19 22:31 07/06/19 00:50 White Blood Count 5.8 K/UL (4.8-10.8) Red Blood Count 3.76 M/UL (4.20-5.40) Hemoglobin 11.6 G/DL (12.0-16.0) Hematocrit 35.9 % (37.0-47.0) Mean Corpuscular Volume 96 FL (80-99) Mean Corpuscular Hemoglobin 31.0 PG (27.0-31.0) Mean Corpuscular Hemoglobin Concent 32.4 G/DL (32.0-36.0) Red Cell Distribution Width 17.0 % (11.6-14.8) Platelet Count 111 K/UL (150-450) Mean Platelet Volume 8.4 FL (6.5-10.1) Neutrophils (%) (Auto) 95.7 % (45.0-75.0) Lymphocytes (%) (Auto) 2.4 % (20.0-45.0) Monocytes (%) (Auto) 1.6 % (1.0-10.0) Eosinophils (%) (Auto) 0.1 % (0.0-3.0) Basophils (%) (Auto) 0.4 % (0.0-2.0) Sodium Level 150 MMOL/L (136-145) Potassium Level 5.3 MMOL/L (3.5-5.1) Chloride Level 117 MMOL/L (98-107) Carbon Dioxide Level 20 MMOL/L (21-32) Anion Gap 13 mmol/L (5-15) Blood Urea Nitrogen 31 mg/dL (7-18) Creatinine 2.1 MG/DL (0.55-1.30) Estimat Glomerular Filtration Rate 22.8 mL/min (>60) Glucose Level 47 MG/DL (74-106) Lactic Acid Level 4.20 mmol/L (0.4-2.0) Calcium Level 7.7 MG/DL (8.5-10.1) Total Bilirubin 1.0 MG/DL (0.2-1.0) Aspartate Amino Transf (AST/SGOT) 27 U/L (15-37) Alanine Aminotransferase (ALT/SGPT) 16 U/L (12-78) Alkaline Phosphatase 75 U/L (46-116) Total Protein 3.6 G/DL (6.4-8.2) Albumin 1.3 G/DL (3.4-5.0) Globulin 2.3 g/dL Albumin/Globulin Ratio 0.6 (1.0-2.7) HIV (1&2) Antibody Rapid Negative (NEGATIVE) Arterial Blood pH 7.271 (7.350-7.450) 7.269 (7.350-7.450) Arterial Blood Partial Pressure CO2 39.3 mmHg (35.0-45.0) 29.0 mmHg (35.0-45.0) Arterial Blood Partial Pressure O2 42.6 mmHg (75.0-100.0) 270.2 mmHg (75.0-100.0) Arterial Blood HCO3 17.7 mmol/L (22.0-26.0) 13.0 mmol/L (22.0-26.0) Arterial Blood Oxygen Saturation 77.3 % (95-100) Arterial Blood Base Excess -8.6 (-2-2) -12.3 (-2-2) August Test Positive Positive Test 07/06/19 05:30 07/06/19 08:30 07/06/19 17:05 07/06/19 22:50 White Blood Count 10.4 K/UL (4.8-10.8) Red Blood Count 3.85 M/UL (4.20-5.40) Hemoglobin 12.2 G/DL (12.0-16.0) Hematocrit 35.9 % (37.0-47.0) Mean Corpuscular Volume 93 FL (80-99) Mean Corpuscular Hemoglobin 31.7 PG (27.0-31.0) Mean Corpuscular Hemoglobin Concent 34.0 G/DL (32.0-36.0) Red Cell Distribution Width 14.9 % (11.6-14.8) Platelet Count 137 K/UL (150-450) Mean Platelet Volume 6.5 FL (6.5-10.1) Neutrophils (%) (Auto) % (45.0-75.0) Lymphocytes (%) (Auto) % (20.0-45.0) Monocytes (%) (Auto) % (1.0-10.0) Eosinophils (%) (Auto) % (0.0-3.0) Basophils (%) (Auto) % (0.0-2.0) Differential Total Cells Counted 100 Neutrophils % (Manual) 61 % (45-75) Lymphocytes % (Manual) 6 % (20-45) Monocytes % (Manual) 4 % (1-10) Eosinophils % (Manual) 0 % (0-3) Basophils % (Manual) 0 % (0-2) Metamyelocytes % 2 % (0-0) Band Neutrophils 27 % (0-8) Platelet Estimate Decreased Platelet Morphology Normal Anisocytosis 1+ Sodium Level 138 MMOL/L (136-145) Potassium Level 4.4 MMOL/L (3.5-5.1) Chloride Level 109 MMOL/L (98-107) Carbon Dioxide Level 15 MMOL/L (21-32) Anion Gap 14 mmol/L (5-15) Blood Urea Nitrogen 33 mg/dL (7-18) Creatinine 2.3 MG/DL (0.55-1.30) Estimat Glomerular Filtration Rate 20.5 mL/min (>60) Glucose Level 198 MG/DL (74-106) Lactic Acid Level 6.50 mmol/L (0.4-2.0) 6.10 mmol/L (0.4-2.0) 6.10 mmol/L (0.4-2.0) Calcium Level 8.0 MG/DL (8.5-10.1) Phosphorus Level 3.2 MG/DL (2.5-4.9) Magnesium Level 1.8 MG/DL (1.8-2.4) Total Bilirubin 1.2 MG/DL (0.2-1.0) Direct Bilirubin 0.0 MG/DL (0.0-0.3) Aspartate Amino Transf (AST/SGOT) 45 U/L (15-37) Alanine Aminotransferase (ALT/SGPT) 20 U/L (12-78) Alkaline Phosphatase 83 U/L (46-116) Troponin I 0.023 ng/mL (0.000-0.056) C-Reactive Protein, Quantitative > 70.0 mg/dL (0.00-0.90) Total Protein 4.0 G/DL (6.4-8.2) Albumin 1.3 G/DL (3.4-5.0) Globulin 2.7 g/dL Albumin/Globulin Ratio 0.5 (1.0-2.7) Arterial Blood pH 7.307 (7.350-7.450) Arterial Blood Partial Pressure CO2 29.4 mmHg (35.0-45.0) Arterial Blood Partial Pressure O2 102.5 mmHg (75.0-100.0) Arterial Blood HCO3 14.4 mmol/L (22.0-26.0) Arterial Blood Oxygen Saturation 97.3 % (95-100) Arterial Blood Base Excess -10.6 (-2-2) August Test Positive Test 07/07/19 03:45 07/07/19 07:05 07/07/19 12:15 07/07/19 14:20 White Blood Count 8.7 K/UL (4.8-10.8) Red Blood Count 3.47 M/UL (4.20-5.40) Hemoglobin 11.1 G/DL (12.0-16.0) Hematocrit 31.3 % (37.0-47.0) Mean Corpuscular Volume 90 FL (80-99) Mean Corpuscular Hemoglobin 32.1 PG (27.0-31.0) Mean Corpuscular Hemoglobin Concent 35.6 G/DL (32.0-36.0) Red Cell Distribution Width 14.1 % (11.6-14.8) Platelet Count 56 K/UL (150-450) Mean Platelet Volume 7.1 FL (6.5-10.1) Neutrophils (%) (Auto) % (45.0-75.0) Lymphocytes (%) (Auto) % (20.0-45.0) Monocytes (%) (Auto) % (1.0-10.0) Eosinophils (%) (Auto) % (0.0-3.0) Basophils (%) (Auto) % (0.0-2.0) Differential Total Cells Counted 100 Neutrophils % (Manual) 93 % (45-75) Lymphocytes % (Manual) 3 % (20-45) Monocytes % (Manual) 3 % (1-10) Eosinophils % (Manual) 0 % (0-3) Basophils % (Manual) 1 % (0-2) Band Neutrophils 0 % (0-8) Platelet Estimate Decreased Platelet Morphology Normal Hypochromasia 1+ Sodium Level 130 MMOL/L (136-145) Potassium Level 3.7 MMOL/L (3.5-5.1) Chloride Level 99 MMOL/L (98-107) Carbon Dioxide Level 15 MMOL/L (21-32) Anion Gap 16 mmol/L (5-15) Blood Urea Nitrogen 35 mg/dL (7-18) Creatinine 2.3 MG/DL (0.55-1.30) Estimat Glomerular Filtration Rate 20.5 mL/min (>60) Glucose Level 203 MG/DL (74-106) Lactic Acid Level 6.20 mmol/L (0.4-2.0) 5.70 mmol/L (0.66-2.22) 6.30 mmol/L (0.4-2.0) Uric Acid 2.8 MG/DL (2.6-7.2) Calcium Level 7.7 MG/DL (8.5-10.1) Phosphorus Level 2.8 MG/DL (2.5-4.9) Magnesium Level 1.9 MG/DL (1.8-2.4) Total Bilirubin 1.7 MG/DL (0.2-1.0) Direct Bilirubin 1.2 MG/DL (0.0-0.3) Aspartate Amino Transf (AST/SGOT) 18 U/L (15-37) Alanine Aminotransferase (ALT/SGPT) 22 U/L (12-78) Alkaline Phosphatase 61 U/L (46-116) Troponin I 1.113 ng/mL (0.000-0.056) C-Reactive Protein, Quantitative 40.9 mg/dL (0.00-0.90) Total Protein 3.8 G/DL (6.4-8.2) Albumin 1.6 G/DL (3.4-5.0) Globulin 2.2 g/dL Albumin/Globulin Ratio 0.7 (1.0-2.7) Arterial Blood pH 7.359 (7.350-7.450) Arterial Blood Partial Pressure CO2 20.8 mmHg (35.0-45.0) Arterial Blood Partial Pressure O2 91.5 mmHg (75.0-100.0) Arterial Blood HCO3 11.5 mmol/L (22.0-26.0) Arterial Blood Oxygen Saturation 96.7 % (95-100) Arterial Blood Base Excess -11.9 (-2-2) August Test Positive Height (Feet): 5 Height (Inches): 3.00 Weight (Pounds): 122 Objective PE General Appearance: well appearing, no apparent distress Head: normocephalic, atraumatic Eyes: bilateral eye PERRL, bilateral eye EOMI Resp: lungs clear, normal breath sounds, no rhonchi ++ bipap Cardiovascular: normal peripheral pulses, regular rate, rhythm, no murmur Gastrointestinal: soft, non-distended, other - Left-sided abdominal tenderness , large healed midline abdominal scar Musculoskeletal: other - Bilateral lower extremity edema noted 2+ up to the knee Neurologic: alert, oriented x3, no focal defects Gregorio Mercado MD Jul 07, 2019 15:10
--- NOTE | 2019-07-07 15:17 | General Progress Note ---
Assessment/Plan Status: unchanged Assessment/Plan: S: I am feeling ok O: patient is delirious. Right inguinal femoral line in place PHYSICAL EXAMINATION:HEAD AND NECK: cachectic appearacne, Atraumatic and normocephalic. CHEST: Bronchial bs, .HEART: S1, S2. Regular rate and rhythm. ABDOMEN: Soft, fullness, tympanic . a scar of prior surgery noted in the midline. NEUROLOGY: delirious . MUSCULOSKELETAL: Atrophied musculature. Meds: reviewed and reconciled ASSESSMENT: 1. Shock: DIC ! 2. Perforated viscus ! carcinomatosis ! 3. Pancreatic cancer , history of 4. Elevated levels of Tumor markers 5. Dehydration. 6. Acute anemia. 7. Thrombocytopenia. 8. GI and DVT prophylaxis. PLAN OF CARE: On Pressors S/p family meeting. the Dtr ( Giovanny) requesting Full code I discussed the poor prognosis with her on my meeting on07/04 with presence of father and sister. Medically intubation will not prolong the survivability of this patient. Subjective Allergies: Coded Allergies: No Known Allergies (Unverified , 03/06/16) Objective Last 24 Hour Vital Signs Date Time Temp Pulse Resp B/P (MAP) Pulse Ox O2 Delivery O2 Flow Rate FiO2 07/07/19 14:54 112 23 100 30 07/07/19 14:30 110 24 100/59 (73) 100 07/07/19 14:00 115 21 103/69 (80) 100 07/07/19 13:30 103 23 101/64 (76) 99 07/07/19 13:15 107 25 100 30 07/07/19 13:00 112 23 104/81 (89) 100 07/07/19 12:30 98 20 96/63 (74) 96 07/07/19 12:00 93 07/07/19 12:00 Bi-pap 07/07/19 12:00 93 16 101/70 (80) 100 07/07/19 11:30 90 15 97/69 (78) 100 07/07/19 11:07 93 16 100 30 07/07/19 11:00 91 16 101/68 (79) 100 07/07/19 10:30 92 16 113/83 (93) 100 07/07/19 10:15 92 17 114/78 (90) 100 07/07/19 10:01 96 22 106/71 (83) 99 07/07/19 09:45 89 14 91/61 (71) 100 07/07/19 09:30 81 15 110/69 (83) 100 07/07/19 09:00 92 18 114/78 (90) 100 07/07/19 08:58 83 15 100 30 07/07/19 08:30 79 14 112/73 (86) 100 07/07/19 08:00 97.3 80 14 111/75 (87) 100 07/07/19 08:00 111/75 07/07/19 08:00 94 07/07/19 08:00 Bi-pap 07/07/19 07:40 110/74 07/07/19 07:30 80 14 110/69 (83) 100 07/07/19 07:00 110/72 07/07/19 07:00 81 14 110/74 (86) 100 07/07/19 06:53 81 15 100 30 07/07/19 06:30 83 14 113/77 (89) 100 07/07/19 06:00 95 23 123/74 (90) 99 07/07/19 06:00 123/74 07/07/19 05:45 86 18 121/84 (96) 100 07/07/19 05:30 91 34 125/102 (110) 94 07/07/19 05:04 76 14 100 30 07/07/19 05:00 75 14 109/69 (82) 100 07/07/19 05:00 109/69 07/07/19 04:30 74 14 105/93 (97) 100 07/07/19 04:15 72 14 114/76 (89) 100 07/07/19 04:00 Bi-pap 07/07/19 04:00 110/71 07/07/19 04:00 30 07/07/19 04:00 97.4 73 14 110/71 (84) 100 07/07/19 03:30 72 14 112/75 (87) 100 07/07/19 03:14 73 07/07/19 03:07 73 14 100 30 07/07/19 03:00 73 13 115/76 (89) 100 07/07/19 03:00 115/76 07/07/19 02:30 74 14 115/77 (90) 100 07/07/19 02:00 74 14 117/76 (90) 100 07/07/19 02:00 117/76 07/07/19 01:30 76 14 118/76 (90) 100 07/07/19 01:00 78 14 119/78 (92) 100 07/07/19 01:00 82 15 100 30 07/07/19 01:00 119/78 07/07/19 00:45 79 17 118/74 (89) 100 07/07/19 00:35 90 28 107/75 (86) 100 07/07/19 00:30 84 17 100 07/07/19 00:15 77 14 118/77 (91) 100 07/07/19 00:00 30 07/07/19 00:00 97.3 80 13 129/86 (100) 100 07/07/19 00:00 129/86 07/07/19 00:00 Bi-pap 07/06/19 23:30 80 14 138/83 (101) 100 07/06/19 23:27 82 07/06/19 23:15 78 14 142/87 (105) 100 07/06/19 23:01 81 14 100 30 07/06/19 23:00 81 14 141/84 (103) 100 07/06/19 23:00 141/84 07/06/19 22:45 79 135/86 (102) 100 07/06/19 22:45 78 133/85 07/06/19 22:30 76 14 150/80 (103) 100 07/06/19 22:15 91 21 155/81 (105) 99 07/06/19 22:15 155/81 07/06/19 22:00 152/90 07/06/19 22:00 75 14 152/90 (110) 100 07/06/19 21:45 74 14 137/85 (102) 100 07/06/19 21:30 78 14 105/90 (95) 100 07/06/19 21:15 78 14 130/85 (100) 100 07/06/19 21:07 79 14 100 40 07/06/19 21:00 74 14 126/79 (95) 100 07/06/19 21:00 126/79 07/06/19 20:57 116/85 07/06/19 20:45 78 14 116/85 (95) 100 07/06/19 20:30 82 14 95/79 (84) 100 07/06/19 20:15 73 14 132/74 (93) 100 07/06/19 20:00 97.4 74 14 128/80 (96) 100 07/06/19 20:00 128/80 07/06/19 20:00 40 07/06/19 20:00 Bi-pap 07/06/19 19:45 76 14 133/84 (100) 100 07/06/19 19:30 88 14 112/79 (90) 100 07/06/19 19:29 83 07/06/19 19:16 71 15 100 40 07/06/19 19:00 77 14 128/95 (106) 100 07/06/19 19:00 128/95 07/06/19 18:45 76 14 127/89 (102) 100 07/06/19 18:30 77 14 126/80 (95) 100 07/06/19 18:15 96.8 82 15 121/85 (97) 07/06/19 18:00 88 14 116/76 (89) 99 07/06/19 18:00 81 14 116/76 (89) 100 07/06/19 18:00 116/76 07/06/19 17:30 65 16 100 40 07/06/19 17:30 87 21 120/76 (91) 100 07/06/19 17:00 117/72 07/06/19 17:00 73 21 117/72 (87) 100 07/06/19 16:30 67 14 135/88 (104) 100 07/06/19 16:15 66 15 126/77 (93) 100 07/06/19 16:00 79 07/06/19 16:00 97.6 68 14 132/76 (94) 100 07/06/19 16:00 132/76 07/06/19 16:00 Bi-pap 07/06/19 15:45 82 16 123/73 (90) 100 07/06/19 15:30 82 17 129/82 (98) 100 07/06/19 15:29 74 14 100 40 07/06/19 15:15 72 14 137/76 (96) 100 Intake and Output 07/06/19 07/07/19 19:00 07:00 Intake Total 2470.325 ml 2156.3 ml Output Total 3015 ml 260 ml Balance -544.675 ml 1896.3 ml IV Total 2470.325 ml 2156.3 ml Output Urine Total 15 ml 260 ml Other 3000 ml Laboratory Tests 07/06/19 17:05: Lactic Acid Level 6.10H 07/06/19 22:50: Lactic Acid Level 6.10H 07/07/19 03:45: Lactic Acid Level 6.20H, White Blood Count 8.7, Red Blood Count 3.47L, Hemoglobin 11.1L, Hematocrit 31.3L, Mean Corpuscular Volume 90, Mean Corpuscular Hemoglobin 32.1H, Mean Corpuscular Hemoglobin Concent 35.6, Red Cell Distribution Width 14.1, Platelet Count 56#L, Mean Platelet Volume 7.1, Neutrophils (%) (Auto) , Lymphocytes (%) (Auto) , Monocytes (%) (Auto) , Eosinophils (%) (Auto) , Basophils (%) (Auto) , Differential Total Cells Counted 100, Neutrophils % (Manual) 93H, Lymphocytes % (Manual) 3L, Monocytes % (Manual) 3, Eosinophils % (Manual) 0, Basophils % (Manual) 1, Band Neutrophils 0 , Platelet Estimate DecreasedL, Platelet Morphology Normal, Hypochromasia 1+, Sodium Level 130L, Potassium Level 3.7, Chloride Level 99, Carbon Dioxide Level 15L, Anion Gap 16H, Blood Urea Nitrogen 35H, Creatinine 2.3H, Estimat Glomerular Filtration Rate 20.5, Glucose Level 203H, Uric Acid 2.8, Calcium Level 7.7L, Phosphorus Level 2.8, Magnesium Level 1.9, Total Bilirubin 1.7H, Direct Bilirubin 1.2H, Aspartate Amino Transf (AST/SGOT) 18, Alanine Aminotransferase (ALT/SGPT) 22, Alkaline Phosphatase 61, Troponin I 1.113H, C- Reactive Protein, Quantitative 40.9H, Total Protein 3.8L, Albumin 1.6L, Globulin 2.2, Albumin/Globulin Ratio 0.7L 07/07/19 07:05: Lactic Acid Level 5.70H 07/07/19 12:15: Lactic Acid Level 6.30H 07/07/19 14:20: Arterial Blood pH 7.359, Arterial Blood Partial Pressure CO2 20.8*L, Arterial Blood Partial Pressure O2 91.5, Arterial Blood HCO3 11.5*L, Arterial Blood Oxygen Saturation 96.7, Arterial Blood Base Excess -11.9*L, August Test Positive Height (Feet): 5 Height (Inches): 3.00 Weight (Pounds): 122 Eli Keenan MD Jul 07, 2019 15:17
--- NOTE | 2019-07-07 15:30 | NUR ---
NURSE NOTES: Daughter and at bedside. Edwige Mccallum signed the consent for PICC line. Addendum: 07/07/19 at 1542 by ALEJANDRO JC RN RN NURSE NOTES: Daughter and pt's at bedside. Edwige Mccallum signed the consent for PICC line. PICC line will be done tomorrow as per Radiology. Notified Dr Munson regarding ABG result. No new orders.
[2019-07-07] MEDS ORDERED: D5W 275ml ONE ×2 (15:32→15:44)
[2019-07-07] MEDS ORDERED: NS 275ml ONE ×2 (15:32→15:44)
[2019-07-07] MEDS ORDERED: Tubing IV Secondary IV ONE ×2 (15:32→15:44)
[2019-07-07] MEDS ORDERED: Sterile Water Irrig 1000ml IRRIG ONE (15:32)
--- NOTE | 2019-07-07 15:51 | Cardiac Electrophysiology PN ---
Assessment/Plan Assessment/Plan 1. Severe bilateral lower extremity edema. Etiology is not clear at this time. Echo EF 65% 2. Ascites, status post 3 liter paracentesis on admission and again yesterday 3. History of prior gastrectomy with Nolan-en-Y anastomosis. 4. Small amount of intraperitoneal air consistent with perforated viscus. Further evaluation by Dr. Hawkins. 5. Severe anemia. Could be dilutional. S/P PRBC 6. Septic shock S/P 2 units PRBC and iv fluid and iv Abx. On Levophed 10 mcg, Vasopressin 0.03 7. Hx of pancreatic cancer 8. Resp failure on BIPAP 9. Troponin leak due to demand ischemia DW RN Subjective Subjective In ICU for septic shock with Lactic acid of 6.5 and on Levophed 10 mcg and Vasopressin at 0.04 and had 3 liter of paracentesis yesterday again. On BIPAP. at bedside and full code Objective Last 24 Hour Vital Signs Date Time Temp Pulse Resp B/P (MAP) Pulse Ox O2 Delivery O2 Flow Rate FiO2 07/07/19 15:00 100/70 07/07/19 15:00 117 23 102/63 (76) 100 07/07/19 14:54 112 23 100 30 07/07/19 14:30 110 24 100/59 (73) 100 07/07/19 14:00 128/57 07/07/19 14:00 115 21 103/69 (80) 100 07/07/19 13:30 103 23 101/64 (76) 99 07/07/19 13:15 107 25 100 30 07/07/19 13:00 99/69 07/07/19 13:00 97.0 112 23 104/81 (89) 100 07/07/19 12:30 98 20 96/63 (74) 96 07/07/19 12:00 93 07/07/19 12:00 Bi-pap 07/07/19 12:00 101/70 07/07/19 12:00 93 16 101/70 (80) 100 07/07/19 11:30 90 15 97/69 (78) 100 07/07/19 11:07 93 16 100 30 07/07/19 11:00 101/68 07/07/19 11:00 91 16 101/68 (79) 100 07/07/19 10:30 92 16 113/83 (93) 100 07/07/19 10:15 92 17 114/78 (90) 100 07/07/19 10:01 96 22 106/71 (83) 99 07/07/19 10:00 114/78 07/07/19 09:45 89 14 91/61 (71) 100 07/07/19 09:30 81 15 110/69 (83) 100 07/07/19 09:00 111/72 07/07/19 09:00 92 18 114/78 (90) 100 07/07/19 08:58 83 15 100 30 07/07/19 08:30 79 14 112/73 (86) 100 07/07/19 08:00 97.3 80 14 111/75 (87) 100 07/07/19 08:00 111/75 07/07/19 08:00 94 07/07/19 08:00 Bi-pap 07/07/19 07:40 110/74 07/07/19 07:30 80 14 110/69 (83) 100 07/07/19 07:00 110/72 07/07/19 07:00 81 14 110/74 (86) 100 07/07/19 06:53 81 15 100 30 07/07/19 06:30 83 14 113/77 (89) 100 07/07/19 06:00 95 23 123/74 (90) 99 07/07/19 06:00 123/74 07/07/19 05:45 86 18 121/84 (96) 100 07/07/19 05:30 91 34 125/102 (110) 94 07/07/19 05:04 76 14 100 30 07/07/19 05:00 75 14 109/69 (82) 100 07/07/19 05:00 109/69 07/07/19 04:30 74 14 105/93 (97) 100 07/07/19 04:15 72 14 114/76 (89) 100 07/07/19 04:00 Bi-pap 07/07/19 04:00 110/71 07/07/19 04:00 30 07/07/19 04:00 97.4 73 14 110/71 (84) 100 07/07/19 03:30 72 14 112/75 (87) 100 07/07/19 03:14 73 07/07/19 03:07 73 14 100 30 07/07/19 03:00 73 13 115/76 (89) 100 07/07/19 03:00 115/76 07/07/19 02:30 74 14 115/77 (90) 100 07/07/19 02:00 74 14 117/76 (90) 100 07/07/19 02:00 117/76 07/07/19 01:30 76 14 118/76 (90) 100 07/07/19 01:00 78 14 119/78 (92) 100 07/07/19 01:00 82 15 100 30 07/07/19 01:00 119/78 07/07/19 00:45 79 17 118/74 (89) 100 07/07/19 00:35 90 28 107/75 (86) 100 07/07/19 00:30 84 17 100 07/07/19 00:15 77 14 118/77 (91) 100 07/07/19 00:00 30 07/07/19 00:00 97.3 80 13 129/86 (100) 100 07/07/19 00:00 129/86 07/07/19 00:00 Bi-pap 07/06/19 23:30 80 14 138/83 (101) 100 07/06/19 23:27 82 07/06/19 23:15 78 14 142/87 (105) 100 07/06/19 23:01 81 14 100 30 07/06/19 23:00 81 14 141/84 (103) 100 07/06/19 23:00 141/84 07/06/19 22:45 79 135/86 (102) 100 07/06/19 22:45 78 133/85 07/06/19 22:30 76 14 150/80 (103) 100 07/06/19 22:15 91 21 155/81 (105) 99 07/06/19 22:15 155/81 07/06/19 22:00 152/90 07/06/19 22:00 75 14 152/90 (110) 100 07/06/19 21:45 74 14 137/85 (102) 100 07/06/19 21:30 78 14 105/90 (95) 100 07/06/19 21:15 78 14 130/85 (100) 100 07/06/19 21:07 79 14 100 40 07/06/19 21:00 74 14 126/79 (95) 100 07/06/19 21:00 126/79 07/06/19 20:57 116/85 07/06/19 20:45 78 14 116/85 (95) 100 07/06/19 20:30 82 14 95/79 (84) 100 07/06/19 20:15 73 14 132/74 (93) 100 07/06/19 20:00 97.4 74 14 128/80 (96) 100 07/06/19 20:00 128/80 07/06/19 20:00 40 07/06/19 20:00 Bi-pap 07/06/19 19:45 76 14 133/84 (100) 100 07/06/19 19:30 88 14 112/79 (90) 100 07/06/19 19:29 83 07/06/19 19:16 71 15 100 40 07/06/19 19:00 77 14 128/95 (106) 100 07/06/19 19:00 128/95 07/06/19 18:45 76 14 127/89 (102) 100 07/06/19 18:30 77 14 126/80 (95) 100 07/06/19 18:15 96.8 82 15 121/85 (97) 07/06/19 18:00 88 14 116/76 (89) 99 07/06/19 18:00 81 14 116/76 (89) 100 07/06/19 18:00 116/76 07/06/19 17:30 65 16 100 40 07/06/19 17:30 87 21 120/76 (91) 100 07/06/19 17:00 117/72 07/06/19 17:00 73 21 117/72 (87) 100 07/06/19 16:30 67 14 135/88 (104) 100 07/06/19 16:15 66 15 126/77 (93) 100 07/06/19 16:00 79 07/06/19 16:00 97.6 68 14 132/76 (94) 100 07/06/19 16:00 132/76 07/06/19 16:00 Bi-pap Intake and Output 07/06/19 07/07/19 19:00 07:00 Intake Total 2470.325 ml 2156.3 ml Output Total 3015 ml 260 ml Balance -544.675 ml 1896.3 ml IV Total 2470.325 ml 2156.3 ml Output Urine Total 15 ml 260 ml Other 3000 ml Laboratory Tests Test 07/06/19 17:05 07/06/19 22:50 07/07/19 03:45 07/07/19 07:05 Lactic Acid Level 6.10 mmol/L (0.4-2.0) H 6.10 mmol/L (0.4-2.0) H 6.20 mmol/L (0.4-2.0) H 5.70 mmol/L (0.66-2.22) H White Blood Count 8.7 K/UL (4.8-10.8) Red Blood Count 3.47 M/UL (4.20-5.40) L Hemoglobin 11.1 G/DL (12.0-16.0) L Hematocrit 31.3 % (37.0-47.0) L Mean Corpuscular Volume 90 FL (80-99) Mean Corpuscular Hemoglobin 32.1 PG (27.0-31.0) H Mean Corpuscular Hemoglobin Concent 35.6 G/DL (32.0-36.0) Red Cell Distribution Width 14.1 % (11.6-14.8) Platelet Count 56 K/UL (150-450) #L Mean Platelet Volume 7.1 FL (6.5-10.1) Neutrophils (%) (Auto) % (45.0-75.0) Lymphocytes (%) (Auto) % (20.0-45.0) Monocytes (%) (Auto) % (1.0-10.0) Eosinophils (%) (Auto) % (0.0-3.0) Basophils (%) (Auto) % (0.0-2.0) Differential Total Cells Counted 100 Neutrophils % (Manual) 93 % (45-75) H Lymphocytes % (Manual) 3 % (20-45) L Monocytes % (Manual) 3 % (1-10) Eosinophils % (Manual) 0 % (0-3) Basophils % (Manual) 1 % (0-2) Band Neutrophils 0 % (0-8) Platelet Estimate Decreased L Platelet Morphology Normal Hypochromasia 1+ Sodium Level 130 MMOL/L (136-145) L Potassium Level 3.7 MMOL/L (3.5-5.1) Chloride Level 99 MMOL/L (98-107) Carbon Dioxide Level 15 MMOL/L (21-32) L Anion Gap 16 mmol/L (5-15) H Blood Urea Nitrogen 35 mg/dL (7-18) H Creatinine 2.3 MG/DL (0.55-1.30) H Estimat Glomerular Filtration Rate 20.5 mL/min (>60) Glucose Level 203 MG/DL (74-106) H Uric Acid 2.8 MG/DL (2.6-7.2) Calcium Level 7.7 MG/DL (8.5-10.1) L Phosphorus Level 2.8 MG/DL (2.5-4.9) Magnesium Level 1.9 MG/DL (1.8-2.4) Total Bilirubin 1.7 MG/DL (0.2-1.0) H Direct Bilirubin 1.2 MG/DL (0.0-0.3) H Aspartate Amino Transf (AST/SGOT) 18 U/L (15-37) Alanine Aminotransferase (ALT/SGPT) 22 U/L (12-78) Alkaline Phosphatase 61 U/L (46-116) Troponin I 1.113 ng/mL (0.000-0.056) C-Reactive Protein, Quantitative 40.9 mg/dL (0.00-0.90) H Total Protein 3.8 G/DL (6.4-8.2) L Albumin 1.6 G/DL (3.4-5.0) L Globulin 2.2 g/dL Albumin/Globulin Ratio 0.7 (1.0-2.7) L Test 07/07/19 12:15 07/07/19 14:20 Lactic Acid Level 6.30 mmol/L (0.4-2.0) H Arterial Blood pH 7.359 (7.350-7.450) Arterial Blood Partial Pressure CO2 20.8 mmHg (35.0-45.0) *L Arterial Blood Partial Pressure O2 91.5 mmHg (75.0-100.0) Arterial Blood HCO3 11.5 mmol/L (22.0-26.0) *L Arterial Blood Oxygen Saturation 96.7 % (95-100) Arterial Blood Base Excess -11.9 (-2-2) *L August Test Positive Objective HEAD AND NECK: No JVD.BIPAP on LUNGS: Coarse rhonchi CARDIOVASCULAR: Regular S1 and S2 with no gallop. ABDOMEN: Very tender. Has scar of prior surgery.Ascites EXTREMITIES: 2+ pitting edema. Benton Meyer MD Jul 07, 2019 15:51
--- NOTE | 2019-07-07 18:00 | NUR ---
NURSE NOTES: Cleaned pt for moderate amount of loose brown BM. Right femoral TLC dressing changed. Pt is still on Levo at 10 mcg/min and Vasopressin at 0.04 units/min. Will continue to monitor.
--- NOTE | 2019-07-07 19:12 | NUR ---
RESPIRATORY NOTE: Received pt on BiPAP 20/5, backup rate 14, 30%. Pt is on a Full Face mask, skin intact, no redness/breakdowns noted. Foam tape applied on pt's nosebridge/cheeks/chin as well as forehead to prevent mask irritations. Pt switches from Full face mask to Facial mask. Pt is currently asleep, oriented/follows commands when awake. B/S artur. clear/diminished, nonproductive cough. Family present at bedside. BiPAP plugged into red outlet, alarms on & audible. Pt in no apparent distress at this time. Will continue to monitor pt.
--- NOTE | 2019-07-07 19:20 | NUR ---
HAND-OFF: Report given to Paolo Hanna RN.
--- NOTE | 2019-07-07 19:28 | Surgery Progress Note ---
Surgery Progress Note Subjective Additional Comments Ill-appearing worsening lactic acidosis on BiPAP respiratory insufficiency prognosis very guarded ill-appearing Objective Last 24 Hour Vital Signs Date Time Temp Pulse Resp B/P (MAP) Pulse Ox O2 Delivery O2 Flow Rate FiO2 07/07/19 19:12 116 26 99 30 07/07/19 18:30 114 26 110/76 (87) 94 07/07/19 18:00 105 22 96/54 (68) 100 07/07/19 18:00 96/54 07/07/19 17:30 118 30 113/86 (95) 92 07/07/19 17:01 103 21 100 30 07/07/19 17:00 105 21 101/44 (63) 100 07/07/19 17:00 103/59 07/07/19 16:30 97.3 106 23 104/64 (77) 100 07/07/19 16:05 111 23 101/70 (80) 97 07/07/19 16:04 114 07/07/19 16:00 Bi-pap 07/07/19 16:00 101/70 07/07/19 15:30 112 26 93/60 (71) 99 07/07/19 15:00 100/70 07/07/19 15:00 117 23 102/63 (76) 100 07/07/19 14:54 112 23 100 30 07/07/19 14:30 110 24 100/59 (73) 100 07/07/19 14:00 128/57 07/07/19 14:00 115 21 103/69 (80) 100 07/07/19 13:30 103 23 101/64 (76) 99 07/07/19 13:15 107 25 100 30 07/07/19 13:00 99/69 07/07/19 13:00 97.0 112 23 104/81 (89) 100 07/07/19 12:30 98 20 96/63 (74) 96 07/07/19 12:00 93 07/07/19 12:00 Bi-pap 07/07/19 12:00 101/70 07/07/19 12:00 93 16 101/70 (80) 100 07/07/19 11:30 90 15 97/69 (78) 100 07/07/19 11:07 93 16 100 30 07/07/19 11:00 101/68 07/07/19 11:00 91 16 101/68 (79) 100 07/07/19 10:30 92 16 113/83 (93) 100 07/07/19 10:15 92 17 114/78 (90) 100 07/07/19 10:01 96 22 106/71 (83) 99 07/07/19 10:00 114/78 07/07/19 09:45 89 14 91/61 (71) 100 07/07/19 09:30 81 15 110/69 (83) 100 07/07/19 09:00 111/72 07/07/19 09:00 92 18 114/78 (90) 100 07/07/19 08:58 83 15 100 30 07/07/19 08:30 79 14 112/73 (86) 100 07/07/19 08:00 97.3 80 14 111/75 (87) 100 07/07/19 08:00 111/75 07/07/19 08:00 94 07/07/19 08:00 Bi-pap 07/07/19 07:40 110/74 07/07/19 07:30 80 14 110/69 (83) 100 07/07/19 07:00 110/72 07/07/19 07:00 81 14 110/74 (86) 100 07/07/19 06:53 81 15 100 30 07/07/19 06:30 83 14 113/77 (89) 100 07/07/19 06:00 95 23 123/74 (90) 99 07/07/19 06:00 123/74 07/07/19 05:45 86 18 121/84 (96) 100 07/07/19 05:30 91 34 125/102 (110) 94 07/07/19 05:04 76 14 100 30 07/07/19 05:00 75 14 109/69 (82) 100 07/07/19 05:00 109/69 07/07/19 04:30 74 14 105/93 (97) 100 07/07/19 04:15 72 14 114/76 (89) 100 07/07/19 04:00 Bi-pap 07/07/19 04:00 110/71 07/07/19 04:00 30 07/07/19 04:00 97.4 73 14 110/71 (84) 100 07/07/19 03:30 72 14 112/75 (87) 100 07/07/19 03:14 73 07/07/19 03:07 73 14 100 30 07/07/19 03:00 73 13 115/76 (89) 100 07/07/19 03:00 115/76 07/07/19 02:30 74 14 115/77 (90) 100 07/07/19 02:00 74 14 117/76 (90) 100 07/07/19 02:00 117/76 07/07/19 01:30 76 14 118/76 (90) 100 07/07/19 01:00 78 14 119/78 (92) 100 07/07/19 01:00 82 15 100 30 07/07/19 01:00 119/78 07/07/19 00:45 79 17 118/74 (89) 100 07/07/19 00:35 90 28 107/75 (86) 100 07/07/19 00:30 84 17 100 07/07/19 00:15 77 14 118/77 (91) 100 07/07/19 00:00 30 07/07/19 00:00 97.3 80 13 129/86 (100) 100 07/07/19 00:00 129/86 07/07/19 00:00 Bi-pap 07/06/19 23:30 80 14 138/83 (101) 100 07/06/19 23:27 82 07/06/19 23:15 78 14 142/87 (105) 100 07/06/19 23:01 81 14 100 30 07/06/19 23:00 81 14 141/84 (103) 100 07/06/19 23:00 141/84 07/06/19 22:45 79 135/86 (102) 100 07/06/19 22:45 78 133/85 07/06/19 22:30 76 14 150/80 (103) 100 07/06/19 22:15 91 21 155/81 (105) 99 07/06/19 22:15 155/81 07/06/19 22:00 152/90 07/06/19 22:00 75 14 152/90 (110) 100 07/06/19 21:45 74 14 137/85 (102) 100 07/06/19 21:30 78 14 105/90 (95) 100 07/06/19 21:15 78 14 130/85 (100) 100 07/06/19 21:07 79 14 100 40 07/06/19 21:00 74 14 126/79 (95) 100 07/06/19 21:00 126/79 07/06/19 20:57 116/85 07/06/19 20:45 78 14 116/85 (95) 100 07/06/19 20:30 82 14 95/79 (84) 100 07/06/19 20:15 73 14 132/74 (93) 100 07/06/19 20:00 97.4 74 14 128/80 (96) 100 07/06/19 20:00 128/80 07/06/19 20:00 40 07/06/19 20:00 Bi-pap 07/06/19 19:45 76 14 133/84 (100) 100 07/06/19 19:30 88 14 112/79 (90) 100 07/06/19 19:29 83 I&O Intake and Output 07/06/19 07/07/19 19:00 07:00 Intake Total 2470.325 ml 2156.3 ml Output Total 3015 ml 260 ml Balance -544.675 ml 1896.3 ml IV Total 2470.325 ml 2156.3 ml Output Urine Total 15 ml 260 ml Other 3000 ml Dressing: other Wound: other Drains: other Cardiovascular: RSR Respiratory: decreased breath sounds Abdomen: soft, distended, tenderness Extremities: no cyanosis Laboratory Tests Test 07/06/19 22:50 07/07/19 03:45 07/07/19 07:05 07/07/19 12:15 Lactic Acid Level 6.10 mmol/L (0.4-2.0) H 6.20 mmol/L (0.4-2.0) H 5.70 mmol/L (0.66-2.22) H 6.30 mmol/L (0.4-2.0) H White Blood Count 8.7 K/UL (4.8-10.8) Red Blood Count 3.47 M/UL (4.20-5.40) L Hemoglobin 11.1 G/DL (12.0-16.0) L Hematocrit 31.3 % (37.0-47.0) L Mean Corpuscular Volume 90 FL (80-99) Mean Corpuscular Hemoglobin 32.1 PG (27.0-31.0) H Mean Corpuscular Hemoglobin Concent 35.6 G/DL (32.0-36.0) Red Cell Distribution Width 14.1 % (11.6-14.8) Platelet Count 56 K/UL (150-450) #L Mean Platelet Volume 7.1 FL (6.5-10.1) Neutrophils (%) (Auto) % (45.0-75.0) Lymphocytes (%) (Auto) % (20.0-45.0) Monocytes (%) (Auto) % (1.0-10.0) Eosinophils (%) (Auto) % (0.0-3.0) Basophils (%) (Auto) % (0.0-2.0) Differential Total Cells Counted 100 Neutrophils % (Manual) 93 % (45-75) H Lymphocytes % (Manual) 3 % (20-45) L Monocytes % (Manual) 3 % (1-10) Eosinophils % (Manual) 0 % (0-3) Basophils % (Manual) 1 % (0-2) Band Neutrophils 0 % (0-8) Platelet Estimate Decreased L Platelet Morphology Normal Hypochromasia 1+ Sodium Level 130 MMOL/L (136-145) L Potassium Level 3.7 MMOL/L (3.5-5.1) Chloride Level 99 MMOL/L (98-107) Carbon Dioxide Level 15 MMOL/L (21-32) L Anion Gap 16 mmol/L (5-15) H Blood Urea Nitrogen 35 mg/dL (7-18) H Creatinine 2.3 MG/DL (0.55-1.30) H Estimat Glomerular Filtration Rate 20.5 mL/min (>60) Glucose Level 203 MG/DL (74-106) H Uric Acid 2.8 MG/DL (2.6-7.2) Calcium Level 7.7 MG/DL (8.5-10.1) L Phosphorus Level 2.8 MG/DL (2.5-4.9) Magnesium Level 1.9 MG/DL (1.8-2.4) Total Bilirubin 1.7 MG/DL (0.2-1.0) H Direct Bilirubin 1.2 MG/DL (0.0-0.3) H Aspartate Amino Transf (AST/SGOT) 18 U/L (15-37) Alanine Aminotransferase (ALT/SGPT) 22 U/L (12-78) Alkaline Phosphatase 61 U/L (46-116) Troponin I 1.113 ng/mL (0.000-0.056) C-Reactive Protein, Quantitative 40.9 mg/dL (0.00-0.90) H Total Protein 3.8 G/DL (6.4-8.2) L Albumin 1.6 G/DL (3.4-5.0) L Globulin 2.2 g/dL Albumin/Globulin Ratio 0.7 (1.0-2.7) L Test 07/07/19 14:20 07/07/19 18:10 Arterial Blood pH 7.359 (7.350-7.450) Arterial Blood Partial Pressure CO2 20.8 mmHg (35.0-45.0) *L Arterial Blood Partial Pressure O2 91.5 mmHg (75.0-100.0) Arterial Blood HCO3 11.5 mmol/L (22.0-26.0) *L Arterial Blood Oxygen Saturation 96.7 % (95-100) Arterial Blood Base Excess -11.9 (-2-2) *L August Test Positive Lactic Acid Level 7.80 mmol/L (0.4-2.0) H Plan Problems: (1) Abdominal pain Assessment & Plan: This is a 78-year-old female who presented to [facility] complaining of worsening abdominal pain. A golf club head inspector and adjuster was used to obtain history from the patient as well as the given Chinese speaking. is able to speak somewhat Romanian but his Romanian is not good enough for complete translation therefore translation services were used. I had a long discussion with them in regards to admission current symptoms and care. As from what I could determine she had a partial gastrectomy about 2-1/2 years ago for unknown reason potentially ulcer perforation. She has a large midline incision from xiphoid down almost to the pubis. She has since developed ascites though no known liver dysfunction and recently as of yesterday from patient stating had a paracentesis done at an outside facility. States continues to have pain and she feels she is full of fluid and distended and it causes her discomfort therefore she came here for evaluation. No nausea vomiting fever chills. Does not eat well. Malnourished. Surgery called to evaluate and assist with care. CT scan demonstrated some bubbles of free air and ascites fluid. In evaluating the patient on examination she is fairly tender in all quadrants. She states she just feels like she is full of fluid. I reviewed the CT personally and discussed with the radiologist Given the minimal amount of free air and significant free fluid there is a high probability that since patient states her paracentesis and yesterday the residual free air is from that was longer as potentially believed to be a few days ago but then there is strong possibility and concern for bowel perforation but paracentesis less than 24 hours ago and a few air bubbles could potentially be unremarkable. Patient is afebrile otherwise hemodynamic stable and without signs of acute active infectious process and the potential bowel perforation is there but lower on the differential. She could have a bowel perforation now has peritonitis in the ascites fluid but directly in her age and condition going the operating room is still advised. I discussed with the radiologist and plan for repeat paracentesis. Potentially symptomatic improvement once fluid is evacuated and can also send fluid for culture and microbiology and cytology to evaluate for the possibility of infectious process or perforation ongoing. Discussed with primary care physician patient and family. Will follow with recommendations thank you for let me participate patient's care Patient had a paracentesis by radiology evacuating 3 L of ascites fluid. Since states she feels better. Abdominal exam on 3 7 improved as compared to 3 6 with less tenderness though she is still somewhat tender. States that she feels tenderness from the bloating of the fluid. No nausea vomiting fever chills. Hypotension responsive to fluids. Though there is a possibility of bowel perforation prior unlikely given the paracentesis findings. Furthermore potential bleeding after paracentesis. Coags noted. May have coagulopathy as well. Trend H&H transfuse as needed labs noted h/h improved hd stable Diet as tolerated suspicion for bowel perf or bleeding low. possible but unlikely We will follow with recommendations thank you CA 125 - 199 likely known history of ovarian ca which explains condition hospice eval recommended oncology eval Lactic acidosis worsening Prognosis guarded patient is continued to deteriorate very ill-appearing no surgical intervention planned (2) Free intraperitoneal air Assessment & Plan: Lack of enteric contrast limits assessment of the GI tract. There is ascites fluid. There is a small amount of free intraperitoneal gas within the anterior peritoneal space. A few bubbles of gas are also seen within the left upper quadrant mesenteric fat. These are seen along the greater curvature of the stomach and a few posterior to the stomach. There is also a single small gas bubble in the sugey hepatis. There is evidence of prior distal gastrectomy and gastrojejunostomy. There is also a jejunojejunostomy suture line in the upper abdominal midline. Surgical clips are also seen in the peripancreatic region The appendix is normal. Small bowel loops are mildly prominent and demonstrate mild wall thickening proximally. The distal esophagus is unremarkable. Lack of IV contrast limits assessment of the solid organs. The liver is diffusely markedly hypoattenuating. It is essentially isoattenuating with the surrounding ascites fluid. The gallbladder has been removed. No biliary ductal dilatation. The pancreas, spleen, adrenal glands are grossly unremarkable. The right kidney demonstrates a large upper pole cyst. It demonstrates a calcification which measures approximately 3 mm in diameter and is possibly calyceal. The left kidney demonstrates an upper pole calyceal calcification. No hydronephrosis. No pelvic mass or adenopathy. Uterus and adnexal structures appear unremarkable. There is diffuse edema of the subcutaneous, abdominal, retroperitoneal fat. The included lung bases demonstrate some posterior dependent atelectatic changes, are otherwise clear. The bones demonstrate degenerative spondylosis changes.. There are also degenerative changes with vacuum formation of the bilateral sacroiliac joints. Impression: Limited assessment of the GI tract, due to lack of enteric contrast administration. Small amount of free intraperitoneal air demonstrated, with gas seen in the anterior midline peritoneal space as well as within the left upper quadrant mesentery. This is consistent with perforated hollow viscus. Source of perforation indeterminate, although quite possibly in the left upper quadrant and possibly related to the stomach. Postsurgical changes, as described, with evidence of prior distal gastrectomy, gastrojejunostomy, and likely Nolan-en-Y anastomosis Mild prominence and equivocal slight wall thickening of the proximal jejunum, if real could represent reactive changes secondary to the above process or could represent primarily enteritis Moderate ascites Anasarca Markedly fatty liver Evidence of prior cholecystectomy Incidental findings as noted, including degenerative spondylosis changes, as do dependent pulmonary atelectatic changes, bilateral sacroiliac joint degenerative changes, right upper pole renal cyst, nonobstructive bilateral renal calculi (3) Perforated abdominal viscus Assessment & Plan: hx pancreatic cancer surgery 3 years ago discussed care with family in details recommend hospice has not been eating well for months as per daughters. para 3/11 with liters removed hypotensive at times Kamron Hays Jul 07, 2019 19:28
--- NOTE | 2019-07-07 19:45 | NUR ---
NURSE NOTES: LE: PATIENT ALERT, ORIENTED X2, RESPIRATION REGULAR, ON BIPAP I/E 20/5, FIO2 30%, O2 SATURATION 100% NOTED, 110 'S/MIN HEART RATE, ST NOTED, ABDOMEN DISTENDED, TENDER, F/C INTACT AND PATENT, DARK RG COLOR URINE OUTED, GENERALIZED PITTING EDEMA NOTED, TLC TO RIGHT FEMORAL SLIGHT LEAKED STATUS AND PPL TO LEFT UA INTACT, ONGOING IV FLUID D5W NS AT 100ML/HR, LEVOPHED 10MCG/MIN AND PITRESSIN 0.04UNITS/MIN VIA TLC, 2POINT SOFT RESTRAINTS FOR SAFETY, ON P200 BED, MADE LOWER BED POSITION, PROVIDED CALL LIGHT WITHIN REACH, ON BED ALARM AND LOCKED, WILL CONTINUE TO MONITOR.
--- NOTE | 2019-07-07 19:50 | NUR ---
NURSE NOTES: LE: FAMILY MEMBER (, DAUGHTER AND [id number]) STAYED AT BEDSIDE. PATIENT COMPLAINED PAIN BUT FAMILY DID NOT WANT MORPHINE PAIN MEDICATION. DAUGHTER ( AUDREY ) SAID," MY MOM HAS HAD ABDOMINAL ASCITES, THAT'S WHY SHE HAD PAIN, LET THE DOCTOR KNOW, CHECK THE PATIENT AND DOING US OF ABDOMEN AND REMOVE WATER FROM ABDOMEN. MY MON WILL BE MUCH BETTER, YOU KNOW AFTER PARACENTESIS, SHE WAS FINE." INFORMED THE FAMILY MEMBERS REGARDING DOCTOR'S ORDER AND PROCEDURE BUT DAUGHTER UPSET ABOUT CURRENT STATUS AND LOUDLY EXPLAINED AGAIN TO NURSING STAFFS. DAY AND ACCOUNT SUPERVISOR CHARGE NURSE EXPLAINED ABOUT PT'S SITUATION BUT DAUGHTER AND [id number] COULD NOT HEARING. DAUGHTER WANTED TO MEET DR. ANDRES FOR COMMUNICATION AND DISCUSSION ABOUT PATIENT'S SITUATION. DAY SHIFT CHARGE NURSE CALLED DR. ANDRES REGARDING ABOVE SITUATION THAT LEFT MESSAGE.
[2019-07-07] MEDS: Dyna-Hex 2% Top Sol 2oz TOPIC SCH (20:37)
--- NOTE | 2019-07-07 21:30 | NUR ---
NURSE NOTES: dr. ivy called,made aware of patient's daughter requesting to meet and talk to her in am about patient's condition
--- NOTE | 2019-07-07 21:30 | NUR ---
NURSE NOTES: LE: CHARGE NURSE CALLED AND SPOKE WITH DR. ANDRES REGARDING FAMILY MEETING THAT SAID," I WILL MAKE ROUND IN THE MORNING BUT NOT EXACTLY TIME, WILL MEET FAMILY IN THERE."
[2019-07-07] MEDS: Phenylephrine 50 MG in D5W 245 ML IV SCH (22:45)
--- NOTE | 2019-07-07 23:15 | NUR ---
NURSE NOTES: LE; PATIENT CALM, ASLEEP STATUS, DISCONTINUED 2 POINT SOFT RESTRAINTS, WILL CONTINUE TO MONITOR.
[2019-07-07] MEDS: Vasopressin 100 UNITS in NS 95 ML IV SCH (23:58)
[2019-07-08] VITALS (64 sets, daily range): BP systolic 44–136; BP diastolic 22–100
--- NOTE | 2019-07-08 01:12 | NUR ---
NURSE NOTES: PATIENT ASLEEP STATUS, ONGOING LEVOPHED 12 MCG/MIN VIA TLC, WILL CONTINUE PLAN OF CARE.
--- NOTE | 2019-07-08 02:59 | NUR ---
NURSE NOTES: PATIENT AWOKE, TRIED TO REMOVE BIPAP MASK, DID NOT FOLLOWED COMMANDS, APPLIED 2 POINT SOFT RESTRAINTS ORDERED, WILL CONTINUE TO MONITOR.
--- NOTE | 2019-07-08 04:18 | NUR ---
NURSE NOTES: MORNING CARE WAS DONE, NO BM STATUS, TLC SITE LEAKING AND WEEPING FROM BOTH ARM PREVIOUS FORKING SITE, F/C INTACT AND PATENT, OLIGURIA STATUS.
--- NOTE | 2019-07-08 06:20 | NUR ---
NURSE NOTES: LE: ONGOING LEVOPHED 14MCG/MIN, VSS AT THIS TIME, WILL CONTINUE TO MONITOR.
--- NOTE | 2019-07-08 07:19 | NUR ---
NURSE NOTES: Pt received from [facility] [place]. Pt is asleep in bed, able to follow commands, AAO x 2, pupils equal and round 3 mm bilat with sluggish light rxn. Pt is in ST to compliance monitor (HR 110-120 bpm), no acute distress noted, bilat radial pulses and dorsalis pedis pulses noted 1+. Bilat upper extremities and hands + bilat feet noted with 2+ pitting edema, upper extremities are also noted oozing serous fluid. Pt on Bipap 20/5 FiO2 30% Rate 14. Lung sounds noted with fine crackles to bilat upper lung lobes and diminished to bilat lower lobes. Pt currently NPO. Abd is round and firm. Bowel sounds noted hypoactive to all quadrants. Pt has a F/C draining light nima urine. Skin alterations noted, pt is on DEMETRIUS mattress. Pt has a R femoral TLC running D5NS at 100 cc/hr, Levophed at 14 ug/min and Vasopressin at 0.04 units/min. LAVERNE 20g IV noted saline locked. Bed is in lowest position, alarm on, side rails up x 2 and padded per seizure precaution, call light within reach. Pt noted on bilat soft wrist restraints, radial pulses palpable, wrist skin is intact bilaterally without redness. SCDs noted on to bilat lower extremities. Will continue to monitor pt.
--- NOTE | 2019-07-08 07:19 | NUR ---
HAND-OFF: Report given to MART SHERMAN.
--- NOTE | 2019-07-08 07:32 | Hematology/Onc Progress Note ---
Assessment/Plan Assessment/Plan ASSESSMENT/RECS: # Pancreatric cancer with Postsurgical changes, as described, with evidence of prior distal gastrectomy, gastrojejunostomy, and likely Nolan-en-Y anastomosis --> ct a/p reviewed and no marin malignancy is noted --> tumor markers noted --> currently appears in remission # Elevated tumor markers including ca 19.9, ca 125 --> by itself doesn't indicate malignancy --> have ordered for us of the ovaries to evaluate if enlarged --> obtain prior tumor markers if available for comparison --> reviewed prior adm, no prior tumor markers available # Anemia due to gi bleed --> evaluated by gi --> also seen by surgery Perforated viscus, source unknown. --> pulm/surg/id following --> hgb trend: 11.1 # Thrombocytopenia with decreased plt count --> trend as needed --> 160-->111-->56 --> hep and hiv neg # Severe sepsis. --> broad spectrum abx --> pressors have been started --> linezolid # Dehydration. --> on ivf as well # Ascites --> s/p para and no malignant cells seen # Resp failure --> on bipap # Hypotension could be due to dehydration and anemia. --> on midrinone, as per [facility] Appreciate consultation and maricarmen Rn Subjective Allergies: Coded Allergies: No Known Allergies (Unverified , 03/06/16) Subjective 07/06 icu, cxr reviewed, restraints, plt 56, no new orders 07/07 on restraints, levo gtt, tachy, no acute distress Objective Objective Current Medications Medications (Trade) Dose Ordered Sig/Margie Route PRN Reason Start Time Stop Time Status Last Admin Dose Admin Chlorhexidine Gluconate (Sheeba-Hex 2%) 1 applic DAILY@1999 TOPIC 07/07/19 20:00 08/06/19 19:59 07/07/19 20:37 Dextrose/Sodium Chloride 1,000 ml @ 100 mls/hr Q10H IV 07/07/19 12:49 08/06/19 12:48 07/07/19 23:58 Hydrocortisone (Solu-CORTEF) 100 mg TID IV 07/06/19 09:30 08/05/19 09:29 07/07/19 17:49 Linezolid 300 ml @ 300 mls/hr Q12HR IVPB 07/06/19 21:00 07/13/19 20:59 07/07/19 20:37 Morphine Sulfate (Morphine Sulfate) 1 mg Q4H PRN IVP Moderate Pain (Pain Scale 4-6) 07/06/19 01:45 07/11/19 12:59 Morphine Sulfate (Morphine Sulfate) 2 mg Q6H PRN IVP Severe Pain (Pain Scale 7-10) 07/06/19 00:30 07/10/19 18:29 07/06/19 20:19 Nitroglycerin (Ntg) 0.4 mg Q5M PRN SL Prn Chest Pain 07/05/19 22:15 08/03/19 04:59 Norepinephrine Bitartrate 8 mg/ Dextrose 500 ml @ 0 mls/hr Q24H IV 07/06/19 07:00 08/05/19 06:59 07/07/19 20:38 Pantoprazole (Protonix) 40 mg Q12HR IVP 07/06/19 09:00 07/31/19 20:59 07/07/19 20:37 Phenylephrine HCl 50 mg/Dextrose 250 ml @ 0 mls/hr Q24H IV 07/05/19 22:45 08/04/19 22:44 07/05/19 23:17 Piperacillin Sod/ Tazobactam Sod 3.375 gm/Sodium Chloride 110 ml @ 27.5 mls/hr Q12H IVPB 07/06/19 00:00 07/13/19 00:00 07/07/19 23:58 Sodium Chloride 500 ml @ 0 mls/hr Q0M PRN IVPB SBP<100 07/05/19 22:15 08/01/19 20:29 Vasopressin 100 units/Sodium Chloride 100 ml @ 0 mls/hr Q24H IV 07/05/19 22:45 08/04/19 22:44 07/07/19 23:58 Last 24 Hour Vital Signs Date Time Temp Pulse Resp B/P (MAP) Pulse Ox O2 Delivery O2 Flow Rate FiO2 07/08/19 07:00 103/71 07/08/19 07:00 112 22 103/71 (82) 100 07/08/19 06:48 119 31 99 30 07/08/19 06:30 114 23 106/83 (91) 98 07/08/19 06:15 120 31 116/86 (96) 98 07/08/19 06:00 122 28 116/70 (85) 98 07/08/19 06:00 116/70 07/08/19 05:30 130 32 123/58 (79) 97 07/08/19 05:20 128 32 136/91 (106) 98 07/08/19 05:15 129 37 122/100 (107) 98 07/08/19 05:15 122/100 07/08/19 05:14 124 35 70/38 (49) 98 07/08/19 05:12 117 27 58/23 (35) 98 07/08/19 05:10 116 29 100 30 07/08/19 05:00 126 33 44/22 (29) 98 07/08/19 05:00 44/22 07/08/19 04:45 112 26 105/76 (86) 82 07/08/19 04:30 119 29 107/70 (82) 98 07/08/19 04:00 97.8 116 24 102/75 (84) 99 07/08/19 04:00 102/75 07/08/19 04:00 30 07/08/19 04:00 Bi-pap 07/08/19 03:34 114 07/08/19 03:30 119 28 114/64 (81) 99 07/08/19 03:23 114 25 99 30 07/08/19 03:00 122 31 109/55 (73) 99 07/08/19 03:00 109/55 07/08/19 02:30 117 27 99/75 (83) 99 07/08/19 02:00 119 28 113/80 (91) 99 07/08/19 02:00 113/80 07/08/19 01:30 121 29 110/75 (87) 99 07/08/19 01:02 123 28 100 30 07/08/19 01:00 110/62 07/08/19 01:00 123 26 110/62 (78) 99 07/08/19 00:45 123 26 103/75 (84) 100 07/08/19 00:30 129 32 105/75 (85) 100 07/08/19 00:15 128 32 110/71 (84) 100 07/08/19 00:00 Bi-pap 3/13/20 00:00 30 07/08/19 00:00 119/77 07/08/19 00:00 97.6 123 28 119/77 (91) 99 07/07/19 23:49 122 29 116/66 (83) 98 07/07/19 23:47 123 28 70/53 (59) 98 07/07/19 23:45 123 28 38/26 (30) 98 07/07/19 23:45 38/26 07/07/19 23:30 129 32 84/57 (66) 98 07/07/19 23:30 84/57 07/07/19 23:18 132 07/07/19 23:15 126 33 101/53 (69) 98 07/07/19 23:00 119 26 104/72 (83) 98 07/07/19 22:55 124 31 100 30 07/07/19 22:45 121 116/66 07/07/19 22:30 116 26 99/70 (80) 99 07/07/19 22:00 126 35 110/71 (84) 99 07/07/19 21:30 115 26 110/64 (79) 99 07/07/19 21:14 121 30 100 30 07/07/19 21:00 130 33 106/77 (87) 99 07/07/19 21:00 106/77 07/07/19 20:38 102/72 07/07/19 20:30 115 27 102/72 (82) 99 07/07/19 20:00 97.6 115 23 106/75 (85) 100 07/07/19 20:00 30 07/07/19 20:00 Bi-pap 07/07/19 20:00 106/75 07/07/19 19:42 114 07/07/19 19:30 121 29 100/71 (81) 100 07/07/19 19:12 116 26 99 30 07/07/19 19:00 99/59 07/07/19 19:00 116 25 109/66 (80) 99 07/07/19 18:30 114 26 110/76 (87) 94 07/07/19 18:00 105 22 96/54 (68) 100 07/07/19 18:00 96/54 07/07/19 17:30 118 30 113/86 (95) 92 07/07/19 17:01 103 21 100 30 07/07/19 17:00 105 21 101/44 (63) 100 07/07/19 17:00 103/59 07/07/19 16:30 97.3 106 23 104/64 (77) 100 07/07/19 16:05 111 23 101/70 (80) 97 07/07/19 16:04 114 07/07/19 16:00 Bi-pap 07/07/19 16:00 101/70 07/07/19 15:30 112 26 93/60 (71) 99 07/07/19 15:00 100/70 07/07/19 15:00 117 23 102/63 (76) 100 07/07/19 14:54 112 23 100 30 07/07/19 14:30 110 24 100/59 (73) 100 07/07/19 14:00 128/57 07/07/19 14:00 115 21 103/69 (80) 100 07/07/19 13:30 103 23 101/64 (76) 99 07/07/19 13:15 107 25 100 30 07/07/19 13:00 99/69 07/07/19 13:00 97.0 112 23 104/81 (89) 100 07/07/19 12:30 98 20 96/63 (74) 96 07/07/19 12:00 93 07/07/19 12:00 Bi-pap 07/07/19 12:00 101/70 07/07/19 12:00 93 16 101/70 (80) 100 07/07/19 11:30 90 15 97/69 (78) 100 07/07/19 11:07 93 16 100 30 07/07/19 11:00 101/68 07/07/19 11:00 91 16 101/68 (79) 100 07/07/19 10:30 92 16 113/83 (93) 100 07/07/19 10:15 92 17 114/78 (90) 100 07/07/19 10:01 96 22 106/71 (83) 99 07/07/19 10:00 114/78 07/07/19 09:45 89 14 91/61 (71) 100 07/07/19 09:30 81 15 110/69 (83) 100 07/07/19 09:00 111/72 07/07/19 09:00 92 18 114/78 (90) 100 07/07/19 08:58 83 15 100 30 07/07/19 08:30 79 14 112/73 (86) 100 07/07/19 08:00 97.3 80 14 111/75 (87) 100 07/07/19 08:00 111/75 07/07/19 08:00 94 07/07/19 08:00 Bi-pap 07/07/19 07:40 110/74 07/07/19 07:30 80 14 110/69 (83) 100 07/07/19 07:00 110/72 07/07/19 07:00 81 14 110/74 (86) 100 07/07/19 06:53 81 15 100 30 07/07/19 06:30 83 14 113/77 (89) 100 07/07/19 06:00 95 23 123/74 (90) 99 07/07/19 06:00 123/74 07/07/19 05:45 86 18 121/84 (96) 100 07/07/19 05:30 91 34 125/102 (110) 94 07/07/19 05:04 76 14 100 30 07/07/19 05:00 75 14 109/69 (82) 100 07/07/19 05:00 109/69 07/07/19 04:30 74 14 105/93 (97) 100 07/07/19 04:15 72 14 114/76 (89) 100 07/07/19 04:00 Bi-pap 07/07/19 04:00 110/71 07/07/19 04:00 30 07/07/19 04:00 97.4 73 14 110/71 (84) 100 07/07/19 03:30 72 14 112/75 (87) 100 07/07/19 03:14 73 07/07/19 03:07 73 14 100 30 07/07/19 03:00 73 13 115/76 (89) 100 07/07/19 03:00 115/76 07/07/19 02:30 74 14 115/77 (90) 100 07/07/19 02:00 74 14 117/76 (90) 100 07/07/19 02:00 117/76 07/07/19 01:30 76 14 118/76 (90) 100 07/07/19 01:00 78 14 119/78 (92) 100 07/07/19 01:00 82 15 100 30 07/07/19 01:00 119/78 07/07/19 00:45 79 17 118/74 (89) 100 07/07/19 00:35 90 28 107/75 (86) 100 07/07/19 00:30 84 17 100 07/07/19 00:15 77 14 118/77 (91) 100 07/07/19 00:00 30 07/07/19 00:00 97.3 80 13 129/86 (100) 100 07/07/19 00:00 129/86 07/07/19 00:00 Bi-pap 07/06/19 23:30 80 14 138/83 (101) 100 07/06/19 23:27 82 07/06/19 23:15 78 14 142/87 (105) 100 07/06/19 23:01 81 14 100 30 07/06/19 23:00 81 14 141/84 (103) 100 07/06/19 23:00 141/84 07/06/19 22:45 79 135/86 (102) 100 07/06/19 22:45 78 133/85 07/06/19 22:30 76 14 150/80 (103) 100 07/06/19 22:15 91 21 155/81 (105) 99 07/06/19 22:15 155/81 07/06/19 22:00 152/90 07/06/19 22:00 75 14 152/90 (110) 100 07/06/19 21:45 74 14 137/85 (102) 100 07/06/19 21:30 78 14 105/90 (95) 100 07/06/19 21:15 78 14 130/85 (100) 100 07/06/19 21:07 79 14 100 40 07/06/19 21:00 74 14 126/79 (95) 100 07/06/19 21:00 126/79 07/06/19 20:57 116/85 07/06/19 20:45 78 14 116/85 (95) 100 07/06/19 20:30 82 14 95/79 (84) 100 07/06/19 20:15 73 14 132/74 (93) 100 07/06/19 20:00 97.4 74 14 128/80 (96) 100 07/06/19 20:00 128/80 07/06/19 20:00 40 07/06/19 20:00 Bi-pap 07/06/19 19:45 76 14 133/84 (100) 100 07/06/19 19:30 88 14 112/79 (90) 100 07/06/19 19:29 83 07/06/19 19:16 71 15 100 40 07/06/19 19:00 77 14 128/95 (106) 100 07/06/19 19:00 128/95 07/06/19 18:45 76 14 127/89 (102) 100 07/06/19 18:30 77 14 126/80 (95) 100 07/06/19 18:15 96.8 82 15 121/85 (97) 07/06/19 18:00 88 14 116/76 (89) 99 07/06/19 18:00 81 14 116/76 (89) 100 07/06/19 18:00 116/76 07/06/19 17:30 65 16 100 40 07/06/19 17:30 87 21 120/76 (91) 100 07/06/19 17:00 117/72 07/06/19 17:00 73 21 117/72 (87) 100 07/06/19 16:30 67 14 135/88 (104) 100 07/06/19 16:15 66 15 126/77 (93) 100 07/06/19 16:00 79 07/06/19 16:00 97.6 68 14 132/76 (94) 100 07/06/19 16:00 132/76 07/06/19 16:00 Bi-pap 07/06/19 15:45 82 16 123/73 (90) 100 07/06/19 15:30 82 17 129/82 (98) 100 07/06/19 15:29 74 14 100 40 07/06/19 15:15 72 14 137/76 (96) 100 07/06/19 15:00 67 14 132/79 (96) 100 07/06/19 15:00 132/79 07/06/19 14:45 72 11 120/74 (89) 100 07/06/19 14:30 69 14 135/83 (100) 100 07/06/19 14:15 78 15 129/81 (97) 100 07/06/19 14:01 80/62 07/06/19 14:00 73 14 120/76 (91) 100 07/06/19 14:00 120/76 07/06/19 13:48 88 14 80/62 (68) 100 07/06/19 13:47 89 14 69/47 (54) 100 07/06/19 13:45 95 17 98 07/06/19 13:30 86 14 115/82 (93) 79 07/06/19 13:15 75 14 124/77 (93) 100 07/06/19 13:00 115/82 07/06/19 13:00 78 14 113/78 (90) 100 07/06/19 12:45 97.1 79 14 114/79 (91) 100 07/06/19 12:44 80 14 100 40 07/06/19 12:30 81 14 109/78 (88) 100 07/06/19 12:05 80 07/06/19 12:00 77 14 108/81 (90) 100 07/06/19 12:00 Bi-pap 07/06/19 12:00 114/79 07/06/19 11:30 84 14 100 40 07/06/19 11:30 84 15 100/74 (83) 07/06/19 11:15 87 15 100/72 (81) 100 07/06/19 11:00 100/72 07/06/19 11:00 86 14 92/71 (78) 100 07/06/19 10:45 88 14 91/67 (75) 100 07/06/19 10:30 95 14 106/78 (87) 100 07/06/19 10:15 98 16 121/86 (98) 100 07/06/19 10:00 84 14 120/97 (105) 100 07/06/19 10:00 120/97 07/06/19 09:45 91 15 113/79 (90) 100 07/06/19 09:30 90 15 113/35 (61) 100 07/06/19 09:15 88 16 100/57 (71) 100 07/06/19 09:00 91 13 105/71 (82) 100 07/06/19 09:00 105/71 07/06/19 08:57 93 15 100 40 07/06/19 08:45 94 19 109/80 (90) 100 3/11/20 08:30 88 11 105/82 (90) 07/06/19 08:15 86 14 108/76 (87) 100 07/06/19 08:11 109/85 07/06/19 08:00 Bi-pap 07/06/19 08:00 109/85 07/06/19 08:00 88 07/06/19 08:00 97.1 88 15 109/85 (93) 100 07/06/19 07:45 91 18 105/75 (85) 100 07/06/19 07:35 109 21 100 40 Intake and Output 07/07/19 07/08/19 19:00 07:00 Intake Total 1807.80 ml 2022.03 ml Output Total 125 ml 75 ml Balance 1682.80 ml 1947.03 ml IV Total 1807.80 ml 2022.03 ml Output Urine Total 125 ml 75 ml # Bowel Movements 1 2 Labs Test 07/05/19 22:13 07/05/19 22:15 07/05/19 22:31 07/06/19 00:50 White Blood Count 5.8 K/UL (4.8-10.8) Red Blood Count 3.76 M/UL (4.20-5.40) Hemoglobin 11.6 G/DL (12.0-16.0) Hematocrit 35.9 % (37.0-47.0) Mean Corpuscular Volume 96 FL (80-99) Mean Corpuscular Hemoglobin 31.0 PG (27.0-31.0) Mean Corpuscular Hemoglobin Concent 32.4 G/DL (32.0-36.0) Red Cell Distribution Width 17.0 % (11.6-14.8) Platelet Count 111 K/UL (150-450) Mean Platelet Volume 8.4 FL (6.5-10.1) Neutrophils (%) (Auto) 95.7 % (45.0-75.0) Lymphocytes (%) (Auto) 2.4 % (20.0-45.0) Monocytes (%) (Auto) 1.6 % (1.0-10.0) Eosinophils (%) (Auto) 0.1 % (0.0-3.0) Basophils (%) (Auto) 0.4 % (0.0-2.0) Sodium Level 150 MMOL/L (136-145) Potassium Level 5.3 MMOL/L (3.5-5.1) Chloride Level 117 MMOL/L (98-107) Carbon Dioxide Level 20 MMOL/L (21-32) Anion Gap 13 mmol/L (5-15) Blood Urea Nitrogen 31 mg/dL (7-18) Creatinine 2.1 MG/DL (0.55-1.30) Estimat Glomerular Filtration Rate 22.8 mL/min (>60) Glucose Level 47 MG/DL (74-106) Lactic Acid Level 4.20 mmol/L (0.4-2.0) Calcium Level 7.7 MG/DL (8.5-10.1) Total Bilirubin 1.0 MG/DL (0.2-1.0) Aspartate Amino Transf (AST/SGOT) 27 U/L (15-37) Alanine Aminotransferase (ALT/SGPT) 16 U/L (12-78) Alkaline Phosphatase 75 U/L (46-116) Total Protein 3.6 G/DL (6.4-8.2) Albumin 1.3 G/DL (3.4-5.0) Globulin 2.3 g/dL Albumin/Globulin Ratio 0.6 (1.0-2.7) HIV (1&2) Antibody Rapid Negative (NEGATIVE) Arterial Blood pH 7.271 (7.350-7.450) 7.269 (7.350-7.450) Arterial Blood Partial Pressure CO2 39.3 mmHg (35.0-45.0) 29.0 mmHg (35.0-45.0) Arterial Blood Partial Pressure O2 42.6 mmHg (75.0-100.0) 270.2 mmHg (75.0-100.0) Arterial Blood HCO3 17.7 mmol/L (22.0-26.0) 13.0 mmol/L (22.0-26.0) Arterial Blood Oxygen Saturation 77.3 % (95-100) Arterial Blood Base Excess -8.6 (-2-2) -12.3 (-2-2) August Test Positive Positive Test 07/06/19 05:30 07/06/19 08:30 07/06/19 17:05 07/06/19 22:50 White Blood Count 10.4 K/UL (4.8-10.8) Red Blood Count 3.85 M/UL (4.20-5.40) Hemoglobin 12.2 G/DL (12.0-16.0) Hematocrit 35.9 % (37.0-47.0) Mean Corpuscular Volume 93 FL (80-99) Mean Corpuscular Hemoglobin 31.7 PG (27.0-31.0) Mean Corpuscular Hemoglobin Concent 34.0 G/DL (32.0-36.0) Red Cell Distribution Width 14.9 % (11.6-14.8) Platelet Count 137 K/UL (150-450) Mean Platelet Volume 6.5 FL (6.5-10.1) Neutrophils (%) (Auto) % (45.0-75.0) Lymphocytes (%) (Auto) % (20.0-45.0) Monocytes (%) (Auto) % (1.0-10.0) Eosinophils (%) (Auto) % (0.0-3.0) Basophils (%) (Auto) % (0.0-2.0) Differential Total Cells Counted 100 Neutrophils % (Manual) 61 % (45-75) Lymphocytes % (Manual) 6 % (20-45) Monocytes % (Manual) 4 % (1-10) Eosinophils % (Manual) 0 % (0-3) Basophils % (Manual) 0 % (0-2) Metamyelocytes % 2 % (0-0) Band Neutrophils 27 % (0-8) Platelet Estimate Decreased Platelet Morphology Normal Anisocytosis 1+ Sodium Level 138 MMOL/L (136-145) Potassium Level 4.4 MMOL/L (3.5-5.1) Chloride Level 109 MMOL/L (98-107) Carbon Dioxide Level 15 MMOL/L (21-32) Anion Gap 14 mmol/L (5-15) Blood Urea Nitrogen 33 mg/dL (7-18) Creatinine 2.3 MG/DL (0.55-1.30) Estimat Glomerular Filtration Rate 20.5 mL/min (>60) Glucose Level 198 MG/DL (74-106) Lactic Acid Level 6.50 mmol/L (0.4-2.0) 6.10 mmol/L (0.4-2.0) 6.10 mmol/L (0.4-2.0) Calcium Level 8.0 MG/DL (8.5-10.1) Phosphorus Level 3.2 MG/DL (2.5-4.9) Magnesium Level 1.8 MG/DL (1.8-2.4) Total Bilirubin 1.2 MG/DL (0.2-1.0) Direct Bilirubin 0.0 MG/DL (0.0-0.3) Aspartate Amino Transf (AST/SGOT) 45 U/L (15-37) Alanine Aminotransferase (ALT/SGPT) 20 U/L (12-78) Alkaline Phosphatase 83 U/L (46-116) Troponin I 0.023 ng/mL (0.000-0.056) C-Reactive Protein, Quantitative > 70.0 mg/dL (0.00-0.90) Total Protein 4.0 G/DL (6.4-8.2) Albumin 1.3 G/DL (3.4-5.0) Globulin 2.7 g/dL Albumin/Globulin Ratio 0.5 (1.0-2.7) Arterial Blood pH 7.307 (7.350-7.450) Arterial Blood Partial Pressure CO2 29.4 mmHg (35.0-45.0) Arterial Blood Partial Pressure O2 102.5 mmHg (75.0-100.0) Arterial Blood HCO3 14.4 mmol/L (22.0-26.0) Arterial Blood Oxygen Saturation 97.3 % (95-100) Arterial Blood Base Excess -10.6 (-2-2) August Test Positive Test 07/07/19 03:45 07/07/19 07:05 07/07/19 12:15 07/07/19 14:20 White Blood Count 8.7 K/UL (4.8-10.8) Red Blood Count 3.47 M/UL (4.20-5.40) Hemoglobin 11.1 G/DL (12.0-16.0) Hematocrit 31.3 % (37.0-47.0) Mean Corpuscular Volume 90 FL (80-99) Mean Corpuscular Hemoglobin 32.1 PG (27.0-31.0) Mean Corpuscular Hemoglobin Concent 35.6 G/DL (32.0-36.0) Red Cell Distribution Width 14.1 % (11.6-14.8) Platelet Count 56 K/UL (150-450) Mean Platelet Volume 7.1 FL (6.5-10.1) Neutrophils (%) (Auto) % (45.0-75.0) Lymphocytes (%) (Auto) % (20.0-45.0) Monocytes (%) (Auto) % (1.0-10.0) Eosinophils (%) (Auto) % (0.0-3.0) Basophils (%) (Auto) % (0.0-2.0) Differential Total Cells Counted 100 Neutrophils % (Manual) 93 % (45-75) Lymphocytes % (Manual) 3 % (20-45) Monocytes % (Manual) 3 % (1-10) Eosinophils % (Manual) 0 % (0-3) Basophils % (Manual) 1 % (0-2) Band Neutrophils 0 % (0-8) Platelet Estimate Decreased Platelet Morphology Normal Hypochromasia 1+ Sodium Level 130 MMOL/L (136-145) Potassium Level 3.7 MMOL/L (3.5-5.1) Chloride Level 99 MMOL/L (98-107) Carbon Dioxide Level 15 MMOL/L (21-32) Anion Gap 16 mmol/L (5-15) Blood Urea Nitrogen 35 mg/dL (7-18) Creatinine 2.3 MG/DL (0.55-1.30) Estimat Glomerular Filtration Rate 20.5 mL/min (>60) Glucose Level 203 MG/DL (74-106) Lactic Acid Level 6.20 mmol/L (0.4-2.0) 5.70 mmol/L (0.66-2.22) 6.30 mmol/L (0.4-2.0) Uric Acid 2.8 MG/DL (2.6-7.2) Calcium Level 7.7 MG/DL (8.5-10.1) Phosphorus Level 2.8 MG/DL (2.5-4.9) Magnesium Level 1.9 MG/DL (1.8-2.4) Total Bilirubin 1.7 MG/DL (0.2-1.0) Direct Bilirubin 1.2 MG/DL (0.0-0.3) Aspartate Amino Transf (AST/SGOT) 18 U/L (15-37) Alanine Aminotransferase (ALT/SGPT) 22 U/L (12-78) Alkaline Phosphatase 61 U/L (46-116) Troponin I 1.113 ng/mL (0.000-0.056) C-Reactive Protein, Quantitative 40.9 mg/dL (0.00-0.90) Total Protein 3.8 G/DL (6.4-8.2) Albumin 1.6 G/DL (3.4-5.0) Globulin 2.2 g/dL Albumin/Globulin Ratio 0.7 (1.0-2.7) Arterial Blood pH 7.359 (7.350-7.450) Arterial Blood Partial Pressure CO2 20.8 mmHg (35.0-45.0) Arterial Blood Partial Pressure O2 91.5 mmHg (75.0-100.0) Arterial Blood HCO3 11.5 mmol/L (22.0-26.0) Arterial Blood Oxygen Saturation 96.7 % (95-100) Arterial Blood Base Excess -11.9 (-2-2) August Test Positive Test 07/07/19 18:10 Lactic Acid Level 7.80 mmol/L (0.4-2.0) Height (Feet): 5 Height (Inches): 3.00 Weight (Pounds): 143 Objective PE General Appearance: well appearing, no apparent distress Head: normocephalic, atraumatic Eyes: bilateral eye PERRL, bilateral eye EOMI Resp: lungs clear, normal breath sounds, no rhonchi ++ bipap Cardiovascular: normal peripheral pulses, regular rate, rhythm, no murmur Gastrointestinal: soft, non-distended, other - Left-sided abdominal tenderness , large healed midline abdominal scar Musculoskeletal: other - Bilateral lower extremity edema noted 2+ up to the knee Neurologic: alert, oriented x3, no focal defects Gregorio Mercado MD Jul 08, 2019 07:32
--- NOTE | 2019-07-08 08:00 | Nephrology Progress Note ---
Assessment/Plan Problem List: (1) Hypotension (2) Anemia (3) Abdominal pain (4) Free intraperitoneal air (5) Hypoalbuminemia Assessment Intra-abdominal process either peritonitis and or perforated viscus Severe anemia with drop of hemoglobin from 10 to 7 requiring blood transfusion. Hypotensive unclear if due to intra-abdominal bleeding and or septic process. Albuminemia, ascites, unclear etiology, most likely underlying neoplastic process Plan Patient continues to do poorly Remains full code Today's labs still pending Previously: Had abdominal paracentesis yesterday 3 L removed Patient on 2 pressors to keep the blood pressure over 90 systolic Patient currently remains full code. Clinically she has deteriorated. Renal parameters are worsened. Urine output decreased Very poor prognosis. Hemo-dynamically unstable for dialysis. Not much can be offered from renal standpoint of view I favor DNR and comfort care. Previously Continue per general surgery and GI advice advice Patient was started on p.o. diet Antibiotics now on Zosyn IV Protonix Young catheter Blood pressure support with pressors if needed Patient currently is full code, I support DNR status Will discuss with consultants Reviewed the case with RN Subjective ROS Limited/Unobtainable: Yes Objective Objective Last 24 Hour Vital Signs Date Time Temp Pulse Resp B/P (MAP) Pulse Ox O2 Delivery O2 Flow Rate FiO2 07/08/19 07:30 120 29 104/79 (87) 100 07/08/19 07:00 103/71 07/08/19 07:00 112 22 103/71 (82) 100 07/08/19 06:48 119 31 99 30 07/08/19 06:30 114 23 106/83 (91) 98 07/08/19 06:15 120 31 116/86 (96) 98 07/08/19 06:00 122 28 116/70 (85) 98 07/08/19 06:00 116/70 07/08/19 05:30 130 32 123/58 (79) 97 07/08/19 05:20 128 32 136/91 (106) 98 07/08/19 05:15 129 37 122/100 (107) 98 07/08/19 05:15 122/100 07/08/19 05:14 124 35 70/38 (49) 98 07/08/19 05:12 117 27 58/23 (35) 98 07/08/19 05:10 116 29 100 30 07/08/19 05:00 126 33 44/22 (29) 98 07/08/19 05:00 44/22 07/08/19 04:45 112 26 105/76 (86) 82 07/08/19 04:30 119 29 107/70 (82) 98 07/08/19 04:00 97.8 116 24 102/75 (84) 99 07/08/19 04:00 102/75 07/08/19 04:00 30 07/08/19 04:00 Bi-pap 07/08/19 03:34 114 07/08/19 03:30 119 28 114/64 (81) 99 07/08/19 03:23 114 25 99 30 07/08/19 03:00 122 31 109/55 (73) 99 07/08/19 03:00 109/55 07/08/19 02:30 117 27 99/75 (83) 99 07/08/19 02:00 119 28 113/80 (91) 99 07/08/19 02:00 113/80 07/08/19 01:30 121 29 110/75 (87) 99 07/08/19 01:02 123 28 100 30 07/08/19 01:00 110/62 07/08/19 01:00 123 26 110/62 (78) 99 07/08/19 00:45 123 26 103/75 (84) 100 07/08/19 00:30 129 32 105/75 (85) 100 07/08/19 00:15 128 32 110/71 (84) 100 07/08/19 00:00 Bi-pap 07/08/19 00:00 30 07/08/19 00:00 119/77 07/08/19 00:00 97.6 123 28 119/77 (91) 99 07/07/19 23:49 122 29 116/66 (83) 98 07/07/19 23:47 123 28 70/53 (59) 98 07/07/19 23:45 123 28 38/26 (30) 98 07/07/19 23:45 38/26 07/07/19 23:30 129 32 84/57 (66) 98 07/07/19 23:30 84/57 07/07/19 23:18 132 07/07/19 23:15 126 33 101/53 (69) 98 07/07/19 23:00 119 26 104/72 (83) 98 07/07/19 22:55 124 31 100 30 07/07/19 22:45 121 116/66 07/07/19 22:30 116 26 99/70 (80) 99 07/07/19 22:00 126 35 110/71 (84) 99 07/07/19 21:30 115 26 110/64 (79) 99 07/07/19 21:14 121 30 100 30 07/07/19 21:00 130 33 106/77 (87) 99 07/07/19 21:00 106/77 07/07/19 20:38 102/72 07/07/19 20:30 115 27 102/72 (82) 99 07/07/19 20:00 97.6 115 23 106/75 (85) 100 07/07/19 20:00 30 07/07/19 20:00 Bi-pap 07/07/19 20:00 106/75 07/07/19 19:42 114 07/07/19 19:30 121 29 100/71 (81) 100 07/07/19 19:12 116 26 99 30 07/07/19 19:00 99/59 07/07/19 19:00 116 25 109/66 (80) 99 07/07/19 18:30 114 26 110/76 (87) 94 07/07/19 18:00 105 22 96/54 (68) 100 07/07/19 18:00 96/54 07/07/19 17:30 118 30 113/86 (95) 92 07/07/19 17:01 103 21 100 30 07/07/19 17:00 105 21 101/44 (63) 100 07/07/19 17:00 103/59 07/07/19 16:30 97.3 106 23 104/64 (77) 100 07/07/19 16:05 111 23 101/70 (80) 97 07/07/19 16:04 114 07/07/19 16:00 Bi-pap 07/07/19 16:00 101/70 07/07/19 15:30 112 26 93/60 (71) 99 07/07/19 15:00 100/70 07/07/19 15:00 117 23 102/63 (76) 100 07/07/19 14:54 112 23 100 30 07/07/19 14:30 110 24 100/59 (73) 100 07/07/19 14:00 128/57 07/07/19 14:00 115 21 103/69 (80) 100 07/07/19 13:30 103 23 101/64 (76) 99 07/07/19 13:15 107 25 100 30 07/07/19 13:00 99/69 07/07/19 13:00 97.0 112 23 104/81 (89) 100 07/07/19 12:30 98 20 96/63 (74) 96 07/07/19 12:00 93 07/07/19 12:00 Bi-pap 07/07/19 12:00 101/70 07/07/19 12:00 93 16 101/70 (80) 100 07/07/19 11:30 90 15 97/69 (78) 100 07/07/19 11:07 93 16 100 30 07/07/19 11:00 101/68 07/07/19 11:00 91 16 101/68 (79) 100 07/07/19 10:30 92 16 113/83 (93) 100 07/07/19 10:15 92 17 114/78 (90) 100 07/07/19 10:01 96 22 106/71 (83) 99 07/07/19 10:00 114/78 07/07/19 09:45 89 14 91/61 (71) 100 07/07/19 09:30 81 15 110/69 (83) 100 07/07/19 09:00 111/72 07/07/19 09:00 92 18 114/78 (90) 100 07/07/19 08:58 83 15 100 30 07/07/19 08:30 79 14 112/73 (86) 100 07/07/19 08:00 97.3 80 14 111/75 (87) 100 07/07/19 08:00 111/75 07/07/19 08:00 94 07/07/19 08:00 Bi-pap Intake and Output 07/07/19 07/08/19 19:00 07:00 Intake Total 1807.80 ml 2022.03 ml Output Total 125 ml 75 ml Balance 1682.80 ml 1947.03 ml IV Total 1807.80 ml 2022.03 ml Output Urine Total 125 ml 75 ml # Bowel Movements 1 2 Laboratory Tests 07/07/19 12:15: Lactic Acid Level 6.30H 07/07/19 14:20: Arterial Blood pH 7.359, Arterial Blood Partial Pressure CO2 20.8*L, Arterial Blood Partial Pressure O2 91.5, Arterial Blood HCO3 11.5*L, Arterial Blood Oxygen Saturation 96.7, Arterial Blood Base Excess -11.9*L, August Test Positive 07/07/19 18:10: Lactic Acid Level 7.80H Today's labs still pending Height (Feet): 5 Height (Inches): 3.00 Weight (Pounds): 143 General Appearance: lethargic Cardiovascular: tachycardia Respiratory/Chest: decreased breath sounds Abdomen: distended Pavan Junior MD Jul 08, 2019 08:00
[2019-07-08] MEDS: Pantoprazole Inj IVP SCH ×2 (08:40→20:34)
[2019-07-08] MEDS: Hydrocortisone 100mg Inj IV SCH ×3 (08:40→18:35)
[2019-07-08] MEDS: Norepinephrine Bitartrate 8 MG in D5W 500ml 492 ML IV SCH ×2 (08:41→19:27)
[2019-07-08] MEDS: D5NS 1,000 ML IV SCH ×2 (08:43→13:41)
[2019-07-08 10:00] LABS: HEMATOCRIT 29.7 % (37.0-47.0); MEAN CORPUSCULAR VOLUME 88 FL (80-99); PLATELET COUNT 345 K/UL (150-450); RED BLOOD COUNT 3.39 M/UL (4.20-5.40); RED CELL DISTRIBUTION WIDTH 15.6 % (11.6-14.8); WHITE BLOOD COUNT 18.3 K/UL (4.8-10.8)
--- NOTE | 2019-07-08 10:00 | NUR ---
NURSE NOTES: Pt repositioned, no acute distress noted.
--- NOTE | 2019-07-08 10:18 | General Progress Note ---
Assessment/Plan Status: unchanged Assessment/Plan: Anemia Ascites hypoalbuminemia partial gastrectomy fatty liver ? perforated viscus pancreatic CA carcinomatosis transferred to ICU on BIPAP NGT to suction abx fu surg recs tumor markers>>>> elevated Ca 125>>> pelvic us>>>> oncology eval drop in H&H w/o active bleed>>> s/p blood transfusion abd us>>> reviewed add albumin IV poor prognosis Subjective ROS Limited/Unobtainable: No Allergies: Coded Allergies: No Known Allergies (Unverified , 03/06/16) Objective Last 24 Hour Vital Signs Date Time Temp Pulse Resp B/P (MAP) Pulse Ox O2 Delivery O2 Flow Rate FiO2 07/08/19 09:30 118 33 124/92 (103) 100 07/08/19 09:00 116 30 108/73 (85) 100 07/08/19 08:52 116 27 100 30 07/08/19 08:41 99/69 07/08/19 08:30 110 20 99/69 (79) 98 07/08/19 08:00 98.3 111 24 110/62 (78) 100 07/08/19 08:00 30 07/08/19 07:30 120 29 104/79 (87) 100 07/08/19 07:00 103/71 07/08/19 07:00 112 22 103/71 (82) 100 07/08/19 06:48 119 31 99 30 07/08/19 06:30 114 23 106/83 (91) 98 07/08/19 06:15 120 31 116/86 (96) 98 07/08/19 06:00 122 28 116/70 (85) 98 07/08/19 06:00 116/70 07/08/19 05:30 130 32 123/58 (79) 97 07/08/19 05:20 128 32 136/91 (106) 98 07/08/19 05:15 129 37 122/100 (107) 98 07/08/19 05:15 122/100 07/08/19 05:14 124 35 70/38 (49) 98 07/08/19 05:12 117 27 58/23 (35) 98 07/08/19 05:10 116 29 100 30 07/08/19 05:00 126 33 44/22 (29) 98 07/08/19 05:00 44/22 3/13/20 04:45 112 26 105/76 (86) 82 07/08/19 04:30 119 29 107/70 (82) 98 07/08/19 04:00 97.8 116 24 102/75 (84) 99 07/08/19 04:00 102/75 07/08/19 04:00 30 07/08/19 04:00 Bi-pap 07/08/19 03:34 114 07/08/19 03:30 119 28 114/64 (81) 99 07/08/19 03:23 114 25 99 30 07/08/19 03:00 122 31 109/55 (73) 99 07/08/19 03:00 109/55 07/08/19 02:30 117 27 99/75 (83) 99 07/08/19 02:00 119 28 113/80 (91) 99 07/08/19 02:00 113/80 07/08/19 01:30 121 29 110/75 (87) 99 07/08/19 01:02 123 28 100 30 07/08/19 01:00 110/62 07/08/19 01:00 123 26 110/62 (78) 99 07/08/19 00:45 123 26 103/75 (84) 100 07/08/19 00:30 129 32 105/75 (85) 100 07/08/19 00:15 128 32 110/71 (84) 100 07/08/19 00:00 Bi-pap 07/08/19 00:00 30 07/08/19 00:00 119/77 07/08/19 00:00 97.6 123 28 119/77 (91) 99 07/07/19 23:49 122 29 116/66 (83) 98 07/07/19 23:47 123 28 70/53 (59) 98 07/07/19 23:45 123 28 38/26 (30) 98 07/07/19 23:45 38/26 07/07/19 23:30 129 32 84/57 (66) 98 07/07/19 23:30 84/57 07/07/19 23:18 132 07/07/19 23:15 126 33 101/53 (69) 98 07/07/19 23:00 119 26 104/72 (83) 98 3/12/20 22:55 124 31 100 30 07/07/19 22:45 121 116/66 07/07/19 22:30 116 26 99/70 (80) 99 07/07/19 22:00 126 35 110/71 (84) 99 07/07/19 21:30 115 26 110/64 (79) 99 07/07/19 21:14 121 30 100 30 07/07/19 21:00 130 33 106/77 (87) 99 07/07/19 21:00 106/77 07/07/19 20:38 102/72 07/07/19 20:30 115 27 102/72 (82) 99 07/07/19 20:00 97.6 115 23 106/75 (85) 100 07/07/19 20:00 30 07/07/19 20:00 Bi-pap 07/07/19 20:00 106/75 07/07/19 19:42 114 07/07/19 19:30 121 29 100/71 (81) 100 07/07/19 19:12 116 26 99 30 07/07/19 19:00 99/59 07/07/19 19:00 116 25 109/66 (80) 99 07/07/19 18:30 114 26 110/76 (87) 94 07/07/19 18:00 105 22 96/54 (68) 100 07/07/19 18:00 96/54 07/07/19 17:30 118 30 113/86 (95) 92 07/07/19 17:01 103 21 100 30 07/07/19 17:00 105 21 101/44 (63) 100 07/07/19 17:00 103/59 07/07/19 16:30 97.3 106 23 104/64 (77) 100 07/07/19 16:05 111 23 101/70 (80) 97 07/07/19 16:04 114 07/07/19 16:00 Bi-pap 07/07/19 16:00 101/70 07/07/19 15:30 112 26 93/60 (71) 99 07/07/19 15:00 100/70 07/07/19 15:00 117 23 102/63 (76) 100 07/07/19 14:54 112 23 100 30 07/07/19 14:30 110 24 100/59 (73) 100 07/07/19 14:00 128/57 07/07/19 14:00 115 21 103/69 (80) 100 07/07/19 13:30 103 23 101/64 (76) 99 07/07/19 13:15 107 25 100 30 07/07/19 13:00 99/69 07/07/19 13:00 97.0 112 23 104/81 (89) 100 07/07/19 12:30 98 20 96/63 (74) 96 07/07/19 12:00 93 07/07/19 12:00 Bi-pap 07/07/19 12:00 101/70 07/07/19 12:00 93 16 101/70 (80) 100 07/07/19 11:30 90 15 97/69 (78) 100 07/07/19 11:07 93 16 100 30 07/07/19 11:00 101/68 07/07/19 11:00 91 16 101/68 (79) 100 07/07/19 10:30 92 16 113/83 (93) 100 Intake and Output 07/07/19 07/08/19 19:00 07:00 Intake Total 1807.80 ml 2022.03 ml Output Total 125 ml 75 ml Balance 1682.80 ml 1947.03 ml IV Total 1807.80 ml 2022.03 ml Output Urine Total 125 ml 75 ml # Bowel Movements 1 2 Laboratory Tests 07/07/19 12:15: Lactic Acid Level 6.30H 07/07/19 14:20: Arterial Blood pH 7.359, Arterial Blood Partial Pressure CO2 20.8*L, Arterial Blood Partial Pressure O2 91.5, Arterial Blood HCO3 11.5*L, Arterial Blood Oxygen Saturation 96.7, Arterial Blood Base Excess -11.9*L, August Test Positive 07/07/19 18:10: Lactic Acid Level 7.80H 07/08/19 09:30: Lactic Acid Level [Pending], White Blood Count 18.3#H, Red Blood Count 3.39L, Hemoglobin 10.0L, Hematocrit 29.7L, Mean Corpuscular Volume 88, Mean Corpuscular Hemoglobin 29.6, Mean Corpuscular Hemoglobin Concent 33.7, Red Cell Distribution Width 15.6H, Platelet Count 345#, Mean Platelet Volume 6.4L, Neutrophils (%) (Auto) , Lymphocytes (%) (Auto) , Monocytes (%) (Auto) , Eosinophils (%) (Auto) , Basophils (%) (Auto) , Neutrophils % (Manual) [Pending] , Lymphocytes % (Manual) [Pending], Platelet Estimate [Pending], Platelet Morphology [Pending], Sodium Level [Pending], Potassium Level [Pending], Chloride Level [Pending], Carbon Dioxide Level [Pending], Blood Urea Nitrogen [ Pending], Creatinine [Pending], Estimat Glomerular Filtration Rate [Pending], Glucose Level [Pending], Calcium Level [Pending], Total Bilirubin [Pending], Aspartate Amino Transf (AST/SGOT) [Pending], Alanine Aminotransferase (ALT/SGPT ) [Pending], Alkaline Phosphatase [Pending], Total Protein [Pending], Albumin [ Pending], Globulin [Pending] Height (Feet): 5 Height (Inches): 3.00 Weight (Pounds): 143 General Appearance: lethargic EENT: normal ENT inspection Neck: supple Cardiovascular: tachycardia Respiratory/Chest: decreased breath sounds Abdomen: soft, hypoactive bowel sounds, tender Extremities: non-tender Rodney Neri MD Jul 08, 2019 10:18
[2019-07-08 10:39] LABS: ALANINE AMINOTRANSFERASE 21 U/L (12-78); ALBUMIN 1.8 G/DL (3.4-5.0); ALBUMIN/GLOBULIN RATIO 0.3 (1.0-2.7); ALKALINE PHOSPHATASE 122 U/L (46-116); ANION GAP 18 mmol/L (5-15); ASPARTATE AMINO TRANSFERASE 9 U/L (15-37); BILIRUBIN,TOTAL 0.5 MG/DL (0.2-1.0); BLOOD UREA NITROGEN 71 mg/dL (7-18); CARBON DIOXIDE 18 MMOL/L (21-32); CHLORIDE 110 MMOL/L (98-107); CREATININE 1.7 MG/DL (0.55-1.30); POTASSIUM 3.6 MMOL/L (3.5-5.1); SODIUM 146 MMOL/L (136-145)
[2019-07-08] MEDS ORDERED: Lidocaine 1% Plain 30 ml INJ PRN (11:00)
[2019-07-08] MEDS ORDERED: Heparin1,000 units/500ml Premix(Conc:2 units/ml) IV PRN (11:00)
--- NOTE | 2019-07-08 11:53 | NUR ---
[employer]; HYPOTENSION T. 98.1 HR 132 RR 36 B/P 167/61 2L NC O2 SAT @ 98% WBC 11.0 ESR 124 K 3.3 CR 1.4 IS: LEVOPHED GTT ZOSYN IV LASIX IV ICU STATUS
--- NOTE | 2019-07-08 12:00 | NUR ---
NURSE NOTES: Pt repositioned, oral care provided. Spoke with Dr Keenan over phone regarding pt's labs today (BG 385 Sodium 146 WBC 18.3). Received order to reduce D5NS to 75 cc/hr at this time. Addendum: 07/08/19 at 1507 by Lara Walker RN Late entry: Also spoke with pt's daughter (Edwige Yu) over phone, she states she does not wish her mother get a PICC line insertion today until she speaks with Dr Munson over the phone. I spoke with Dr Munson and forwarded info. Edwige states she will call me back after she has spoken to Dr Munson to let me know if she wishes to proceed with PICC line insertion.
[2019-07-08] MEDS ORDERED: D5NS 1,000 ML IV SCH (12:15)
[2019-07-08] MEDS: Piperacillin/Tazobactam 3.375 GM in NS 110 ML IVPB SCH ×2 (12:19→23:34)
--- NOTE | 2019-07-08 12:37 | Surgery Progress Note ---
Surgery Progress Note Subjective Symptoms: worse Additional Comments on bipap likely will need intubation Objective Last 24 Hour Vital Signs Date Time Temp Pulse Resp B/P (MAP) Pulse Ox O2 Delivery O2 Flow Rate FiO2 07/08/19 12:00 30 07/08/19 12:00 Bi-pap Bi-pap 07/08/19 11:30 130 27 100/73 (82) 100 07/08/19 11:00 106/83 07/08/19 11:00 122 30 106/83 (91) 100 07/08/19 10:30 118 30 110/68 (82) 100 07/08/19 10:30 110 31 100 30 07/08/19 10:00 114 27 122/81 (95) 92 07/08/19 10:00 122/81 07/08/19 09:30 118 33 124/92 (103) 100 07/08/19 09:00 116 30 108/73 (85) 100 07/08/19 09:00 108/73 07/08/19 08:52 116 27 100 30 07/08/19 08:41 99/69 07/08/19 08:30 110 20 99/69 (79) 98 07/08/19 08:00 98.3 111 24 110/62 (78) 100 07/08/19 08:00 115 07/08/19 08:00 110/62 07/08/19 08:00 Bi-pap Bi-pap 07/08/19 08:00 30 07/08/19 07:30 120 29 104/79 (87) 100 07/08/19 07:00 103/71 07/08/19 07:00 112 22 103/71 (82) 100 07/08/19 06:48 119 31 99 30 07/08/19 06:30 114 23 106/83 (91) 98 07/08/19 06:15 120 31 116/86 (96) 98 07/08/19 06:00 122 28 116/70 (85) 98 07/08/19 06:00 116/70 07/08/19 05:30 130 32 123/58 (79) 97 07/08/19 05:20 128 32 136/91 (106) 98 07/08/19 05:15 129 37 122/100 (107) 98 07/08/19 05:15 122/100 3/13/20 05:14 124 35 70/38 (49) 98 07/08/19 05:12 117 27 58/23 (35) 98 07/08/19 05:10 116 29 100 30 07/08/19 05:00 126 33 44/22 (29) 98 07/08/19 05:00 44/22 07/08/19 04:45 112 26 105/76 (86) 82 07/08/19 04:30 119 29 107/70 (82) 98 07/08/19 04:00 97.8 116 24 102/75 (84) 99 07/08/19 04:00 102/75 07/08/19 04:00 30 07/08/19 04:00 Bi-pap 07/08/19 03:34 114 07/08/19 03:30 119 28 114/64 (81) 99 07/08/19 03:23 114 25 99 30 07/08/19 03:00 122 31 109/55 (73) 99 07/08/19 03:00 109/55 07/08/19 02:30 117 27 99/75 (83) 99 07/08/19 02:00 119 28 113/80 (91) 99 07/08/19 02:00 113/80 07/08/19 01:30 121 29 110/75 (87) 99 07/08/19 01:02 123 28 100 30 07/08/19 01:00 110/62 07/08/19 01:00 123 26 110/62 (78) 99 07/08/19 00:45 123 26 103/75 (84) 100 07/08/19 00:30 129 32 105/75 (85) 100 07/08/19 00:15 128 32 110/71 (84) 100 07/08/19 00:00 Bi-pap 07/08/19 00:00 30 07/08/19 00:00 119/77 07/08/19 00:00 97.6 123 28 119/77 (91) 99 07/07/19 23:49 122 29 116/66 (83) 98 07/07/19 23:47 123 28 70/53 (59) 98 07/07/19 23:45 123 28 38/26 (30) 98 07/07/19 23:45 38/26 07/07/19 23:30 129 32 84/57 (66) 98 07/07/19 23:30 84/57 07/07/19 23:18 132 07/07/19 23:15 126 33 101/53 (69) 98 07/07/19 23:00 119 26 104/72 (83) 98 07/07/19 22:55 124 31 100 30 07/07/19 22:45 121 116/66 07/07/19 22:30 116 26 99/70 (80) 99 07/07/19 22:00 126 35 110/71 (84) 99 07/07/19 21:30 115 26 110/64 (79) 99 07/07/19 21:14 121 30 100 30 07/07/19 21:00 130 33 106/77 (87) 99 07/07/19 21:00 106/77 07/07/19 20:38 102/72 07/07/19 20:30 115 27 102/72 (82) 99 07/07/19 20:00 97.6 115 23 106/75 (85) 100 07/07/19 20:00 30 07/07/19 20:00 Bi-pap 07/07/19 20:00 106/75 07/07/19 19:42 114 07/07/19 19:30 121 29 100/71 (81) 100 07/07/19 19:12 116 26 99 30 07/07/19 19:00 99/59 07/07/19 19:00 116 25 109/66 (80) 99 07/07/19 18:30 114 26 110/76 (87) 94 07/07/19 18:00 105 22 96/54 (68) 100 07/07/19 18:00 96/54 07/07/19 17:30 118 30 113/86 (95) 92 07/07/19 17:01 103 21 100 30 07/07/19 17:00 105 21 101/44 (63) 100 07/07/19 17:00 103/59 07/07/19 16:30 97.3 106 23 104/64 (77) 100 07/07/19 16:05 111 23 101/70 (80) 97 07/07/19 16:04 114 07/07/19 16:00 Bi-pap 07/07/19 16:00 101/70 07/07/19 15:30 112 26 93/60 (71) 99 07/07/19 15:00 100/70 07/07/19 15:00 117 23 102/63 (76) 100 07/07/19 14:54 112 23 100 30 07/07/19 14:30 110 24 100/59 (73) 100 07/07/19 14:00 128/57 07/07/19 14:00 115 21 103/69 (80) 100 07/07/19 13:30 103 23 101/64 (76) 99 07/07/19 13:15 107 25 100 30 07/07/19 13:00 99/69 07/07/19 13:00 97.0 112 23 104/81 (89) 100 I&O Intake and Output 07/07/19 07/08/19 19:00 07:00 Intake Total 1807.80 ml 2022.03 ml Output Total 125 ml 75 ml Balance 1682.80 ml 1947.03 ml IV Total 1807.80 ml 2022.03 ml Output Urine Total 125 ml 75 ml # Bowel Movements 1 2 Cardiovascular: RSR Respiratory: decreased breath sounds Abdomen: distended, tenderness, decreased bowel sounds Extremities: no edema, no tenderness, no cyanosis Laboratory Tests Test 07/07/19 14:20 07/07/19 18:10 07/08/19 09:30 Arterial Blood pH 7.359 (7.350-7.450) Arterial Blood Partial Pressure CO2 20.8 mmHg (35.0-45.0) *L Arterial Blood Partial Pressure O2 91.5 mmHg (75.0-100.0) Arterial Blood HCO3 11.5 mmol/L (22.0-26.0) *L Arterial Blood Oxygen Saturation 96.7 % (95-100) Arterial Blood Base Excess -11.9 (-2-2) *L August Test Positive Lactic Acid Level 7.80 mmol/L (0.4-2.0) H 0.80 mmol/L (0.4-2.0) White Blood Count 18.3 K/UL (4.8-10.8) #H Red Blood Count 3.39 M/UL (4.20-5.40) L Hemoglobin 10.0 G/DL (12.0-16.0) L Hematocrit 29.7 % (37.0-47.0) L Mean Corpuscular Volume 88 FL (80-99) Mean Corpuscular Hemoglobin 29.6 PG (27.0-31.0) Mean Corpuscular Hemoglobin Concent 33.7 G/DL (32.0-36.0) Red Cell Distribution Width 15.6 % (11.6-14.8) H Platelet Count 345 K/UL (150-450) # Mean Platelet Volume 6.4 FL (6.5-10.1) L Neutrophils (%) (Auto) % (45.0-75.0) Lymphocytes (%) (Auto) % (20.0-45.0) Monocytes (%) (Auto) % (1.0-10.0) Eosinophils (%) (Auto) % (0.0-3.0) Basophils (%) (Auto) % (0.0-2.0) Differential Total Cells Counted 100 Neutrophils % (Manual) 95 % (45-75) H Lymphocytes % (Manual) 5 % (20-45) L Monocytes % (Manual) 0 % (1-10) L Eosinophils % (Manual) 0 % (0-3) Basophils % (Manual) 0 % (0-2) Band Neutrophils 0 % (0-8) Platelet Estimate Adequate Platelet Morphology Normal Anisocytosis 1+ Sodium Level 146 MMOL/L (136-145) H Potassium Level 3.6 MMOL/L (3.5-5.1) Chloride Level 110 MMOL/L (98-107) H Carbon Dioxide Level 18 MMOL/L (21-32) L Anion Gap 18 mmol/L (5-15) H Blood Urea Nitrogen 71 mg/dL (7-18) H Creatinine 1.7 MG/DL (0.55-1.30) H Estimat Glomerular Filtration Rate 29.1 mL/min (>60) Glucose Level 385 MG/DL (74-106) #H Calcium Level 9.0 MG/DL (8.5-10.1) Total Bilirubin 0.5 MG/DL (0.2-1.0) Aspartate Amino Transf (AST/SGOT) 9 U/L (15-37) L Alanine Aminotransferase (ALT/SGPT) 21 U/L (12-78) Alkaline Phosphatase 122 U/L (46-116) H Total Protein 7.1 G/DL (6.4-8.2) # Albumin 1.8 G/DL (3.4-5.0) L Globulin 5.3 g/dL Albumin/Globulin Ratio 0.3 (1.0-2.7) L Plan Problems: (1) Abdominal pain Assessment & Plan: This is a 78-year-old female who presented to [facility] complaining of worsening abdominal pain. A coordinator hotels was used to obtain history from the patient as well as the given Vietnamese speaking. is able to speak somewhat Slovenian but his Slovenian is not good enough for complete translation therefore translation services were used. I had a long discussion with them in regards to admission current symptoms and care. As from what I could determine she had a partial gastrectomy about 2-1/2 years ago for unknown reason potentially ulcer perforation. She has a large midline incision from xiphoid down almost to the pubis. She has since developed ascites though no known liver dysfunction and recently as of yesterday from patient stating had a paracentesis done at an outside facility. States continues to have pain and she feels she is full of fluid and distended and it causes her discomfort therefore she came here for evaluation. No nausea vomiting fever chills. Does not eat well. Malnourished. Surgery called to evaluate and assist with care. CT scan demonstrated some bubbles of free air and ascites fluid. In evaluating the patient on examination she is fairly tender in all quadrants. She states she just feels like she is full of fluid. I reviewed the CT personally and discussed with the radiologist Given the minimal amount of free air and significant free fluid there is a high probability that since patient states her paracentesis and yesterday the residual free air is from that was longer as potentially believed to be a few days ago but then there is strong possibility and concern for bowel perforation but paracentesis less than 24 hours ago and a few air bubbles could potentially be unremarkable. Patient is afebrile otherwise hemodynamic stable and without signs of acute active infectious process and the potential bowel perforation is there but lower on the differential. She could have a bowel perforation now has peritonitis in the ascites fluid but directly in her age and condition going the operating room is still advised. I discussed with the radiologist and plan for repeat paracentesis. Potentially symptomatic improvement once fluid is evacuated and can also send fluid for culture and microbiology and cytology to evaluate for the possibility of infectious process or perforation ongoing. Discussed with primary care physician patient and family. Will follow with recommendations thank you for let me participate patient's care Patient had a paracentesis by radiology evacuating 3 L of ascites fluid. Since states she feels better. Abdominal exam on 3 7 improved as compared to 3 6 with less tenderness though she is still somewhat tender. States that she feels tenderness from the bloating of the fluid. No nausea vomiting fever chills. Hypotension responsive to fluids. Though there is a possibility of bowel perforation prior unlikely given the paracentesis findings. Furthermore potential bleeding after paracentesis. Coags noted. May have coagulopathy as well. Trend H&H transfuse as needed labs noted h/h improved hd stable Diet as tolerated suspicion for bowel perf or bleeding low. possible but unlikely We will follow with recommendations thank you CA 125 - 199 likely known history of ovarian ca which explains condition hospice eval recommended oncology eval Lactic acidosis worsening Prognosis guarded patient is continued to deteriorate very ill-appearing no surgical intervention planned (2) Free intraperitoneal air Assessment & Plan: Lack of enteric contrast limits assessment of the GI tract. There is ascites fluid. There is a small amount of free intraperitoneal gas within the anterior peritoneal space. A few bubbles of gas are also seen within the left upper quadrant mesenteric fat. These are seen along the greater curvature of the stomach and a few posterior to the stomach. There is also a single small gas bubble in the sugey hepatis. There is evidence of prior distal gastrectomy and gastrojejunostomy. There is also a jejunojejunostomy suture line in the upper abdominal midline. Surgical clips are also seen in the peripancreatic region The appendix is normal. Small bowel loops are mildly prominent and demonstrate mild wall thickening proximally. The distal esophagus is unremarkable. Lack of IV contrast limits assessment of the solid organs. The liver is diffusely markedly hypoattenuating. It is essentially isoattenuating with the surrounding ascites fluid. The gallbladder has been removed. No biliary ductal dilatation. The pancreas, spleen, adrenal glands are grossly unremarkable. The right kidney demonstrates a large upper pole cyst. It demonstrates a calcification which measures approximately 3 mm in diameter and is possibly calyceal. The left kidney demonstrates an upper pole calyceal calcification. No hydronephrosis. No pelvic mass or adenopathy. Uterus and adnexal structures appear unremarkable. There is diffuse edema of the subcutaneous, abdominal, retroperitoneal fat. The included lung bases demonstrate some posterior dependent atelectatic changes, are otherwise clear. The bones demonstrate degenerative spondylosis changes.. There are also degenerative changes with vacuum formation of the bilateral sacroiliac joints. Impression: Limited assessment of the GI tract, due to lack of enteric contrast administration. Small amount of free intraperitoneal air demonstrated, with gas seen in the anterior midline peritoneal space as well as within the left upper quadrant mesentery. This is consistent with perforated hollow viscus. Source of perforation indeterminate, although quite possibly in the left upper quadrant and possibly related to the stomach. Postsurgical changes, as described, with evidence of prior distal gastrectomy, gastrojejunostomy, and likely Nolan-en-Y anastomosis Mild prominence and equivocal slight wall thickening of the proximal jejunum, if real could represent reactive changes secondary to the above process or could represent primarily enteritis Moderate ascites Anasarca Markedly fatty liver Evidence of prior cholecystectomy Incidental findings as noted, including degenerative spondylosis changes, as do dependent pulmonary atelectatic changes, bilateral sacroiliac joint degenerative changes, right upper pole renal cyst, nonobstructive bilateral renal calculi (3) Perforated abdominal viscus Assessment & Plan: hx pancreatic cancer surgery 3 years ago discussed care with family in details recommend hospice has not been eating well for months as per daughters. para 3/11 with liters removed hypotensive at times Kamron Hays Jul 08, 2019 12:37
--- NOTE | 2019-07-08 13:09 | General Progress Note ---
Assessment/Plan Status: unchanged Assessment/Plan: S: delirious O: patient is delirious. Right inguinal femoral line in place . Two pressors . orr in place with decreasing U/o . BIPAP mask on face PHYSICAL EXAMINATION:HEAD AND NECK: cachectic appearacne, Atraumatic and normocephalic. CHEST: Bronchial bs, .HEART: S1, S2. Regular rate and rhythm. ABDOMEN: Soft, fullness, tympanic . a scar of prior surgery noted in the midline. NEUROLOGY: delirious . MUSCULOSKELETAL: Atrophied musculature. Meds: reviewed and reconciled ASSESSMENT: 1. Shock: DIC ! 2. Perforated viscus ! carcinomatosis ! 3. Pancreatic cancer , history of 4. Elevated levels of Tumor markers 5. Dehydration. 6. Acute anemia. 7. Thrombocytopenia. 8. GI and DVT prophylaxis. PLAN OF CARE: On Pressors S/p family meeting. the Dtr ( DpShanda) requesting Full code I discussed the poor prognosis with her on my meeting on07/04 with presence of father and sister. Medically intubation will not prolong the survivability of this patient. Decrease D5NS Boluses of NS as needed Titrate off at least one pressor Subjective Allergies: Coded Allergies: No Known Allergies (Unverified , 03/06/16) Objective Last 24 Hour Vital Signs Date Time Temp Pulse Resp B/P (MAP) Pulse Ox O2 Delivery O2 Flow Rate FiO2 07/08/19 12:30 122 28 122/32 (62) 100 07/08/19 12:00 30 07/08/19 12:00 Bi-pap Bi-pap 07/08/19 12:00 125 07/08/19 12:00 122/32 07/08/19 12:00 98.7 125 27 110/74 (86) 100 07/08/19 11:30 130 27 100/73 (82) 100 07/08/19 11:00 106/83 07/08/19 11:00 122 30 106/83 (91) 100 07/08/19 10:30 118 30 110/68 (82) 100 07/08/19 10:30 110 31 100 30 07/08/19 10:00 114 27 122/81 (95) 92 07/08/19 10:00 122/81 07/08/19 09:30 118 33 124/92 (103) 100 07/08/19 09:00 116 30 108/73 (85) 100 07/08/19 09:00 108/73 07/08/19 08:52 116 27 100 30 07/08/19 08:41 99/69 07/08/19 08:30 110 20 99/69 (79) 98 07/08/19 08:00 98.3 111 24 110/62 (78) 100 07/08/19 08:00 115 07/08/19 08:00 110/62 07/08/19 08:00 Bi-pap Bi-pap 07/08/19 08:00 30 07/08/19 07:30 120 29 104/79 (87) 100 07/08/19 07:00 103/71 07/08/19 07:00 112 22 103/71 (82) 100 07/08/19 06:48 119 31 99 30 07/08/19 06:30 114 23 106/83 (91) 98 07/08/19 06:15 120 31 116/86 (96) 98 07/08/19 06:00 122 28 116/70 (85) 98 07/08/19 06:00 116/70 07/08/19 05:30 130 32 123/58 (79) 97 07/08/19 05:20 128 32 136/91 (106) 98 07/08/19 05:15 129 37 122/100 (107) 98 07/08/19 05:15 122/100 07/08/19 05:14 124 35 70/38 (49) 98 07/08/19 05:12 117 27 58/23 (35) 98 07/08/19 05:10 116 29 100 30 07/08/19 05:00 126 33 44/22 (29) 98 07/08/19 05:00 44/22 07/08/19 04:45 112 26 105/76 (86) 82 07/08/19 04:30 119 29 107/70 (82) 98 07/08/19 04:00 97.8 116 24 102/75 (84) 99 07/08/19 04:00 102/75 07/08/19 04:00 30 07/08/19 04:00 Bi-pap 07/08/19 03:34 114 07/08/19 03:30 119 28 114/64 (81) 99 07/08/19 03:23 114 25 99 30 07/08/19 03:00 122 31 109/55 (73) 99 07/08/19 03:00 109/55 07/08/19 02:30 117 27 99/75 (83) 99 07/08/19 02:00 119 28 113/80 (91) 99 07/08/19 02:00 113/80 07/08/19 01:30 121 29 110/75 (87) 99 07/08/19 01:02 123 28 100 30 07/08/19 01:00 110/62 07/08/19 01:00 123 26 110/62 (78) 99 07/08/19 00:45 123 26 103/75 (84) 100 07/08/19 00:30 129 32 105/75 (85) 100 07/08/19 00:15 128 32 110/71 (84) 100 07/08/19 00:00 Bi-pap 07/08/19 00:00 30 07/08/19 00:00 119/77 07/08/19 00:00 97.6 123 28 119/77 (91) 99 07/07/19 23:49 122 29 116/66 (83) 98 07/07/19 23:47 123 28 70/53 (59) 98 07/07/19 23:45 123 28 38/26 (30) 98 07/07/19 23:45 38/26 07/07/19 23:30 129 32 84/57 (66) 98 07/07/19 23:30 84/57 07/07/19 23:18 132 07/07/19 23:15 126 33 101/53 (69) 98 07/07/19 23:00 119 26 104/72 (83) 98 07/07/19 22:55 124 31 100 30 07/07/19 22:45 121 116/66 07/07/19 22:30 116 26 99/70 (80) 99 07/07/19 22:00 126 35 110/71 (84) 99 07/07/19 21:30 115 26 110/64 (79) 99 07/07/19 21:14 121 30 100 30 07/07/19 21:00 130 33 106/77 (87) 99 07/07/19 21:00 106/77 07/07/19 20:38 102/72 07/07/19 20:30 115 27 102/72 (82) 99 07/07/19 20:00 97.6 115 23 106/75 (85) 100 07/07/19 20:00 30 07/07/19 20:00 Bi-pap 07/07/19 20:00 106/75 07/07/19 19:42 114 07/07/19 19:30 121 29 100/71 (81) 100 07/07/19 19:12 116 26 99 30 07/07/19 19:00 99/59 07/07/19 19:00 116 25 109/66 (80) 99 07/07/19 18:30 114 26 110/76 (87) 94 07/07/19 18:00 105 22 96/54 (68) 100 07/07/19 18:00 96/54 07/07/19 17:30 118 30 113/86 (95) 92 07/07/19 17:01 103 21 100 30 07/07/19 17:00 105 21 101/44 (63) 100 07/07/19 17:00 103/59 07/07/19 16:30 97.3 106 23 104/64 (77) 100 07/07/19 16:05 111 23 101/70 (80) 97 07/07/19 16:04 114 07/07/19 16:00 Bi-pap 07/07/19 16:00 101/70 07/07/19 15:30 112 26 93/60 (71) 99 07/07/19 15:00 100/70 07/07/19 15:00 117 23 102/63 (76) 100 07/07/19 14:54 112 23 100 30 07/07/19 14:30 110 24 100/59 (73) 100 07/07/19 14:00 128/57 07/07/19 14:00 115 21 103/69 (80) 100 07/07/19 13:30 103 23 101/64 (76) 99 07/07/19 13:15 107 25 100 30 Intake and Output 07/07/19 07/08/19 19:00 07:00 Intake Total 1807.80 ml 2022.03 ml Output Total 125 ml 75 ml Balance 1682.80 ml 1947.03 ml IV Total 1807.80 ml 2022.03 ml Output Urine Total 125 ml 75 ml # Bowel Movements 1 2 Laboratory Tests 07/07/19 14:20: Arterial Blood pH 7.359, Arterial Blood Partial Pressure CO2 20.8*L, Arterial Blood Partial Pressure O2 91.5, Arterial Blood HCO3 11.5*L, Arterial Blood Oxygen Saturation 96.7, Arterial Blood Base Excess -11.9*L, August Test Positive 07/07/19 18:10: Lactic Acid Level 7.80H 07/08/19 09:30: Lactic Acid Level 0.80, White Blood Count 18.3#H, Red Blood Count 3.39L, Hemoglobin 10.0L, Hematocrit 29.7L, Mean Corpuscular Volume 88, Mean Corpuscular Hemoglobin 29.6, Mean Corpuscular Hemoglobin Concent 33.7, Red Cell Distribution Width 15.6H, Platelet Count 345#, Mean Platelet Volume 6.4L, Neutrophils (%) (Auto) , Lymphocytes (%) (Auto) , Monocytes (%) (Auto) , Eosinophils (%) (Auto) , Basophils (%) (Auto) , Differential Total Cells Counted 100, Neutrophils % (Manual) 95H, Lymphocytes % (Manual) 5L, Monocytes % (Manual) 0L, Eosinophils % (Manual) 0, Basophils % (Manual) 0, Band Neutrophils 0, Platelet Estimate Adequate, Platelet Morphology Normal, Anisocytosis 1+, Sodium Level 146H, Potassium Level 3.6, Chloride Level 110H, Carbon Dioxide Level 18L, Anion Gap 18H, Blood Urea Nitrogen 71H, Creatinine 1.7H, Estimat Glomerular Filtration Rate 29.1, Glucose Level 385#H, Calcium Level 9.0, Total Bilirubin 0.5, Aspartate Amino Transf (AST/SGOT) 9L, Alanine Aminotransferase ( ALT/SGPT) 21, Alkaline Phosphatase 122H, Total Protein 7.1#, Albumin 1.8L, Globulin 5.3, Albumin/Globulin Ratio 0.3L Height (Feet): 5 Height (Inches): 3.00 Weight (Pounds): 155 Eli Keenan MD Jul 08, 2019 13:09
--- NOTE | 2019-07-08 13:30 | NUR ---
NURSE NOTES: Dr Keenan at bedside assessing pt. New order placed to reduce D5NS to 50 cc/hr.
--- NOTE | 2019-07-08 14:00 | NUR ---
NURSE NOTES: Pt repositioned and cleaned. 1 small yellow, soft BM noted. Pt in no acute distress.
--- NOTE | 2019-07-08 14:44 | Pulmonolgy Critical Care Note ---
Critical Care - Asmt/Plan Assessment/Plan: Pulmonary Progress Note Critical Care - Asmt/Plan Problems: (1) Carcinomatosis (2) Pancreatic cancer (3) Hypernatremia (4) NORMA (acute kidney injury) (5) Lactic acid acidosis (6) Septic shock on pressors, IVF (7) Hypoalbuminemia (8) Free intraperitoneal air (9) Perforated abdominal viscus, Surgeon suggesting Hospice (10) Poor prognosis - PMD family meeting noted (11) Severe protein-calorie malnutrition Assessment/Plan: Continue BiPAP 20/5 ABG PRN Will attempt to avoid intubation/MV Continue Vaso 0.04, titrate NE to keep MAP > 60 HC 100 TID and taper PRN On midodrine but NPO Abx: Zosyn/Zyvox (D3), F/U CX's Monitor volumes and renal function Trend LA NGT if able DVT Px: SCD Monitor MS Prognosis is extremely poor, STRONGLY consider palliative care and ethics eval, ongoing discussions with family FC, however I feel that coding this patient would be inappropriate Time Spent (Minutes): 45 Notes 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, ID, 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 - SURGERY Discussed with: nurses, consultants, ticketer - Objective Vital Signs Noted Status: obtunded - on BiPAP Condition: critical HEENT: atraumatic, normocephalic Lungs: occasional rhonchi Heart: HR/BP unstable Abdomen: soft, distended Extremities: edema - mild Critical Care - Subjective ROS Limited/Unobtainable: Yes ICU Day: 4 Intubation Day: On BiPAP Interval Events: NAEO Plt 56 Tro 1.11 LA 6.3 S/P 3L para Unable to place NGT Leaking @ TLC site Remains on pressors Condition: critical IV Access: central - R fem TLC FI02: 30 Vent Support Mode: BiLevel Sputum Amount: None Secretions: None Fluids: noted Drips: noted Subjective: NA CXR: R basal atelectasis/infiltrate Laboratory Tests Noted Test 07/06/19 17:05 07/06/19 22:50 07/07/19 03:45 07/07/19 07:05 Lactic Acid Level 6.10 mmol/L (0.4-2.0) H 6.10 mmol/L (0.4-2.0) H 6.20 mmol/L (0.4-2.0) H 5.70 mmol/L (0.66-2.22) H White Blood Count 8.7 K/UL (4.8-10.8) Red Blood Count 3.47 M/UL (4.20-5.40) L Hemoglobin 11.1 G/DL (12.0-16.0) L Hematocrit 31.3 % (37.0-47.0) L Mean Corpuscular Volume 90 FL (80-99) Mean Corpuscular Hemoglobin 32.1 PG (27.0-31.0) H Mean Corpuscular Hemoglobin Concent 35.6 G/DL (32.0-36.0) Red Cell Distribution Width 14.1 % (11.6-14.8) Platelet Count 56 K/UL (150-450) #L Mean Platelet Volume 7.1 FL (6.5-10.1) Neutrophils (%) (Auto) % (45.0-75.0) Lymphocytes (%) (Auto) % (20.0-45.0) Monocytes (%) (Auto) % (1.0-10.0) Eosinophils (%) (Auto) % (0.0-3.0) Basophils (%) (Auto) % (0.0-2.0) Differential Total Cells Counted 100 Neutrophils % (Manual) 93 % (45-75) H Lymphocytes % (Manual) 3 % (20-45) L Monocytes % (Manual) 3 % (1-10) Eosinophils % (Manual) 0 % (0-3) Basophils % (Manual) 1 % (0-2) Band Neutrophils 0 % (0-8) Platelet Estimate Decreased L Platelet Morphology Normal Hypochromasia 1+ Sodium Level 130 MMOL/L (136-145) L Potassium Level 3.7 MMOL/L (3.5-5.1) Chloride Level 99 MMOL/L (98-107) Carbon Dioxide Level 15 MMOL/L (21-32) L Anion Gap 16 mmol/L (5-15) H Blood Urea Nitrogen 35 mg/dL (7-18) H Creatinine 2.3 MG/DL (0.55-1.30) H Estimat Glomerular Filtration Rate 20.5 mL/min (>60) Glucose Level 203 MG/DL (74-106) H Uric Acid 2.8 MG/DL (2.6-7.2) Calcium Level 7.7 MG/DL (8.5-10.1) L Phosphorus Level 2.8 MG/DL (2.5-4.9) Magnesium Level 1.9 MG/DL (1.8-2.4) Total Bilirubin 1.7 MG/DL (0.2-1.0) H Direct Bilirubin 1.2 MG/DL (0.0-0.3) H Aspartate Amino Transf (AST/SGOT) 18 U/L (15-37) Alanine Aminotransferase (ALT/SGPT) 22 U/L (12-78) Alkaline Phosphatase 61 U/L (46-116) Troponin I 1.113 ng/mL (0.000-0.056) C-Reactive Protein, Quantitative 40.9 mg/dL (0.00-0.90) H Total Protein 3.8 G/DL (6.4-8.2) L Albumin 1.6 G/DL (3.4-5.0) L Globulin 2.2 g/dL Albumin/Globulin Ratio 0.7 (1.0-2.7) L Test 07/07/19 12:15 Lactic Acid Level 6.30 mmol/L (0.4-2.0) H Critical Care - Objective Last 24 Hour Vital Signs Date Time Temp Pulse Resp B/P (MAP) Pulse Ox O2 Delivery O2 Flow Rate FiO2 07/08/19 14:30 116 26 125/71 (89) 100 07/08/19 14:00 96/58 07/08/19 14:00 118 27 96/58 (71) 100 07/08/19 13:30 120 27 133/79 (97) 100 07/08/19 13:10 119 33 100 30 07/08/19 13:00 113 23 124/91 (102) 100 07/08/19 13:00 124/91 07/08/19 12:30 122 28 122/32 (62) 100 07/08/19 12:00 30 07/08/19 12:00 Bi-pap Bi-pap 07/08/19 12:00 125 07/08/19 12:00 122/32 07/08/19 12:00 98.7 125 27 110/74 (86) 100 07/08/19 11:30 130 27 100/73 (82) 100 07/08/19 11:00 106/83 07/08/19 11:00 122 30 106/83 (91) 100 07/08/19 10:30 118 30 110/68 (82) 100 07/08/19 10:30 110 31 100 30 07/08/19 10:00 114 27 122/81 (95) 92 07/08/19 10:00 122/81 07/08/19 09:30 118 33 124/92 (103) 100 07/08/19 09:00 116 30 108/73 (85) 100 07/08/19 09:00 108/73 07/08/19 08:52 116 27 100 30 07/08/19 08:41 99/69 07/08/19 08:30 110 20 99/69 (79) 98 07/08/19 08:00 98.3 111 24 110/62 (78) 100 07/08/19 08:00 115 07/08/19 08:00 110/62 07/08/19 08:00 Bi-pap Bi-pap 07/08/19 08:00 30 07/08/19 07:30 120 29 104/79 (87) 100 07/08/19 07:00 103/71 07/08/19 07:00 112 22 103/71 (82) 100 07/08/19 06:48 119 31 99 30 07/08/19 06:30 114 23 106/83 (91) 98 07/08/19 06:15 120 31 116/86 (96) 98 07/08/19 06:00 122 28 116/70 (85) 98 07/08/19 06:00 116/70 07/08/19 05:30 130 32 123/58 (79) 97 07/08/19 05:20 128 32 136/91 (106) 98 07/08/19 05:15 129 37 122/100 (107) 98 07/08/19 05:15 122/100 07/08/19 05:14 124 35 70/38 (49) 98 07/08/19 05:12 117 27 58/23 (35) 98 07/08/19 05:10 116 29 100 30 07/08/19 05:00 126 33 44/22 (29) 98 07/08/19 05:00 44/22 07/08/19 04:45 112 26 105/76 (86) 82 07/08/19 04:30 119 29 107/70 (82) 98 07/08/19 04:00 97.8 116 24 102/75 (84) 99 07/08/19 04:00 102/75 07/08/19 04:00 30 07/08/19 04:00 Bi-pap 07/08/19 03:34 114 07/08/19 03:30 119 28 114/64 (81) 99 07/08/19 03:23 114 25 99 30 07/08/19 03:00 122 31 109/55 (73) 99 07/08/19 03:00 109/55 07/08/19 02:30 117 27 99/75 (83) 99 07/08/19 02:00 119 28 113/80 (91) 99 07/08/19 02:00 113/80 07/08/19 01:30 121 29 110/75 (87) 99 07/08/19 01:02 123 28 100 30 07/08/19 01:00 110/62 07/08/19 01:00 123 26 110/62 (78) 99 07/08/19 00:45 123 26 103/75 (84) 100 07/08/19 00:30 129 32 105/75 (85) 100 07/08/19 00:15 128 32 110/71 (84) 100 07/08/19 00:00 Bi-pap 07/08/19 00:00 30 07/08/19 00:00 119/77 07/08/19 00:00 97.6 123 28 119/77 (91) 99 07/07/19 23:49 122 29 116/66 (83) 98 07/07/19 23:47 123 28 70/53 (59) 98 07/07/19 23:45 123 28 38/26 (30) 98 07/07/19 23:45 38/26 07/07/19 23:30 129 32 84/57 (66) 98 07/07/19 23:30 84/57 07/07/19 23:18 132 07/07/19 23:15 126 33 101/53 (69) 98 07/07/19 23:00 119 26 104/72 (83) 98 07/07/19 22:55 124 31 100 30 07/07/19 22:45 121 116/66 07/07/19 22:30 116 26 99/70 (80) 99 07/07/19 22:00 126 35 110/71 (84) 99 07/07/19 21:30 115 26 110/64 (79) 99 07/07/19 21:14 121 30 100 30 07/07/19 21:00 130 33 106/77 (87) 99 07/07/19 21:00 106/77 07/07/19 20:38 102/72 07/07/19 20:30 115 27 102/72 (82) 99 07/07/19 20:00 97.6 115 23 106/75 (85) 100 07/07/19 20:00 30 07/07/19 20:00 Bi-pap 07/07/19 20:00 106/75 07/07/19 19:42 114 07/07/19 19:30 121 29 100/71 (81) 100 07/07/19 19:12 116 26 99 30 07/07/19 19:00 99/59 07/07/19 19:00 116 25 109/66 (80) 99 07/07/19 18:30 114 26 110/76 (87) 94 07/07/19 18:00 105 22 96/54 (68) 100 07/07/19 18:00 96/54 07/07/19 17:30 118 30 113/86 (95) 92 07/07/19 17:01 103 21 100 30 07/07/19 17:00 105 21 101/44 (63) 100 07/07/19 17:00 103/59 07/07/19 16:30 97.3 106 23 104/64 (77) 100 07/07/19 16:05 111 23 101/70 (80) 97 07/07/19 16:04 114 07/07/19 16:00 Bi-pap 07/07/19 16:00 101/70 07/07/19 15:30 112 26 93/60 (71) 99 07/07/19 15:00 100/70 07/07/19 15:00 117 23 102/63 (76) 100 07/07/19 14:54 112 23 100 30 Micro: Microbiology Date/Time Source Procedure Growth Status 07/06/19 22:55 Blood Blood Culture - Preliminary NO GROWTH AFTER 24 HOURS Resulted 07/06/19 22:50 Blood Blood Culture - Preliminary NO GROWTH AFTER 24 HOURS Resulted Accucheck: 39 Critical Care - Subjective ROS Limited/Unobtainable: No FI02: 30 Vent Support Breath Rate: 14 Vent Support Mode: BiLevel Sputum Amount: None I&O: Intake and Output 07/07/19 07/08/19 19:00 07:00 Intake Total 1807.80 ml 2022.03 ml Output Total 125 ml 75 ml Balance 1682.80 ml 1947.03 ml IV Total 1807.80 ml 2022.03 ml Output Urine Total 125 ml 75 ml # Bowel Movements 1 2 Itz Marie MD Jul 08, 2019 14:44
--- NOTE | 2019-07-08 16:00 | NUR ---
NURSE NOTES: Pt repositioned and oral care provided. Dr Marie at bedside assessing pt and discussing care plan and prognosis with pt's and son. Son agreed to discuss code status with pt's daughter.
--- NOTE | 2019-07-08 18:00 | NUR ---
NURSE NOTES: Pt repositioned, no acute distress noted. still at bedside with pt.
--- NOTE | 2019-07-08 18:21 | Cardiac Electrophysiology PN ---
Assessment/Plan Assessment/Plan 1. Severe bilateral lower extremity edema. Etiology is not clear at this time. Echo EF 65% 2. Ascites, status post 3 liter paracentesis on admission and again 07/06/19 3. History of prior gastrectomy with Nolan-en-Y anastomosis. 4. Small amount of intraperitoneal air consistent with perforated viscus. Further evaluation by Dr. Hawkins. 5. Severe anemia. Could be dilutional. S/P PRBC 6. Septic shock S/P 2 units PRBC and iv fluid and iv Abx. On Levophed 10 mcg, Vasopressin 0.04 7. Hx of pancreatic cancer 8. Resp failure on BIPAP 9. Troponin leak due to demand ischemia DW RN Subjective Subjective In ICU on Levophed 10 mcg and Vasopressin at 0.04 On BIPAP. at bedside and full code Objective Last 24 Hour Vital Signs Date Time Temp Pulse Resp B/P (MAP) Pulse Ox O2 Delivery O2 Flow Rate FiO2 07/08/19 17:30 113 26 131/71 (91) 99 07/08/19 17:15 108 25 129/46 (73) 100 07/08/19 17:00 118/79 07/08/19 17:00 112 26 118/79 (92) 100 07/08/19 16:45 122 33 100 30 07/08/19 16:45 113 25 100/86 (91) 07/08/19 16:30 117 31 120/72 (88) 100 07/08/19 16:15 116 29 124/71 (88) 07/08/19 16:00 Bi-pap Bi-pap 07/08/19 16:00 112 07/08/19 16:00 97.5 112 26 123/71 (88) 100 07/08/19 16:00 123/71 07/08/19 15:30 114 26 131/72 (91) 100 07/08/19 15:29 112 27 99 30 07/08/19 15:00 123 30 122/81 (95) 100 07/08/19 15:00 122/81 07/08/19 14:30 116 26 125/71 (89) 100 07/08/19 14:00 50 07/08/19 14:00 96/58 07/08/19 14:00 96/58 07/08/19 14:00 118 27 96/58 (71) 100 07/08/19 13:30 120 27 133/79 (97) 100 07/08/19 13:10 119 33 100 30 07/08/19 13:00 113 23 124/91 (102) 100 07/08/19 13:00 124/91 07/08/19 12:30 122 28 122/32 (62) 100 07/08/19 12:00 100 07/08/19 12:00 Bi-pap Bi-pap 07/08/19 12:00 125 07/08/19 12:00 122/32 07/08/19 12:00 98.7 125 27 110/74 (86) 100 07/08/19 11:30 130 27 100/73 (82) 100 07/08/19 11:00 106/83 07/08/19 11:00 122 30 106/83 (91) 100 07/08/19 10:30 118 30 110/68 (82) 100 07/08/19 10:30 110 31 100 30 07/08/19 10:00 114 27 122/81 (95) 92 07/08/19 10:00 122/81 07/08/19 09:30 118 33 124/92 (103) 100 07/08/19 09:00 116 30 108/73 (85) 100 07/08/19 09:00 108/73 07/08/19 08:52 116 27 100 30 07/08/19 08:41 99/69 07/08/19 08:30 110 20 99/69 (79) 98 07/08/19 08:00 98.3 111 24 110/62 (78) 100 07/08/19 08:00 115 07/08/19 08:00 110/62 07/08/19 08:00 Bi-pap Bi-pap 07/08/19 08:00 30 07/08/19 07:30 120 29 104/79 (87) 100 07/08/19 07:00 103/71 07/08/19 07:00 112 22 103/71 (82) 100 07/08/19 06:48 119 31 99 30 07/08/19 06:30 114 23 106/83 (91) 98 07/08/19 06:15 120 31 116/86 (96) 98 07/08/19 06:00 122 28 116/70 (85) 98 07/08/19 06:00 116/70 3/13/20 05:30 130 32 123/58 (79) 97 07/08/19 05:20 128 32 136/91 (106) 98 07/08/19 05:15 129 37 122/100 (107) 98 07/08/19 05:15 122/100 07/08/19 05:14 124 35 70/38 (49) 98 07/08/19 05:12 117 27 58/23 (35) 98 07/08/19 05:10 116 29 100 30 07/08/19 05:00 126 33 44/22 (29) 98 07/08/19 05:00 44/22 07/08/19 04:45 112 26 105/76 (86) 82 07/08/19 04:30 119 29 107/70 (82) 98 07/08/19 04:00 97.8 116 24 102/75 (84) 99 07/08/19 04:00 102/75 07/08/19 04:00 30 07/08/19 04:00 Bi-pap 07/08/19 03:34 114 07/08/19 03:30 119 28 114/64 (81) 99 07/08/19 03:23 114 25 99 30 07/08/19 03:00 122 31 109/55 (73) 99 07/08/19 03:00 109/55 07/08/19 02:30 117 27 99/75 (83) 99 07/08/19 02:00 119 28 113/80 (91) 99 07/08/19 02:00 113/80 07/08/19 01:30 121 29 110/75 (87) 99 07/08/19 01:02 123 28 100 30 07/08/19 01:00 110/62 07/08/19 01:00 123 26 110/62 (78) 99 07/08/19 00:45 123 26 103/75 (84) 100 07/08/19 00:30 129 32 105/75 (85) 100 07/08/19 00:15 128 32 110/71 (84) 100 07/08/19 00:00 Bi-pap 07/08/19 00:00 30 07/08/19 00:00 119/77 07/08/19 00:00 97.6 123 28 119/77 (91) 99 07/07/19 23:49 122 29 116/66 (83) 98 07/07/19 23:47 123 28 70/53 (59) 98 07/07/19 23:45 123 28 38/26 (30) 98 07/07/19 23:45 38/26 07/07/19 23:30 129 32 84/57 (66) 98 07/07/19 23:30 84/57 07/07/19 23:18 132 07/07/19 23:15 126 33 101/53 (69) 98 07/07/19 23:00 119 26 104/72 (83) 98 07/07/19 22:55 124 31 100 30 07/07/19 22:45 121 116/66 07/07/19 22:30 116 26 99/70 (80) 99 07/07/19 22:00 126 35 110/71 (84) 99 07/07/19 21:30 115 26 110/64 (79) 99 07/07/19 21:14 121 30 100 30 07/07/19 21:00 130 33 106/77 (87) 99 07/07/19 21:00 106/77 07/07/19 20:38 102/72 07/07/19 20:30 115 27 102/72 (82) 99 07/07/19 20:00 97.6 115 23 106/75 (85) 100 07/07/19 20:00 30 07/07/19 20:00 Bi-pap 07/07/19 20:00 106/75 07/07/19 19:42 114 07/07/19 19:30 121 29 100/71 (81) 100 07/07/19 19:12 116 26 99 30 07/07/19 19:00 99/59 07/07/19 19:00 116 25 109/66 (80) 99 07/07/19 18:30 114 26 110/76 (87) 94 Intake and Output 07/07/19 07/08/19 19:00 07:00 Intake Total 1807.80 ml 2022.03 ml Output Total 125 ml 75 ml Balance 1682.80 ml 1947.03 ml IV Total 1807.80 ml 2022.03 ml Output Urine Total 125 ml 75 ml # Bowel Movements 1 2 Laboratory Tests Test 07/08/19 09:30 White Blood Count 18.3 K/UL (4.8-10.8) #H Red Blood Count 3.39 M/UL (4.20-5.40) L Hemoglobin 10.0 G/DL (12.0-16.0) L Hematocrit 29.7 % (37.0-47.0) L Mean Corpuscular Volume 88 FL (80-99) Mean Corpuscular Hemoglobin 29.6 PG (27.0-31.0) Mean Corpuscular Hemoglobin Concent 33.7 G/DL (32.0-36.0) Red Cell Distribution Width 15.6 % (11.6-14.8) H Platelet Count 345 K/UL (150-450) # Mean Platelet Volume 6.4 FL (6.5-10.1) L Neutrophils (%) (Auto) % (45.0-75.0) Lymphocytes (%) (Auto) % (20.0-45.0) Monocytes (%) (Auto) % (1.0-10.0) Eosinophils (%) (Auto) % (0.0-3.0) Basophils (%) (Auto) % (0.0-2.0) Differential Total Cells Counted 100 Neutrophils % (Manual) 95 % (45-75) H Lymphocytes % (Manual) 5 % (20-45) L Monocytes % (Manual) 0 % (1-10) L Eosinophils % (Manual) 0 % (0-3) Basophils % (Manual) 0 % (0-2) Band Neutrophils 0 % (0-8) Platelet Estimate Adequate Platelet Morphology Normal Anisocytosis 1+ Sodium Level 146 MMOL/L (136-145) H Potassium Level 3.6 MMOL/L (3.5-5.1) Chloride Level 110 MMOL/L (98-107) H Carbon Dioxide Level 18 MMOL/L (21-32) L Anion Gap 18 mmol/L (5-15) H Blood Urea Nitrogen 71 mg/dL (7-18) H Creatinine 1.7 MG/DL (0.55-1.30) H Estimat Glomerular Filtration Rate 29.1 mL/min (>60) Glucose Level 385 MG/DL (74-106) #H Lactic Acid Level 0.80 mmol/L (0.4-2.0) Calcium Level 9.0 MG/DL (8.5-10.1) Total Bilirubin 0.5 MG/DL (0.2-1.0) Aspartate Amino Transf (AST/SGOT) 9 U/L (15-37) L Alanine Aminotransferase (ALT/SGPT) 21 U/L (12-78) Alkaline Phosphatase 122 U/L (46-116) H Total Protein 7.1 G/DL (6.4-8.2) # Albumin 1.8 G/DL (3.4-5.0) L Globulin 5.3 g/dL Albumin/Globulin Ratio 0.3 (1.0-2.7) L Microbiology Date/Time Source Procedure Growth Status 07/06/19 22:55 Blood Blood Culture - Preliminary NO GROWTH AFTER 24 HOURS Resulted 07/06/19 22:50 Blood Blood Culture - Preliminary NO GROWTH AFTER 24 HOURS Resulted Objective HEAD AND NECK: No JVD.BIPAP on LUNGS: Coarse rhonchi CARDIOVASCULAR: Regular S1 and S2 with no gallop. ABDOMEN: Very tender. Has scar of prior surgery.Ascites EXTREMITIES: 2+ pitting edema. Benton Meyer MD Jul 08, 2019 18:21
--- NOTE | 2019-07-08 19:05 | NUR ---
HAND-OFF: Report given to MART Bo[facility]. Levophed now titrated down to 6 mcg/min. BP 100/70. No acute distress noted. Daughter just came in to see pt. Endorsed to [facility] to f/u w/ daughter regarding PICC line insertion decision.
--- NOTE | 2019-07-08 19:20 | NUR ---
NURSE NOTES: LE: FAMILY MEMBERS VISITED, ENCOURAGED HAND HYGIENE BEFORE AND AFTER PT'S ROOM THAT DAUGHTER AND PT'S WAS AWARE.,
[2019-07-08] MEDS: Dyna-Hex 2% Top Sol 2oz TOPIC SCH (19:27)
--- NOTE | 2019-07-08 19:38 | Infectious Diseases Prog Note ---
Assessment/Plan Problems: (1) Leukocytosis Assessment & Plan: suspect steroids induced with negative blood cultures on multiple occasions, already on zyvox and zosyn (2) Perforated abdominal viscus Assessment & Plan: with no clinical evidence of perforation , S/P paracentesis x 2 , with increasing intra peritoneal air , surgery is following (3) Anemia Assessment & Plan: S/P blood transfusion, rule out GI bleeding, recommend GI eval and endoscopy (4) Hypoxemia Assessment & Plan: rule out new pneumonia , VS sepsis , continue zosyn , add zyvox, obtain CXR , continue BIPAP as per pulmonary (5) Hypotension Assessment & Plan: suspect due to low oncotic pressure with multiple negative blood cultures, on zyvox and zosyn empirically for now, continue pressure support (6) Abdominal pain Assessment & Plan: suspect due to massive amount of air S/P Paracentesis , no fluids culture were sent after she had paracentesis , surgery is following . may need EGD for further eval of abdominal pain (7) Free intraperitoneal air Assessment & Plan: suspect due to recent paracentesis , with no clinical evidence of perforation , on wide spectrum antibiotics, all cultures are negative so far Subjective ROS Limited/Unobtainable: Yes Allergies: Coded Allergies: No Known Allergies (Unverified , 03/06/16) Subjective she was still in ICU on BIPAP for hypoxemia and hypotension , after she had paracentesis with removal of three liters , resting in bed comfortable, UNRESPONSIVE , NO SOB , on pressor. at bedside , afebrile Objective Vital Signs Last 24 Hour Vital Signs Date Time Temp Pulse Resp B/P (MAP) Pulse Ox O2 Delivery O2 Flow Rate FiO2 07/08/19 19:27 88/69 07/08/19 19:00 100/70 07/08/19 19:00 123 28 100/70 (80) 07/08/19 18:45 128 29 125/78 (94) 07/08/19 18:30 115 26 108/75 (86) 07/08/19 18:15 117 28 120/77 (91) 07/08/19 18:00 117/63 07/08/19 18:00 119 26 117/63 (81) 98 07/08/19 17:45 112 24 117/64 (81) 100 07/08/19 17:30 113 26 131/71 (91) 99 07/08/19 17:15 108 25 129/46 (73) 100 07/08/19 17:00 118/79 07/08/19 17:00 112 26 118/79 (92) 100 07/08/19 16:45 122 33 100 30 07/08/19 16:45 113 25 100/86 (91) 07/08/19 16:30 117 31 120/72 (88) 100 07/08/19 16:15 116 29 124/71 (88) 07/08/19 16:00 Bi-pap Bi-pap 07/08/19 16:00 112 07/08/19 16:00 97.5 112 26 123/71 (88) 100 07/08/19 16:00 123/71 07/08/19 15:30 114 26 131/72 (91) 100 07/08/19 15:29 112 27 99 30 07/08/19 15:00 123 30 122/81 (95) 100 07/08/19 15:00 122/81 07/08/19 14:30 116 26 125/71 (89) 100 07/08/19 14:00 50 07/08/19 14:00 96/58 07/08/19 14:00 96/58 07/08/19 14:00 118 27 96/58 (71) 100 07/08/19 13:30 120 27 133/79 (97) 100 07/08/19 13:10 119 33 100 30 07/08/19 13:00 113 23 124/91 (102) 100 07/08/19 13:00 124/91 07/08/19 12:30 122 28 122/32 (62) 100 07/08/19 12:00 100 07/08/19 12:00 Bi-pap Bi-pap 07/08/19 12:00 125 07/08/19 12:00 122/32 07/08/19 12:00 98.7 125 27 110/74 (86) 100 07/08/19 11:30 130 27 100/73 (82) 100 07/08/19 11:00 106/83 07/08/19 11:00 122 30 106/83 (91) 100 07/08/19 10:30 118 30 110/68 (82) 100 07/08/19 10:30 110 31 100 30 07/08/19 10:00 114 27 122/81 (95) 92 07/08/19 10:00 122/81 07/08/19 09:30 118 33 124/92 (103) 100 07/08/19 09:00 116 30 108/73 (85) 100 07/08/19 09:00 108/73 07/08/19 08:52 116 27 100 30 07/08/19 08:41 99/69 07/08/19 08:30 110 20 99/69 (79) 98 07/08/19 08:00 98.3 111 24 110/62 (78) 100 07/08/19 08:00 115 07/08/19 08:00 110/62 07/08/19 08:00 Bi-pap Bi-pap 07/08/19 08:00 30 07/08/19 07:30 120 29 104/79 (87) 100 07/08/19 07:00 103/71 07/08/19 07:00 112 22 103/71 (82) 100 07/08/19 06:48 119 31 99 30 07/08/19 06:30 114 23 106/83 (91) 98 07/08/19 06:15 120 31 116/86 (96) 98 07/08/19 06:00 122 28 116/70 (85) 98 07/08/19 06:00 116/70 07/08/19 05:30 130 32 123/58 (79) 97 07/08/19 05:20 128 32 136/91 (106) 98 07/08/19 05:15 129 37 122/100 (107) 98 07/08/19 05:15 122/100 07/08/19 05:14 124 35 70/38 (49) 98 07/08/19 05:12 117 27 58/23 (35) 98 07/08/19 05:10 116 29 100 30 07/08/19 05:00 126 33 44/22 (29) 98 07/08/19 05:00 44/22 07/08/19 04:45 112 26 105/76 (86) 82 07/08/19 04:30 119 29 107/70 (82) 98 07/08/19 04:00 97.8 116 24 102/75 (84) 99 07/08/19 04:00 102/75 3/13/20 04:00 30 07/08/19 04:00 Bi-pap 07/08/19 03:34 114 07/08/19 03:30 119 28 114/64 (81) 99 07/08/19 03:23 114 25 99 30 07/08/19 03:00 122 31 109/55 (73) 99 07/08/19 03:00 109/55 07/08/19 02:30 117 27 99/75 (83) 99 07/08/19 02:00 119 28 113/80 (91) 99 07/08/19 02:00 113/80 07/08/19 01:30 121 29 110/75 (87) 99 07/08/19 01:02 123 28 100 30 07/08/19 01:00 110/62 07/08/19 01:00 123 26 110/62 (78) 99 07/08/19 00:45 123 26 103/75 (84) 100 07/08/19 00:30 129 32 105/75 (85) 100 07/08/19 00:15 128 32 110/71 (84) 100 07/08/19 00:00 Bi-pap 07/08/19 00:00 30 07/08/19 00:00 119/77 07/08/19 00:00 97.6 123 28 119/77 (91) 99 07/07/19 23:49 122 29 116/66 (83) 98 07/07/19 23:47 123 28 70/53 (59) 98 07/07/19 23:45 123 28 38/26 (30) 98 07/07/19 23:45 38/26 07/07/19 23:30 129 32 84/57 (66) 98 07/07/19 23:30 84/57 07/07/19 23:18 132 07/07/19 23:15 126 33 101/53 (69) 98 07/07/19 23:00 119 26 104/72 (83) 98 07/07/19 22:55 124 31 100 30 07/07/19 22:45 121 116/66 07/07/19 22:30 116 26 99/70 (80) 99 07/07/19 22:00 126 35 110/71 (84) 99 07/07/19 21:30 115 26 110/64 (79) 99 07/07/19 21:14 121 30 100 30 07/07/19 21:00 130 33 106/77 (87) 99 07/07/19 21:00 106/77 07/07/19 20:38 102/72 07/07/19 20:30 115 27 102/72 (82) 99 07/07/19 20:00 97.6 115 23 106/75 (85) 100 07/07/19 20:00 30 07/07/19 20:00 Bi-pap 07/07/19 20:00 106/75 07/07/19 19:42 114 Height (Feet): 5 Height (Inches): 3.00 Weight (Pounds): 155 General Appearance: no acute distress, cachetic, other - altered HEENT: normocephalic, atraumatic, anicteric, mucous membranes moist, PERRL Respiratory/Chest: no respiratory distress, no accessory muscle use, decreased breath sounds, crackles/rales Cardiovascular: normal peripheral pulses, normal rate, regular rhythm, no gallop/murmur, no JVD Abdomen: no organomegaly, no mass, no scars, hypoactive bowel sounds, distended Genitourinary: normal external genitalia Extremities: no cyanosis, no clubbing Skin: no rash, no lesions Neurologic/Psychiatric: unresponsiveness Lymphatic: no neck adenopathy, no groin adenopathy Microbiology Date/Time Source Procedure Growth Status 07/06/19 22:55 Blood Blood Culture - Preliminary NO GROWTH AFTER 24 HOURS Resulted 07/06/19 22:50 Blood Blood Culture - Preliminary NO GROWTH AFTER 24 HOURS Resulted Laboratory Tests Test 07/08/19 09:30 White Blood Count 18.3 K/UL (4.8-10.8) #H Red Blood Count 3.39 M/UL (4.20-5.40) L Hemoglobin 10.0 G/DL (12.0-16.0) L Hematocrit 29.7 % (37.0-47.0) L Mean Corpuscular Volume 88 FL (80-99) Mean Corpuscular Hemoglobin 29.6 PG (27.0-31.0) Mean Corpuscular Hemoglobin Concent 33.7 G/DL (32.0-36.0) Red Cell Distribution Width 15.6 % (11.6-14.8) H Platelet Count 345 K/UL (150-450) # Mean Platelet Volume 6.4 FL (6.5-10.1) L Neutrophils (%) (Auto) % (45.0-75.0) Lymphocytes (%) (Auto) % (20.0-45.0) Monocytes (%) (Auto) % (1.0-10.0) Eosinophils (%) (Auto) % (0.0-3.0) Basophils (%) (Auto) % (0.0-2.0) Differential Total Cells Counted 100 Neutrophils % (Manual) 95 % (45-75) H Lymphocytes % (Manual) 5 % (20-45) L Monocytes % (Manual) 0 % (1-10) L Eosinophils % (Manual) 0 % (0-3) Basophils % (Manual) 0 % (0-2) Band Neutrophils 0 % (0-8) Platelet Estimate Adequate Platelet Morphology Normal Anisocytosis 1+ Sodium Level 146 MMOL/L (136-145) H Potassium Level 3.6 MMOL/L (3.5-5.1) Chloride Level 110 MMOL/L (98-107) H Carbon Dioxide Level 18 MMOL/L (21-32) L Anion Gap 18 mmol/L (5-15) H Blood Urea Nitrogen 71 mg/dL (7-18) H Creatinine 1.7 MG/DL (0.55-1.30) H Estimat Glomerular Filtration Rate 29.1 mL/min (>60) Glucose Level 385 MG/DL (74-106) #H Lactic Acid Level 0.80 mmol/L (0.4-2.0) Calcium Level 9.0 MG/DL (8.5-10.1) Total Bilirubin 0.5 MG/DL (0.2-1.0) Aspartate Amino Transf (AST/SGOT) 9 U/L (15-37) L Alanine Aminotransferase (ALT/SGPT) 21 U/L (12-78) Alkaline Phosphatase 122 U/L (46-116) H Total Protein 7.1 G/DL (6.4-8.2) # Albumin 1.8 G/DL (3.4-5.0) L Globulin 5.3 g/dL Albumin/Globulin Ratio 0.3 (1.0-2.7) L Current Medications Medications (Trade) Dose Ordered Sig/Margie Route PRN Reason Start Time Stop Time Status Last Admin Dose Admin Chlorhexidine Gluconate (Sheeba-Hex 2%) 1 applic DAILY@2000 TOPIC 07/07/19 20:00 08/06/19 19:59 07/08/19 19:27 Dextrose/Sodium Chloride 1,000 ml @ 50 mls/hr Q20H IV 07/08/19 13:04 08/07/19 13:03 07/08/19 13:41 Heparin Sodium/ Sodium Chloride (Heparin 1000 units/500ml Premix) 1,000 unit ONCE PRN IV PICC 07/08/19 11:00 07/10/19 10:59 Hydrocortisone (Solu-CORTEF) 100 mg TID IV 07/06/19 09:30 08/05/19 09:29 07/08/19 18:35 Lidocaine HCl (Xylocaine 1% 30ml) 30 ml ONCE PRN INJ PICC 07/08/19 11:00 07/10/19 10:59 Linezolid 300 ml @ 300 mls/hr Q12HR IVPB 07/06/19 21:00 07/13/19 20:59 07/08/19 08:50 Morphine Sulfate (Morphine Sulfate) 1 mg Q4H PRN IVP Moderate Pain (Pain Scale 4-6) 07/06/19 01:45 07/11/19 12:59 Morphine Sulfate (Morphine Sulfate) 2 mg Q6H PRN IVP Severe Pain (Pain Scale 7-10) 07/06/19 00:30 07/10/19 18:29 07/06/19 20:19 Nitroglycerin (Ntg) 0.4 mg Q5M PRN SL Prn Chest Pain 07/05/19 22:15 08/03/19 04:59 Norepinephrine Bitartrate 8 mg/ Dextrose 500 ml @ 0 mls/hr Q24H IV 07/06/19 07:00 08/05/19 06:59 07/08/19 19:27 Pantoprazole (Protonix) 40 mg Q12HR IVP 07/06/19 09:00 07/31/19 20:59 07/08/19 08:40 Phenylephrine HCl 50 mg/Dextrose 250 ml @ 0 mls/hr Q24H IV 07/05/19 22:45 08/04/19 22:44 07/05/19 23:17 Piperacillin Sod/ Tazobactam Sod 3.375 gm/Sodium Chloride 110 ml @ 27.5 mls/hr Q12H IVPB 07/06/19 00:00 07/13/19 00:00 07/08/19 12:19 Sodium Chloride 500 ml @ 0 mls/hr Q0M PRN IVPB SBP<100 07/05/19 22:15 08/01/19 20:29 Vasopressin 100 units/Sodium Chloride 100 ml @ 0 mls/hr Q24H IV 07/05/19 22:45 08/04/19 22:44 07/07/19 23:58 Tenisha Osei M.D. Jul 08, 2019 19:38
--- NOTE | 2019-07-08 19:51 | NUR ---
NURSE NOTES: PATIENT ALERT, ORIENTED X2, RESPIRATION REGULAR, ON BIPAP I/E 20/5, FIO2 30%, O2 SATURATION 100% NOTED, 110 'S/MIN HEART RATE, ST NOTED, ABDOMEN DISTENDED, TENDER, F/C INTACT AND PATENT, DARK RG COLOR URINE OUTED, OLIGURIA, GENERALIZED PITTING EDEMA NOTED, TLC TO RIGHT FEMORAL SEROUS LEAKING STATUS AND PPL TO LEFT UA INTACT, ONGOING IV FLUID D5W NS AT 50ML/HR, LEVOPHED 8MCG/MIN AND PITRESSIN 0.04UNITS/MIN VIA TLC, 2POINT SOFT RESTRAINTS STATUS, ON P200 BED, MADE LOWER BED POSITION, PROVIDED CALL LIGHT WITHIN REACH, ON BED ALARM AND LOCKED, WILL CONTINUE TO MONITOR.
--- NOTE | 2019-07-08 21:51 | NUR ---
NURSE NOTES: PATIENT ASLEEP STATUS, NO PAIN OR SOB NOTED, ON FULL FACE BIPAP, I/E 20/5, FIO2 30%, O2 SATURATION 100% NOTED, WILL CONTINUE TO MONITOR.
[2019-07-08] MEDS: Phenylephrine 50 MG in D5W 245 ML IV SCH (22:45)
--- NOTE | 2019-07-08 23:30 | NUR ---
NURSE NOTES: LE: WEEPING FROM BOTH UPPER ARM AND LEAKING FROM RIGHT FEMORAL TLC, GOOD BLOOD RETURN STATUS.
[2019-07-08] MEDS: Vasopressin 100 UNITS in NS 95 ML IV SCH (23:38)
[2019-07-08] MEDS ORDERED: NS 275ml ONE ×2 (23:59)
[2019-07-08] MEDS ORDERED: Tubing IV Secondary IV ONE ×3 (23:59)
[2019-07-08] MEDS ORDERED: D5NS 1000ml IV ONE ×3 (23:59)
[2019-07-08] MEDS ORDERED: NS 500ML ONE ×2 (23:59)
[2019-07-09] VITALS (71 sets, daily range): BP systolic 35–151; BP diastolic 10–115
--- NOTE | 2019-07-09 01:50 | NUR ---
NURSE NOTES: LE: REPOSITIONED, RELEASED RESTRAINTS AND REAPPLIED, WILL CONTINUE PLAN OF CARE.
--- NOTE | 2019-07-09 03:50 | NUR ---
NURSE NOTES: LE: Patient awoke, repositioned, found whole body scattered redness, ecchymosis, petechiae and purple color noted, both heel non-blanchable redness, cyanotic to both toes, no hives or itchiness status, will continue to monitor.
--- NOTE | 2019-07-09 05:00 | NUR ---
NURSE NOTES: LE: Morning care was done.
--- NOTE | 2019-07-09 06:15 | NUR ---
NURSE NOTES: O2 SATURATION 70%-80% NOTED, CALLED RT AT 0610AM. INCREASED FIO2 TO 50% AND THEN O2 SATURATION 92%-93% NOTED, WILL CONTINUE TO MONITOR. ONGOING LEVOPHED 14MCG/MIN VIA TLC.
[2019-07-09 06:38] LABS: HEMATOCRIT 30.2 % (37.0-47.0); MEAN CORPUSCULAR VOLUME 89 FL (80-99); PLATELET COUNT 351 K/UL (150-450); RED BLOOD COUNT 3.38 M/UL (4.20-5.40); RED CELL DISTRIBUTION WIDTH 16.1 % (11.6-14.8)
--- NOTE | 2019-07-09 06:51 | NUR ---
NURSE NOTES: RT CAME, O2 SATURATION 77% NOTED ON BIPAP FI2 60%, ONGOING LEVOPHED 18MCG/MIN STATUS.
--- NOTE | 2019-07-09 06:54 | NUR ---
RD ASSESSMENT & RECOMMENDATIONS SEE CARE ACTIVITY FOR COMPLETE ASSESSMENT DAILY ESTIMATED NEEDS: Needs based on Cancer, pulmonary 54.5kg 25-35 kcals/kg [id number] total kcals 1-2 g protein/kg 55-109 g total protein Fluid per MD mL/kg total fluid mLs NUTRITION DIAGNOSIS: Swallowing difficulty r/t respiratory status as evidenced by pt on Bipap, pressor support, NPO at this time. CURRENT DIET:NPO PO DIET RECOMMENDATIONS: TUMBLING INSTRUCTOR eval prior to oral diet ENTERAL NUTRITION RECOMMENDATIONS: If part of POC, rec Vital AF 1.2 goal of 50ml/hr x24 hrs to provide 1200ml, 1440 kcal, 90g pro, 973ml free H2O - When OFF BIPAP AND HEMODYNAMICALLY STABLE, rec non oral feeds to meet est nutritional needs. - Start Vital 1.2 @20ml/hr x6 hrs. Advance 10ml/hr q4-6 hrs to goal. - Flush per MD/ HOB over 30 degrees ADDITIONAL RECOMMENDATIONS: 1) Feeds when stable, recs as above 2) Monitor NPO status- NPO/minimal intake status x 8 days -> w/ BIPAP, without GI access, on pressors 3) RECALIBRATE bed scale for accurate CBW (Currently w/ added p200 mattress) 4) With GI access: add MVI x 1+ Vit C 250mg qd + Norman BID for wound care 5) Monitor BGs w/ steroidal med, need for NISS. 6) Cont w/ added D5 while NPO: h/o hypoglycemia
[2019-07-09 06:58] LABS: ALANINE AMINOTRANSFERASE 14 U/L (12-78); ALBUMIN 1.9 G/DL (3.4-5.0); ALBUMIN/GLOBULIN RATIO 0.4 (1.0-2.7); ALKALINE PHOSPHATASE 115 U/L (46-116); ANION GAP 19 mmol/L (5-15); ASPARTATE AMINO TRANSFERASE 13 U/L (15-37); BILIRUBIN,TOTAL 0.4 MG/DL (0.2-1.0); BLOOD UREA NITROGEN 77 mg/dL (7-18); CARBON DIOXIDE 16 MMOL/L (21-32); CHLORIDE 110 MMOL/L (98-107); CREATININE 1.7 MG/DL (0.55-1.30); POTASSIUM 3.6 MMOL/L (3.5-5.1); SODIUM 145 MMOL/L (136-145)
--- NOTE | 2019-07-09 07:15 | NUR ---
HAND-OFF: Report given to Carlos PILLAI RN.
--- NOTE | 2019-07-09 07:16 | NUR ---
NURSE NOTES: Received patient from [facility]. Patient opens eyes and is moaning at this time but does not speak or respond to questions. Patient on BiPAP with setting of 20/5 with FiO2 60%. patient fingers and toes appear cyanotic and her legs and abdomen are becoming mottled. ABG ordered/taken. Awaiting result at this time. Patient NPO. NGT/OGT insertion not possible at this time as patient saturation drops when BiPAP removed. Will ensure MD aware. Patient has orr for urine retention with small amount of dark nima foul smelling urine noted in the tube. Patient has generalized pitting edema +2-3 and weeping noted on all extremities and at central line insertion site. Patient abdomen distended and taught. Patient has petechiae noted on abdomen/chest and right hip. Mottling noted on bilateral upper and lower extremities. Fingers and toes appear cyanotic. Pulse oximetry does not read as peripheral blood flow is minimal at this time. patient has sacral deep tissue injury noted. Patient on low air loss mattress. Will tune patient every two hours and as needed. Patient has right femoral TLC that is patent and oozing serosanguineous fluid at this time. Femoral line running Levophed at 18mcg/min, Vasopressin at 0.04units/min, and D5 normal saline at 50mL/hr at this time. Blood pressure 93/73 at this time. Will continue to monitor and titrate per protocol. Patient bed in low position with bed alarm on and call light in reach at this time. patient repositioned and oral care done at this time.
[2019-07-09] MEDS: D5NS 1,000 ML IV SCH (07:42)
--- NOTE | 2019-07-09 07:43 | NUR ---
NURSE NOTES: Patient BP 59/42. Levophed increased to 30mcg/min and vasopressin already running at 0.04units/min. PRN 500mL Bolus administered at this time. Will notify Dr Munson and continue to monitor.
--- NOTE | 2019-07-09 07:54 | NUR ---
NURSE NOTES: Left telephone message for Dr Munson regarding ABG result of pH 6.939, pO2 16.3, P02 253.4, HCO3 3.4, and BE -27.1. Notified him that patient BP dropped to 46/36 with Levophed then increased at 30mcg/min, vasopressin running at 0.04units/min and 500mL bolus being given. Blood pressure now 80/63. Awaiting call back.
--- NOTE | 2019-07-09 08:05 | NUR ---
NURSE NOTES: Patient blood pressure continues to be low on Levophed at 30mcg/min and Vasopressin at 0.04units/min. Bolus 500mL given. BP now 72/48. Dr Junior notified. Dr Munson notified. Ordered Phenylephrine PRN from pharmacy. Will continue to monitor.
--- NOTE | 2019-07-09 08:10 | NUR ---
NURSE NOTES: Dr Junior rounded on the patient. Updated him regarding patient current condition. Showed him discoloration of the right hip and mottling of the legs/toes along with petechiae of the chest and generalized pitting edema with weeping. No verbal orders received.
[2019-07-09 08:31] LABS: ALBUMIN 1.9 G/DL (3.4-5.0); PHOSPHORUS 4.1 MG/DL (2.5-4.9)
[2019-07-09] MEDS: Norepinephrine Bitartrate 8 MG in D5W 500ml 492 ML IV SCH ×3 (08:34→18:38)
--- NOTE | 2019-07-09 09:00 | NUR ---
NURSE NOTES: Dr Munson called back and asked me to notify patient primary physician. No orders received at this time. Left telephone message for Dr Keenan regarding patient ABG result and current condition. Awaiting call back at this time.
[2019-07-09 09:10] LABS: ALANINE AMINOTRANSFERASE 15 U/L (12-78); ALKALINE PHOSPHATASE 116 U/L (46-116); ASPARTATE AMINO TRANSFERASE 14 U/L (15-37); BILIRUBIN,DIRECT < 0.1 MG/DL (0.0-0.3); BILIRUBIN,TOTAL 0.4 MG/DL (0.2-1.0); GAMMA GLUTAMYL TRANSPEPTIDASE 71 U/L (5-85)
--- NOTE | 2019-07-09 09:15 | Nephrology Progress Note ---
Assessment/Plan Problem List: (1) Hypotension (2) Anemia (3) Abdominal pain (4) Free intraperitoneal air (5) Hypoalbuminemia Assessment Intra-abdominal process either peritonitis and or perforated viscus Severe anemia with drop of hemoglobin from 10 to 7 requiring blood transfusion. Hypotensive unclear if due to intra-abdominal bleeding and or septic process. 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 Clinically she has deteriorated. Renal parameters are worsened. Urine output decreased Very poor prognosis. Hemo-dynamically unstable for dialysis. Not much can be offered from renal standpoint of view I favor DNR and comfort care. Previously Continue per general surgery and GI advice advice Patient was started on p.o. diet Antibiotics now on Zosyn IV Protonix Young catheter Blood pressure support with pressors if needed Patient currently is full code, I support DNR status Will discuss with consultants Reviewed the case with RN Subjective ROS Limited/Unobtainable: Yes Objective Objective Last 24 Hour Vital Signs Date Time Temp Pulse Resp B/P (MAP) Pulse Ox O2 Delivery O2 Flow Rate FiO2 07/09/19 08:34 147/97 07/09/19 08:30 132 26 147/97 (114) 30 07/09/19 08:25 133 24 151/115 (127) 07/09/19 08:15 132 23 83/68 (73) 07/09/19 08:10 131 23 72/48 (56) 07/09/19 08:00 98.3 131 24 67/51 (56) 07/09/19 08:00 60 07/09/19 08:00 83/68 07/09/19 08:00 Bi-pap Bi-pap 07/09/19 07:55 131 23 68/48 (55) 07/09/19 07:50 131 24 80/63 (69) 07/09/19 07:45 46/36 07/09/19 07:45 132 24 78/40 (53) 07/09/19 07:42 132 24 68/51 (57) 07/09/19 07:37 133 24 59/42 (48) 07/09/19 07:30 134 24 46/36 (39) 07/09/19 07:27 134 23 98 60 07/09/19 07:15 134 23 93/73 (80) 07/09/19 07:00 131 24 96 07/09/19 06:45 134 24 112/73 (86) 60 07/09/19 06:36 136 24 134/72 (92) 66 07/09/19 06:30 134 25 76 07/09/19 06:25 64/18 07/09/19 06:23 136 26 64/18 (33) 88 07/09/19 06:15 134 27 77/56 (63) 89 07/09/19 06:15 77/56 07/09/19 06:00 133 27 97/62 (74) 92 07/09/19 06:00 97/62 07/09/19 05:45 50/42 07/09/19 05:45 133 27 50/42 (45) 88 07/09/19 05:30 131 29 84/68 (73) 07/09/19 05:25 132 31 98 30 07/09/19 05:21 131 32 86/63 (71) 95 07/09/19 05:20 86/63 07/09/19 05:15 129 30 43/24 (30) 95 07/09/19 05:15 43/24 07/09/19 05:00 134 28 79/51 (60) 88 07/09/19 05:00 79/51 07/09/19 04:56 128 26 100/71 (81) 81 07/09/19 04:30 126 29 129/91 (104) 86 07/09/19 04:00 Bi-pap Bi-pap 07/09/19 04:00 97.5 126 30 99/55 (70) 97 07/09/19 04:00 99/55 07/09/19 04:00 30 07/09/19 04:00 126 07/09/19 03:30 117 26 111/81 (91) 97 07/09/19 03:00 110/19 07/09/19 03:00 113 25 110/19 (49) 97 07/09/19 02:33 110 23 98 30 07/09/19 02:30 111 23 100/63 (75) 91 07/09/19 02:00 112 26 108/49 (68) 97 07/09/19 02:00 108/49 07/09/19 01:30 112 24 102/67 (79) 95 07/09/19 01:02 111 22 100 30 07/09/19 01:00 112 24 98/59 (72) 98 07/09/19 01:00 98/59 07/09/19 00:30 113 22 116/71 (86) 98 07/09/19 00:00 30 07/09/19 00:00 97.7 115 25 117/59 (78) 93 07/09/19 00:00 115 07/09/19 00:00 117/59 07/09/19 00:00 Bi-pap Bi-pap 07/08/19 23:30 116 26 108/70 (83) 98 07/08/19 23:00 117 25 99/67 (78) 98 07/08/19 23:00 99/67 07/08/19 22:51 122 30 100 30 07/08/19 22:45 117 108/70 07/08/19 22:30 119 25 98/58 (71) 100 07/08/19 22:00 124 27 103/58 (73) 100 07/08/19 22:00 103/58 07/08/19 21:46 119 28 100 30 07/08/19 21:30 119 28 110/65 (80) 100 07/08/19 21:00 109/63 07/08/19 21:00 118 27 109/63 (78) 100 07/08/19 20:30 120 29 111/73 (86) 100 07/08/19 20:00 Bi-pap Bi-pap 07/08/19 20:00 111/69 07/08/19 20:00 30 07/08/19 20:00 97.6 117 27 111/69 (83) 100 07/08/19 19:54 117 07/08/19 19:54 117 30 100 30 07/08/19 19:45 120 30 105/52 (69) 100 07/08/19 19:30 120 26 106/65 (79) 100 07/08/19 19:27 88/69 07/08/19 19:15 119 28 88/69 (75) 100 07/08/19 19:00 100/70 07/08/19 19:00 123 28 100/70 (80) 07/08/19 18:45 128 29 125/78 (94) 07/08/19 18:30 115 26 108/75 (86) 07/08/19 18:15 117 28 120/77 (91) 07/08/19 18:00 117/63 07/08/19 18:00 119 26 117/63 (81) 98 07/08/19 17:45 112 24 117/64 (81) 100 07/08/19 17:30 113 26 131/71 (91) 99 07/08/19 17:15 108 25 129/46 (73) 100 07/08/19 17:00 118/79 07/08/19 17:00 112 26 118/79 (92) 100 07/08/19 16:45 122 33 100 30 07/08/19 16:45 113 25 100/86 (91) 07/08/19 16:30 117 31 120/72 (88) 100 07/08/19 16:15 116 29 124/71 (88) 07/08/19 16:00 Bi-pap Bi-pap 07/08/19 16:00 112 07/08/19 16:00 97.5 112 26 123/71 (88) 100 07/08/19 16:00 123/71 07/08/19 15:30 114 26 131/72 (91) 100 07/08/19 15:29 112 27 99 30 07/08/19 15:00 123 30 122/81 (95) 100 07/08/19 15:00 122/81 07/08/19 14:30 116 26 125/71 (89) 100 07/08/19 14:00 50 07/08/19 14:00 96/58 07/08/19 14:00 96/58 07/08/19 14:00 118 27 96/58 (71) 100 07/08/19 13:30 120 27 133/79 (97) 100 07/08/19 13:10 119 33 100 30 07/08/19 13:00 113 23 124/91 (102) 100 07/08/19 13:00 124/91 07/08/19 12:30 122 28 122/32 (62) 100 07/08/19 12:00 100 07/08/19 12:00 Bi-pap Bi-pap 07/08/19 12:00 125 07/08/19 12:00 122/32 07/08/19 12:00 98.7 125 27 110/74 (86) 100 07/08/19 11:30 130 27 100/73 (82) 100 07/08/19 11:00 106/83 07/08/19 11:00 122 30 106/83 (91) 100 07/08/19 10:30 118 30 110/68 (82) 100 07/08/19 10:30 110 31 100 30 07/08/19 10:00 114 27 122/81 (95) 92 07/08/19 10:00 122/81 07/08/19 09:30 118 33 124/92 (103) 100 Intake and Output 07/08/19 07/09/19 19:00 07:00 Intake Total 1745.17513 ml 1940.1 ml Output Total 55 ml 100 ml Balance 1690.77746 ml 1840.1 ml IV Total 1745.77312 ml 1940.1 ml Output Urine Total 55 ml 100 ml # Bowel Movements 1 2 Laboratory Tests 07/08/19 09:30: White Blood Count 18.3#H, Red Blood Count 3.39L, Hemoglobin 10.0L, Hematocrit 29.7L, Mean Corpuscular Volume 88, Mean Corpuscular Hemoglobin 29.6, Mean Corpuscular Hemoglobin Concent 33.7, Red Cell Distribution Width 15.6H, Platelet Count 345#, Mean Platelet Volume 6.4L, Neutrophils (%) (Auto) , Lymphocytes (%) (Auto) , Monocytes (%) (Auto) , Eosinophils (%) (Auto) , Basophils (%) (Auto) , Differential Total Cells Counted 100, Neutrophils % ( Manual) 95H, Lymphocytes % (Manual) 5L, Monocytes % (Manual) 0L, Eosinophils % ( Manual) 0, Basophils % (Manual) 0, Band Neutrophils 0, Platelet Estimate Adequate, Platelet Morphology Normal, Anisocytosis 1+, Sodium Level 146H, Potassium Level 3.6, Chloride Level 110H, Carbon Dioxide Level 18L, Anion Gap 18H, Blood Urea Nitrogen 71H, Creatinine 1.7H, Estimat Glomerular Filtration Rate 29.1, Glucose Level 385#H, Lactic Acid Level 0.80, Calcium Level 9.0, Total Bilirubin 0.5, Aspartate Amino Transf (AST/SGOT) 9L, Alanine Aminotransferase (ALT/SGPT) 21, Alkaline Phosphatase 122H, Total Protein 7.1#, Albumin 1.8L, Globulin 5.3, Albumin/Globulin Ratio 0.3L 07/09/19 06:05: White Blood Count 18.0H, Red Blood Count 3.38L, Hemoglobin 10.0L, Hematocrit 30.2L, Mean Corpuscular Volume 89, Mean Corpuscular Hemoglobin 29.6, Mean Corpuscular Hemoglobin Concent 33.2, Red Cell Distribution Width 16.1H, Platelet Count 351, Mean Platelet Volume 5.7L, Neutrophils (%) (Auto) , Lymphocytes (%) (Auto) , Monocytes (%) (Auto) , Eosinophils (%) (Auto) , Basophils (%) (Auto) , Differential Total Cells Counted 100, Neutrophils % ( Manual) 86H, Lymphocytes % (Manual) 7L, Monocytes % (Manual) 6, Eosinophils % ( Manual) 1, Basophils % (Manual) 0, Band Neutrophils 0, Platelet Estimate Adequate, Platelet Morphology Normal, Anisocytosis 1+, Sodium Level 145, Potassium Level 3.6, Chloride Level 110H, Carbon Dioxide Level 16L, Anion Gap 19H, Blood Urea Nitrogen 77H, Creatinine 1.7H, Estimat Glomerular Filtration Rate 29.1, Glucose Level 351H, Calcium Level 9.0, Total Bilirubin 0.4, Aspartate Amino Transf (AST/SGOT) 13L, Alanine Aminotransferase (ALT/SGPT) 14, Alkaline Phosphatase 115, Total Protein 7.0, Albumin 1.9L, Globulin 5.1, Albumin /Globulin Ratio 0.4L 07/09/19 06:28: Total Bilirubin [Pending], Aspartate Amino Transf (AST/SGOT) [Pending], Alanine Aminotransferase (ALT/SGPT) [Pending], Alkaline Phosphatase [Pending], Total Protein [Pending], Albumin [Pending], Uric Acid [Pending], Phosphorus Level [ Pending], Magnesium Level [Pending], Direct Bilirubin [Pending], Gamma Glutamyl Transpeptidase [Pending] 07/09/19 06:43: Arterial Blood pH 6.939*L, Arterial Blood Partial Pressure CO2 16.3*L, Arterial Blood Partial Pressure O2 253.4H, Arterial Blood HCO3 3.4*L, Arterial Blood Oxygen Saturation 98.3, Arterial Blood Base Excess -27.1*L, August Test Positive Height (Feet): 5 Height (Inches): 3.00 Weight (Pounds): 155 General Appearance: no apparent distress EENT: other - On BiPAP Cardiovascular: tachycardia Respiratory/Chest: decreased breath sounds Abdomen: distended Extremities: other - Mottled Pavan Junior MD Jul 09, 2019 09:15
--- NOTE | 2019-07-09 09:21 | NUR ---
NURSE NOTES: Received order from Dr Munson for intubation endotracheal. Order read back, verified, and placed. Dr Munson reported that he would call and ask the ER physician to come intubate the patient. RT notified. Will set up the room for intubation.
[2019-07-09] MEDS: Pantoprazole Inj IVP SCH ×2 (09:43→20:23)
[2019-07-09] MEDS: Hydrocortisone 100mg Inj IV SCH ×3 (09:43→17:41)
[2019-07-09] MEDS ORDERED: D5NS 1000ml IV ONE (09:47)
[2019-07-09] MEDS ORDERED: NS 500ML ONE (09:47)
[2019-07-09] MEDS: Phenylephrine 50 MG in D5W 245 ML IV SCH ×4 (09:57→20:38)
--- NOTE | 2019-07-09 10:15 | NUR ---
NURSE NOTES: Dr Ochoa, ER intubated patient with 7.5cm ET tube with 22cm at the lip line. Prior to intubation BP dropped to 56/34. Patient given Albumin 25% 100mL, 500mL NS bolus, and phenylephrine started at 240mcg/min. Blood pressure 139/118 prior to intubation attempt. Patient given Etomidate 20mg IVP and Rocuronium 50mcg IVP per Dr Ochoa. Patient successfully intubated on first attempt. placement verified with auscultation by MD. Stat chest x-ray ordered. Patient placed on AC 14, TV 450, FiO2 100%, and PEEP 5. Awaiting verification with chest x-ray. Addendum: 07/09/19 at 1555 by Cookie Burdick RN Patient blood pressure now 160/135 (1015). Phenylephrine reduced to 200mcg/min and Levophed reduced to 28mcg/min. Vasopressin remains at 0.04units/min. Will continue to monitor and titrate medications per protocol.
--- NOTE | 2019-07-09 10:23 | NUR ---
RESPIRATORY NOTES PT orally intubated with 7.5 ET tube and secured with anchor fast - 22cm lip line. Ventilator settings are 24RR, 450VT, PEEP +5, FiO2 55%. Will continue to monitor PT and follow up with an ABG.
--- NOTE | 2019-07-09 10:23 | Emergency Room Report ---
History of Present Illness General Chief Complaint: Abdominal Pain Source: Patient, Family Member, Medical Record, PMD Present Illness Allergies: Coded Allergies: No Known Allergies (Unverified , 03/06/16) Nursing Documentation-[facility] Past Medical History Deferred: No Family Available Hx Cardiac Problems: Yes Hx Gastrointestinal Problems: Yes Physical Exam Vital Signs Date Time Temp Pulse Resp B/P (MAP) Pulse Ox O2 Delivery O2 Flow Rate FiO2 07/05/19 08:00 119 07/05/19 08:00 98.2 18 94/62 (73) 94 07/05/19 09:00 Nasal Cannula 2.0 07/05/19 23:25 100 Procedures Intubation Intubation : Consent: Emergent Time of Intubation: 10:17 Intubation Method: orotracheal Tube Size (cm): 7.5 Medications: Etomidate, Rocuronium Breath Sounds after Intubation: equal Intubation Complications: no complications Post Intubation Xray: Yes Attempts: One Patient Tolerated: Well Complications: None Medical Decision Making Diagnostic Impression: Primary Impression: Perforated abdominal viscus Additional Impression: Free intraperitoneal air ER Course Patient is a 78-year-old female I was contacted due to respiratory distress. Patient was noted to be significantly hypotensive. She was on max dose pressors. Prior history of ascites. Patient was given IV fluids bolus as well as IV albumin. Pressure somewhat improved and patient was able to be successfully intubated. Post procedure chest x-ray showed acute endotracheal tube placement. Last Vital Signs Date Time Temp Pulse Resp B/P (MAP) Pulse Ox O2 Delivery O2 Flow Rate FiO2 07/09/19 09:57 133 39/18 07/09/19 08:30 26 30 07/09/19 08:00 98.3 07/09/19 08:00 60 07/09/19 08:00 Bi-pap Bi-pap 07/06/19 04:00 Disposition: ADMITTED INPATIENT Condition: Critical Referrals: [facility] (PCP) Sebas Ochoa MD Jul 09, 2019 10:23
--- NOTE | 2019-07-09 10:30 | NUR ---
NURSE NOTES: Blood pressure now 143/110. Phenylephrine reduced to 180mcg/min, Levophed reduced to 24cmg/min. Will continue to monitor and titrate per protocol.
--- NOTE | 2019-07-09 10:45 | NUR ---
NURSE NOTES: Blood pressure 78/20. Levophed increased to 30mcg/min. Will continue to monitor and titrate per protocol.
--- NOTE | 2019-07-09 11:15 | NUR ---
NURSE NOTES: Blood pressure 61/26. Phenylephrine increased to 200mcg/min. Levophed and Vasopressin both at max doses at this time.Will continue to monitor and titrate per protocol.
--- NOTE | 2019-07-09 11:30 | NUR ---
NURSE NOTES: Blood pressure 77/42. Phenylephrine increased to 240mcg/min max dose. Levophed, vasopressin, and phenylephrine all on max doses at this time. Left nares NGT inserted and verified with abdominal x-ray. 30mL gastric content that is pink/diane in color removed. Will continue to monitor. Addendum: 07/09/19 at 1610 by Cookie Burdick RN NGT at 75cm
--- NOTE | 2019-07-09 11:33 | Diagnostic Imaging Report ---
EXAM: XR Chest, 1 View CLINICAL HISTORY: S/P INTUB TECHNIQUE: Frontal view of the chest. COMPARISON: Chest radiograph on 07/07/2019 FINDINGS: Hardware: Endotracheal tube terminates in the region of the mid thoracic trachea. Enteric tube terminates in the region of the maximal stomach near the GE junction. Lungs/pleura: Elevation of the right hemidiaphragm. Right basilar opacity may represent atelectasis versus pneumonia. Increased hazy opacities in the left lung. Heart/mediastinum: Atherosclerotic calcifications in the aorta. No cardiomegaly. Soft tissues: Unremarkable. Bones: No acute fracture. Upper abdomen: Cholecystectomy clips in the right upper quadrant. Persistent prominent pneumoperitoneum. IMPRESSION: 1. Endotracheal tube terminates in the region of the mid thoracic trachea. Enteric tube terminates in the region of the maximal stomach near the GE junction. 2. Persistent prominent pneumoperitoneum. 3. Right basilar opacity may represent atelectasis versus pneumonia. Increased hazy opacities in the left lung which may represent atelectasis versus infectious/inflammatory process.
--- NOTE | 2019-07-09 11:35 | Diagnostic Imaging Report ---
EXAM: XR Abdomen, 2 Views CLINICAL HISTORY: NGT TECHNIQUE: Frontal view of the abdomen/pelvis with upright view of the abdomen. COMPARISON: Abdominal radiograph on 07/05/2019 FINDINGS: Hardware: Enteric tube terminates in the region of the distal stomach. Abdomen: Nonspecific bowel gas pattern. Large amount of pneumoperitoneum. Cholecystectomy clips in the right upper quadrant. Bones: Degenerative changes of the spine. Soft tissues: Normal. Lower chest: Elevation of the right hemidiaphragm. Right basilar opacity. Left perihilar opacity partially visualized. IMPRESSION: 1. Enteric tube terminates in the region of the distal stomach. 2. Nonspecific bowel gas pattern. Large amount of pneumoperitoneum.
--- NOTE | 2019-07-09 12:00 | NUR ---
NURSE NOTES: Patient unresponsive at this time. Patient has been unresponsive since intubation. Patient intubated with ET tube 7.5 and 22cm at the lip line. Ventilator setting AC 14, tidal volume 450, FiO2 100%, and PEEP 5. patient fingers and toes remain cyanotic and her legs and abdomen are mottled with petechiae noted on her right hip and chest. Patient NPO remains. NGT insertion verified and clamped at this time. Patient only had 30mL residual when NGT placed. Will ensure MD aware. Young remains patent and in place and draining dark nima urine. Generalized pitting edema +2-3 and weeping noted on all extremities and at central line insertion site. Patient abdomen remains distended and taught. Pulse oximetry still does not read as peripheral blood flow is minimal at this time. Will continue to turn patient every two hours and as needed. Right femoral TLC remains patent and oozing serosanguineous fluid at this time and running Levophed at 30mcg/min, Vasopressin at 0.04units/min, phenylephrine at 240mcg/min and D5 normal saline at 50mL/hr at this time. Blood pressure remains unstable at this time. Will continue to monitor and titrate per protocol. Patient bed in low position with bed alarm on and call light in reach at this time. Patient repositioned and oral care done at this time. Addendum: 07/09/19 at 2001 by Cookie Burdick RN NO gag reflex and no response to pain. NO pupillary reflex at this time.
[2019-07-09] MEDS: Piperacillin/Tazobactam 3.375 GM in NS 110 ML IVPB SCH (12:11)
--- NOTE | 2019-07-09 13:05 | Surgery Progress Note ---
Surgery Progress Note Subjective Additional Comments declining intubated on support max family wants full care measures she is very ill appearing prognosis guarded given history and current condition Objective Last 24 Hour Vital Signs Date Time Temp Pulse Resp B/P (MAP) Pulse Ox O2 Delivery O2 Flow Rate FiO2 07/09/19 12:00 131 07/09/19 11:00 133 14 55 07/09/19 10:23 147 14 55 07/09/19 09:57 133 39/18 07/09/19 09:00 130 21 95 60 07/09/19 08:34 147/97 07/09/19 08:30 132 26 147/97 (114) 30 07/09/19 08:25 133 24 151/115 (127) 07/09/19 08:15 132 23 83/68 (73) 07/09/19 08:10 131 23 72/48 (56) 07/09/19 08:00 98.3 131 24 67/51 (56) 07/09/19 08:00 135 07/09/19 08:00 60 07/09/19 08:00 83/68 07/09/19 08:00 Bi-pap Bi-pap 07/09/19 07:55 131 23 68/48 (55) 07/09/19 07:50 131 24 80/63 (69) 07/09/19 07:45 46/36 07/09/19 07:45 132 24 78/40 (53) 07/09/19 07:42 132 24 68/51 (57) 07/09/19 07:37 133 24 59/42 (48) 07/09/19 07:30 134 24 46/36 (39) 07/09/19 07:27 134 23 98 60 07/09/19 07:15 134 23 93/73 (80) 07/09/19 07:00 131 24 96 07/09/19 06:45 134 24 112/73 (86) 60 07/09/19 06:36 136 24 134/72 (92) 66 07/09/19 06:30 134 25 76 07/09/19 06:25 64/18 07/09/19 06:23 136 26 64/18 (33) 88 07/09/19 06:15 134 27 77/56 (63) 89 07/09/19 06:15 77/56 07/09/19 06:00 133 27 97/62 (74) 92 07/09/19 06:00 97/62 07/09/19 05:45 50/42 07/09/19 05:45 133 27 50/42 (45) 88 07/09/19 05:30 131 29 84/68 (73) 07/09/19 05:25 132 31 98 30 07/09/19 05:21 131 32 86/63 (71) 95 07/09/19 05:20 86/63 07/09/19 05:15 129 30 43/24 (30) 95 07/09/19 05:15 43/24 07/09/19 05:00 134 28 79/51 (60) 88 07/09/19 05:00 79/51 07/09/19 04:56 128 26 100/71 (81) 81 07/09/19 04:30 126 29 129/91 (104) 86 07/09/19 04:00 Bi-pap Bi-pap 07/09/19 04:00 97.5 126 30 99/55 (70) 97 07/09/19 04:00 99/55 07/09/19 04:00 30 07/09/19 04:00 126 07/09/19 03:30 117 26 111/81 (91) 97 07/09/19 03:00 110/19 07/09/19 03:00 113 25 110/19 (49) 97 07/09/19 02:33 110 23 98 30 07/09/19 02:30 111 23 100/63 (75) 91 07/09/19 02:00 112 26 108/49 (68) 97 07/09/19 02:00 108/49 07/09/19 01:30 112 24 102/67 (79) 95 07/09/19 01:02 111 22 100 30 07/09/19 01:00 112 24 98/59 (72) 98 07/09/19 01:00 98/59 07/09/19 00:30 113 22 116/71 (86) 98 07/09/19 00:00 30 07/09/19 00:00 97.7 115 25 117/59 (78) 93 07/09/19 00:00 115 07/09/19 00:00 117/59 07/09/19 00:00 Bi-pap Bi-pap 07/08/19 23:30 116 26 108/70 (83) 98 07/08/19 23:00 117 25 99/67 (78) 98 07/08/19 23:00 99/67 07/08/19 22:51 122 30 100 30 07/08/19 22:45 117 108/70 07/08/19 22:30 119 25 98/58 (71) 100 07/08/19 22:00 124 27 103/58 (73) 100 07/08/19 22:00 103/58 07/08/19 21:46 119 28 100 30 07/08/19 21:30 119 28 110/65 (80) 100 07/08/19 21:00 109/63 07/08/19 21:00 118 27 109/63 (78) 100 07/08/19 20:30 120 29 111/73 (86) 100 07/08/19 20:00 Bi-pap Bi-pap 07/08/19 20:00 111/69 07/08/19 20:00 30 07/08/19 20:00 97.6 117 27 111/69 (83) 100 07/08/19 19:54 117 07/08/19 19:54 117 30 100 30 07/08/19 19:45 120 30 105/52 (69) 100 07/08/19 19:30 120 26 106/65 (79) 100 07/08/19 19:27 88/69 07/08/19 19:15 119 28 88/69 (75) 100 07/08/19 19:00 100/70 07/08/19 19:00 123 28 100/70 (80) 07/08/19 18:45 128 29 125/78 (94) 07/08/19 18:30 115 26 108/75 (86) 07/08/19 18:15 117 28 120/77 (91) 07/08/19 18:00 117/63 07/08/19 18:00 119 26 117/63 (81) 98 07/08/19 17:45 112 24 117/64 (81) 100 07/08/19 17:30 113 26 131/71 (91) 99 07/08/19 17:15 108 25 129/46 (73) 100 07/08/19 17:00 118/79 07/08/19 17:00 112 26 118/79 (92) 100 3/13/20 16:45 122 33 100 30 07/08/19 16:45 113 25 100/86 (91) 07/08/19 16:30 117 31 120/72 (88) 100 07/08/19 16:15 116 29 124/71 (88) 07/08/19 16:00 Bi-pap Bi-pap 07/08/19 16:00 112 07/08/19 16:00 97.5 112 26 123/71 (88) 100 07/08/19 16:00 123/71 07/08/19 15:30 114 26 131/72 (91) 100 07/08/19 15:29 112 27 99 30 07/08/19 15:00 123 30 122/81 (95) 100 07/08/19 15:00 122/81 07/08/19 14:30 116 26 125/71 (89) 100 07/08/19 14:00 50 07/08/19 14:00 96/58 07/08/19 14:00 96/58 07/08/19 14:00 118 27 96/58 (71) 100 07/08/19 13:30 120 27 133/79 (97) 100 07/08/19 13:10 119 33 100 30 I&O Intake and Output 07/08/19 07/09/19 19:00 07:00 Intake Total 1745.57376 ml 1940.1 ml Output Total 55 ml 100 ml Balance 1690.60740 ml 1840.1 ml IV Total 1745.61884 ml 1940.1 ml Output Urine Total 55 ml 100 ml # Bowel Movements 1 2 Dressing: other Wound: other Drains: other Cardiovascular: RSR Respiratory: decreased breath sounds Abdomen: soft, distended, absent bowel sounds, other Extremities: no edema, no tenderness, no cyanosis Laboratory Tests Test 07/09/19 06:05 07/09/19 06:28 07/09/19 06:43 White Blood Count 18.0 K/UL (4.8-10.8) H Red Blood Count 3.38 M/UL (4.20-5.40) L Hemoglobin 10.0 G/DL (12.0-16.0) L Hematocrit 30.2 % (37.0-47.0) L Mean Corpuscular Volume 89 FL (80-99) Mean Corpuscular Hemoglobin 29.6 PG (27.0-31.0) Mean Corpuscular Hemoglobin Concent 33.2 G/DL (32.0-36.0) Red Cell Distribution Width 16.1 % (11.6-14.8) H Platelet Count 351 K/UL (150-450) Mean Platelet Volume 5.7 FL (6.5-10.1) L Neutrophils (%) (Auto) % (45.0-75.0) Lymphocytes (%) (Auto) % (20.0-45.0) Monocytes (%) (Auto) % (1.0-10.0) Eosinophils (%) (Auto) % (0.0-3.0) Basophils (%) (Auto) % (0.0-2.0) Differential Total Cells Counted 100 Neutrophils % (Manual) 86 % (45-75) H Lymphocytes % (Manual) 7 % (20-45) L Monocytes % (Manual) 6 % (1-10) Eosinophils % (Manual) 1 % (0-3) Basophils % (Manual) 0 % (0-2) Band Neutrophils 0 % (0-8) Platelet Estimate Adequate Platelet Morphology Normal Anisocytosis 1+ Sodium Level 145 MMOL/L (136-145) Potassium Level 3.6 MMOL/L (3.5-5.1) Chloride Level 110 MMOL/L (98-107) H Carbon Dioxide Level 16 MMOL/L (21-32) L Anion Gap 19 mmol/L (5-15) H Blood Urea Nitrogen 77 mg/dL (7-18) H Creatinine 1.7 MG/DL (0.55-1.30) H Estimat Glomerular Filtration Rate 29.1 mL/min (>60) Glucose Level 351 MG/DL (74-106) H Calcium Level 9.0 MG/DL (8.5-10.1) Total Bilirubin 0.4 MG/DL (0.2-1.0) 0.4 MG/DL (0.2-1.0) Aspartate Amino Transf (AST/SGOT) 13 U/L (15-37) L 14 U/L (15-37) L Alanine Aminotransferase (ALT/SGPT) 14 U/L (12-78) 15 U/L (12-78) Alkaline Phosphatase 115 U/L (46-116) 116 U/L (46-116) Total Protein 7.0 G/DL (6.4-8.2) 7.1 G/DL (6.4-8.2) Albumin 1.9 G/DL (3.4-5.0) L 1.9 G/DL (3.4-5.0) L Globulin 5.1 g/dL Albumin/Globulin Ratio 0.4 (1.0-2.7) L Uric Acid 9.0 MG/DL (2.6-7.2) H Phosphorus Level 4.1 MG/DL (2.5-4.9) Magnesium Level 2.5 MG/DL (1.8-2.4) H Direct Bilirubin < 0.1 MG/DL (0.0-0.3) Gamma Glutamyl Transpeptidase 71 U/L (5-85) Arterial Blood pH 6.939 (7.350-7.450) Arterial Blood Partial Pressure CO2 16.3 mmHg (35.0-45.0) *L Arterial Blood Partial Pressure O2 253.4 mmHg (75.0-100.0) H Arterial Blood HCO3 3.4 mmol/L (22.0-26.0) *L Arterial Blood Oxygen Saturation 98.3 % (95-100) Arterial Blood Base Excess -27.1 (-2-2) *L August Test Positive Plan Problems: (1) Abdominal pain Assessment & Plan: This is a 78-year-old female who presented to [facility] complaining of worsening abdominal pain. A associate professor of law was used to obtain history from the patient as well as the given [place] speaking. is able to speak somewhat Polish but his Polish is not good enough for complete translation therefore translation services were used. I had a long discussion with them in regards to admission current symptoms and care. As from what I could determine she had a partial gastrectomy about 2-1/2 years ago for unknown reason potentially ulcer perforation. She has a large midline incision from xiphoid down almost to the pubis. She has since developed ascites though no known liver dysfunction and recently as of yesterday from patient stating had a paracentesis done at an outside facility. States continues to have pain and she feels she is full of fluid and distended and it causes her discomfort therefore she came here for evaluation. No nausea vomiting fever chills. Does not eat well. Malnourished. Surgery called to evaluate and assist with care. CT scan demonstrated some bubbles of free air and ascites fluid. In evaluating the patient on examination she is fairly tender in all quadrants. She states she just feels like she is full of fluid. I reviewed the CT personally and discussed with the radiologist Given the minimal amount of free air and significant free fluid there is a high probability that since patient states her paracentesis and yesterday the residual free air is from that was longer as potentially believed to be a few days ago but then there is strong possibility and concern for bowel perforation but paracentesis less than 24 hours ago and a few air bubbles could potentially be unremarkable. Patient is afebrile otherwise hemodynamic stable and without signs of acute active infectious process and the potential bowel perforation is there but lower on the differential. She could have a bowel perforation now has peritonitis in the ascites fluid but directly in her age and condition going the operating room is still advised. I discussed with the radiologist and plan for repeat paracentesis. Potentially symptomatic improvement once fluid is evacuated and can also send fluid for culture and microbiology and cytology to evaluate for the possibility of infectious process or perforation ongoing. Discussed with primary care physician patient and family. Will follow with recommendations thank you for let me participate patient's care Patient had a paracentesis by radiology evacuating 3 L of ascites fluid. Since states she feels better. Abdominal exam on 3 7 improved as compared to 3 6 with less tenderness though she is still somewhat tender. States that she feels tenderness from the bloating of the fluid. No nausea vomiting fever chills. Hypotension responsive to fluids. Though there is a possibility of bowel perforation prior unlikely given the paracentesis findings. Furthermore potential bleeding after paracentesis. Coags noted. May have coagulopathy as well. Trend H&H transfuse as needed labs noted h/h improved hd stable Diet as tolerated suspicion for bowel perf or bleeding low. possible but unlikely We will follow with recommendations thank you CA 125 - 199 likely known history of ovarian ca which explains condition hospice eval recommended oncology eval Lactic acidosis worsening Prognosis guarded patient is continued to deteriorate very ill-appearing no surgical intervention planned (2) Free intraperitoneal air Assessment & Plan: Lack of enteric contrast limits assessment of the GI tract. There is ascites fluid. There is a small amount of free intraperitoneal gas within the anterior peritoneal space. A few bubbles of gas are also seen within the left upper quadrant mesenteric fat. These are seen along the greater curvature of the stomach and a few posterior to the stomach. There is also a single small gas bubble in the sugey hepatis. There is evidence of prior distal gastrectomy and gastrojejunostomy. There is also a jejunojejunostomy suture line in the upper abdominal midline. Surgical clips are also seen in the peripancreatic region The appendix is normal. Small bowel loops are mildly prominent and demonstrate mild wall thickening proximally. The distal esophagus is unremarkable. Lack of IV contrast limits assessment of the solid organs. The liver is diffusely markedly hypoattenuating. It is essentially isoattenuating with the surrounding ascites fluid. The gallbladder has been removed. No biliary ductal dilatation. The pancreas, spleen, adrenal glands are grossly unremarkable. The right kidney demonstrates a large upper pole cyst. It demonstrates a calcification which measures approximately 3 mm in diameter and is possibly calyceal. The left kidney demonstrates an upper pole calyceal calcification. No hydronephrosis. No pelvic mass or adenopathy. Uterus and adnexal structures appear unremarkable. There is diffuse edema of the subcutaneous, abdominal, retroperitoneal fat. The included lung bases demonstrate some posterior dependent atelectatic changes, are otherwise clear. The bones demonstrate degenerative spondylosis changes.. There are also degenerative changes with vacuum formation of the bilateral sacroiliac joints. Impression: Limited assessment of the GI tract, due to lack of enteric contrast administration. Small amount of free intraperitoneal air demonstrated, with gas seen in the anterior midline peritoneal space as well as within the left upper quadrant mesentery. This is consistent with perforated hollow viscus. Source of perforation indeterminate, although quite possibly in the left upper quadrant and possibly related to the stomach. Postsurgical changes, as described, with evidence of prior distal gastrectomy, gastrojejunostomy, and likely Nolan-en-Y anastomosis Mild prominence and equivocal slight wall thickening of the proximal jejunum, if real could represent reactive changes secondary to the above process or could represent primarily enteritis Moderate ascites Anasarca Markedly fatty liver Evidence of prior cholecystectomy Incidental findings as noted, including degenerative spondylosis changes, as do dependent pulmonary atelectatic changes, bilateral sacroiliac joint degenerative changes, right upper pole renal cyst, nonobstructive bilateral renal calculi (3) Perforated abdominal viscus Assessment & Plan: hx pancreatic cancer surgery 3 years ago discussed care with family in details recommend hospice has not been eating well for months as per daughters. para 3/11 with liters removed hypotensive at times tachy Additional Comments worsening intubated really should consider comfort measures but family is reluctant Kamron Hawkins Jul 09, 2019 13:05
--- NOTE | 2019-07-09 14:00 | NUR ---
NURSE NOTES: patient remains unresponsive with no gag reflex and no response to pain. Patient blood pressure 117/92 at this time. Levophed running at 30mcg/min, phenylephrine running at 240mcg/min and vasopressin running at 0.04units/min. Will continue to monitor, titrate per protocol, and give 500mL bolus PRN as needed. Patient repositioned. Bed in low position with bed alarm on and call light in reach.
--- NOTE | 2019-07-09 14:05 | Cardiac Electrophysiology PN ---
Assessment/Plan Assessment/Plan 1. Severe bilateral lower extremity edema. Etiology is not clear at this time. Echo EF 65% 2. Ascites, status post 3 liter paracentesis on admission and again 07/06/19 3. History of prior gastrectomy with Nolan-en-Y anastomosis. 4. Small amount of intraperitoneal air consistent with perforated viscus. Further evaluation by Dr. Hawkins. 5. Severe anemia. Could be dilutional. S/P PRBC 6. Septic shock S/P 2 units PRBC and iv fluid and iv Abx. On 3 pressors. 7. Hx of pancreatic cancer 8. Resp failure, intubated now on the bent. 9. Troponin leak due to demand ischemia DW RN Very poor prognosis Subjective Subjective In ICU intubated this am. Now maxed out on 3 pressors with on Levophed, Phynylephrine and Vasopressin at bedside and still full code Objective Last 24 Hour Vital Signs Date Time Temp Pulse Resp B/P (MAP) Pulse Ox O2 Delivery O2 Flow Rate FiO2 07/09/19 13:34 117/92 07/09/19 13:34 131 117/92 07/09/19 13:00 131 14 108/66 (80) 07/09/19 13:00 14 108/66 (80) 58 07/09/19 12:45 131 14 70/46 (54) 07/09/19 12:30 131 14 85/50 (62) 07/09/19 12:30 131 14 85/50 (62) 07/09/19 12:15 132 14 79/52 (61) 07/09/19 12:00 98.1 133 14 79/52 (61) 07/09/19 12:00 100 07/09/19 12:00 131 07/09/19 12:00 98.1 134 14 56/31 (39) 07/09/19 11:45 135 14 79/34 (49) 07/09/19 11:30 135 14 79/34 (49) 42 07/09/19 11:00 133 14 55 07/09/19 11:00 139 14 61/26 (38) 97 07/09/19 10:30 144 14 78/20 (39) 66 07/09/19 10:23 147 14 55 07/09/19 10:15 100 07/09/19 10:00 148 20 56/34 (41) 24 07/09/19 09:57 133 39/18 07/09/19 09:30 134 29 58/55 (56) 18 07/09/19 09:00 130 21 95 60 07/09/19 09:00 135 22 90/55 (67) 28 07/09/19 08:34 147/97 07/09/19 08:30 132 26 147/97 (114) 30 07/09/19 08:25 133 24 151/115 (127) 07/09/19 08:15 132 23 83/68 (73) 07/09/19 08:10 131 23 72/48 (56) 07/09/19 08:00 98.3 131 24 67/51 (56) 07/09/19 08:00 135 07/09/19 08:00 60 07/09/19 08:00 83/68 07/09/19 08:00 Bi-pap Bi-pap 07/09/19 07:55 131 23 68/48 (55) 07/09/19 07:50 131 24 80/63 (69) 07/09/19 07:45 46/36 07/09/19 07:45 132 24 78/40 (53) 07/09/19 07:42 132 24 68/51 (57) 07/09/19 07:37 133 24 59/42 (48) 07/09/19 07:30 134 24 46/36 (39) 07/09/19 07:27 134 23 98 60 07/09/19 07:15 134 23 93/73 (80) 07/09/19 07:00 131 24 96 07/09/19 06:45 134 24 112/73 (86) 60 07/09/19 06:36 136 24 134/72 (92) 66 07/09/19 06:30 134 25 76 07/09/19 06:25 64/18 07/09/19 06:23 136 26 64/18 (33) 88 07/09/19 06:15 134 27 77/56 (63) 89 07/09/19 06:15 77/56 07/09/19 06:00 133 27 97/62 (74) 92 07/09/19 06:00 97/62 07/09/19 05:45 50/42 07/09/19 05:45 133 27 50/42 (45) 88 07/09/19 05:30 131 29 84/68 (73) 07/09/19 05:25 132 31 98 30 07/09/19 05:21 131 32 86/63 (71) 95 07/09/19 05:20 86/63 07/09/19 05:15 129 30 43/24 (30) 95 07/09/19 05:15 43/24 07/09/19 05:00 134 28 79/51 (60) 88 07/09/19 05:00 79/51 07/09/19 04:56 128 26 100/71 (81) 81 07/09/19 04:30 126 29 129/91 (104) 86 07/09/19 04:00 Bi-pap Bi-pap 07/09/19 04:00 97.5 126 30 99/55 (70) 97 07/09/19 04:00 99/55 07/09/19 04:00 30 07/09/19 04:00 126 07/09/19 03:30 117 26 111/81 (91) 97 07/09/19 03:00 110/19 07/09/19 03:00 113 25 110/19 (49) 97 07/09/19 02:33 110 23 98 30 07/09/19 02:30 111 23 100/63 (75) 91 07/09/19 02:00 112 26 108/49 (68) 97 07/09/19 02:00 108/49 07/09/19 01:30 112 24 102/67 (79) 95 07/09/19 01:02 111 22 100 30 07/09/19 01:00 112 24 98/59 (72) 98 07/09/19 01:00 98/59 07/09/19 00:30 113 22 116/71 (86) 98 07/09/19 00:00 30 07/09/19 00:00 97.7 115 25 117/59 (78) 93 07/09/19 00:00 115 07/09/19 00:00 117/59 07/09/19 00:00 Bi-pap Bi-pap 07/08/19 23:30 116 26 108/70 (83) 98 07/08/19 23:00 117 25 99/67 (78) 98 07/08/19 23:00 99/67 07/08/19 22:51 122 30 100 30 07/08/19 22:45 117 108/70 07/08/19 22:30 119 25 98/58 (71) 100 07/08/19 22:00 124 27 103/58 (73) 100 07/08/19 22:00 103/58 07/08/19 21:46 119 28 100 30 07/08/19 21:30 119 28 110/65 (80) 100 07/08/19 21:00 109/63 07/08/19 21:00 118 27 109/63 (78) 100 07/08/19 20:30 120 29 111/73 (86) 100 07/08/19 20:00 Bi-pap Bi-pap 07/08/19 20:00 111/69 07/08/19 20:00 30 07/08/19 20:00 97.6 117 27 111/69 (83) 100 07/08/19 19:54 117 07/08/19 19:54 117 30 100 30 07/08/19 19:45 120 30 105/52 (69) 100 07/08/19 19:30 120 26 106/65 (79) 100 07/08/19 19:27 88/69 07/08/19 19:15 119 28 88/69 (75) 100 07/08/19 19:00 100/70 07/08/19 19:00 123 28 100/70 (80) 07/08/19 18:45 128 29 125/78 (94) 07/08/19 18:30 115 26 108/75 (86) 07/08/19 18:15 117 28 120/77 (91) 07/08/19 18:00 117/63 07/08/19 18:00 119 26 117/63 (81) 98 07/08/19 17:45 112 24 117/64 (81) 100 07/08/19 17:30 113 26 131/71 (91) 99 07/08/19 17:15 108 25 129/46 (73) 100 07/08/19 17:00 118/79 07/08/19 17:00 112 26 118/79 (92) 100 07/08/19 16:45 122 33 100 30 07/08/19 16:45 113 25 100/86 (91) 07/08/19 16:30 117 31 120/72 (88) 100 07/08/19 16:15 116 29 124/71 (88) 07/08/19 16:00 Bi-pap Bi-pap 07/08/19 16:00 112 07/08/19 16:00 97.5 112 26 123/71 (88) 100 07/08/19 16:00 123/71 07/08/19 15:30 114 26 131/72 (91) 100 07/08/19 15:29 112 27 99 30 07/08/19 15:00 123 30 122/81 (95) 100 07/08/19 15:00 122/81 07/08/19 14:30 116 26 125/71 (89) 100 Intake and Output 07/08/19 07/09/19 19:00 07:00 Intake Total 1745.60145 ml 1940.1 ml Output Total 55 ml 100 ml Balance 1690.23723 ml 1840.1 ml IV Total 1745.82223 ml 1940.1 ml Output Urine Total 55 ml 100 ml # Bowel Movements 1 2 Laboratory Tests Test 07/09/19 06:05 07/09/19 06:28 07/09/19 06:43 White Blood Count 18.0 K/UL (4.8-10.8) H Red Blood Count 3.38 M/UL (4.20-5.40) L Hemoglobin 10.0 G/DL (12.0-16.0) L Hematocrit 30.2 % (37.0-47.0) L Mean Corpuscular Volume 89 FL (80-99) Mean Corpuscular Hemoglobin 29.6 PG (27.0-31.0) Mean Corpuscular Hemoglobin Concent 33.2 G/DL (32.0-36.0) Red Cell Distribution Width 16.1 % (11.6-14.8) H Platelet Count 351 K/UL (150-450) Mean Platelet Volume 5.7 FL (6.5-10.1) L Neutrophils (%) (Auto) % (45.0-75.0) Lymphocytes (%) (Auto) % (20.0-45.0) Monocytes (%) (Auto) % (1.0-10.0) Eosinophils (%) (Auto) % (0.0-3.0) Basophils (%) (Auto) % (0.0-2.0) Differential Total Cells Counted 100 Neutrophils % (Manual) 86 % (45-75) H Lymphocytes % (Manual) 7 % (20-45) L Monocytes % (Manual) 6 % (1-10) Eosinophils % (Manual) 1 % (0-3) Basophils % (Manual) 0 % (0-2) Band Neutrophils 0 % (0-8) Platelet Estimate Adequate Platelet Morphology Normal Anisocytosis 1+ Sodium Level 145 MMOL/L (136-145) Potassium Level 3.6 MMOL/L (3.5-5.1) Chloride Level 110 MMOL/L (98-107) H Carbon Dioxide Level 16 MMOL/L (21-32) L Anion Gap 19 mmol/L (5-15) H Blood Urea Nitrogen 77 mg/dL (7-18) H Creatinine 1.7 MG/DL (0.55-1.30) H Estimat Glomerular Filtration Rate 29.1 mL/min (>60) Glucose Level 351 MG/DL (74-106) H Calcium Level 9.0 MG/DL (8.5-10.1) Total Bilirubin 0.4 MG/DL (0.2-1.0) 0.4 MG/DL (0.2-1.0) Aspartate Amino Transf (AST/SGOT) 13 U/L (15-37) L 14 U/L (15-37) L Alanine Aminotransferase (ALT/SGPT) 14 U/L (12-78) 15 U/L (12-78) Alkaline Phosphatase 115 U/L (46-116) 116 U/L (46-116) Total Protein 7.0 G/DL (6.4-8.2) 7.1 G/DL (6.4-8.2) Albumin 1.9 G/DL (3.4-5.0) L 1.9 G/DL (3.4-5.0) L Globulin 5.1 g/dL Albumin/Globulin Ratio 0.4 (1.0-2.7) L Uric Acid 9.0 MG/DL (2.6-7.2) H Phosphorus Level 4.1 MG/DL (2.5-4.9) Magnesium Level 2.5 MG/DL (1.8-2.4) H Direct Bilirubin < 0.1 MG/DL (0.0-0.3) Gamma Glutamyl Transpeptidase 71 U/L (5-85) Arterial Blood pH 6.939 (7.350-7.450) Arterial Blood Partial Pressure CO2 16.3 mmHg (35.0-45.0) *L Arterial Blood Partial Pressure O2 253.4 mmHg (75.0-100.0) H Arterial Blood HCO3 3.4 mmol/L (22.0-26.0) *L Arterial Blood Oxygen Saturation 98.3 % (95-100) Arterial Blood Base Excess -27.1 (-2-2) *L August Test Positive Microbiology Date/Time Source Procedure Growth Status 07/06/19 22:55 Blood Blood Culture - Preliminary NO GROWTH AFTER 48 HOURS Resulted 07/06/19 22:50 Blood Blood Culture - Preliminary NO GROWTH AFTER 48 HOURS Resulted Objective HEAD AND NECK: No JVD.Orally intubated LUNGS: Coarse rhonchi CARDIOVASCULAR: Regular S1 and S2 with no gallop. ABDOMEN: Very tender. Ascites. Has scar of prior surgery.Ascites EXTREMITIES: 2+ pitting edema. Benton Meyer MD Jul 09, 2019 14:05
--- NOTE | 2019-07-09 14:16 | Pulmonolgy Critical Care Note ---
Critical Care - Asmt/Plan Problems: (1) Ventilator dependent (2) Carcinomatosis (3) Pancreatic cancer (4) Hypernatremia (5) NORMA (acute kidney injury) (6) Lactic acid acidosis (7) Septic shock (8) Hypoalbuminemia (9) Free intraperitoneal air (10) Perforated abdominal viscus (11) Poor prognosis (12) Severe protein-calorie malnutrition Assessment/Plan: Continue ventilatory support/settings reviewed ABG if able Will attempt to avoid intubation/MV Titrate pressors to keep MAP > 60 HC 100 TID and taper Continue midodrine Abx: Zosyn/Zyvox (D4), F/U CX's Monitor volumes and renal function, continue D5NS@50 Monitor LA NGT to gravity DVT Px: HEP SQ Monitor MS Prognosis is extremely poor, STRONGLY consider palliative care and ethics eval, ongoing discussions with family FC, however I feel that coding this patient would be inappropriate Time Spent (Minutes): 40 Notes 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 Discussed with: nurses, consultants, family member Critical Care - Objective Last 24 Hour Vital Signs Date Time Temp Pulse Resp B/P (MAP) Pulse Ox O2 Delivery O2 Flow Rate FiO2 07/09/19 13:34 117/92 07/09/19 13:34 131 117/92 07/09/19 13:00 131 14 108/66 (80) 07/09/19 13:00 14 108/66 (80) 58 07/09/19 13:00 128 14 100 07/09/19 12:45 131 14 70/46 (54) 07/09/19 12:30 131 14 85/50 (62) 07/09/19 12:30 131 14 85/50 (62) 07/09/19 12:15 132 14 79/52 (61) 07/09/19 12:00 98.1 133 14 79/52 (61) 07/09/19 12:00 100 07/09/19 12:00 131 07/09/19 12:00 98.1 134 14 56/31 (39) 07/09/19 11:45 135 14 79/34 (49) 07/09/19 11:30 135 14 79/34 (49) 42 07/09/19 11:00 133 14 55 07/09/19 11:00 139 14 61/26 (38) 97 3/14/20 10:30 144 14 78/20 (39) 66 07/09/19 10:23 147 14 55 07/09/19 10:15 100 07/09/19 10:00 148 20 56/34 (41) 24 07/09/19 09:57 133 39/18 07/09/19 09:30 134 29 58/55 (56) 18 07/09/19 09:00 130 21 95 60 07/09/19 09:00 135 22 90/55 (67) 28 07/09/19 08:34 147/97 07/09/19 08:30 132 26 147/97 (114) 30 07/09/19 08:25 133 24 151/115 (127) 07/09/19 08:15 132 23 83/68 (73) 07/09/19 08:10 131 23 72/48 (56) 07/09/19 08:00 98.3 131 24 67/51 (56) 07/09/19 08:00 135 07/09/19 08:00 60 07/09/19 08:00 83/68 07/09/19 08:00 Bi-pap Bi-pap 07/09/19 07:55 131 23 68/48 (55) 07/09/19 07:50 131 24 80/63 (69) 07/09/19 07:45 46/36 07/09/19 07:45 132 24 78/40 (53) 07/09/19 07:42 132 24 68/51 (57) 07/09/19 07:37 133 24 59/42 (48) 07/09/19 07:30 134 24 46/36 (39) 07/09/19 07:27 134 23 98 60 07/09/19 07:15 134 23 93/73 (80) 07/09/19 07:00 131 24 96 07/09/19 06:45 134 24 112/73 (86) 60 07/09/19 06:36 136 24 134/72 (92) 66 07/09/19 06:30 134 25 76 07/09/19 06:25 64/18 07/09/19 06:23 136 26 64/18 (33) 88 07/09/19 06:15 134 27 77/56 (63) 89 07/09/19 06:15 77/56 07/09/19 06:00 133 27 97/62 (74) 92 07/09/19 06:00 97/62 07/09/19 05:45 50/42 07/09/19 05:45 133 27 50/42 (45) 88 07/09/19 05:30 131 29 84/68 (73) 07/09/19 05:25 132 31 98 30 07/09/19 05:21 131 32 86/63 (71) 95 07/09/19 05:20 86/63 07/09/19 05:15 129 30 43/24 (30) 95 07/09/19 05:15 43/24 07/09/19 05:00 134 28 79/51 (60) 88 07/09/19 05:00 79/51 07/09/19 04:56 128 26 100/71 (81) 81 07/09/19 04:30 126 29 129/91 (104) 86 07/09/19 04:00 Bi-pap Bi-pap 07/09/19 04:00 97.5 126 30 99/55 (70) 97 07/09/19 04:00 99/55 07/09/19 04:00 30 07/09/19 04:00 126 07/09/19 03:30 117 26 111/81 (91) 97 07/09/19 03:00 110/19 07/09/19 03:00 113 25 110/19 (49) 97 07/09/19 02:33 110 23 98 30 07/09/19 02:30 111 23 100/63 (75) 91 07/09/19 02:00 112 26 108/49 (68) 97 07/09/19 02:00 108/49 07/09/19 01:30 112 24 102/67 (79) 95 07/09/19 01:02 111 22 100 30 07/09/19 01:00 112 24 98/59 (72) 98 07/09/19 01:00 98/59 07/09/19 00:30 113 22 116/71 (86) 98 07/09/19 00:00 30 07/09/19 00:00 97.7 115 25 117/59 (78) 93 07/09/19 00:00 115 07/09/19 00:00 117/59 07/09/19 00:00 Bi-pap Bi-pap 07/08/19 23:30 116 26 108/70 (83) 98 07/08/19 23:00 117 25 99/67 (78) 98 07/08/19 23:00 99/67 07/08/19 22:51 122 30 100 30 07/08/19 22:45 117 108/70 07/08/19 22:30 119 25 98/58 (71) 100 07/08/19 22:00 124 27 103/58 (73) 100 07/08/19 22:00 103/58 07/08/19 21:46 119 28 100 30 07/08/19 21:30 119 28 110/65 (80) 100 07/08/19 21:00 109/63 07/08/19 21:00 118 27 109/63 (78) 100 07/08/19 20:30 120 29 111/73 (86) 100 07/08/19 20:00 Bi-pap Bi-pap 07/08/19 20:00 111/69 07/08/19 20:00 30 07/08/19 20:00 97.6 117 27 111/69 (83) 100 07/08/19 19:54 117 07/08/19 19:54 117 30 100 30 07/08/19 19:45 120 30 105/52 (69) 100 07/08/19 19:30 120 26 106/65 (79) 100 07/08/19 19:27 88/69 07/08/19 19:15 119 28 88/69 (75) 100 07/08/19 19:00 100/70 07/08/19 19:00 123 28 100/70 (80) 07/08/19 18:45 128 29 125/78 (94) 07/08/19 18:30 115 26 108/75 (86) 07/08/19 18:15 117 28 120/77 (91) 07/08/19 18:00 117/63 07/08/19 18:00 119 26 117/63 (81) 98 07/08/19 17:45 112 24 117/64 (81) 100 07/08/19 17:30 113 26 131/71 (91) 99 07/08/19 17:15 108 25 129/46 (73) 100 07/08/19 17:00 118/79 07/08/19 17:00 112 26 118/79 (92) 100 07/08/19 16:45 122 33 100 30 07/08/19 16:45 113 25 100/86 (91) 07/08/19 16:30 117 31 120/72 (88) 100 07/08/19 16:15 116 29 124/71 (88) 07/08/19 16:00 Bi-pap Bi-pap 07/08/19 16:00 112 07/08/19 16:00 97.5 112 26 123/71 (88) 100 07/08/19 16:00 123/71 07/08/19 15:30 114 26 131/72 (91) 100 07/08/19 15:29 112 27 99 30 07/08/19 15:00 123 30 122/81 (95) 100 07/08/19 15:00 122/81 07/08/19 14:30 116 26 125/71 (89) 100 Status: obtunded - intubated Condition: critical HEENT: atraumatic, normocephalic, other - ETT, NGT Lungs: rhonchi Heart: HR/BP unstable Abdomen: soft, distended Extremities: edema - 2-3+ RENEE Micro: Microbiology Date/Time Source Procedure Growth Status 07/06/19 22:55 Blood Blood Culture - Preliminary NO GROWTH AFTER 48 HOURS Resulted 07/06/19 22:50 Blood Blood Culture - Preliminary NO GROWTH AFTER 48 HOURS Resulted Accucheck: 39 Blood Sugars: BS not controlled Critical Care - Subjective ROS Limited/Unobtainable: Yes ICU Day: 5 Intubation Day: 1 Interval Events: 6.9/16/253//27 ---> per family request intubated this am on NE, DICKSON, vaso WCT 18 Condition: critical EKG Rhythm: Sinus Tachycardia FI02: 100 Vent Support Breath Rate: 14 Vent Support Mode: AC Vent Tidal Volume: 450 Sputum Amount: None PEEP: 5.0 PIP: 26 Secretions: None Fluids: D5NS@50 Drips: NE 30, DICKSON 240, Vaso 0.04 I&O: Intake and Output 07/08/19 07/09/19 19:00 07:00 Intake Total 1745.81760 ml 1940.1 ml Output Total 55 ml 100 ml Balance 1690.15727 ml 1840.1 ml IV Total 1745.28638 ml 1940.1 ml Output Urine Total 55 ml 100 ml # Bowel Movements 1 2 Subjective: Laboratory Tests Test 07/06/19 17:05 07/06/19 22:50 07/07/19 03:45 07/07/19 07:05 Lactic Acid Level 6.10 mmol/L (0.4-2.0) H 6.10 mmol/L (0.4-2.0) H 6.20 mmol/L (0.4-2.0) H 5.70 mmol/L (0.66-2.22) H White Blood Count 8.7 K/UL (4.8-10.8) Red Blood Count 3.47 M/UL (4.20-5.40) L Hemoglobin 11.1 G/DL (12.0-16.0) L Hematocrit 31.3 % (37.0-47.0) L Mean Corpuscular Volume 90 FL (80-99) Mean Corpuscular Hemoglobin 32.1 PG (27.0-31.0) H Mean Corpuscular Hemoglobin Concent 35.6 G/DL (32.0-36.0) Red Cell Distribution Width 14.1 % (11.6-14.8) Platelet Count 56 K/UL (150-450) #L Mean Platelet Volume 7.1 FL (6.5-10.1) Neutrophils (%) (Auto) % (45.0-75.0) Lymphocytes (%) (Auto) % (20.0-45.0) Monocytes (%) (Auto) % (1.0-10.0) Eosinophils (%) (Auto) % (0.0-3.0) Basophils (%) (Auto) % (0.0-2.0) Differential Total Cells Counted 100 Neutrophils % (Manual) 93 % (45-75) H Lymphocytes % (Manual) 3 % (20-45) L Monocytes % (Manual) 3 % (1-10) Eosinophils % (Manual) 0 % (0-3) Basophils % (Manual) 1 % (0-2) Band Neutrophils 0 % (0-8) Platelet Estimate Decreased L Platelet Morphology Normal Hypochromasia 1+ Sodium Level 130 MMOL/L (136-145) L Potassium Level 3.7 MMOL/L (3.5-5.1) Chloride Level 99 MMOL/L (98-107) Carbon Dioxide Level 15 MMOL/L (21-32) L Anion Gap 16 mmol/L (5-15) H Blood Urea Nitrogen 35 mg/dL (7-18) H Creatinine 2.3 MG/DL (0.55-1.30) H Estimat Glomerular Filtration Rate 20.5 mL/min (>60) Glucose Level 203 MG/DL (74-106) H Uric Acid 2.8 MG/DL (2.6-7.2) Calcium Level 7.7 MG/DL (8.5-10.1) L Phosphorus Level 2.8 MG/DL (2.5-4.9) Magnesium Level 1.9 MG/DL (1.8-2.4) Total Bilirubin 1.7 MG/DL (0.2-1.0) H Direct Bilirubin 1.2 MG/DL (0.0-0.3) H Aspartate Amino Transf (AST/SGOT) 18 U/L (15-37) Alanine Aminotransferase (ALT/SGPT) 22 U/L (12-78) Alkaline Phosphatase 61 U/L (46-116) Troponin I 1.113 ng/mL (0.000-0.056) C-Reactive Protein, Quantitative 40.9 mg/dL (0.00-0.90) H Total Protein 3.8 G/DL (6.4-8.2) L Albumin 1.6 G/DL (3.4-5.0) L Globulin 2.2 g/dL Albumin/Globulin Ratio 0.7 (1.0-2.7) L Test 07/07/19 12:15 Lactic Acid Level 6.30 mmol/L (0.4-2.0) H CXR: No change ET-Tube: 7.5 ET Position: 22 Labs: Laboratory Tests Test 07/09/19 06:05 07/09/19 06:28 07/09/19 06:43 White Blood Count 18.0 K/UL (4.8-10.8) H Red Blood Count 3.38 M/UL (4.20-5.40) L Hemoglobin 10.0 G/DL (12.0-16.0) L Hematocrit 30.2 % (37.0-47.0) L Mean Corpuscular Volume 89 FL (80-99) Mean Corpuscular Hemoglobin 29.6 PG (27.0-31.0) Mean Corpuscular Hemoglobin Concent 33.2 G/DL (32.0-36.0) Red Cell Distribution Width 16.1 % (11.6-14.8) H Platelet Count 351 K/UL (150-450) Mean Platelet Volume 5.7 FL (6.5-10.1) L Neutrophils (%) (Auto) % (45.0-75.0) Lymphocytes (%) (Auto) % (20.0-45.0) Monocytes (%) (Auto) % (1.0-10.0) Eosinophils (%) (Auto) % (0.0-3.0) Basophils (%) (Auto) % (0.0-2.0) Differential Total Cells Counted 100 Neutrophils % (Manual) 86 % (45-75) H Lymphocytes % (Manual) 7 % (20-45) L Monocytes % (Manual) 6 % (1-10) Eosinophils % (Manual) 1 % (0-3) Basophils % (Manual) 0 % (0-2) Band Neutrophils 0 % (0-8) Platelet Estimate Adequate Platelet Morphology Normal Anisocytosis 1+ Sodium Level 145 MMOL/L (136-145) Potassium Level 3.6 MMOL/L (3.5-5.1) Chloride Level 110 MMOL/L (98-107) H Carbon Dioxide Level 16 MMOL/L (21-32) L Anion Gap 19 mmol/L (5-15) H Blood Urea Nitrogen 77 mg/dL (7-18) H Creatinine 1.7 MG/DL (0.55-1.30) H Estimat Glomerular Filtration Rate 29.1 mL/min (>60) Glucose Level 351 MG/DL (74-106) H Calcium Level 9.0 MG/DL (8.5-10.1) Total Bilirubin 0.4 MG/DL (0.2-1.0) 0.4 MG/DL (0.2-1.0) Aspartate Amino Transf (AST/SGOT) 13 U/L (15-37) L 14 U/L (15-37) L Alanine Aminotransferase (ALT/SGPT) 14 U/L (12-78) 15 U/L (12-78) Alkaline Phosphatase 115 U/L (46-116) 116 U/L (46-116) Total Protein 7.0 G/DL (6.4-8.2) 7.1 G/DL (6.4-8.2) Albumin 1.9 G/DL (3.4-5.0) L 1.9 G/DL (3.4-5.0) L Globulin 5.1 g/dL Albumin/Globulin Ratio 0.4 (1.0-2.7) L Uric Acid 9.0 MG/DL (2.6-7.2) H Phosphorus Level 4.1 MG/DL (2.5-4.9) Magnesium Level 2.5 MG/DL (1.8-2.4) H Direct Bilirubin < 0.1 MG/DL (0.0-0.3) Gamma Glutamyl Transpeptidase 71 U/L (5-85) Arterial Blood pH 6.939 (7.350-7.450) Arterial Blood Partial Pressure CO2 16.3 mmHg (35.0-45.0) *L Arterial Blood Partial Pressure O2 253.4 mmHg (75.0-100.0) H Arterial Blood HCO3 3.4 mmol/L (22.0-26.0) *L Arterial Blood Oxygen Saturation 98.3 % (95-100) Arterial Blood Base Excess -27.1 (-2-2) *L August Test Positive Dorian Munson MD Jul 09, 2019 14:16
--- NOTE | 2019-07-09 15:17 | General Progress Note ---
Assessment/Plan Status: unchanged Assessment/Plan: S: Intubated O: patient is Intubated. Vent setting reviewd. Right inguinal femoral line in place . On pressors . orr in place with decreasing U/o . Daughter at bed side PHYSICAL EXAMINATION: Intubated. HEAD AND NECK: cachectic appearacne, Atraumatic and normocephalic. CHEST: Bronchial bs, .HEART: S1, S2. Regular rate and rhythm. ABDOMEN: Soft, fullness, tympanic . a scar of prior surgery noted in the midline. NEUROLOGY: intubated. no resopnse to verbal stimuli, . MUSCULOSKELETAL: Atrophied musculature. DERM: diffuse petechial rashes Meds: reviewed and reconciled ASSESSMENT: 1. Shock: DIC ! 2. Perforated viscus ! carcinomatosis ! 3. Pancreatic cancer , history of 4. Elevated levels of Tumor markers 5. Dehydration. 6. Acute anemia. 7. Thrombocytopenia 8. GI and DVT prophylaxis. PLAN OF CARE: On Pressors I discussed the poor prognosis with Dtr on my meeting on07/04 with presence of father and sister. Medically intubation will not prolong the survivability of this patient. Again, discussed the Grave prognosis with dtr at bed side Consulted Bioethic D/w family reunification specialist. Agreed that current requested level of treatment ( intubation ), will not medically help treating underlying disease or changing the survival Subjective Allergies: Coded Allergies: No Known Allergies (Unverified , 03/06/16) Objective Last 24 Hour Vital Signs Date Time Temp Pulse Resp B/P (MAP) Pulse Ox O2 Delivery O2 Flow Rate FiO2 07/09/19 15:05 128 16 100 07/09/19 15:00 127 15 86/70 (75) 07/09/19 14:45 129 15 86/70 (75) 07/09/19 14:30 129 15 86/70 (75) 07/09/19 14:15 129 14 116/85 (95) 07/09/19 14:00 129 14 116/85 (95) 07/09/19 13:45 129 14 116/85 (95) 07/09/19 13:34 117/92 07/09/19 13:34 131 117/92 07/09/19 13:30 130 14 117/92 (100) 07/09/19 13:15 130 14 100/75 (83) 07/09/19 13:00 131 14 108/66 (80) 07/09/19 13:00 14 108/66 (80) 58 07/09/19 13:00 128 14 100 07/09/19 12:45 131 14 70/46 (54) 07/09/19 12:30 131 14 85/50 (62) 07/09/19 12:30 131 14 85/50 (62) 07/09/19 12:15 132 14 79/52 (61) 07/09/19 12:00 98.1 133 14 79/52 (61) 07/09/19 12:00 100 07/09/19 12:00 131 07/09/19 12:00 98.1 134 14 56/31 (39) 07/09/19 12:00 Mechanical Ventilator Mechanical Ventilator 07/09/19 11:45 135 14 79/34 (49) 07/09/19 11:30 135 14 79/34 (49) 42 07/09/19 11:00 133 14 55 07/09/19 11:00 139 14 61/26 (38) 97 07/09/19 10:30 144 14 78/20 (39) 66 07/09/19 10:23 147 14 55 07/09/19 10:15 100 07/09/19 10:00 148 20 56/34 (41) 24 07/09/19 09:57 133 39/18 07/09/19 09:30 134 29 58/55 (56) 18 07/09/19 09:00 130 21 95 60 07/09/19 09:00 135 22 90/55 (67) 28 07/09/19 08:34 147/97 07/09/19 08:30 132 26 147/97 (114) 30 07/09/19 08:25 133 24 151/115 (127) 07/09/19 08:15 132 23 83/68 (73) 07/09/19 08:10 131 23 72/48 (56) 07/09/19 08:00 98.3 131 24 67/51 (56) 07/09/19 08:00 135 07/09/19 08:00 60 07/09/19 08:00 83/68 07/09/19 08:00 Bi-pap Bi-pap 07/09/19 07:55 131 23 68/48 (55) 07/09/19 07:50 131 24 80/63 (69) 07/09/19 07:45 46/36 07/09/19 07:45 132 24 78/40 (53) 07/09/19 07:42 132 24 68/51 (57) 07/09/19 07:37 133 24 59/42 (48) 07/09/19 07:30 134 24 46/36 (39) 07/09/19 07:27 134 23 98 60 07/09/19 07:15 134 23 93/73 (80) 07/09/19 07:00 131 24 96 07/09/19 06:45 134 24 112/73 (86) 60 07/09/19 06:36 136 24 134/72 (92) 66 07/09/19 06:30 134 25 76 07/09/19 06:25 64/18 07/09/19 06:23 136 26 64/18 (33) 88 07/09/19 06:15 134 27 77/56 (63) 89 07/09/19 06:15 77/56 07/09/19 06:00 133 27 97/62 (74) 92 07/09/19 06:00 97/62 07/09/19 05:45 50/42 07/09/19 05:45 133 27 50/42 (45) 88 07/09/19 05:30 131 29 84/68 (73) 07/09/19 05:25 132 31 98 30 07/09/19 05:21 131 32 86/63 (71) 95 07/09/19 05:20 86/63 07/09/19 05:15 129 30 43/24 (30) 95 07/09/19 05:15 43/24 07/09/19 05:00 134 28 79/51 (60) 88 07/09/19 05:00 79/51 07/09/19 04:56 128 26 100/71 (81) 81 07/09/19 04:30 126 29 129/91 (104) 86 07/09/19 04:00 Bi-pap Bi-pap 07/09/19 04:00 97.5 126 30 99/55 (70) 97 07/09/19 04:00 99/55 07/09/19 04:00 30 07/09/19 04:00 126 07/09/19 03:30 117 26 111/81 (91) 97 07/09/19 03:00 110/19 07/09/19 03:00 113 25 110/19 (49) 97 07/09/19 02:33 110 23 98 30 07/09/19 02:30 111 23 100/63 (75) 91 07/09/19 02:00 112 26 108/49 (68) 97 07/09/19 02:00 108/49 07/09/19 01:30 112 24 102/67 (79) 95 07/09/19 01:02 111 22 100 30 07/09/19 01:00 112 24 98/59 (72) 98 07/09/19 01:00 98/59 07/09/19 00:30 113 22 116/71 (86) 98 07/09/19 00:00 30 07/09/19 00:00 97.7 115 25 117/59 (78) 93 07/09/19 00:00 115 07/09/19 00:00 117/59 07/09/19 00:00 Bi-pap Bi-pap 07/08/19 23:30 116 26 108/70 (83) 98 07/08/19 23:00 117 25 99/67 (78) 98 07/08/19 23:00 99/67 07/08/19 22:51 122 30 100 30 07/08/19 22:45 117 108/70 07/08/19 22:30 119 25 98/58 (71) 100 07/08/19 22:00 124 27 103/58 (73) 100 07/08/19 22:00 103/58 07/08/19 21:46 119 28 100 30 07/08/19 21:30 119 28 110/65 (80) 100 07/08/19 21:00 109/63 07/08/19 21:00 118 27 109/63 (78) 100 07/08/19 20:30 120 29 111/73 (86) 100 07/08/19 20:00 Bi-pap Bi-pap 07/08/19 20:00 111/69 07/08/19 20:00 30 07/08/19 20:00 97.6 117 27 111/69 (83) 100 07/08/19 19:54 117 07/08/19 19:54 117 30 100 30 07/08/19 19:45 120 30 105/52 (69) 100 07/08/19 19:30 120 26 106/65 (79) 100 07/08/19 19:27 88/69 07/08/19 19:15 119 28 88/69 (75) 100 07/08/19 19:00 100/70 07/08/19 19:00 123 28 100/70 (80) 07/08/19 18:45 128 29 125/78 (94) 07/08/19 18:30 115 26 108/75 (86) 07/08/19 18:15 117 28 120/77 (91) 07/08/19 18:00 117/63 07/08/19 18:00 119 26 117/63 (81) 98 07/08/19 17:45 112 24 117/64 (81) 100 07/08/19 17:30 113 26 131/71 (91) 99 07/08/19 17:15 108 25 129/46 (73) 100 07/08/19 17:00 118/79 07/08/19 17:00 112 26 118/79 (92) 100 07/08/19 16:45 122 33 100 30 07/08/19 16:45 113 25 100/86 (91) 07/08/19 16:30 117 31 120/72 (88) 100 07/08/19 16:15 116 29 124/71 (88) 07/08/19 16:00 Bi-pap Bi-pap 07/08/19 16:00 112 07/08/19 16:00 97.5 112 26 123/71 (88) 100 07/08/19 16:00 123/71 07/08/19 15:30 114 26 131/72 (91) 100 07/08/19 15:29 112 27 99 30 Intake and Output 07/08/19 07/09/19 19:00 07:00 Intake Total 1745.69688 ml 1940.1 ml Output Total 55 ml 100 ml Balance 1690.23340 ml 1840.1 ml IV Total 1745.15699 ml 1940.1 ml Output Urine Total 55 ml 100 ml # Bowel Movements 1 2 Laboratory Tests 07/09/19 06:05: White Blood Count 18.0H, Red Blood Count 3.38L, Hemoglobin 10.0L, Hematocrit 30.2L, Mean Corpuscular Volume 89, Mean Corpuscular Hemoglobin 29.6, Mean Corpuscular Hemoglobin Concent 33.2, Red Cell Distribution Width 16.1H, Platelet Count 351, Mean Platelet Volume 5.7L, Neutrophils (%) (Auto) , Lymphocytes (%) (Auto) , Monocytes (%) (Auto) , Eosinophils (%) (Auto) , Basophils (%) (Auto) , Differential Total Cells Counted 100, Neutrophils % ( Manual) 86H, Lymphocytes % (Manual) 7L, Monocytes % (Manual) 6, Eosinophils % ( Manual) 1, Basophils % (Manual) 0, Band Neutrophils 0, Platelet Estimate Adequate, Platelet Morphology Normal, Anisocytosis 1+, Sodium Level 145, Potassium Level 3.6, Chloride Level 110H, Carbon Dioxide Level 16L, Anion Gap 19H, Blood Urea Nitrogen 77H, Creatinine 1.7H, Estimat Glomerular Filtration Rate 29.1, Glucose Level 351H, Calcium Level 9.0, Total Bilirubin 0.4, Aspartate Amino Transf (AST/SGOT) 13L, Alanine Aminotransferase (ALT/SGPT) 14, Alkaline Phosphatase 115, Total Protein 7.0, Albumin 1.9L, Globulin 5.1, Albumin /Globulin Ratio 0.4L 07/09/19 06:28: Total Bilirubin 0.4, Aspartate Amino Transf (AST/SGOT) 14L, Alanine Aminotransferase (ALT/SGPT) 15, Alkaline Phosphatase 116, Total Protein 7.1, Albumin 1.9L, Uric Acid 9.0H, Phosphorus Level 4.1, Magnesium Level 2.5H, Direct Bilirubin < 0.1, Gamma Glutamyl Transpeptidase 71 07/09/19 06:43: Arterial Blood pH 6.939*L, Arterial Blood Partial Pressure CO2 16.3*L, Arterial Blood Partial Pressure O2 253.4H, Arterial Blood HCO3 3.4*L, Arterial Blood Oxygen Saturation 98.3, Arterial Blood Base Excess -27.1*L, August Test Positive Height (Feet): 5 Height (Inches): 3.00 Weight (Pounds): 154 Eli Keenan MD Jul 09, 2019 15:17
--- NOTE | 2019-07-09 16:00 | NUR ---
NURSE NOTES: Patient unresponsive at this time. Patient has been unresponsive since intubation. Patient intubated with ET tube 7.5 and 22cm at the lip line. Ventilator setting AC 14, tidal volume 450, FiO2 100%, and PEEP 5. left nares NGT remains patent and clamped at this time. Young remains patent and in place and draining dark nima urine. Generalized pitting edema +2-3 and weeping noted on all extremities and at central line insertion site. Patient abdomen remains distended and taught. Large fluid filled blisters noted on right hip. Will continue to monitor. patient fingers and toes remain cyanotic and her legs and abdomen are mottled with petechiae noted on her right hip and chest. Dr Hawkins, Dr Munson, and Dr Junior made aware. Pulse oximetry still does not read as peripheral blood flow is minimal at this time. Will continue to turn patient every two hours and as needed. Right femoral TLC remains patent and oozing serosanguineous fluid at this time and running Levophed at 30mcg/min, Vasopressin at 0.04units/min, phenylephrine at 240mcg/min and D5 normal saline at 50mL/hr at this time. Blood pressure remains unstable at this time. Will continue to monitor and titrate per protocol. Patient bed in low position with bed alarm on and call light in reach at this time. Patient repositioned and oral care done at this time. Addendum: 07/09/19 at 2002 by Cookie Burdick RN NO gag reflex. No pain response. No pupillary reflex.
--- NOTE | 2019-07-09 18:00 | NUR ---
Patient blood pressure 129/35. levophed running at 30mcg/min, phenylephrine running at 240mcg/min and vasopressin running at 0.04units/min. Will continue to monitor and give 500mL bolus as needed. Patient repositioned, oral care performed, and central line dressing changed at this time. Patient continues to weep serosanguineous fluid from femoral TLC insertion site. Pressure dressing applied. Bed bath done at this time. Patient had moderate yellow diarrhea bowel movement.
--- NOTE | 2019-07-09 19:30 | NUR ---
HAND-OFF: Report given to MART Patino. Patient blood pressure remains unstable. HR trending down. Endorsed to monitor and follow up.
--- NOTE | 2019-07-09 19:35 | NUR ---
NURSE NOTES: Received patient and report from MART Gary. Patient's in critical condition. Patient 's comatose, nonresponsive, bilateral pupils dilated and fixed, jaw locked, no gag reflex. Patient is intubated ETT7.5, 22LL, with AC14, TV450, FiO2 100%, PEEP 5, undetectable O2 sat . Noted patient is cyanotic, mottled and generalized edematous 3+, petechiae. Afebrile 98.4F with [employer]. BP 93/21, HR 114, on max of Levophed, Phenylephrine, vasopressin. Patient NPO. NGT left nare noted, clamped. Pt has orr for urine retention with no urine output at this time. Noted weeping noted on all extremities and at central line insertion site. Patient abdomen/bladder distended. Pt has sacral deep tissue injury noted, and multiple broken blisters lesions on right hip. P200 mattress noted. Right femoral TLC that is patent running Levophed at 30mcg/min, Vasopressin at 0.04units/min, Phenylephrine at 240mcg/ min and D5 normal saline at 50mL/hr at this time. Pt's son is at the bedside. bed in low position with bed alarm on and call light in reach at this time. Will continue to monitor.
--- NOTE | 2019-07-09 20:05 | Infectious Diseases Prog Note ---
Assessment/Plan Problems: (1) Acute respiratory failure with hypoxemia Assessment & Plan: and acidosis, S/P intubation , monitor ABG and CXR (2) Leukocytosis Assessment & Plan: suspect steroids induced with negative blood cultures on multiple occasions, already on zyvox and zosyn EMPIRICALLY (3) Perforated abdominal viscus Assessment & Plan: with no clinical evidence of perforation , S/P paracentesis x 2 , with increasing intra peritoneal air , surgery is following (4) Anemia Assessment & Plan: S/P blood transfusion, rule out GI bleeding, recommend GI eval and endoscopy (5) Hypotension Assessment & Plan: not responding to pressors and steroids , with low oncotic pressure . had multiple negative blood cultures, aready on zyvox and zosyn empirically for now, continue pressure support , prognosis is poor , recommend palliative care (6) Free intraperitoneal air Assessment & Plan: with distension , on wide spectrum antibiotics, all cultures are negative so far . surgery is following Assessment/Plan time of the stamp doesn't reflect time patient was seen Subjective ROS Limited/Unobtainable: Yes Allergies: Coded Allergies: No Known Allergies (Unverified , 03/06/16) Subjective she was still in ICU , got intubated due to worsening respiratory status , acidosis and hypoxemia , still hypotensive on pressors , UNRESPONSIVE , weeping from her extremities, at bedside , afebrile Objective Vital Signs Last 24 Hour Vital Signs Date Time Temp Pulse Resp B/P (MAP) Pulse Ox O2 Delivery O2 Flow Rate FiO2 07/09/19 19:00 129/35 07/09/19 18:38 39/14 07/09/19 18:30 118 15 119/38 (65) 07/09/19 18:00 122 15 129/35 (66) 07/09/19 18:00 129/35 07/09/19 17:42 125 75/26 07/09/19 17:30 124 15 75/26 (42) 07/09/19 17:29 125 15 100 07/09/19 17:00 128/15 07/09/19 17:00 118 15 128/15 (52) 07/09/19 16:30 125 15 86/70 (75) 07/09/19 16:00 126 07/09/19 16:00 100 07/09/19 16:00 Mechanical Ventilator Mechanical Ventilator 3/14/20 16:00 137/29 07/09/19 16:00 126 15 07/09/19 15:05 128 16 100 07/09/19 15:00 86/70 07/09/19 15:00 127 15 86/70 (75) 07/09/19 14:45 129 15 86/70 (75) 07/09/19 14:30 129 15 86/70 (75) 07/09/19 14:15 129 14 116/85 (95) 07/09/19 14:00 129 14 116/85 (95) 07/09/19 14:00 117/92 07/09/19 13:45 129 14 116/85 (95) 07/09/19 13:34 117/92 07/09/19 13:34 131 117/92 07/09/19 13:30 108/66 07/09/19 13:30 130 14 117/92 (100) 07/09/19 13:15 130 14 100/75 (83) 07/09/19 13:00 131 14 108/66 (80) 07/09/19 13:00 85/50 07/09/19 13:00 14 108/66 (80) 58 07/09/19 13:00 128 14 100 07/09/19 12:45 131 14 70/46 (54) 07/09/19 12:30 131 14 85/50 (62) 07/09/19 12:30 131 14 85/50 (62) 07/09/19 12:15 132 14 79/52 (61) 07/09/19 12:00 98.1 133 14 79/52 (61) 07/09/19 12:00 100 07/09/19 12:00 131 07/09/19 12:00 56/31 07/09/19 12:00 98.1 134 14 56/31 (39) 07/09/19 12:00 Mechanical Ventilator Mechanical Ventilator 07/09/19 11:45 135 14 79/34 (49) 07/09/19 11:30 135 14 79/34 (49) 42 07/09/19 11:30 77/42 07/09/19 11:15 61/20 07/09/19 11:00 133 14 55 07/09/19 11:00 78/20 07/09/19 11:00 139 14 61/26 (38) 97 07/09/19 10:45 78/20 07/09/19 10:30 143/100 07/09/19 10:30 144 14 78/20 (39) 66 07/09/19 10:23 147 14 55 07/09/19 10:15 160/135 07/09/19 10:15 100 07/09/19 10:00 148 20 56/34 (41) 24 07/09/19 10:00 56/34 07/09/19 09:57 133 39/18 07/09/19 09:30 134 29 58/55 (56) 18 07/09/19 09:00 130 21 95 60 07/09/19 09:00 90/55 07/09/19 09:00 135 22 90/55 (67) 28 07/09/19 08:34 147/97 07/09/19 08:30 132 26 147/97 (114) 30 07/09/19 08:25 133 24 151/115 (127) 07/09/19 08:15 132 23 83/68 (73) 07/09/19 08:10 131 23 72/48 (56) 07/09/19 08:00 98.3 131 24 67/51 (56) 07/09/19 08:00 135 07/09/19 08:00 60 07/09/19 08:00 83/68 07/09/19 08:00 Bi-pap Bi-pap 07/09/19 07:55 131 23 68/48 (55) 07/09/19 07:50 131 24 80/63 (69) 07/09/19 07:45 46/36 07/09/19 07:45 132 24 78/40 (53) 07/09/19 07:42 132 24 68/51 (57) 07/09/19 07:37 133 24 59/42 (48) 07/09/19 07:30 134 24 46/36 (39) 07/09/19 07:27 134 23 98 60 07/09/19 07:15 134 23 93/73 (80) 07/09/19 07:00 131 24 96 07/09/19 06:45 134 24 112/73 (86) 60 07/09/19 06:36 136 24 134/72 (92) 66 07/09/19 06:30 134 25 76 07/09/19 06:25 64/18 07/09/19 06:23 136 26 64/18 (33) 88 07/09/19 06:15 134 27 77/56 (63) 89 07/09/19 06:15 77/56 07/09/19 06:00 133 27 97/62 (74) 92 07/09/19 06:00 97/62 07/09/19 05:45 50/42 07/09/19 05:45 133 27 50/42 (45) 88 07/09/19 05:30 131 29 84/68 (73) 07/09/19 05:25 132 31 98 30 07/09/19 05:21 131 32 86/63 (71) 95 07/09/19 05:20 86/63 07/09/19 05:15 129 30 43/24 (30) 95 07/09/19 05:15 43/24 07/09/19 05:00 134 28 79/51 (60) 88 07/09/19 05:00 79/51 07/09/19 04:56 128 26 100/71 (81) 81 07/09/19 04:30 126 29 129/91 (104) 86 07/09/19 04:00 Bi-pap Bi-pap 07/09/19 04:00 97.5 126 30 99/55 (70) 97 07/09/19 04:00 99/55 07/09/19 04:00 30 07/09/19 04:00 126 07/09/19 03:30 117 26 111/81 (91) 97 07/09/19 03:00 110/19 07/09/19 03:00 113 25 110/19 (49) 97 07/09/19 02:33 110 23 98 30 07/09/19 02:30 111 23 100/63 (75) 91 07/09/19 02:00 112 26 108/49 (68) 97 07/09/19 02:00 108/49 07/09/19 01:30 112 24 102/67 (79) 95 07/09/19 01:02 111 22 100 30 07/09/19 01:00 112 24 98/59 (72) 98 07/09/19 01:00 98/59 07/09/19 00:30 113 22 116/71 (86) 98 3/14/20 00:00 30 07/09/19 00:00 97.7 115 25 117/59 (78) 93 07/09/19 00:00 115 07/09/19 00:00 117/59 07/09/19 00:00 Bi-pap Bi-pap 07/08/19 23:30 116 26 108/70 (83) 98 07/08/19 23:00 117 25 99/67 (78) 98 07/08/19 23:00 99/67 07/08/19 22:51 122 30 100 30 07/08/19 22:45 117 108/70 07/08/19 22:30 119 25 98/58 (71) 100 07/08/19 22:00 124 27 103/58 (73) 100 07/08/19 22:00 103/58 07/08/19 21:46 119 28 100 30 07/08/19 21:30 119 28 110/65 (80) 100 07/08/19 21:00 109/63 07/08/19 21:00 118 27 109/63 (78) 100 07/08/19 20:30 120 29 111/73 (86) 100 07/08/19 20:00 Bi-pap Bi-pap 07/08/19 20:00 111/69 07/08/19 20:00 30 07/08/19 20:00 97.6 117 27 111/69 (83) 100 Height (Feet): 5 Height (Inches): 3.00 Weight (Pounds): 154 General Appearance: no acute distress, cachetic HEENT: normocephalic, atraumatic, no JVD Respiratory/Chest: no respiratory distress, no accessory muscle use, decreased breath sounds, crackles/rales Cardiovascular: normal peripheral pulses, normal rate, regular rhythm, no gallop/murmur, no JVD Abdomen: no organomegaly, no mass, no scars, absent bowel sounds, distended Genitourinary: normal external genitalia Extremities: other - cyanotic and weeping Skin: other - blisters on the hip Neurologic/Psychiatric: unresponsiveness Lymphatic: no neck adenopathy, no groin adenopathy Microbiology Date/Time Source Procedure Growth Status 07/06/19 22:55 Blood Blood Culture - Preliminary NO GROWTH AFTER 48 HOURS Resulted 07/06/19 22:50 Blood Blood Culture - Preliminary NO GROWTH AFTER 48 HOURS Resulted Laboratory Tests Test 07/09/19 06:05 07/09/19 06:28 07/09/19 06:43 White Blood Count 18.0 K/UL (4.8-10.8) H Red Blood Count 3.38 M/UL (4.20-5.40) L Hemoglobin 10.0 G/DL (12.0-16.0) L Hematocrit 30.2 % (37.0-47.0) L Mean Corpuscular Volume 89 FL (80-99) Mean Corpuscular Hemoglobin 29.6 PG (27.0-31.0) Mean Corpuscular Hemoglobin Concent 33.2 G/DL (32.0-36.0) Red Cell Distribution Width 16.1 % (11.6-14.8) H Platelet Count 351 K/UL (150-450) Mean Platelet Volume 5.7 FL (6.5-10.1) L Neutrophils (%) (Auto) % (45.0-75.0) Lymphocytes (%) (Auto) % (20.0-45.0) Monocytes (%) (Auto) % (1.0-10.0) Eosinophils (%) (Auto) % (0.0-3.0) Basophils (%) (Auto) % (0.0-2.0) Differential Total Cells Counted 100 Neutrophils % (Manual) 86 % (45-75) H Lymphocytes % (Manual) 7 % (20-45) L Monocytes % (Manual) 6 % (1-10) Eosinophils % (Manual) 1 % (0-3) Basophils % (Manual) 0 % (0-2) Band Neutrophils 0 % (0-8) Platelet Estimate Adequate Platelet Morphology Normal Anisocytosis 1+ Sodium Level 145 MMOL/L (136-145) Potassium Level 3.6 MMOL/L (3.5-5.1) Chloride Level 110 MMOL/L (98-107) H Carbon Dioxide Level 16 MMOL/L (21-32) L Anion Gap 19 mmol/L (5-15) H Blood Urea Nitrogen 77 mg/dL (7-18) H Creatinine 1.7 MG/DL (0.55-1.30) H Estimat Glomerular Filtration Rate 29.1 mL/min (>60) Glucose Level 351 MG/DL (74-106) H Calcium Level 9.0 MG/DL (8.5-10.1) Total Bilirubin 0.4 MG/DL (0.2-1.0) 0.4 MG/DL (0.2-1.0) Aspartate Amino Transf (AST/SGOT) 13 U/L (15-37) L 14 U/L (15-37) L Alanine Aminotransferase (ALT/SGPT) 14 U/L (12-78) 15 U/L (12-78) Alkaline Phosphatase 115 U/L (46-116) 116 U/L (46-116) Total Protein 7.0 G/DL (6.4-8.2) 7.1 G/DL (6.4-8.2) Albumin 1.9 G/DL (3.4-5.0) L 1.9 G/DL (3.4-5.0) L Globulin 5.1 g/dL Albumin/Globulin Ratio 0.4 (1.0-2.7) L Uric Acid 9.0 MG/DL (2.6-7.2) H Phosphorus Level 4.1 MG/DL (2.5-4.9) Magnesium Level 2.5 MG/DL (1.8-2.4) H Direct Bilirubin < 0.1 MG/DL (0.0-0.3) Gamma Glutamyl Transpeptidase 71 U/L (5-85) Arterial Blood pH 6.939 (7.350-7.450) Arterial Blood Partial Pressure CO2 16.3 mmHg (35.0-45.0) *L Arterial Blood Partial Pressure O2 253.4 mmHg (75.0-100.0) H Arterial Blood HCO3 3.4 mmol/L (22.0-26.0) *L Arterial Blood Oxygen Saturation 98.3 % (95-100) Arterial Blood Base Excess -27.1 (-2-2) *L August Test Positive Current Medications Medications (Trade) Dose Ordered Sig/Margie Route PRN Reason Start Time Stop Time Status Last Admin Dose Admin Chlorhexidine Gluconate (Sheeba-Hex 2%) 1 applic DAILY@1999 TOPIC 07/07/19 20:00 08/06/19 19:59 07/08/19 19:27 Dextrose/Sodium Chloride 1,000 ml @ 50 mls/hr Q20H IV 07/08/19 13:04 08/07/19 13:03 07/09/19 07:42 Heparin Sodium/ Sodium Chloride (Heparin 1000 units/500ml Premix) 1,000 unit ONCE PRN IV PICC 07/08/19 11:00 07/10/19 10:59 Hydrocortisone (Solu-CORTEF) 100 mg TID IV 07/06/19 09:30 08/05/19 09:29 07/09/19 17:41 Lidocaine HCl (Xylocaine 1% 30ml) 30 ml ONCE PRN INJ PICC 07/08/19 11:00 07/10/19 10:59 Linezolid 300 ml @ 300 mls/hr Q12HR IVPB 07/06/19 21:00 07/13/19 20:59 07/09/19 09:42 Morphine Sulfate (Morphine Sulfate) 1 mg Q4H PRN IVP Moderate Pain (Pain Scale 4-6) 07/06/19 01:45 07/11/19 12:59 Morphine Sulfate (Morphine Sulfate) 2 mg Q6H PRN IVP Severe Pain (Pain Scale 7-10) 07/06/19 00:30 07/10/19 18:29 07/06/19 20:19 Nitroglycerin (Ntg) 0.4 mg Q5M PRN SL Prn Chest Pain 07/05/19 22:15 08/03/19 04:59 Norepinephrine Bitartrate 8 mg/ Dextrose 500 ml @ 0 mls/hr Q24H IV 07/06/19 07:00 08/05/19 06:59 07/09/19 18:38 Pantoprazole (Protonix) 40 mg Q12HR IVP 07/06/19 09:00 07/31/19 20:59 07/09/19 09:43 Phenylephrine HCl 50 mg/Dextrose 250 ml @ 0 mls/hr Q24H IV 07/05/19 22:45 08/04/19 22:44 07/09/19 17:42 Piperacillin Sod/ Tazobactam Sod 3.375 gm/Sodium Chloride 110 ml @ 27.5 mls/hr Q12H IVPB 07/06/19 00:00 07/13/19 00:00 07/09/19 12:11 Sodium Chloride 500 ml @ 0 mls/hr Q0M PRN IVPB SBP<100 07/05/19 22:15 08/01/19 20:29 07/09/19 18:39 Vasopressin 100 units/Sodium Chloride 100 ml @ 0 mls/hr Q24H IV 07/05/19 22:45 08/04/19 22:44 07/08/19 23:38 Tenisha Osei M.D. Jul 09, 2019 20:05
[2019-07-09] MEDS: Dyna-Hex 2% Top Sol 2oz TOPIC SCH (20:23)
--- NOTE | 2019-07-09 22:00 | NUR ---
NURSE NOTES: Pt's still continue in critical condition. Pt's comatose, non-responsive, intubated, and on max of Levophed, phenylephrine and vasopressin. BP 35/10. HR 107. Family aware of patient's condition, and at bedside. Will continue to monitor.
[2019-07-09] MEDS: Vasopressin 100 UNITS in NS 95 ML IV SCH (22:45)
--- NOTE | 2019-07-09 23:00 | NUR ---
NURSE NOTES: Called family member to update pt's condition. Pt's BP critical low. MD aware. Pt's on max of Levophed, Phenylephrine and Vasopressin. Edwige Yu ( daughter) is coming to the hospital. She will decide pt's code status. Will continue to monitor.
--- NOTE | 2019-07-09 23:25 | NUR ---
NURSE NOTES: daughter(dusty b[place]) requested do not resuscitate, dr miles called and got DNR order, telephone order witnessed with tammi ellisrn
--- NOTE | 2019-07-09 23:35 | NUR ---
PRONOUNCEMENT: No Code. Dr Morris was called to pronounce patient. Absence of spontaneous respirations, no cardiac or breath sounds on auscultation. Pupils fixed and dilated. No carotid pulse or chest movement. Patient at 2335. DR Keenan notified PER charge nurse. Family was at bedside, daughter Edwige Yu and pt's .
--- NOTE | 2019-07-09 23:35 | Hematology/Onc Progress Note ---
Assessment/Plan Assessment/Plan ASSESSMENT/RECS: # Pancreatric cancer with Postsurgical changes, as described, with evidence of prior distal gastrectomy, gastrojejunostomy, and likely Nolan-en-Y anastomosis --> ct a/p reviewed and no marin malignancy is noted --> tumor markers noted --> currently appears in remission # Elevated tumor markers including ca 19.9, ca 125 --> by itself doesn't indicate malignancy --> have ordered for us of the ovaries to evaluate if enlarged --> obtain prior tumor markers if available for comparison --> reviewed prior adm, no prior tumor markers available # Anemia due to gi bleed --> evaluated by gi --> also seen by surgery Perforated viscus, source unknown. --> pulm/surg/id following --> hgb trend: 11.1 --> 10 # Thrombocytopenia with decreased plt count, likely was reactive process --> trend as needed --> 160-->111-->56 --> 356k --> hep and hiv neg --> on abx broad spectrum # Severe sepsis. --> broad spectrum abx --> pressors have been started --> linezolid / zosyn # Dehydration. --> on ivf as well # Ascites --> s/p para and no malignant cells seen # Resp failure --> on bipap # Hypotension could be due to dehydration and anemia. --> on midrinone, as per Mitch Appreciate consultation and maricarmen Rn Subjective Constitutional: Denies: no symptoms, chills, fever, malaise, weakness, other HEENT: Denies: no symptoms, eye pain, blurred vision, tearing, double vision, ear pain, ear discharge, nose pain, nose congestion, throat pain, throat swelling, mouth pain, mouth swelling, other Cardiovascular: Denies: no symptoms, chest pain, edema, irregular heart rate, lightheadedness, palpitations, syncope, other Respiratory: Denies: no symptoms, cough, shortness of breath, SOB with excertion, SOB at rest, sputum, wheezing, other Gastrointestinal/Abdominal: Denies: no symptoms, abdomen distended, abdominal pain, black stools, tarry stools, blood in stool, constipated, diarrhea, difficulty swallowing, nausea, poor appetite, poor fluid intake, rectal bleeding , vomiting, other Genitourinary: Denies: no symptoms, burning, discharge, frequency, flank pain, hematuria, incontinence, pain, urgency, other Neurologic/Psychiatric: Denies: no symptoms, anxiety, depressed, emotional problems, headache, numbness, paresthesia, pre-existing deficit, seizure, tingling, tremors, weakness, other Endocrine: Denies: no symptoms, excessive sweating, flushing, intolerance to cold, intolerance to heat, increased hunger, increased thirst, increased urine, unexplained weight gain, unexplained weight loss, other Hematologic/Lymphatic: Denies: no symptoms, anemia, easy bleeding, easy bruising, adenopathy, other Allergies: Coded Allergies: No Known Allergies (Unverified , 03/06/16) Subjective 07/06 icu, cxr reviewed, restraints, plt 56, no new orders 07/07 on restraints, levo gtt, tachy, no acute distress 07/08 no major changes, in icu, prognosis remains poorly, somewhat responsive, seen by cards Objective Objective Current Medications Medications (Trade) Dose Ordered Sig/Margie Route PRN Reason Start Time Stop Time Status Last Admin Dose Admin Chlorhexidine Gluconate (Sheeba-Hex 2%) 1 applic DAILY@1999 TOPIC 07/07/19 20:00 08/06/19 19:59 07/09/19 20:23 Dextrose/Sodium Chloride 1,000 ml @ 50 mls/hr Q20H IV 07/08/19 13:04 08/07/19 13:03 07/09/19 07:42 Heparin Sodium/ Sodium Chloride (Heparin 1000 units/500ml Premix) 1,000 unit ONCE PRN IV PICC 07/08/19 11:00 07/10/19 10:59 Hydrocortisone (Solu-CORTEF) 100 mg TID IV 07/06/19 09:30 08/05/19 09:29 07/09/19 17:41 Lidocaine HCl (Xylocaine 1% 30ml) 30 ml ONCE PRN INJ PICC 07/08/19 11:00 07/10/19 10:59 Linezolid 300 ml @ 300 mls/hr Q12HR IVPB 07/06/19 21:00 07/13/19 20:59 07/09/19 20:23 Morphine Sulfate (Morphine Sulfate) 1 mg Q4H PRN IVP Moderate Pain (Pain Scale 4-6) 07/06/19 01:45 07/11/19 12:59 Morphine Sulfate (Morphine Sulfate) 2 mg Q6H PRN IVP Severe Pain (Pain Scale 7-10) 07/06/19 00:30 07/10/19 18:29 07/06/19 20:19 Nitroglycerin (Ntg) 0.4 mg Q5M PRN SL Prn Chest Pain 07/05/19 22:15 08/03/19 04:59 Norepinephrine Bitartrate 8 mg/ Dextrose 500 ml @ 0 mls/hr Q24H IV 07/06/19 07:00 08/05/19 06:59 07/09/19 18:38 Pantoprazole (Protonix) 40 mg Q12HR IVP 07/06/19 09:00 07/31/19 20:59 07/09/19 20:23 Phenylephrine HCl 50 mg/Dextrose 250 ml @ 0 mls/hr Q24H IV 07/05/19 22:45 08/04/19 22:44 07/09/19 20:38 Piperacillin Sod/ Tazobactam Sod 3.375 gm/Sodium Chloride 110 ml @ 27.5 mls/hr Q12H IVPB 07/06/19 00:00 07/13/19 00:00 07/09/19 12:11 Sodium Chloride 500 ml @ 0 mls/hr Q0M PRN IVPB SBP<100 07/05/19 22:15 08/01/19 20:29 07/09/19 18:39 Vasopressin 100 units/Sodium Chloride 100 ml @ 0 mls/hr Q24H IV 07/05/19 22:45 08/04/19 22:44 07/08/19 23:38 Last 24 Hour Vital Signs Date Time Temp Pulse Resp B/P (MAP) Pulse Ox O2 Delivery O2 Flow Rate FiO2 07/09/19 23:01 52 14 100 07/09/19 20:38 116 0/0 07/09/19 20:35 67 14 100 07/09/19 19:05 115 15 100 07/09/19 19:00 129/35 07/09/19 18:38 39/14 07/09/19 18:30 118 15 119/38 (65) 07/09/19 18:00 122 15 129/35 (66) 07/09/19 18:00 129/35 07/09/19 17:42 125 75/26 07/09/19 17:30 124 15 75/26 (42) 07/09/19 17:29 125 15 100 07/09/19 17:00 128/15 07/09/19 17:00 118 15 128/15 (52) 07/09/19 16:30 125 15 86/70 (75) 07/09/19 16:00 126 07/09/19 16:00 100 07/09/19 16:00 Mechanical Ventilator Mechanical Ventilator 07/09/19 16:00 137/29 07/09/19 16:00 126 15 07/09/19 15:05 128 16 100 07/09/19 15:00 86/70 07/09/19 15:00 127 15 86/70 (75) 07/09/19 14:45 129 15 86/70 (75) 07/09/19 14:30 129 15 86/70 (75) 07/09/19 14:15 129 14 116/85 (95) 07/09/19 14:00 129 14 116/85 (95) 07/09/19 14:00 117/92 07/09/19 13:45 129 14 116/85 (95) 07/09/19 13:34 117/92 07/09/19 13:34 131 117/92 07/09/19 13:30 108/66 07/09/19 13:30 130 14 117/92 (100) 07/09/19 13:15 130 14 100/75 (83) 07/09/19 13:00 131 14 108/66 (80) 07/09/19 13:00 85/50 07/09/19 13:00 14 108/66 (80) 58 07/09/19 13:00 128 14 100 07/09/19 12:45 131 14 70/46 (54) 07/09/19 12:30 131 14 85/50 (62) 07/09/19 12:30 131 14 85/50 (62) 07/09/19 12:15 132 14 79/52 (61) 07/09/19 12:00 98.1 133 14 79/52 (61) 07/09/19 12:00 100 07/09/19 12:00 131 07/09/19 12:00 56/31 07/09/19 12:00 98.1 134 14 56/31 (39) 07/09/19 12:00 Mechanical Ventilator Mechanical Ventilator 07/09/19 11:45 135 14 79/34 (49) 07/09/19 11:30 135 14 79/34 (49) 42 07/09/19 11:30 77/42 07/09/19 11:15 61/20 07/09/19 11:00 133 14 55 07/09/19 11:00 78/20 07/09/19 11:00 139 14 61/26 (38) 97 07/09/19 10:45 78/20 07/09/19 10:30 143/100 07/09/19 10:30 144 14 78/20 (39) 66 07/09/19 10:23 147 14 55 07/09/19 10:15 160/135 07/09/19 10:15 100 07/09/19 10:00 148 20 56/34 (41) 24 07/09/19 10:00 56/34 07/09/19 09:57 133 39/18 07/09/19 09:30 134 29 58/55 (56) 18 07/09/19 09:00 130 21 95 60 07/09/19 09:00 90/55 07/09/19 09:00 135 22 90/55 (67) 28 07/09/19 08:34 147/97 07/09/19 08:30 132 26 147/97 (114) 30 07/09/19 08:25 133 24 151/115 (127) 07/09/19 08:15 132 23 83/68 (73) 07/09/19 08:10 131 23 72/48 (56) 07/09/19 08:00 98.3 131 24 67/51 (56) 07/09/19 08:00 135 07/09/19 08:00 60 07/09/19 08:00 83/68 07/09/19 08:00 Bi-pap Bi-pap 07/09/19 07:55 131 23 68/48 (55) 07/09/19 07:50 131 24 80/63 (69) 07/09/19 07:45 46/36 07/09/19 07:45 132 24 78/40 (53) 07/09/19 07:42 132 24 68/51 (57) 07/09/19 07:37 133 24 59/42 (48) 07/09/19 07:30 134 24 46/36 (39) 07/09/19 07:27 134 23 98 60 07/09/19 07:15 134 23 93/73 (80) 07/09/19 07:00 131 24 96 07/09/19 06:45 134 24 112/73 (86) 60 07/09/19 06:36 136 24 134/72 (92) 66 07/09/19 06:30 134 25 76 07/09/19 06:25 64/18 07/09/19 06:23 136 26 64/18 (33) 88 07/09/19 06:15 134 27 77/56 (63) 89 07/09/19 06:15 77/56 07/09/19 06:00 133 27 97/62 (74) 92 07/09/19 06:00 97/62 07/09/19 05:45 50/42 07/09/19 05:45 133 27 50/42 (45) 88 07/09/19 05:30 131 29 84/68 (73) 07/09/19 05:25 132 31 98 30 07/09/19 05:21 131 32 86/63 (71) 95 07/09/19 05:20 86/63 07/09/19 05:15 129 30 43/24 (30) 95 07/09/19 05:15 43/24 07/09/19 05:00 134 28 79/51 (60) 88 07/09/19 05:00 79/51 07/09/19 04:56 128 26 100/71 (81) 81 07/09/19 04:30 126 29 129/91 (104) 86 07/09/19 04:00 Bi-pap Bi-pap 07/09/19 04:00 97.5 126 30 99/55 (70) 97 07/09/19 04:00 99/55 07/09/19 04:00 30 07/09/19 04:00 126 07/09/19 03:30 117 26 111/81 (91) 97 07/09/19 03:00 110/19 07/09/19 03:00 113 25 110/19 (49) 97 07/09/19 02:33 110 23 98 30 07/09/19 02:30 111 23 100/63 (75) 91 07/09/19 02:00 112 26 108/49 (68) 97 07/09/19 02:00 108/49 07/09/19 01:30 112 24 102/67 (79) 95 07/09/19 01:02 111 22 100 30 07/09/19 01:00 112 24 98/59 (72) 98 07/09/19 01:00 98/59 07/09/19 00:30 113 22 116/71 (86) 98 07/09/19 00:00 30 07/09/19 00:00 97.7 115 25 117/59 (78) 93 07/09/19 00:00 115 07/09/19 00:00 117/59 07/09/19 00:00 Bi-pap Bi-pap 07/08/19 23:30 116 26 108/70 (83) 98 07/08/19 23:00 117 25 99/67 (78) 98 07/08/19 23:00 99/67 07/08/19 22:51 122 30 100 30 07/08/19 22:45 117 108/70 07/08/19 22:30 119 25 98/58 (71) 100 07/08/19 22:00 124 27 103/58 (73) 100 07/08/19 22:00 103/58 07/08/19 21:46 119 28 100 30 07/08/19 21:30 119 28 110/65 (80) 100 07/08/19 21:00 109/63 07/08/19 21:00 118 27 109/63 (78) 100 07/08/19 20:30 120 29 111/73 (86) 100 07/08/19 20:00 Bi-pap Bi-pap 07/08/19 20:00 111/69 07/08/19 20:00 30 07/08/19 20:00 97.6 117 27 111/69 (83) 100 07/08/19 19:54 117 07/08/19 19:54 117 30 100 30 07/08/19 19:45 120 30 105/52 (69) 100 07/08/19 19:30 120 26 106/65 (79) 100 07/08/19 19:27 88/69 07/08/19 19:15 119 28 88/69 (75) 100 07/08/19 19:00 100/70 07/08/19 19:00 123 28 100/70 (80) 07/08/19 18:45 128 29 125/78 (94) 07/08/19 18:30 115 26 108/75 (86) 07/08/19 18:15 117 28 120/77 (91) 07/08/19 18:00 117/63 07/08/19 18:00 119 26 117/63 (81) 98 07/08/19 17:45 112 24 117/64 (81) 100 07/08/19 17:30 113 26 131/71 (91) 99 07/08/19 17:15 108 25 129/46 (73) 100 07/08/19 17:00 118/79 07/08/19 17:00 112 26 118/79 (92) 100 07/08/19 16:45 122 33 100 30 07/08/19 16:45 113 25 100/86 (91) 07/08/19 16:30 117 31 120/72 (88) 100 07/08/19 16:15 116 29 124/71 (88) 07/08/19 16:00 Bi-pap Bi-pap 07/08/19 16:00 112 07/08/19 16:00 97.5 112 26 123/71 (88) 100 07/08/19 16:00 123/71 07/08/19 15:30 114 26 131/72 (91) 100 07/08/19 15:29 112 27 99 30 07/08/19 15:00 123 30 122/81 (95) 100 07/08/19 15:00 122/81 07/08/19 14:30 116 26 125/71 (89) 100 07/08/19 14:00 50 07/08/19 14:00 96/58 07/08/19 14:00 96/58 07/08/19 14:00 118 27 96/58 (71) 100 07/08/19 13:30 120 27 133/79 (97) 100 07/08/19 13:10 119 33 100 30 07/08/19 13:00 113 23 124/91 (102) 100 07/08/19 13:00 124/91 07/08/19 12:30 122 28 122/32 (62) 100 07/08/19 12:00 100 07/08/19 12:00 Bi-pap Bi-pap 07/08/19 12:00 125 07/08/19 12:00 122/32 07/08/19 12:00 98.7 125 27 110/74 (86) 100 07/08/19 11:30 130 27 100/73 (82) 100 07/08/19 11:00 106/83 07/08/19 11:00 122 30 106/83 (91) 100 07/08/19 10:30 118 30 110/68 (82) 100 07/08/19 10:30 110 31 100 30 07/08/19 10:00 114 27 122/81 (95) 92 07/08/19 10:00 122/81 07/08/19 09:30 118 33 124/92 (103) 100 07/08/19 09:00 116 30 108/73 (85) 100 07/08/19 09:00 108/73 07/08/19 08:52 116 27 100 30 07/08/19 08:41 99/69 07/08/19 08:30 110 20 99/69 (79) 98 07/08/19 08:00 98.3 111 24 110/62 (78) 100 07/08/19 08:00 115 07/08/19 08:00 110/62 07/08/19 08:00 Bi-pap Bi-pap 07/08/19 08:00 30 07/08/19 07:30 120 29 104/79 (87) 100 07/08/19 07:00 103/71 07/08/19 07:00 112 22 103/71 (82) 100 07/08/19 06:48 119 31 99 30 07/08/19 06:30 114 23 106/83 (91) 98 07/08/19 06:15 120 31 116/86 (96) 98 07/08/19 06:00 122 28 116/70 (85) 98 07/08/19 06:00 116/70 07/08/19 05:30 130 32 123/58 (79) 97 07/08/19 05:20 128 32 136/91 (106) 98 07/08/19 05:15 129 37 122/100 (107) 98 07/08/19 05:15 122/100 07/08/19 05:14 124 35 70/38 (49) 98 07/08/19 05:12 117 27 58/23 (35) 98 07/08/19 05:10 116 29 100 30 07/08/19 05:00 126 33 44/22 (29) 98 07/08/19 05:00 44/22 07/08/19 04:45 112 26 105/76 (86) 82 07/08/19 04:30 119 29 107/70 (82) 98 07/08/19 04:00 97.8 116 24 102/75 (84) 99 07/08/19 04:00 102/75 07/08/19 04:00 30 07/08/19 04:00 Bi-pap 07/08/19 03:34 114 07/08/19 03:30 119 28 114/64 (81) 99 07/08/19 03:23 114 25 99 30 07/08/19 03:00 122 31 109/55 (73) 99 07/08/19 03:00 109/55 07/08/19 02:30 117 27 99/75 (83) 99 07/08/19 02:00 119 28 113/80 (91) 99 07/08/19 02:00 113/80 07/08/19 01:30 121 29 110/75 (87) 99 07/08/19 01:02 123 28 100 30 07/08/19 01:00 110/62 07/08/19 01:00 123 26 110/62 (78) 99 07/08/19 00:45 123 26 103/75 (84) 100 07/08/19 00:30 129 32 105/75 (85) 100 07/08/19 00:15 128 32 110/71 (84) 100 07/08/19 00:00 Bi-pap 07/08/19 00:00 30 07/08/19 00:00 119/77 07/08/19 00:00 97.6 123 28 119/77 (91) 99 07/07/19 23:49 122 29 116/66 (83) 98 07/07/19 23:47 123 28 70/53 (59) 98 07/07/19 23:45 123 28 38/26 (30) 98 07/07/19 23:45 38/26 Intake and Output 07/08/19 07/09/19 19:00 07:00 Intake Total 1745.47806 ml 1940.1 ml Output Total 55 ml 100 ml Balance 1690.50897 ml 1840.1 ml IV Total 1745.05177 ml 1940.1 ml Output Urine Total 55 ml 100 ml # Bowel Movements 1 2 Labs Test 07/07/19 03:45 07/07/19 07:05 07/07/19 12:15 07/07/19 14:20 White Blood Count 8.7 K/UL (4.8-10.8) Red Blood Count 3.47 M/UL (4.20-5.40) Hemoglobin 11.1 G/DL (12.0-16.0) Hematocrit 31.3 % (37.0-47.0) Mean Corpuscular Volume 90 FL (80-99) Mean Corpuscular Hemoglobin 32.1 PG (27.0-31.0) Mean Corpuscular Hemoglobin Concent 35.6 G/DL (32.0-36.0) Red Cell Distribution Width 14.1 % (11.6-14.8) Platelet Count 56 K/UL (150-450) Mean Platelet Volume 7.1 FL (6.5-10.1) Neutrophils (%) (Auto) % (45.0-75.0) Lymphocytes (%) (Auto) % (20.0-45.0) Monocytes (%) (Auto) % (1.0-10.0) Eosinophils (%) (Auto) % (0.0-3.0) Basophils (%) (Auto) % (0.0-2.0) Differential Total Cells Counted 100 Neutrophils % (Manual) 93 % (45-75) Lymphocytes % (Manual) 3 % (20-45) Monocytes % (Manual) 3 % (1-10) Eosinophils % (Manual) 0 % (0-3) Basophils % (Manual) 1 % (0-2) Band Neutrophils 0 % (0-8) Platelet Estimate Decreased Platelet Morphology Normal Hypochromasia 1+ Sodium Level 130 MMOL/L (136-145) Potassium Level 3.7 MMOL/L (3.5-5.1) Chloride Level 99 MMOL/L (98-107) Carbon Dioxide Level 15 MMOL/L (21-32) Anion Gap 16 mmol/L (5-15) Blood Urea Nitrogen 35 mg/dL (7-18) Creatinine 2.3 MG/DL (0.55-1.30) Estimat Glomerular Filtration Rate 20.5 mL/min (>60) Glucose Level 203 MG/DL (74-106) Lactic Acid Level 6.20 mmol/L (0.4-2.0) 5.70 mmol/L (0.66-2.22) 6.30 mmol/L (0.4-2.0) Uric Acid 2.8 MG/DL (2.6-7.2) Calcium Level 7.7 MG/DL (8.5-10.1) Phosphorus Level 2.8 MG/DL (2.5-4.9) Magnesium Level 1.9 MG/DL (1.8-2.4) Total Bilirubin 1.7 MG/DL (0.2-1.0) Direct Bilirubin 1.2 MG/DL (0.0-0.3) Aspartate Amino Transf (AST/SGOT) 18 U/L (15-37) Alanine Aminotransferase (ALT/SGPT) 22 U/L (12-78) Alkaline Phosphatase 61 U/L (46-116) Troponin I 1.113 ng/mL (0.000-0.056) C-Reactive Protein, Quantitative 40.9 mg/dL (0.00-0.90) Total Protein 3.8 G/DL (6.4-8.2) Albumin 1.6 G/DL (3.4-5.0) Globulin 2.2 g/dL Albumin/Globulin Ratio 0.7 (1.0-2.7) Arterial Blood pH 7.359 (7.350-7.450) Arterial Blood Partial Pressure CO2 20.8 mmHg (35.0-45.0) Arterial Blood Partial Pressure O2 91.5 mmHg (75.0-100.0) Arterial Blood HCO3 11.5 mmol/L (22.0-26.0) Arterial Blood Oxygen Saturation 96.7 % (95-100) Arterial Blood Base Excess -11.9 (-2-2) August Test Positive Test 07/07/19 18:10 07/08/19 09:30 07/09/19 06:05 07/09/19 06:28 Lactic Acid Level 7.80 mmol/L (0.4-2.0) 0.80 mmol/L (0.4-2.0) White Blood Count 18.3 K/UL (4.8-10.8) 18.0 K/UL (4.8-10.8) Red Blood Count 3.39 M/UL (4.20-5.40) 3.38 M/UL (4.20-5.40) Hemoglobin 10.0 G/DL (12.0-16.0) 10.0 G/DL (12.0-16.0) Hematocrit 29.7 % (37.0-47.0) 30.2 % (37.0-47.0) Mean Corpuscular Volume 88 FL (80-99) 89 FL (80-99) Mean Corpuscular Hemoglobin 29.6 PG (27.0-31.0) 29.6 PG (27.0-31.0) Mean Corpuscular Hemoglobin Concent 33.7 G/DL (32.0-36.0) 33.2 G/DL (32.0-36.0) Red Cell Distribution Width 15.6 % (11.6-14.8) 16.1 % (11.6-14.8) Platelet Count 345 K/UL (150-450) 351 K/UL (150-450) Mean Platelet Volume 6.4 FL (6.5-10.1) 5.7 FL (6.5-10.1) Neutrophils (%) (Auto) % (45.0-75.0) % (45.0-75.0) Lymphocytes (%) (Auto) % (20.0-45.0) % (20.0-45.0) Monocytes (%) (Auto) % (1.0-10.0) % (1.0-10.0) Eosinophils (%) (Auto) % (0.0-3.0) % (0.0-3.0) Basophils (%) (Auto) % (0.0-2.0) % (0.0-2.0) Differential Total Cells Counted 100 100 Neutrophils % (Manual) 95 % (45-75) 86 % (45-75) Lymphocytes % (Manual) 5 % (20-45) 7 % (20-45) Monocytes % (Manual) 0 % (1-10) 6 % (1-10) Eosinophils % (Manual) 0 % (0-3) 1 % (0-3) Basophils % (Manual) 0 % (0-2) 0 % (0-2) Band Neutrophils 0 % (0-8) 0 % (0-8) Platelet Estimate Adequate Adequate Platelet Morphology Normal Normal Anisocytosis 1+ 1+ Sodium Level 146 MMOL/L (136-145) 145 MMOL/L (136-145) Potassium Level 3.6 MMOL/L (3.5-5.1) 3.6 MMOL/L (3.5-5.1) Chloride Level 110 MMOL/L (98-107) 110 MMOL/L (98-107) Carbon Dioxide Level 18 MMOL/L (21-32) 16 MMOL/L (21-32) Anion Gap 18 mmol/L (5-15) 19 mmol/L (5-15) Blood Urea Nitrogen 71 mg/dL (7-18) 77 mg/dL (7-18) Creatinine 1.7 MG/DL (0.55-1.30) 1.7 MG/DL (0.55-1.30) Estimat Glomerular Filtration Rate 29.1 mL/min (>60) 29.1 mL/min (>60) Glucose Level 385 MG/DL (74-106) 351 MG/DL (74-106) Calcium Level 9.0 MG/DL (8.5-10.1) 9.0 MG/DL (8.5-10.1) Total Bilirubin 0.5 MG/DL (0.2-1.0) 0.4 MG/DL (0.2-1.0) 0.4 MG/DL (0.2-1.0) Aspartate Amino Transf (AST/SGOT) 9 U/L (15-37) 13 U/L (15-37) 14 U/L (15-37) Alanine Aminotransferase (ALT/SGPT) 21 U/L (12-78) 14 U/L (12-78) 15 U/L (12-78) Alkaline Phosphatase 122 U/L (46-116) 115 U/L (46-116) 116 U/L (46-116) Total Protein 7.1 G/DL (6.4-8.2) 7.0 G/DL (6.4-8.2) 7.1 G/DL (6.4-8.2) Albumin 1.8 G/DL (3.4-5.0) 1.9 G/DL (3.4-5.0) 1.9 G/DL (3.4-5.0) Globulin 5.3 g/dL 5.1 g/dL Albumin/Globulin Ratio 0.3 (1.0-2.7) 0.4 (1.0-2.7) Uric Acid 9.0 MG/DL (2.6-7.2) Phosphorus Level 4.1 MG/DL (2.5-4.9) Magnesium Level 2.5 MG/DL (1.8-2.4) Direct Bilirubin < 0.1 MG/DL (0.0-0.3) Gamma Glutamyl Transpeptidase 71 U/L (5-85) Test 07/09/19 06:43 Arterial Blood pH 6.939 (7.350-7.450) Arterial Blood Partial Pressure CO2 16.3 mmHg (35.0-45.0) Arterial Blood Partial Pressure O2 253.4 mmHg (75.0-100.0) Arterial Blood HCO3 3.4 mmol/L (22.0-26.0) Arterial Blood Oxygen Saturation 98.3 % (95-100) Arterial Blood Base Excess -27.1 (-2-2) August Test Positive Height (Feet): 5 Height (Inches): 3.00 Weight (Pounds): 154 Objective PE General Appearance: well appearing, no apparent distress Head: normocephalic, atraumatic Eyes: bilateral eye PERRL, bilateral eye EOMI Resp: lungs clear, normal breath sounds, no rhonchi ++ bipap Cardiovascular: normal peripheral pulses, regular rate, rhythm, no murmur Gastrointestinal: soft, non-distended, other - Left-sided abdominal tenderness , large healed midline abdominal scar Musculoskeletal: other - Bilateral lower extremity edema noted 2+ up to the knee Neurologic: alert, oriented x3, no focal defects Gregorio Mercado MD Jul 09, 2019 23:35
[2019-07-10] MEDS: Piperacillin/Tazobactam 3.375 GM in NS 110 ML IVPB SCH ×2
--- NOTE | 2019-07-10 | NUR ---
NURSE NOTES: Ms.Susan Yu (daughter) is unable to sign the consent to release the body to any mortuary, family have not decided which one yet. Ms. Gibbons allows the hospital to keep the body at the facility's mort.
--- NOTE | 2019-07-10 06:52 | Emergency Room Report ---
History of Present Illness General Chief Complaint: Abdominal Pain Source: Patient, Family Member, Medical Record, PMD Present Illness Allergies: Coded Allergies: No Known Allergies (Unverified , 03/06/16) Nursing Documentation-[facility] Past Medical History Deferred: No Family Available Hx Cardiac Problems: Yes Hx Gastrointestinal Problems: Yes Physical Exam Vital Signs Date Time Temp Pulse Resp B/P (MAP) Pulse Ox O2 Delivery O2 Flow Rate FiO2 07/06/19 07:00 90 13 111/75 (87) 07/06/19 07:15 100 07/06/19 07:35 40 07/06/19 08:00 97.1 07/06/19 08:00 Bi-pap Medical Decision Making Diagnostic Impression: Primary Impression: Perforated abdominal viscus Additional Impression: Free intraperitoneal air ER Course I was called to the ICU to pronounce this patient. On ventilator. Patient made DNR. Patient expires last night at 2335. I assessed patient and patient is not breathing with dull pulse. Last Vital Signs Date Time Temp Pulse Resp B/P (MAP) Pulse Ox O2 Delivery O2 Flow Rate FiO2 07/09/19 23:30 52 14 07/09/19 23:01 100 07/09/19 20:00 Mechanical Ventilator Mechanical Ventilator 07/09/19 13:00 58 07/09/19 12:00 98.1 Status: worsened Disposition: Condition: Referrals: [facility] (PCP) Kleber Smith MD Jul 10, 2019 06:52
--- NOTE | 2019-07-11 13:15 | Discharge Summary ---
Discharge Summary Discharge Summary _ DATE OF ADMISSION: 07/01/2019 DATE OF DISCHARGE: 07/09/2019 REASON FOR ADMISSION: 78 years old female with medical history of pancreatic cancer, prior distal gastrectomy, gastrojejunostomy and Nolan-en-Y anastomosis, carcinomatosis, presented with left-sided abdominal pain for the past few days. Pain reported to 10 out of 10 , left-sided abdomen , nonradiating. Per patient , she was recently admitted to [facility] and had paracentesis. No fever or chills. No nausea or vomiting. No coughing. No urinary complaints. Upon evaluation vital signs were stable. Laboratory work-up revealed WBC 3.6, hemoglobin 10.2 ,hematocrit 29.4 platelet count 164. Stable electrolytes. BUN 26, creatinine 1.1. Glucose 95. Stable LFT and lipase. Lactic acid 1.9. EKG revealed sinus rhythm , no acute ischemic changes. CT scan of the abdomen and pelvis revealed small amount of free intraperitoneal air with gas , seen in the anterior midline peritoneal space as well as within the left upper quadrant mesentery, this finding was consistent with a perforated hollow viscus. Source of perforation was undetermined , although quite possible in the left upper quadrant and possibly related to stomach. Postsurgical changes noted with evidence of prior distal gastrectomy, gastrojejunostomy and likely Nolan-en-Y anastomosis Mild prominence and likely focal slight wall thickening of the proximal jejunum , possibly related to the above process or could represent primarily enteritis. Moderate ascites. Anasarca. Markedly fatty liver. Evidence of prior cholecystectomy. Patient remained hemodynamically stable. Surgeon urgently contacted , and patient admitted for further management. CONSULTANTS: tea plantation worker Dr. Kang pulmonary Dr. Munson ID specialist Dr. Osei resident services coordinator Dr. Junior supervisor boatbuilders wood/oncologist Dr. Mercado surgery [facility] COURSE: Patient admitted. Surgeon seen patient and recommended conservative management . Patient was kept n.p.o. IV fluids provided . Pain management was addressed . Supportive care provided. Echocardiogram demonstrated preserved ejection fraction of 60 to 65%. No evidence of wall motion abnormality. No evidence of left ventricular hypertrophy. Right ventricular systolic pressure of 23. Patient undergone later the same day ultrasound-guided paracentesis , which yielded 3 L of ascitic fluid. Venous duplex bilateral lower extremity revealed no evidence of acute DVT. Abdominal ultrasound demonstrated no acute findings. Marked fatty infiltration of liver noted. Hemoglobin and hematocrit were closely monitored with goal to keep hemoglobin above 7. Patient noted to be hypotensive. . Blood pressure initially responded to fluid bolus , but then trended down again. Patient started on blood transfusion and transferred to ICU for pressors. Central line was placed by ER physician. Hemodynamic status was closely monitored with goal to keep mean arterial blood pressure above 65. Shock was likely due to dehydration and anemia. Patient undergone transfusion of 2 units of packed red blood cell for hemoglobin 7. After transfusion hemoglobin and hematocrit remained stable at baseline. Hepatitis panel was negative. HIV test was nonreactive. Antibiotic continued as per ID specialist recommendation . Blood culture on 3 different occasions were negative. Urine culture was negative. Patient had leukocytosis starting on 07/07. No fever. Patient undergone another ultrasound-guided paracentesis , which yielded 3 L of ascitic fluid. Pathology of ascitic fluid was negative for malignant cells. Scattered reactive mesothelial cells in the background of mixed inflammatory infiltrate were noted. Hotel Manager /oncologist followed. Patient noted to have elevated tumor markers CA-19-9.39 and CEA 125 -199. Patient undergone subsequently another abdominal ultrasound which revealed ascites , echogenic atrophic liver , possibly indicative combination of fatty change and cirrhotic changes. No dilated bile ducts, unremarkable uterus. Neither ovary was visualized. Patient appeared to be in respiratory distress , which was getting progressively worse . Hemodynamic status remained unstable. Patient was on maximum dose of pressors. Patient also received IV fluid boluses and IV albumin as per resident services coordinator for blood pressure support. Patient subsequently required intubation on 07/08. Ventilator support and pulmonary toilet provided. Patient was followed-up with ABG and chest x-ray. Patient was continued on antibiotics . DVT prophylaxis provided. NG tube was kept to gravity drainage. Prognosis remained extremely poor. All doctors recommended to consider palliative care and ethics evaluation and continue ongoing discussion with family. Patient condition unfortunately further deteriorated. Patient remained hemodynamically unstable and required three pressors, which all were on maximum dose. CODE STATUS was changed on 07/08 to DNR/DNI. Patient condition rapidly deteriorated , and she was pronounced at 23:35 on . Cause of : cardiopulmonary arrest FINAL DIAGNOSES: Acute respiratory failure with hypoxemia , requiring intubation Lactic acid acidosis Septic shock Perforated abdominal viscus Carcinomatosis Pancreatic cancer Acute kidney injury Troponin leak due to demand ischemia Hypoalbuminemia Severe protein calorie malnutrition Anemia due to GI bleeding Dehydration I have been assigned to dictate discharge summary for this account. I was not involved in the patient's management. Rashida Snow NP Jul 11, 2019 13:15
--- NOTE | 2019-07-11 14:44 | NUR ---
*-* INSURANCE *-* DISCHARGE SUMMARY HAS BEEN FAXED TO: [employer] Ref# [id number] CM: Fanny # [phone] ext [phone] fax# [phone]
[2019-07-11 15:06] LABS: APTT 1:1 NORMAL PLASMA 31.4 sec (22.9-30.2); APTT 1:1NP MIX 60M INCUBATION 34.2 sec (22.9-30.2); APTT 1:1NP MIX CONTROL 33.9 sec (22.9-30.2)
== END 2019-07-09 | disposition expired | DRG 871 ==
LOC: EDBD 06:13 → EMR 06:27 → EDBEDREQ 09:59 → 3E 10:04 → 2W 07-02 12:30 → 3E 07-03 20:15 → ICU 07-04 06:19 → 2E 07-04 13:25 → UNDODISIN 07-05 16:25 → ICU 07-05 20:33
PROC: 0W9G3ZZ Drainage of Peritoneal Cavity, Percutaneous Approach (ICD-10-PCS; principal; 2019-07-01)
PROC: 0W9G3ZZ Drainage of Peritoneal Cavity, Percutaneous Approach (ICD-10-PCS; 2019-07-06)
PROC: 06HM33Z Insertion of Infusion Device into Right Femoral Vein, Percutaneous Approach (ICD-10-PCS; 2019-07-06)
PROC: 0BH17EZ Insertion of Endotracheal Airway into Trachea, Via Natural or Artificial Opening (ICD-10-PCS; 2019-07-09)
PROC: 5A1935Z Respiratory Ventilation, Less than 24 Consecutive Hours (ICD-10-PCS; 2019-07-09)
DX: A41.9 Sepsis, unspecified organism (principal); K63.1 Perforation of intestine (nontraumatic); R65.21 Severe sepsis with septic shock; J96.01 Acute respiratory failure with hypoxia; E43 Unspecified severe protein-calorie malnutrition; D65 Disseminated intravascular coagulation [defibrination syndrome]; R18.8 Other ascites; E87.0 Hyperosmolality and hypernatremia; N17.9 Acute kidney failure, unspecified; K92.2 Gastrointestinal hemorrhage, unspecified; E86.0 Dehydration; D50.0 Iron deficiency anemia secondary to blood loss (chronic); D69.6 Thrombocytopenia, unspecified; R13.10 Dysphagia, unspecified; Z93.1 Gastrostomy status; Z85.07 Personal history of malignant neoplasm of pancreas; Z68.27 Body mass index [BMI] 27.0-27.9, adult
CPT/HCPCS: 36415; 36600; 71045; 74018; 74176; 76700; 76857; 76942; 80053; 80061; 80076; 81001; 82105; 82150; 82248; 82378; 82550; 82607; 82728; 82746; 82803; 82962; 82977; 83036; 83540; 83550; 83605; 83690; 83735; 83880; 84100; 84439; 84443; 84484; 84550; 85007; 85025; 85610; 85651; 85730; 86140; 86300; 86304; 86703; 86705; 86709; 86803; 86850; 86900; 86901; 86920; 87040; 87081; 87086; 87340; 93005; 93306; 93970; 94002; 94660; 94664; 96365; 96372; 96375; 99291; J2370; J7030; J8499